=== PATIENT | female | born 1970 | race Caucasian/White ===

== ENCOUNTER 2020-07-12 03:30 | Observation (INO) | payer MEDICARE, SELFPAY ==
[2020-07-12] VITALS (15 sets, daily range): BP systolic 160–199; BP diastolic 69–116; PULSE 70–96; RESP 12–24; TEMP 36.6–36.8; O2SAT 95–100; BMI 36.1
--- NOTE | 2020-07-12 03:42 | XRR_ITS ---
PROCEDURE INFORMATION: Exam: XR Chest Exam date and time: 07/12/2020 4:00 AM Age: 50 years old Clinical indication: Shortness of breath; Patient HX: Increased SOB, fluid/weight gain TECHNIQUE: Imaging protocol: XR of the chest. Views: 1 view. COMPARISON: No relevant prior studies available. FINDINGS: Lungs: central pulmonary vasculature prominent and indistinct. Mild airspace consolidation within the lung bases left greater than right. Pleural spaces: Small subpulmonic effusions Heart/Mediastinum: cardiac silhouette enlarged. Bones/joints: Unremarkable. XR/XR chest 1V portable [id number] IMPRESSION: Mild edema with mild basilar consolidation and small subpulmonic effusions left greater than right.
[2020-07-12 03:51] LABS: Basophils # 0.1 10^3/uL (0.0-0.1); Basophils % 0.7 %; Eosinophils # 0.4 10^3/uL (0.0-0.8); Eosinophils % 4.7 %; Hematocrit 37.1 % (37.0-47.0); Hemoglobin 11.7 g/dL (11.5-15.3); Lymphocytes # 2.2 10^3/uL (0.8-4.8); Lymphocytes % 25.7 %; Mean Corpuscular HGB Conc 31.5 g/dL (30.0-36.0); Mean Corpuscular Hemoglobin 28.5 pg (28.0-34.0); Mean Corpuscular Volume 90.5 fL (81-99); Mean Platelet Volume 10.1 fL (7.4-10.4); Monocytes # 0.4 10^3/uL (0.2-0.9); Monocytes % 4.7 %; Neutrophils # 5.43 10^3/uL (1.8-7.7); Neutrophils % 63.8 %; Nucleated Red Blood Cells % 0 %; Platelet Count 176 10^3/cmm (130-400); Red Cell Distribution Width 14.1 % (12.1-15.1); White Blood Count 8.5 10^3/uL (4.0-10.0)
[2020-07-12 04:08] LABS: Troponin(5th) Baseline 50 ng/L (0-10)
[2020-07-12 04:08] LABS: Lactate (Lactic Acid level) 0.8 mmol/L (0.5-2.2)
[2020-07-12 04:17] LABS: Alanine Aminotransferase 22 U/L (0-33); Albumin Level 4.5 g/dL (3.5-5.2); Alkaline Phosphatase 150 IU/L (35-105); Anion Gap 22.4 (5-19); Aspartate Amino Transferase 17 U/L (0-32); Blood Urea Nitrogen 71 mg/dL (6-20); C Reactive Protein 2.7 mg/L (0.0-4.9); Calcium 8.7 mg/dL (8.5-10.5); Carbon Dioxide 23 mmol/L (22-29); Chloride 92 mmol/L (98-107); Globulin 2.5 g/dL (1.3-4.6); Glomerular Filtration Rate 5.4 mL/min (90-130); Glucose 373 mg/dL (65-115); Magnesium 2.4 mg/dL (1.7-2.3); NT Pro B Type Natriuretic Pept 23105 pg/mL (0-125); Osmolality Calculated 310 mOsm/kg (285-295); Potassium 5.4 mmol/L (3.5-5.1); Sodium 132 mmol/L (136-145); Total Bilirubin 0.3 mg/dL (0.15-1.2)
[2020-07-12 04:36] LABS: ABG PCO2 36.8 mmHg (35-45); ABG PH Result 7.38 (7.35-7.45); Arterial Blood Gas Hematocrit 36.9 % (37-47); Base Excess ABG -2.9 mmol/L (-2.0-2.0); Blood Gas Allen Test Pos; Blood Gas Sample Site Brachial, right; Blood Gas Sample Type Arterial; HCO3 ABG 21.8 mmol/L (22-26); Oxygen Device BIPAP
[2020-07-12] MEDS: labetalol 5 mg/mL SDV 20mL 20 MG IVP (04:55)
[2020-07-12] MEDS: nitroglycerin 1 gm/inch oint Pkt 2 INCH TOPICAL (04:55)
[2020-07-12 05:35] LABS: Troponin 5 2HR 68.11 ng/L (0-10)
[2020-07-12 05:37] LABS: Troponin 5 2HR Delta 18.11 ABS# (0-10)
--- NOTE | 2020-07-12 05:43 | ECG_ITS ---
[facility] Test Date: 2020-07-12 Pat Name: Kristan Reddy Department: Room: 111 Gender: Female Revenue Cycle Consultant: : 1970 Requested By: Anthony Holbrook Order Number: [id number] Stepan MD: Yahaira Contreras M.D. Measurements Intervals [place] Rate: 69 P: 29 GA: 160 QRS: 43 QRSD: 91 T: 117 QT: 416 QTc: 448 Interpretive Statements SINUS RHYTHM NONSPECIFIC T-WAVE ABNORMALITY Compared to ECG 07/12/2020 03:55:39 Possible ischemia no longer present T-wave abnormality still present Electronically Signed On 07-13-2020 17:41:47 CDT by Yahaira Contreras M.D. [id number]
--- NOTE | 2020-07-12 05:53 | P.HP_ITS ---
Providers/Chief Complaint Chief Complaint: diff breathing History of Present Illness Kristan Reddy is a 50 year old female with history of end-stage renal disease (Sunday left arm fistula), hypertension, type 2 diabetes, coronary disease status post 2 stents, visiting her family here in [place], originally from [place] presented today with chief complaint of acute shortness of breath. She gets dialyzed at [facility] on Sunday, Sunday & Sunday, she did not miss any dialysis sessions, she was in her usual state of health until 10 PM last night when she started having severe shortness of breath at rest, she did not experience any fever, productive cough, nausea, vomiting, syncopal events. Her shortness of breath was acute in onset, associated with pleuritic chest pain which was getting worse on deep breathing, she is describing her chest pain as pressure-like sensation, intermittent, nonradiating, left-sided, nonreproducible. She does not use any oxygen at home no CPAP, no previous history of sleep apnea. Diagnostics in the ER revealed hypertensive urgency, 200/100 mmHg for which she required labetalol, Nitropaste, no active chest pain, on arrival she was hypoxic and tachycardic heart rate in 120s, both improved after use of BiPAP, chest x-ra y consistent with fluid overload, patient stating she was tested twice for Covid 19 last week which was negative. Her ABG was obtained on BiPAP which revealed normal pH with hyperoxemia, BiPAP settings 16/8 FiO2 40%, she was able to mention above HPI, EKG showing sinus rhythm normal QTC Review of Systems Const: Denies: fever(s) Eyes: Denies: change in vision ENMT: Denies: throat pain Card: Reports: chest pain, swelling of feet/ankles, dyspnea on exertion and orthopnea Resp: Reports: dyspnea and pain on inspiration; Denies: non-productive cough GI: Denies: abdominal pain : Denies: flank pain Musc: Denies: neck pain Skin/Breast: Denies: rash Neuro: Denies: headache(s) Psych: Reports: anxiety Endo: Denies: polyuria Jacek/Lymph: Denies: easy bruising All/Imm: Denies: urticaria Medications/Allergies Allergies Allergy/AdvReac Type Severity Reaction Status Date / Time morphine Allergy ADR-Itching Verified 07/12/20 03:41 Penicillins Allergy ALGY-Anaphy Verified 07/12/20 03:41 laxis PFSH Acute PFSH: Medical History AV fistula CAD (coronary artery disease) s/p 2 stents Diabetes ESRD (end stage renal disease) HTN (hypertension) Ventral hernia, recurrent Surgical History H/O hernia repair 12 surgeries History of hysterectomy Tubal ligation status Family History Other CAD (coronary artery disease) Chronic kidney disease (CKD) Diabetes Hypertension Social History Smoking and tobacco status: former smoker Alcohol intake: never Substance/Drug Use: never Household members: family Housing: House Vitals/I&O/Wt Last Vital Signs Temp 97.9 F 07/12/20 03:30 Pulse 84 07/12/20 03:47 Resp 22 H 07/12/20 03:47 BP 190/102 07/12/20 03:47 Pulse Ox 99 07/12/20 03:47 Weight last 48 hrs Weight 75.75 kg Physical Exam Narrative: EXAM NARRATIVE: Morbidly obese female, was on BiPAP when I entered the room She was able to mention above HPI Awake alert oriented x3, appears stated age, signs of active fluid overload No active cyanosis BiPAP settings 16/8 FiO2 40% Blood pressure 190/102mmhg She has Nitropaste Left arm fistula with no bruit S1, S2 sinus rhythm no murmur appreciated Abdomen is soft nontender however ventral hernia without active signs of p eritonitis Lower extremity 1+ pitting edema bilaterally Bilateral breath sounds, with crackles and rhonchi Appropriate mood and affect EOMI, PERRLA no neurological deficit Data : 07/12/20 03:20 07/12/20 03:20 A&P Assessment and plan (1) Acute respiratory failure with hypoxia: Status: Acute (2) Fluid overload: Status: Acute (3) ESRD (end stage renal disease): Status: Acute (4) Obesity (BMI 30-39.9): Status: Acute (5) Hypertensive emergency: Status: Acute Additional A&P Information Acute hypoxic respiratory failure Acute shortness of breath secondary to fluid overload Patient complaint of left-sided pleuritic chest pain as well EKG without ischemic or infarctive changes, currently chest pain-free, hypertensive, signs of fluid overload on chest x-ray, pulmonary edema We will request serial troponin and EKGs I do believe her primary edema is secondary to hypertensive emergency, she did not miss any dialysis sessions I would start her on Cardene drip, at home she takes 5 antihypertensive agents including clonidine Check D-dimer to rule out PE Her Covid test was negative twice in last week Currently doing well on BiPAP, her work of breathing has decreased significantly End-stage renal disease Telemetry nephro consulted Sunday, Sunday and Sunday hemodialysis sessions Potassium 5.4, phosphorus 8 Clinical signs of fluid overload Pleuritic chest pain Currently chest pain-free History of coronary disease status post 2 stents in the past EKG without ischemic or infarctive changes Follow-up with serial troponin and EKGs Rule out PE Morbid obesity Does not use CPAP or oxygen at night Might benefit from sleep study in [place] Type 2 diabetes: We will keep her on consistent carb renal dialysis diet with moderate sliding scale Full code goals of care discussed with the patient and the daughter, her daughter is her DPOA Consistent carb renal dialysis diet DVT prophylaxis Heparin Attestations Medical Necessity Statement*: Anticipating discharge in less than 48 hours currently on BiPAP for shortness of breath, will need dialysis today Time Spent in Patient Care: (>than 50% of time spent in counselling and/or direct pt care on unit) . 40mins Coding Level of Care Code Acute Mine Supervisor for Kuldip Velarde Diagnoses Acute respiratory failure with hypoxia J96.01 Fluid overload E87.70 ESRD (end stage renal disease) N18.6 Obesity (BMI 30-39.9) E66.9 Hypertensive emergency I16.1
--- NOTE | 2020-07-12 06:02 | ED_ITS ---
HPI - SOB/Dyspnea General: Chief Complaint: Shortness of Breath/Dyspnea Stated Complaint: diff breathing Time Seen by Provider: 07/12/20 03:38 History of Present Illness: HPI Narrative: 50-year-old lady with end-stage renal disease on dialysis. Her dialysis days Sunday. She awoke suddenly this morning incredibly short of breath. On EMS arrival, her sats were in the mid 70s on pulse ox. She was placed on BiPAP. She presents here improved, but still short of breath. She notes she has gained some water weight over the weekend. Her blood pressure has been high as well. She complains of some left-sided chest discomfort. MD elicited complaint: shortness of breath and chest pain Pertinent past history: congestive heart failure and other (End-stage renal disease) Onset (ago): minute(s) Timing: constant and progressively worsening Severity: severe Exacerbating factors: lying flat, exertion and movement Relieving factors: oxygen Known history of: congestive heart failure and other Associated symptoms: Reports chest pain, cough and nausea; Deny abdominal pain, dizziness, extremity pain, fever(s), rash or vomiting Treatment prior to arrival: oxygen (BiPAP), bronchodilator and nitroglycerin Review of Systems Const: Denies: fever(s) Eyes: Denies: change in vision ENMT: Denies: odynophagia or sinus pain Card: Reports: chest pain Resp: Reports: dyspnea and non-productive cough; Denies: productive cough or wheezing GI: Reports: nausea; Denies: abdominal pain or vomiting : Denies: dysuria or hematuria Musc: Denies: extremity pain Skin/Breast: Denies: rash or erythema Neuro: Denies: headache(s), dizziness or vertigo Psych: Denies: anxiety Physical Exam Const: GENERAL APPEARANCE: cooperative, ill appearing and frail appearing ORIENTATION/CONSCIOUSNESS: Yes oriented to person, Yes oriented to place and Yes oriented to time HENMT: COMMON NORMALS: normocephalic, external ears normal and Normal external nose present HEAD & SCALP: normocephalic FACE & SINUS: normal facial exam NOSE: Normal external nose present EXTERNAL EAR: Yes external ears normal MOUTH: tongue normal Eye: COMMON NORMALS: Equal, round and reactive pupils present, EOMs intact bilaterally and conjunctivae normal EYELID: eyelids normal CONJUNCTIVA: Yes conjunctivae normal PUPIL: Yes Equal, round and reactive pupils present Neck/C-Spine: GENERAL: No tracheal deviation Chest: COMMONS NORMALS: normal inspection of the chest CHEST: No tenderness Resp: COMMON NORMALS: clear to auscultation bilaterally EFFORT & INSPECTION: Yes tachypneic, Yes respiratory distress, Yes retractions, Yes uses accessory muscles and No tracheal deviation AUSCULTATION: clear to auscultation bilaterally, rales, no rhonchi, wheezes and diminished lung sounds Cardio: COMMON NORMALS: regular rhythm RATE: tachycardic RHYTHM: regular rhythm HEART SOUNDS: no murmurs PERIPHERAL PULSES: radial pulses present GI: INSPECTION: No abdominal distension AUSCULTATION: No Hyperactive bowel sounds present and No Hypoactive bowel sounds present PALPATION: No Guarding due to palpation present (GI) and No Rigid due to palpation PERCUSSION: no dullness to percussion and no tympanic to percussion Neuro: SENSORIUM/ORIENTATION: Yes oriented to person, Yes oriented to place and Yes oriented to time Psych: COMMON NORMALS: mental status grossly normal Skin: COMMON NORMALS: no rashes or lesions noted GENERAL SKIN EXAM: no rashes or lesions noted Course Consultations: Consultation #1: dona Vital Signs: Vital signs: Vital Signs Temperature 97.9 F 07/12/20 03:30 Pulse Rate 84 07/12/20 03:47 Respiratory Rate 22 H 07/12/20 03:47 Blood Pressure 190/102 07/12/20 03:47 Pulse Oximetry 99 07/12/20 03:47 MDM - SOB/Dyspnea MDM Narrative: Medical decision making narrative: Creatinine is 7.9. BUN is 71. Potassium is 5.4 chest x-rays shows pulmonary edema she is oxygenating well on the BiPAP. 2 inches of nitroglycerin paste placed on her chest, with reduction of her blood pressure from over 200 systolic to down to 166 systolic. Heart rate down in the 60s from 100s. This is after labetalol. She will be admitted for hypoxic respiratory failure, pulmonary edema, end-stage renal disease. Lab Data: Labs: Lab Results 07/12/20 07/12/20 07/12/20 Range/Units 03:20 03:20 03:20 WBC 8.5 (4.0-10.0) 10^3/ uL RBC 4.10 (4.1-5.3) 10^6/u L Hgb 11.7 (11.5-15.3) g/dL Hct 37.1 (37.0-47.0) % MCV 90.5 (81-99) fL MCH 28.5 (28.0-34.0) pg MCHC 31.5 (30.0-36.0) g/dL RDW 14.1 (12.1-15.1) % Plt Count 176 (130-400) 10^3/c mm MPV 10.1 (7.4-10.4) fL Neut % (Auto) 63.8 % Lymph % (Auto) 25.7 % Rock % (Auto) 4.7 % Eos % (Auto) 4.7 % Baso % (Auto) 0.7 % Neut # (Auto) 5.43 (1.8-7.7) 10^3/u L Lymph # (Auto) 2.2 (0.8-4.8) 10^3/u L Rock # (Auto) 0.4 (0.2-0.9) 10^3/u L Eos # (Auto) 0.4 (0.0-0.8) 10^3/u L Baso # (Auto) 0.1 (0.0-0.1) 10^3/u L Nucleated RBC % (a uto) 0 % Nucleated RBCs # 0.0 /100WBC Specimen Type Sample Site ABG pH (7.35-7.45) ABG pCO2 (35-45) mmHg ABG pO2 (80.0-100.0) mmH g ABG HCO3 (22-26) mmol/L ABG Base Excess (-2.0-2.0) mmol/ L Henrry Test Hematocrit (37-47) % O2 Delivery Device FiO2 % Emissions Testing Technician ID Sodium 132 L (136-145) mmol/L Potassium 5.4 H (3.5-5.1) mmol/L Chloride 92 L (98-107) mmol/L Carbon Dioxide 23 (22-29) mmol/L Anion Gap 22.4 H (5-19) BUN 71 H (6-20) mg/dL Creatinine 7.9 H* (0.5-0.9) mg/dL GFR Calculation 5.4 L (90-130) mL/min Glucose 373 H (65-115) mg/dL Calculated Osmolal ity 310 H (285-295) mOsm/k g Lactate (0.5-2.2) mmol/L Calcium 8.7 (8.5-10.5) mg/dL Phosphorus 8.0 H* (2.5-4.5) mg/dL Magnesium 2.4 H (1.7-2.3) mg/dL Total Bilirubin 0.3 (0.15-1.2) mg/dL AST 17 (0-32) U/L ALT 22 (0-33) U/L Alkaline Phosphata se 150 H (35-105) IU/L Troponin T Baselin e 50 H (0-10) ng/L Troponin T 120 Min elim ira (0-10) ng/L Delta Troponin T (0-10) ABS# C-Reactive Protein 2.7 (0.0-4.9) mg/L NT-Pro-B Natriuret Pep 25651 H (0-125) pg/mL Total Protein 7.0 (6.6-8.7) g/dL Albumin 4.5 (3.5-5.2) g/dL Globulin 2.5 (1.3-4.6) g/dL 07/12/20 07/12/20 07/12/20 Range/Units 03:27 03:35 05:10 WBC (4.0-10.0) 10^3/ uL RBC (4.1-5.3) 10^6/u L Hgb (11.5-15.3) g/dL Hct (37.0-47.0) % MCV (81-99) fL MCH (28.0-34.0) pg MCHC (30.0-36.0) g/dL RDW (12.1-15.1) % Plt Count (130-400) 10^3/c mm MPV (7.4-10.4) fL Neut % (Auto) % Lymph % (Auto) % Rock % (Auto) % Eos % (Auto) % Baso % (Auto) % Neut # (Auto) (1.8-7.7) 10^3/u L Lymph # (Auto) (0.8-4.8) 10^3/u L Rock # (Auto) (0.2-0.9) 10^3/u L Eos # (Auto) (0.0-0.8) 10^3/u L Baso # (Auto) (0.0-0.1) 10^3/u L Nucleated RBC % (a uto) % Nucleated RBCs # /100WBC Specimen Type Arterial Sample Site Brachial, right ABG pH 7.38 (7.35-7.45) ABG pCO2 36.8 (35-45) mmHg ABG pO2 158.0 H (80.0-100.0) mmH g ABG HCO3 21.8 L (22-26) mmol/L ABG Base Excess -2.9 L (-2.0-2.0) mmol/ L Henrry Test Pos Hematocrit 36.9 L (37-47) % O2 Delivery Device Bipap FiO2 40.0 % Emissions Testing Technician ID jmn Sodium (136-145) mmol/L Potassium (3.5-5.1) mmol/L Chloride (98-107) mmol/L Carbon Dioxide (22-29) mmol/L Anion Gap (5-19) BUN (6-20) mg/dL Creatinine (0.5-0.9) mg/dL GFR Calculation (90-130) mL/min Glucose (65-115) mg/dL Calculated Osmolal ity (285-295) mOsm/k g Lactate 0.8 (0.5-2.2) mmol/L Calcium (8.5-10.5) mg/dL Phosphorus (2.5-4.5) mg/dL Magnesium (1.7-2.3) mg/dL Total Bilirubin (0.15-1.2) mg/dL AST (0-32) U/L ALT (0-33) U/L Alkaline Phosphata se (35-105) IU/L Troponin T Baselin e (0-10) ng/L Troponin T 120 Min elim ira 68.11 H (0-10) ng/L Delta Troponin T 18.11 H* (0-10) ABS# C-Reactive Protein (0.0-4.9) mg/L NT-Pro-B Natriuret Pep (0-125) pg/mL Total Protein (6.6-8.7) g/dL Albumin (3.5-5.2) g/dL Globulin (1.3-4.6) g/dL Coding Level of Care Code ED Sr. Logistics Analyst for Kuldip Velarde
[2020-07-12 07:16] LABS: D Dimer 1.49 ug/mIFEU (0-0.59)
--- NOTE | 2020-07-12 08:15 | PC.NURSE ---
Pt transferred from ED to room 111-1. Pt A&O x4, Resp even and non-labored no distress noted. Pt had no c/o pain or discomfort at the present time. No needs voiced. Call light in reach. Will cont to monitor.
[2020-07-12 09:13] LABS: Estmated Average Glucose 229; Hemoglobin A1C 9.6 % (4.0-6.0)
[2020-07-12 09:23] LABS: Hepatitis B Surface Antigen Non-Reactive (Nonreactive); Hepatitis C Virus Antibody Non-Reactive (Nonreactive)
[2020-07-12 09:38] LABS: Troponin 5 6HR 67.43 ng/L (0-10)
[2020-07-12] MEDS: losartan 50 mg Tablet 100 MG PO (09:43)
--- NOTE | 2020-07-12 09:43 | ECG_ITS ---
[facility] Test Date: 2020-07-12 Pat Name: Kristan Reddy Department: Room: Gender: Female Tarper: : 1970 Requested By: Anthony Holbrook Order Number: [id number] Stepan MD: Yahaira Contreras M.D. Measurements Intervals [place] Rate: 78 P: 19 WA: 146 QRS: 44 QRSD: 99 T: 112 QT: 366 QTc: 419 Interpretive Statements SINUS RHYTHM LOW QRS VOLTAGE IN PRECORDIAL LEADS [QRS DEFLECTION < 1.0 mV IN CHEST LEADS] MODERATE T-WAVE ABNORMALITY, CONSIDER LATERAL ISCHEMIA [-0.1+ mV T WAVE IN I/aVL/V5/V6] No previous ECG available for comparison Electronically Signed On 07-13-2020 17:42:30 CDT by Yahaira Contreras M.D. [id number]
[2020-07-12] MEDS: FUROsemide 40 mg Tablet 80 MG PO (09:44)
[2020-07-12] MEDS: clopidogrel 75 mg Tablet PO (09:44)
[2020-07-12] MEDS: carvedilol 12.5 mg Tablet PO (09:44)
[2020-07-12] MEDS: amlodipine 10 mg Tablet PO (09:44)
[2020-07-12] MEDS: isosorbide mononitrate ER 60 mg Tablet PO (09:44)
[2020-07-12] MEDS: heparin 5,000 unit/mL INJ 1 mL 5000 UNIT SUBCUT ×2 (09:45→17:09)
[2020-07-12 09:59] LABS: Troponin 5 6HR Delta 17.43 ng/L (0-12)
[2020-07-12 10:00] LABS: Glucose Point of Care 428 mg/dL (70-110)
[2020-07-12 10:00] LABS: Glucose Point of Care 505 mg/dL (70-110)
[2020-07-12] MEDS: heparin, porcine 1,000 unit/mL INJ 10 mL HE (10:03)
--- NOTE | 2020-07-12 12:52 | PM.CONSULT ---
Providers/Reason For Consult Consulting Physican/Specialty*: Ana Hernandez DO, telenephrology Reason for Consult*: ESRD Attending Physician: Yana Falcon MD History of Present Illness History of Present Illness Kristan Reddy is a 50 year old [place] developed acute shortness of breath last evening. ESRD, on HD x 6 years, dialyzes MWF. Reports excess salt and fluid intake over weekend. Reports CAD with stent placement in February. Review of Systems Card: Denies: chest pain Resp: Reports: dyspnea Meds/Allergies Home Medications and Allergies Home Medications Medication Instructions Recorded Confirmed Last Taken Type alprazolam [Xanax] 0.25 mg PO BID 07/12/20 07/12/20 07/11/20 22:00 History amlodipine 10 mg PO DAILY 07/12/20 07/12/20 07/11/20 09:00 History carvedilol [Coreg] 12.5 mg PO BID 07/12/20 07/12/20 07/11/20 22:00 History clonidine HCl 0.1 mg PO BID PRN 07/12/20 07/12/20 07/11/20 22:00 History clopidogrel 75 mg PO DAILY 07/12/20 07/12/20 07/11/20 09:00 History furosemide 80 mg PO DAILY 07/12/20 07/12/20 07/11/20 09:00 History insulin detemir U-100 [Levemir 60 unit SUBCUT BID 07/12/20 07/12/20 07/09/20 19:00 History FlexTouch U-100 Insuln] isosorbide mononitrate 20 mg PO DAILY 07/12/20 07/12/20 07/11/20 09:00 History losartan [Cozaar] 100 mg PO DAILY 07/12/20 07/12/20 07/11/20 09:00 History sevelamer carbonate 800 mg PO TIDWM 07/12/20 07/12/20 07/12/20 08:00 History Allergies Allergy/AdvReac Type Severity Reaction Status Date / Time morphine Allergy ADR-Itching Verified 07/12/20 03:41 Penicillins Allergy ALGY-Anaphy Verified 07/12/20 03:41 laxis Current Medications Current Medications Generic Name Dose Route Start Last Admin Trade Name Freq PRN Reason Stop Dose Admin Amlodipine Besylate 10 mg 07/12/20 09:00 07/12/20 09:44 Amlodipine 10 Mg Tablet PO 10 mg DAILY J LUIS Administration Carvedilol 12.5 mg 07/12/20 09:00 07/12/20 09:44 Carvedilol 12.5 Mg Tablet PO 12.5 mg BID@0900,2100 J LUIS Administration Clopidogrel Bisulfate 75 mg 07/12/20 09:00 07/12/20 09:44 Clopidogrel 75 Mg Tablet PO 75 mg DAILY J LUIS Administration Furosemide 80 mg 07/12/20 08:00 07/12/20 09:44 Furosemide 40 Mg Tablet PO 80 mg DAILY@0800 J LUIS Administration Heparin Sodium (Beef Lung) 5,000 unit 07/12/20 09:00 07/12/20 09:45 Heparin 5,000 Unit/Ml Inj 1 Ml SUBCUT 5,000 unit Q8H J LUIS Administration Insulin Aspart 0 unit 07/12/20 08:00 07/12/20 09:58 Insulin Aspart 100 Unit/1 Ml SUBCUT 16 unit WM&BEDTIME J LUIS Administration Protocol Isosorbide Mononitrate 60 mg 07/12/20 09:00 07/12/20 09:44 Isosorbide Mononitrate Er 60 Mg Tablet PO 60 mg DAILY J LUIS Administration Losartan Potassium 100 mg 07/12/20 09:00 07/12/20 09:43 Losartan 50 Mg Tablet PO 100 mg DAILY J LUIS Administration PFSH Acute PFSH: Medical History AV fistula CAD (coronary artery disease) s/p 2 stents Diabetes ESRD (end stage renal disease) HTN (hypertension) Ventral hernia, recurrent Surgical History H/O hernia repair 12 surgeries History of hysterectomy Tubal ligation status Family History Other CAD (coronary artery disease) Chronic kidney disease (CKD) Diabetes Hypertension Social History Smoking and tobacco status: former smoker Alcohol intake: never Substance/Drug Use: never Household members: family Housing: House Vitals/I&O/Wt Last Vital Signs Temp 97.9 F 07/12/20 03:30 Pulse 75 07/12/20 07:42 Resp 24 H 05/10/21 07:18 BP 160/69 07/12/20 09:43 Pulse Ox 97 07/12/20 07:42 Weight last 48 hrs Weight 75.75 kg Physical Exam Const: COMMON NORMALS: no acute distress GENERAL APPEARANCE: cooperative ORIENTATION/CONSCIOUSNESS: Yes awake Extremity: GENERAL: Yes edema (1+ bilateral) OTHER: LUE AVF Data Imaging^: CXR: Radiologist's impression: Mild edema with mild basilar consolidation and small subpulmonic effusions left greater than right. A&P Additional A&P Information 1. ESRD 2. Pulmonary edema 3. Severe hypertension 4. Mild hypervolemic hyponatremia 5. Mild hyperkalemia Recommend: HD today, 2K, 3 L UF. No BPs, blood draws, IVs left arm. Continue outpatient hypertension medications, carvedilol can be increased to 25 mg BID. Restrict sodium and fluids. Low K diet. Will assess again tomorrow if extra HD session is neded. Consult Attestations Medical Necessity Statement: see above Time Spent in Patient Care: 16 - 35 minutes Coding Level of Care Code Acute Numerical Control Machine Operator for Kuldip Fwd Exam Expanded Problem Focused
[2020-07-12 16:59] LABS: Glucose Point of Care 296 mg/dL (70-110)
[2020-07-12] MEDS: cloNIDine 0.1 mg Tablet PO ×2 (17:11→23:07)
--- NOTE | 2020-07-12 17:29 | PM.PN ---
Subjective Subjective: Interval history: Chart reviewed. Reports breathing much better today. She does admit to having increased salt intake while she has been here. Her blood pressures are usually high but not as high as they have been this time. Did get dialysis today. Overall improved. Denies current pleuritic chest pain. Reports her dry weight is 78 kg. Medications: Reviewed: Yes Vitals/I&O/Wt Last Vital Signs Temp 97.8 F 07/12/20 16:00 Pulse 70 07/12/20 16:00 Resp 20 H 07/12/20 16:00 BP 197/84 07/12/20 17:11 Pulse Ox 100 07/12/20 16:00 Weight last 48 hrs Weight 75.75 kg Physical Exam Narrative: EXAM NARRATIVE: Constitutional: Awake and alert HEENT: Mucous membranes moist Respiratory: Decreased breath sounds at bases Cardiovascular: Regular rhythm, JVD to around 9 cm Abdomen: Soft, nontender Extremities: Right upper extremity is edematous from shoulder to hand compared to the left, positive thrill in the left upper extremity AV fistula, 2+ pitting edema lower extremities Neuro: Moves all extremities, speech clear Other: No acute rashes Data : 07/12/20 03:20 07/12/20 03:20 A&P Assessment and plan (1) Acute respiratory failure with hypoxia: Status: Acute (2) Fluid overload: Status: Acute Qualifiers: Hypervolemia type: other Qualified Code(s): E87.79 - Other fluid overload (3) Hypertensive emergency: Status: Acute (4) Pleuritic chest pain: Status: Acute (5) ESRD (end stage renal disease): Status: Chronic (6) CAD (coronary artery disease): Status: Chronic Qualifiers: Coronary Disease-Associated Artery/Lesion type: bypass graft [place] vs. transplanted heart: hughes heart Associated angina: without angina Qualified Code(s): I25.810 - Atherosclerosis of coronary artery bypass graft(s) without angina pectoris (7) Diabetes: Status: Chronic Qualifiers: Diabetes mellitus type: type 2 Diabetes mellitus senior living insulin use: without senior living use Diabetes mellitus complication status: with kidney complications Diabetes mellitus complication detail: with chronic kidney disease Chronic kidney disease stage: on chronic dialysis Qualified Code(s): E11.22 - Type 2 diabetes mellitus with diabetic chronic kidney disease; N18.6 - End stage renal disease; Z99.2 - Dependence on renal dialysis Additional A&P Information Elevated D-dimer Right upper extremity edema Check right upper extremity venous duplex On subcu heparin Continue diuresis, BiPAP as needed Room air ABG Check echocardiogram limited to evaluate right ventricular pressures in the setting of the elevated D-dimer Resume alprazolam Carvedilol dosing increased Primary agriculture professor in [place] recently adjusted beta-blockade coverage and added clonidine per patient Greatly appreciate nephrology assistance in case Sliding scale insulin DVT prophylaxis: Heparin Plans, findings and concerns discussed with patient in the presence of her family and they were given an opportunity to ask questions Anticipated Disposition: Home with family Code Status: Full code Attestations Medical Necessity Statement*: Patient requires ongoing inpatient stay for continued management as described above for hypertensive urgency and other diagnoses mentioned. Adjusting blood pressure medications, status post diuresis, evaluating further upper extremity edema and elevated D-dimer Coding Level of Care Code Acute Stucco Mason for Chg Fwd Diagnoses Acute respiratory failure with hypoxia J96.01 Fluid overload E87.79 Hypervolemia type: other Hypertensive emergency I16.1 Pleuritic chest pain R07.81 ESRD (end stage renal disease) N18.6 CAD (coronary artery disease) I25.810 Coronary Disease-Associated Artery/Lesion type: bypass graft [place] vs. transplanted heart: hug[place] heart Associated angina: without angina Diabetes E11.22; N18.6; Z99.2 Diabetes mellitus type: type 2 Diabetes mellitus senior living insulin use: without tank terminal gauger use Diabetes mellitus complication status: with kidney complications Diabetes mellitus complication detail: with chronic kidney disease Chronic kidney disease stage: on chronic dialysis
[2020-07-12] MEDS: sevelamer 800 mg Tablet PO (17:39)
[2020-07-12] MEDS: acetaminophen 325 mg Tablet 650 MG PO (17:40)
[2020-07-12] MEDS: ALPRAZolam 0.25 mg Tablet PO (17:41)
[2020-07-12 20:16] LABS: Glucose Point of Care 317 mg/dL (70-110)
[2020-07-12] MEDS: insulin glargine 100 units/1 mL 40 UNIT SUBCUT (20:41)
[2020-07-12] MEDS: carvedilol 12.5 mg Tablet 25 MG PO (20:42)
[2020-07-13] VITALS (9 sets, daily range): BP systolic 113–192; BP diastolic 52–93; PULSE 71–77; RESP 13–24; TEMP 36.6–37; O2SAT 96–100
[2020-07-13] MEDS: heparin 5,000 unit/mL INJ 1 mL 5000 UNIT SUBCUT ×2 (01:23→10:30)
[2020-07-13] MEDS: cloNIDine 0.1 mg Tablet PO (02:18)
--- NOTE | 2020-07-13 02:35 | PC.NURSE ---
NURSING NOTE: NOTIFIED DR. QUICK OF PT'S ELEVATED BP. RECEIVED ORDERS TO GIVE EXTRA CLONIPIN NOW.
--- NOTE | 2020-07-13 05:00 | USCV_ITS ---
Kristan Reddy Age: 50 Gender: F : 1970 Exam Date: 07/13/2020 06:12 Ordering Phys: Yana Falcon MD Technologist: Mckayla Miranda Exam Location: [facility]_ Indication: RUE SWELLING HISTORY: Upper extremity swelling. PROCEDURES: Venous duplex imaging was performed in bilateral upper extremities. Venous duplex imaging was performed in only the right upper extremity. The following venous structures were evaluated: internal jugular vein, subclavian vein, axillary vein, and brachial veins. In addition, the basilic vein, cephalic vein, radial vein, and ulnar vein. Serial compression, augmentation maneuvers, and spectral Doppler flow evaluation were performed. FINDINGS: The veins of the right upper extremity are readily compressible with normal venous flow dynamics including spontaneous flow, respiratory phasic variation and augmentation. CONCLUSIONS No right upper extremity DVT. Dr. Kavya Engle DO (Electronically Signed) Final Date: 13 Jul 2020 08:11 Amended: 14 Jul 2020 13:22 C
[2020-07-13 05:07] LABS: Anion Gap 18.8 (5-19); Blood Urea Nitrogen 51 mg/dL (6-20); Calcium 9.1 mg/dL (8.5-10.5); Carbon Dioxide 25 mmol/L (22-29); Chloride 95 mmol/L (98-107); Glomerular Filtration Rate 6.3 mL/min (90-130); Glucose 106 mg/dL (65-115); Osmolality Calculated 290 mOsm/kg (285-295); Potassium 5.8 mmol/L (3.5-5.1); Sodium 133 mmol/L (136-145)
--- NOTE | 2020-07-13 05:57 | PC.RESP ---
Pt states that she does not want to be stuck for any type of blood draw at this time. Pt also refused to wear the bipap machine last night. This RT will pass this along during report at shift change.
[2020-07-13 06:55] LABS: Glucose Point of Care 109 mg/dL (70-110)
[2020-07-13] MEDS: losartan 50 mg Tablet 100 MG PO (10:30)
[2020-07-13] MEDS: isosorbide mononitrate ER 60 mg Tablet PO (10:34)
[2020-07-13] MEDS: amlodipine 10 mg Tablet PO (10:34)
[2020-07-13] MEDS: clopidogrel 75 mg Tablet PO (10:35)
[2020-07-13] MEDS: FUROsemide 40 mg Tablet 80 MG PO (10:35)
[2020-07-13] MEDS: sevelamer 800 mg Tablet PO ×2 (10:36→12:14)
[2020-07-13] MEDS: carvedilol 12.5 mg Tablet 25 MG PO (10:36)
[2020-07-13 11:44] LABS: Glucose Point of Care 212 mg/dL (70-110)
--- NOTE | 2020-07-13 12:28 | PM.DCS ---
Discharge Providers Date of Admission: 07/12/20 06:01 Date of Discharge: July 13, 2020 Attending Provider at Admission: Daniel Hughes MD Attending Provider at Discharge: Yana Falcon MD Consults: Nephrology Diagnoses at Discharge Discharge Diagnosis (1) Acute respiratory failure with hypoxia: Status: Resolved (2) Fluid overload: Status: Resolved Qualifiers: Hypervolemia type: other Qualified Code(s): E87.79 - Other fluid overload (3) Hypertensive emergency: Status: Resolved (4) Pleuritic chest pain: Status: Resolved (5) ESRD (end stage renal disease): Status: Chronic (6) CAD (coronary artery disease): Status: Chronic Permanent problem details: s/p 2 stents Qualifiers: Associated angina: without angina Coronary Disease-Associated Artery/Lesion type: bypass graft [place] vs. 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 pectoris (7) Diabetes: Status: Chronic Qualifiers: Chronic kidney disease stage: on chronic dialysis Diabetes mellitus complication detail: with chronic kidney disease Diabetes mellitus complication status: with kidney complications Diabetes mellitus intermediate frame tender insulin use: without intermediate frame tender use Diabetes mellitus type: type 2 Qualified Code(s): E11.22 - Type 2 diabetes mellitus with diabetic chronic kidney disease; N18.6 - End stage renal disease; Z99.2 - Dependence on renal dialysis Other Information Additional DC diagnoses/information: Right upper extremity edema with negative venous Doppler of the arm Left upper extremity AV fistula Reason for Visit Reason for Visit: diff breathing Hospital Course Hospital Course Mrs. Reddy presented to the emergency room with difficulty breathing and hypertensive emergency. Blood pressures were 200s over 100s. She received multiple antihypertensive agents and diuretics and was also put on BiPAP. Nephrology was consulted and arrangements were made for early dialysis on her the following day. Symptoms occurred on a Sunday. Her usual dialysis regimen is Mondays, Wednesdays, Fridays. She admitted to increased salt intake from her baseline while here visiting. I suspect that this is probably the driving force between both the more difficult to control than usual blood pressures and volume overload. She required a short 2-hour session of dialysis on Sunday and plan is for her to keep her usually scheduled dialysis on Sunday tomorrow. Carvedilol dosing was increased from 12.5 twice daily to 25 twice daily with improved blood pressure control overall. She did note that her field insurance sales manager recently adjusted her antihypertensives as well. She had some right upper extremity edema and discomfort. Venous duplex did not show any evidence of DVT. Echocardiogram was done but was not back prior to patient leaving. It is back at the time of this dictation and showed ejection fraction at 55% with grade 2 diastolic dysfunction. She had a mildly thickened probably bicuspid aortic valve with mild aortic valve stenosis. Peak velocity was 2.3 m/s, peak gradient was 22 mmHg and mean gradient was 9.4 mmHg. Aortic valve area was 1.9 cm?. Patient is not aware of these findings. After the second episode of dialysis patient was feeling better, blood pressures were improved and she was felt stable for discharge. Recommended that she plan on making her travel day 1 day if possible between her usual dialysis days and have close follow-up with her screen repairer crusher/dialysis clinic and her field insurance sales manager. She was awake and alert. Lungs were clear without any rales rhonchi or wheezes noted. She had a regular rhythm. Right upper extremity remained swollen but was improving. Positive thrill to left upper extremity fistula. Improved edema at both ankles. Discharge Data Data Completed and Pending: Completed Studies During Hospitalization Category Date Time Status XR chest 1V timi ble [id number] Urgent Exams 07/12/20 03:42 [place] [id number] Routin e Ultrasound 07/13/20 05:00 Completed Pending at discharge Category Date Time Status CV echo complete* [id number] Routine Ultrasound 07/13/20 22:23 Taken Laboratory Last Values WBC 8.5 10^3/uL (4.0- 10.0) 07/12/20 03:20 RBC 4.10 10^6/uL (4.1 -5.3) 07/12/20 03:20 Hgb 11.7 g/dL (11.5-1 5.3) 07/12/20 03:20 Hct 37.1 % (37.0-47.0 ) 07/12/20 03:20 MCV 90.5 fL (81-99) 07/12/20 03:20 MCH 28.5 pg (28.0-34. 0) 07/12/20 03:20 MCHC 31.5 g/dL (30.0-3 6.0) 07/12/20 03:20 RDW 14.1 % (12.1-15.1 ) 07/12/20 03:20 Plt Count 176 10^3/cmm (130 -400) 07/12/20 03:20 MPV 10.1 fL (7.4-10.4 ) 07/12/20 03:20 Neut % (Auto) 63.8 % 07/12/20 03:20 Lymph % (Auto) 25.7 % 07/12/20 03:20 [place] % (Auto) 4.7 % 07/12/20 03:20 Eos % (Auto) 4.7 % 07/12/20 03:20 Baso % (Auto) 0.7 % 07/12/20 03:20 Neut # (Auto) 5.43 10^3/uL (1.8 -7.7) 07/12/20 03:20 Lymph # (Auto) 2.2 10^3/uL (0.8- 4.8) 07/12/20 03:20 [place] # (Auto) 0.4 10^3/uL (0.2- 0.9) 07/12/20 03:20 Eos # (Auto) 0.4 10^3/uL (0.0- 0.8) 07/12/20 03:20 Baso # (Auto) 0.1 10^3/uL (0.0- 0.1) 07/12/20 03:20 Nucleated RBC % (a uto) 0 % 07/12/20 03:20 Nucleated RBCs # 0.0 /100WBC 07/12/20 03:20 D-Dimer 1.49 ug/mIFEU (0- 0.59) H 07/12/20 03:20 Specimen Type Arterial 07/12/20 03:27 Sample Site Brachial, right 07/12/20 03:27 ABG pH 7.38 (7.35-7.45) 07/12/20 03:27 ABG pCO2 36.8 mmHg (35-45) 07/12/20 03:27 ABG pO2 158.0 mmHg (80.0- 100.0) H 07/12/20 03:27 ABG HCO3 21.8 mmol/L (22-2 6) L 07/12/20 03:27 ABG Base Excess -2.9 mmol/L (-2.0 -2.0) L 07/12/20 03:27 Henrry Test Pos 07/12/20 03:27 Hematocrit 36.9 % (37-47) L 07/12/20 03:27 O2 Delivery Device Bipap 07/12/20 03:27 FiO2 40.0 % 07/12/20 03:27 Hollow Ware Maker ID [email or web address] 07/12/20 03:27 Sodium 133 mmol/L (136-1 45) L 07/13/20 04:30 Potassium 5.8 mmol/L (3.5-5 .1) H 07/13/20 04:30 Chloride 95 mmol/L (98-107 ) L 07/13/20 04:30 Carbon Dioxide 25 mmol/L (22-29) 07/13/20 04:30 Anion Gap 18.8 (5-19) 07/13/20 04:30 BUN 51 mg/dL (6-20) H 07/13/20 04:30 Creatinine 6.9 mg/dL (0.5-0. 9) H* 07/13/20 04:30 GFR Calculation 6.3 mL/min (90-13 0) L 07/13/20 04:30 Glucose 106 mg/dL (65-115 ) 07/13/20 04:30 POC Glucose 212 mg/dL (70-110 ) H 07/13/20 11:18 Estimat Average Gl ucose 229 07/12/20 03:20 Hemoglobin A1c 9.6 % (4.0-6.0) H 07/12/20 03:20 Calculated Osmolal ity 290 mOsm/kg (285- 295) 07/13/20 04:30 Lactate 0.8 mmol/L (0.5-2 .2) 07/12/20 03:35 Calcium 9.1 mg/dL (8.5-10 .5) 07/13/20 04:30 Phosphorus 8.0 mg/dL (2.5-4. 5) H* 07/12/20 03:20 Magnesium 2.4 mg/dL (1.7-2. 3) H 07/12/20 03:20 Total Bilirubin 0.3 mg/dL (0.15-1 .2) 07/12/20 03:20 AST 17 U/L (0-32) 07/12/20 03:20 ALT 22 U/L (0-33) 07/12/20 03:20 Alkaline Phosphata se 150 IU/L (35-105) H 07/12/20 03:20 Troponin T Baselin e 50 ng/L (0-10) H 07/12/20 03:20 Troponin T 120 Min cher-ae heights 68.11 ng/L (0-10) H 07/12/20 05:10 Delta Troponin T 18.11 ABS# (0-10) H* 07/12/20 05:10 Troponin T Hi Sens 6Hr 67.43 ng/L (0-10) H 07/12/20 09:10 Troponin T Hi Sens 6Hr Delta 17.43 ng/L (0-12) H* 07/12/20 09:10 C-Reactive Protein 2.7 mg/L (0.0-4.9 ) 07/12/20 03:20 NT-Pro-B Natriuret Pep 31941 pg/mL (0-12 5) H 07/12/20 03:20 Total Protein 7.0 g/dL (6.6-8.7 ) 07/12/20 03:20 Albumin 4.5 g/dL (3.5-5.2 ) 07/12/20 03:20 Globulin 2.5 g/dL (1.3-4.6 ) 07/12/20 03:20 Hep Bs Antigen Non-reactive (No nreactive) 07/12/20 05:10 Hepatitis C Antibo dy Non-reactive (No nreactive) 07/12/20 05:10 Imaging^: CXR: Radiologist's impression: FINDINGS: Lungs: central pulmonary vasculature prominent and indistinct. Mild airspace consolidation within the lung bases left greater than right. Pleural spaces: Small subpulmonic effusions Heart/Mediastinum: cardiac silhouette enlarged. Bones/joints: Unremarkable. XR/XR chest 1V portable [id number] IMPRESSION: Mild edema with mild basilar consolidation and small subpulmonic effusions left greater than right. RUE venous duplex: Radiologist's impression: PROCEDURES: Venous duplex imaging was performed in bilateral upper extremities. The following venous structures were evaluated: internal jugular vein, subclavian vein, axillary vein, and brachial veins. In addition, the basilic vein, cephalic vein, radial vein, and ulnar vein. Serial compression, augmentation maneuvers, and spectral Doppler flow evaluation were performed. FINDINGS: The veins of the right upper extremity are readily compressible with normal venous flow dynamics including spontaneous flow, respiratory phasic variation and augmentation. ECHO: Radiologist's impression: 2D ECHO LV Diastolic Diameter PLAX 5.1 cm 4.2 - 5.9 / 3.9 - 5.3 cm LV Systolic Diameter PLAX 3.7 cm IVS Diastolic Thickness 1.0 cm 0.6 - 1.0 / 0.6 - 0.9 cm IVS Systolic Thickness 1.6 cm LVPW Diastolic Thickness 1.1 cm 0.6 - 1.0 / 0.6 - 0.9 cm LVPW Systolic Thickness 2.0 cm LVOT Diameter 2.0 cm LV Ejection Fraction 2D Teich 51.4 % LV Ejection Fraction MOD 2C 59.5 % LV Ejection Fraction 2C AL 60.3 % LA Diameter 4.3 cm LA Width 3.7 cm LA Height 5.4 cm RA Width 4.1 cm RA Height 4.8 cm Aorta at Sinotubular Diameter 2.4 cm M-MODE LV Diastolic Diameter MM 5.0 cm 4.2 - 5.9 / 3.9 - 5.3 cm LV Systolic Diameter MM 3.8 cm LV Ejection Fraction MM Teich 50.2 % IVS Diastolic Thickness MM 1.1 cm 0.6 - 1.0 / 0.6 - 0.9 cm IVS Systolic Thickness MM 1.4 cm LVPW Diastolic Thickness MM 1.7 cm 0.6 - 1.0 / 0.6 - 0.9 cm LVPW Systolic Thickness MM 1.9 cm RV Diastolic Diameter MM 1.7 cm Aortic Annulus Diameter 3.3 cm LA Ao Ratio MM 1.5 MV E Point Septal Separation 1.0 cm DOPPLER AV Peak Velocity 223.3 cm/s LVOT Peak Velocity 119.3 cm/s AV Area Cont Eq vti 1.9 cm squared AV Area Cont Eq pk 1.8 cm squared MV Area PHT 5.0 cm squared Mitral E to A Ratio 1.2 MV E' Velocity 62.0 cm/s Mitral E to MV E' Ratio 17.2 Mitral E to LV E' Lateral Ratio 17.4 Mitral E to LV E' Septal Ratio 16.9 TR Peak Velocity 229.7 cm/s TR Peak Gradient 21.1 mmHg TV Peak E Velocity 72.0 cm/s Right Atrial Pressure 3.0 mmHg Pulmonary Artery Systolic Pressu 24.1 mmHg PV Peak Velocity 101.0 cm/s FINDINGS Left Ventricle Normal left ventricular cavity size, mildly increased left ventricular wall thickness. Low normal left ventricular systolic function. Left ventricular ejection fraction is estimated at 55 %. No regional wall motion abnormalities. Grade II diastolic dysfunction, moderately elevated filling pressures. Right Ventricle Normal right ventricular size and systolic function. Right ventricular systolic pressure 24.1 mmHg. Right Atrium Normal right atrial size. Left Atrium Mildly increased left atrial size. Mitral Valve Mildly thickened mitral valve. No mitral valve stenosis. Trace mitral valve regurgitation. Aortic Valve Mildly thickened probably bicuspid aortic valve. Mild aortic valve stenosis, peak velocity 2.3 m/s, peak gradient 22 mmHg mean gradient 9.4 mmHg, GUY 1.9 cm squared. No aortic valve regurgitation. Tricuspid Valve Structurally normal tricuspid valve. Trace tricuspid valve regurgitation. Pulmonic Valve Structurally normal pulmonic valve. No pulmonary valve stenosis. Pericardium No pericardial effusion. Aorta Normal size aortic root and proximal ascending aorta. Normal- sized inferior vena cava. CONCLUSIONS 1. Normal left ventricular cavity size, mildly increased left ventricular wall thickness. Low normal left ventricular systolic function. Left ventricular ejection fraction is estimated at 55 %. No regional wall motion abnormalities. Grade II diastolic dysfunction, moderately elevated filling pressures. 2. Normal right ventricular size and systolic function. 3. Mildly thickened probably bicuspid aortic valve. Mild aortic valve stenosis, peak velocity 2.3 m/s, peak gradient 22 mmHg mean gradient 9.4 mmHg, GUY 1.9 cm squared. 4. Mildly increased left atrial size. 5. No prior similar studies to compare. Vitals: Last Vital Signs Temp 98.0 F 07/13/20 07:17 Pulse 74 07/13/20 07:41 Resp 16 07/13/20 07:41 BP 146/72 07/13/20 10:30 Pulse Ox 99 07/13/20 07:41 Intial Vital Signs Temp Pulse Resp BP Pulse Ox 97.9 F 95 16 184/116 95 07/12/20 03:30 07/12/20 03:30 07/12/20 03:30 07/12/20 03:30 07/12/20 03:30 Vital Signs last 24 hours Temp Pulse Resp BP Pulse Ox 07/13/20 12:00 98.6 F 71 16 113/76 98 07/13/20 10:30 146/72 07/13/20 07:41 74 16 99 07/13/20 07:17 98.0 F 74 15 151/52 96 07/13/20 04:25 98 F 77 13 136/82 100 07/13/20 04:15 74 24 H 136/82 100 07/13/20 04:00 76 21 H 189/85 100 07/13/20 02:18 192/93 07/12/20 23:32 70 96 07/12/20 23:07 199/89 07/12/20 21:16 98.3 F 80 12 199/75 100 07/12/20 17:11 197/84 07/12/20 16:00 97.8 F 70 20 H 169/91 100 07/12/20 15:19 97.8 F 96 22 H 174/80 100 Discharge Plan Discharge Patient Disposition: Home Condition: Stable Prescriptions: New carvedilol 12.5 mg Tablet 25 mg PO BID@0900,2100 Qty: 60 RF: 0 Continued Xanax 0.25 mg tablet 0.25 mg PO BID RF: 0 Cozaar 100 mg tablet 100 mg PO DAILY RF: 0 clonidine HCl 0.1 mg tablet 0.1 mg PO BID PRN (Reason: Blood Pressure) RF: 0 amlodipine 10 mg tablet 10 mg PO DAILY RF: 0 furosemide 80 mg tablet 80 mg PO DAILY RF: 0 isosorbide mononitrate 20 mg tablet 20 mg PO DAILY RF: 0 clopidogrel 75 mg tablet 75 mg PO DAILY RF: 0 sevelamer carbonate 800 mg tablet 800 mg PO TIDWM RF: 0 Levemir FlexTouch U-100 Insuln 100 unit/mL (3 mL) insulin pen 60 unit SUBCUT BID RF: 0 Discontinued carvedilol [Coreg] 12.5 mg tablet 12.5 mg PO BID RF: 0 Discharge Orders: Discharge Order (Routine); Ordered 07/13/20 Ordered By: Yana Falcon Referrals: DoctorYisel [Other] - 7-10 days ( Call was placed to clinic with the plan to follow up upon return home for usual dialysis and hospital follow up.) Doctor, Humanities Coordinator [Other] - 2 weeks (Call was placed to clinic, [facility] your 6 month check-up to a hospital follow-up. If you haven't heard from them in a reasonable amount of time. Please call ) Patient Instructions: Carvedilol (By mouth), Dialysis Diet (DC), Hypertensive Crisis (DC) Activity Restrictions/Additional Instructions: You presented to the emergency room with difficulty breathing. You were found to have evidence of hypertensive emergency and fluid overload. You were treated with diuretics, multiple antihypertensives and BiPAP therapy. You underwent dialysis the following day. In further discussion it was evident that she had had increased salt intake from baseline. I suspect that this is the driving force behind the abnormalities identified. You required dialysis both on Sunday and Sunday while in the hospital with plan for your usual dialysis on Sunday. Carvedilol dosing was increased from 12.5 twice daily to 25 mg twice daily. Blood pressures were maintained and significantly improved with this. Breathing was better after treatment. You did have an ultrasound of your right upper extremity due to extensive swelling in the arm. This showed no evidence of DVT. Echocardiogram was done while you were here but official report is pending at the time of this dictation. My recommendation is not to leave on Sunday as you had originally planned but get your dialysis here next Sunday with plan to drive back to [place] on Sunday and see your regular dialysis clinic on Sunday next week. Should you have recurrent respiratory distress and other issues in the interim return to the emergency room or urgent care clinic as needed. Discharge Attestations Time Spent in Discharge Care*: greater than 30 min Specific Discharge Activities: educating patient, educating and/or supporting family/caregiver, discussing with pcp/other providers, discussing with case making machine operator/social workers/dc planners, documenting/other paperwork and evaluating patient/reviewing data Status at Discharge: Cognitive status at discharge: cognitively intact, Behavioral status at discharge: cooperative, Functional status at discharge: independent ambulation Overall status at discharge: patient is back to baseline Quality Metrics Clinical Quality Measures During this hospital stay, did patient experience: None Coding Level of Care Code Acute Chg FW DC note Diagnoses Acute respiratory failure with hypoxia J96.01 Fluid overload E87.79 Hypervolemia type: other Hypertensive emergency I16.1 Pleuritic chest pain R07.81 ESRD (end stage renal disease) N18.6 CAD (coronary artery disease) I25.810 Associated angina: without angina Coronary Disease-Associated Artery/Lesion type: bypass graft [place] vs. transplanted heart: [place] heart Diabetes E11.22; N18.6; Z99.2 Chronic kidney disease stage: on chronic dialysis Diabetes mellitus complication detail: with chronic kidney disease Diabetes mellitus complication status: with kidney complications Diabetes mellitus intermediate frame tender insulin use: without intermediate frame tender use Diabetes mellitus type: type 2
--- NOTE | 2020-07-13 13:58 | PM.PN ---
Subjective Subjective: Interval history: No new issues today. She feels much better today after receiving dialysis yesterday. Breathing comfortably on room air. No uremic symptoms. Some mild puffiness in her extremities but no overt edema. Vitals/I&O/Wt Last Vital Signs Temp 98.6 F 07/13/20 12:00 Pulse 71 07/13/20 12:00 Resp 16 07/13/20 12:00 BP 113/76 07/13/20 12:00 Pulse Ox 98 07/13/20 12:00 07/12/20 07/13/20 07/13/20 22:59 06:59 14:59 Intake Total 120 / 120 120 / 240 720 / 720 Output Total 200 / 200 Balance -80 / -80 120 / 40 720 / 720 Weight last 48 hrs Weight 75.75 kg Physical Exam Narrative: EXAM NARRATIVE: Constitutional: Awake, comfortable HEENT: Wet mucosa, no jvp, non icteric Lungs: Bilaterally clear without discernible wheeze, rales in all lung zones CVS: S1 S2, no murmurs Abdo: Soft, BS ok Ext 4: Minimal edema, peripheral perfusion with no cyanosis Neurological: Grossly non-focal Data : 07/12/20 03:20 07/13/20 04:30 A&P Additional A&P Information 1. ESRD Given hyperkalemia: We will dialyze her for just 2 hours today to bring the potassium down into a safe range. We will organize dialysis for tomorrow if she remains in the hospital, however, should she go home she can receive dialysis in her local clinic. Counseled to improve her oral intake to be more consistent with a renal diet. Dose medication for GFR less than 15 on dialysis. 2. Hyperkalemia This will correct with dialysis today, unclear why this did not come down after dialysis yesterday, suspicious for recirculation. If this persists she will need a fistulogram 3. Hemodynamics Blood pressure remains a little better this morning, was in the 190 systolic range yesterday. 4. Disposition Okay for discharge after dialysis today. Yusef Barros MD Nephrology [phone] Patient seen and examined via telemedicine, with the assistance of the bedside RN > 25 min spent in evaluation and mgmt of patient Attestations Medical Necessity Statement*: Eval for ESRD Coding Level of Care Code Acute Application Security Consultant for Chg Syd
[2020-07-13 16:11] LABS: Glucose Point of Care 99 mg/dL (70-110)
--- NOTE | 2020-07-13 22:23 | USCV_ITS ---
Kristan Reddy Age: 50 Gender: F : 1970 Exam Date: 07/13/2020 06:29 Ordering Phys: Yana Falcon MD Technologist: Exam Location: [facility] [place] Indication: Pulmonary hypertension and LV function BP: 121 / 99 HR: 75 Rhythm: Sinus Technical Quality: Good MEASUREMENTS (Male / Female) Normal Values 2D ECHO LV Diastolic Diameter PLAX 5.1 cm 4.2 - 5.9 / 3.9 - 5.3 cm LV Systolic Diameter PLAX 3.7 cm IVS Diastolic Thickness 1.0 cm 0.6 - 1.0 / 0.6 - 0.9 cm IVS Systolic Thickness 1.6 cm LVPW Diastolic Thickness 1.1 cm 0.6 - 1.0 / 0.6 - 0.9 cm LVPW Systolic Thickness 2.0 cm LVOT Diameter 2.0 cm LV Ejection Fraction 2D Teich 51.4 % LV Ejection Fraction MOD 2C 59.5 % LV Ejection Fraction 2C AL 60.3 % LA Diameter 4.3 cm LA Width 3.7 cm LA Height 5.4 cm RA Width 4.1 cm RA Height 4.8 cm Aorta at Sinotubular Diameter 2.4 cm M-MODE LV Diastolic Diameter MM 5.0 cm 4.2 - 5.9 / 3.9 - 5.3 cm LV Systolic Diameter MM 3.8 cm LV Ejection Fraction MM Teich 50.2 % IVS Diastolic Thickness MM 1.1 cm 0.6 - 1.0 / 0.6 - 0.9 cm IVS Systolic Thickness MM 1.4 cm LVPW Diastolic Thickness MM 1.7 cm 0.6 - 1.0 / 0.6 - 0.9 cm LVPW Systolic Thickness MM 1.9 cm RV Diastolic Diameter MM 1.7 cm Aortic Annulus Diameter 3.3 cm LA Ao Ratio MM 1.5 MV E Point Septal Separation 1.0 cm DOPPLER AV Peak Velocity 223.3 cm/s LVOT Peak Velocity 119.3 cm/s AV Area Cont Eq vti 1.9 cm squared AV Area Cont Eq pk 1.8 cm squared MV Area PHT 5.0 cm squared Mitral E to A Ratio 1.2 MV E' Velocity 62.0 cm/s Mitral E to MV E' Ratio 17.2 Mitral E to LV E' Lateral Ratio 17.4 Mitral E to LV E' Septal Ratio 16.9 TR Peak Velocity 229.7 cm/s TR Peak Gradient 21.1 mmHg TV Peak E Velocity 72.0 cm/s Right Atrial Pressure 3.0 mmHg Pulmonary Artery Systolic Pressu 24.1 mmHg PV Peak Velocity 101.0 cm/s FINDINGS Left Ventricle Normal left ventricular cavity size, mildly increased left ventricular wall thickness. Low normal left ventricular systolic function. Left ventricular ejection fraction is estimated at 55 %. No regional wall motion abnormalities. Grade II diastolic dysfunction, moderately elevated filling pressures. Right Ventricle Normal right ventricular size and systolic function. Right ventricular systolic pressure 24.1 mmHg. Right Atrium Normal right atrial size. Left Atrium Mildly increased left atrial size. Mitral Valve Mildly thickened mitral valve. No mitral valve stenosis. Trace mitral valve regurgitation. Aortic Valve Mildly thickened probably bicuspid aortic valve. Mild aortic valve stenosis, peak velocity 2.3 m/s, peak gradient 22 mmHg mean gradient 9.4 mmHg, GUY 1.9 cm squared. No aortic valve regurgitation. Tricuspid Valve Structurally normal tricuspid valve. Trace tricuspid valve regurgitation. Pulmonic Valve Structurally normal pulmonic valve. No pulmonary valve stenosis. Pericardium No pericardial effusion. Aorta Normal size aortic root and proximal ascending aorta. Normal- sized inferior vena cava. CONCLUSIONS 1. Normal left ventricular cavity size, mildly increased left ventricular wall thickness. Low normal left ventricular systolic function. Left ventricular ejection fraction is estimated at 55 %. No regional wall motion abnormalities. Grade II diastolic dysfunction, moderately elevated filling pressures. 2. Normal right ventricular size and systolic function. 3. Mildly thickened probably bicuspid aortic valve. Mild aortic valve stenosis, peak velocity 2.3 m/s, peak gradient 22 mmHg mean gradient 9.4 mmHg, GUY 1.9 cm squared. 4. Mildly increased left atrial size. 5. No prior similar studies to compare. Yahaira Contreras MD (Electronically Signed) Final Date: 13 Jul 2020 18:01 S
== END 2020-07-13 17:45 | disposition home or self-care (01) ==
LOC: ER 03:45 → CSU 07:11
PROVIDERS: Internal Medicine; Admitting Provider Internal Medicine; Emergency Provider Emergency Medicine; Visit Provider Hospitalist
DX: J96.01 Acute respiratory failure with hypoxia (principal); E87.70 Fluid overload, unspecified; E11.22 Type 2 diabetes mellitus with diabetic chronic kidney disease; I12.0 Hypertensive chronic kidney disease with stage 5 chronic kidney disease or end stage renal disease; N18.6 End stage renal disease; Z99.2 Dependence on renal dialysis; I25.10 Atherosclerotic heart disease of native coronary artery without angina pectoris; M79.89 Other specified soft tissue disorders; I16.1 Hypertensive emergency; E66.9 Obesity, unspecified; R07.81 Pleurodynia; Z95.5 Presence of coronary angioplasty implant and graft; Z87.891 Personal history of nicotine dependence; Z79.02 Long term (current) use of antithrombotics/antiplatelets
CPT/HCPCS: 36415; 36416; 36600; 71045; 80048; 80053; 82803; 82962; 83036; 83605; 83735; 83880; 84100; 84484; 85025; 85378; 86140; 86803; 87340; 90935; 93005; 93306; 93971; 94660; 96361; 96372; 96374; 99285; G0378; J1644; J1815 ×2; J3490; Q3014

== ENCOUNTER 2022-05-12 07:14 | Outpatient (CLI) | payer MEDICARE, SELFPAY ==
--- NOTE | 2022-05-12 07:35 | CT_ITS ---
WS: [id number] LDCT LUNG CANCER SCREENING HISTORY: HX OF TOBACCO USE TECHNIQUE: Axial imaging performed from the apices to 1 cm below the costophrenic angles. Coronal and sagittal reformats are submitted with axial MIP series. All CT scans at [facility] use at least one of these dose optimization techniques: automated exposure control; mA and/or kV adjustment per patient size (includes targeted exams where dose is matched to clinical indication); or iterativ e reconstruction. DLP: 77.79 mGy.cm DIvol: Mean CTDIvol: 1.60 (mGy) COMPARISON: None available. Diagnostic quality: Breathing motion artifact. Lungs: No pulmonary mass or nodules. No pneumonia. Heart: Moderate cardiomegaly. Prior CABG. No effusion. Severe atherosclerosis [place] coronary arterie s.. Other findings: Prior CABG. Heavy calcification in the great vessels. Pulmonary artery is enlarged. E xtensive splenic artery calcification. Superior pole of the LEFT kidney is identified and atrophic. CT/CT lung screening [id number] IMPRESSION: LUNG-RADS: 1-Negative FOLLOW UP: 12 Month: Continue annual screening with LDCT OTHER FINDINGS (S MODIFIER): None.
== END 2022-05-12 07:15 | disposition home or self-care (01) ==
PROVIDERS: Visit Provider Family Medicine
DX: Z12.2 Encounter for screening for malignant neoplasm of respiratory organs (principal); Z87.891 Personal history of nicotine dependence
CPT/HCPCS: 71271

== ENCOUNTER → 2022-06-19 14:48 | Outpatient (BNVA) | payer MEDICARE, MEDICAID, SELFPAY | PROVIDERS: PCP Family Medicine; Visit Provider Internal Medicine Cardiovascular Disease | DX: I25.10 Atherosclerotic heart disease of native coronary artery without angina pectoris (principal); E11.22 Type 2 diabetes mellitus with diabetic chronic kidney disease; I65.23 Occlusion and stenosis of bilateral carotid arteries; E78.5 Hyperlipidemia, unspecified; I12.0 Hypertensive chronic kidney disease with stage 5 chronic kidney disease or end stage renal disease; Z99.2 Dependence on renal dialysis; N18.6 End stage renal disease; I35.1 Nonrheumatic aortic (valve) insufficiency; M79.604 Pain in right leg; Z87.891 Personal history of nicotine dependence; Z79.4 Long term (current) use of insulin | CPT/HCPCS: 99205 ==

== ENCOUNTER → 2022-06-21 07:59 | Outpatient (BNVA) | payer MEDICARE, MEDICAID, SELFPAY | PROVIDERS: PCP Family Medicine; Referring Provider Family Medicine; Visit Provider Internal Medicine | DX: E11.22 Type 2 diabetes mellitus with diabetic chronic kidney disease (principal); E78.5 Hyperlipidemia, unspecified; N18.6 End stage renal disease; Z99.2 Dependence on renal dialysis; Z79.4 Long term (current) use of insulin | CPT/HCPCS: 36415; 80053; 80061; 83036; 99204 ==

== ENCOUNTER → 2022-06-28 13:47 | Outpatient (BNVA) | payer MEDICARE, MEDICAID, SELFPAY | PROVIDERS: PCP Family Medicine; Visit Provider Otolaryngology | DX: T16.1XXA Foreign body in right ear, initial encounter (principal); T16.2XXA Foreign body in left ear, initial encounter; H92.03 Otalgia, bilateral; H90.2 Conductive hearing loss, unspecified; X58.XXXA Exposure to other specified factors, initial encounter | CPT/HCPCS: 69200; 69205; 99203 ==

== ENCOUNTER 2022-07-10 07:08 | Outpatient (CLI) | payer MEDICARE, MEDICAID, SELFPAY ==
--- NOTE | 2022-07-10 07:00 | USCV_ITS ---
Kristan Reddy Age: 52 Gender: F : 1970 Exam Date: 07/10/2022 07:22 Ordering Phys: Yuko Daniel MD ([email or web address]) Technologist: [place] [facility] [place]: as cad BP: 130 / 60 HR: 67 Rhythm: Sinus Technical Quality: Adequate MEASUREMENTS (Male / Female) Normal Values 2D ECHO LV Diastolic Diameter PLAX 4.9 cm 4.2 - 5.9 / 3.9 - 5.3 cm LV Systolic Diameter PLAX 3.9 cm IVS Diastolic Thickness 1.2 cm 0.6 - 1.0 / 0.6 - 0.9 cm IVS Systolic Thickness 1.8 cm LVPW Diastolic Thickness 1.4 cm 0.6 - 1.0 / 0.6 - 0.9 cm LVPW Systolic Thickness 1.6 cm LVOT Diameter 2.0 cm LV Ejection Fraction 2D Teich 28.5 % LV Ejection Fraction MOD 2C 60.6 % LV Ejection Fraction 2C AL 59.0 % LA Diameter 3.9 cm Aorta at Sinotubular Diameter 2.6 cm IVC Diameter 2.0 cm M-MODE Aortic Annulus Diameter 3.2 cm LA Ao Ratio MM 1.2 MV E Point Septal Separation 1.1 cm DOPPLER AV Peak Velocity 245.3 cm/s LVOT Peak Velocity 95.0 cm/s AV Area Cont Eq vti 1.2 cm squared AV Area Cont Eq pk 1.2 cm squared MV Area PHT 5.0 cm squared Mitral E to A Ratio 1.2 MV E' Velocity 59.0 cm/s Mitral E to MV E' Ratio 14.9 Mitral E to LV E' Lateral Ratio 14.3 Mitral E to LV E' Septal Ratio 15.5 TR Peak Velocity 235.7 cm/s TR Peak Gradient 22.2 mmHg TV Peak E Velocity 111.0 cm/s Right Atrial Pressure 8.0 mmHg Pulmonary Artery Systolic Pressu 30.2 mmHg RV Acceleration Time 0.1 s FINDINGS Left Ventricle Normal left ventricular size and systolic function, EF 61 %. Mild left ventricular hypertrophy. No regional wall motion abnormalities. Grade III/IV diastolic dysfunction (restrictive filling pattern), severely elevated filling pressures. Right Ventricle The right ventricle is normal in size and function. Right Atrium The right atrium is normal in size. Left Atrium Mildly increased left atrial size. Mitral Valve Thickened mitral valve. Aortic Valve Thickened aortic valve. Moderate aortic valve stenosis, mean gradient 11.3 mmHg, GUY 1.2 cm squared. The peak velocity was 2.51 M/s with a peak gradient of 25 mmHg. Tricuspid Valve Trace tricuspid valve regurgitation. Estimated pulmonary artery peak systolic pressure 30 mmHg Pulmonic Valve Trace pulmonary valve regurgitation. Pericardium Normal pericardium without effusion. Aorta Normal ascending aorta dimension. IVC The inferior vena cava appears normal. CONCLUSIONS Normal left ventricular size and systolic function, EF 61 %. Mild left ventricular hypertrophy. No regional wall motion abnormalities. Grade III/IV diastolic dysfunction (restrictive filling pattern), severely elevated filling pressures. Moderate aortic valve stenosis, mean gradient 11.3 mmHg, GUY 1.2 cm squared. The peak velocity was 2.51 M/s with a peak gradient of 25 mmHg. Mildly increased left atrial size. Thickened mitral valve. Trace pulmonary valve regurgitation. Trace tricuspid valve regurgitation. Estimated pulmonary artery peak systolic pressure 30 mmHg. There is no pericardial effusion. There are no intracardiac masses. Compared to the study from 07/13/2020, there is some worsening of aortic valve stenosis. Dr Yuko Daniel MD [facility] (Electronically Signed) Final Date: 11 Jul 2022 08:52 S
--- NOTE | 2022-07-10 07:45 | USCV_ITS ---
Kristan Reddy Age: 52 Gender: F : 1970 Exam Date: 07/10/2022 08:04 Ordering Phys: Yuko Daniel MD ([email or web address]) Technologist: CT Exam Location: [facility] [place] Indication: pvd Risk Factors: Previous Vascular Surgery: RIGHT LEFT BP: 149.0 / 74.00 BP: 0.00 / 0 Waveform Velocity (cm/s) Velocity (cm/s) Waveform Monophasic 77.8 Iliac Prox 92.5 Biphasic Monophasic 114.0 Iliac Mid 164.8 Biphasic Monophasic 430.0 Iliac Distal 196.8 Biphasic Monophasic 220.0 HOME DAY CARE PROVIDER 160.7 Biphasic Monophasic 67.8 SFA Prox 76.4 Biphasic Monophasic 35.7 SFA Mid 33.3 Monophasic Monophasic 40.3 SFA Dist 39.7 Monophasic Monophasic 36.3 POP 41.2 Biphasic Monophasic 38.3 MACHINE STRAW HAT PRESSER 35.1 Monophasic Monophasic 38.3 DPA 43.6 Monophasic 0.8 [place] 0.7 FINDINGS severe pvd bilaterally, with multiple areas of stenosis Moderate to heavy heterogenous plaques from the iliac and femoral artery on the right side Markedly elevated Doppler velocities in the distal iliac artery on the right side. Monophasic and continuous waveforms in the popliteal and infrapopliteal vessels on the right side. Moderate diffuse plaque in the iliac and femoral arteries on the left side. Resting COLUMBA of 0.8 on the right and 0.7 on the left CONCLUSIONS 1. Abnormal resting ABIs bilaterally, suggesting moderate peripheral artery disease. 2. Abnormal Doppler waveforms and velocities, suggesting high- grade stenosis in the distal iliac/common femoral arteries on the right side with possible collateral filling of the popliteal and infrapopliteal vessels. 3. Moderate diffuse plaque in the iliac and femoral arteries on the left side. No similar previous studies are available for comparison Dr Yuko Daniel MD [facility] (Electronically Signed) Final Date: 11 Jul 2022 09:14 S
--- NOTE | 2022-07-10 08:30 | USCV_ITS ---
Kristan Reddy Age: 52 Gender: F : 1970 Exam Date: 07/10/2022 07:44 Ordering Phys: Yuko Daniel MD ([email or web address]) Technologist: [place] [facility] [facility] [place]: PVD Risk Factors: Previous Vascular Surgery: Right Brachial BP: / Left Brachial BP: / Right Left Velocity (cm/s) Spectral Plaque Velocity (cm/s) Spectral Plaque Syst/Diast Broadening Syst/Diast Broadening 99.00/ 14.40 Prox CCA 95.20 / 14.40 81.70/ 12.50 Mid CCA 76.90 / 16.30 67.80/ 14.20 Distal CCA 166.60/ 27.10 65.60/ 13.50 Prox ICA 174.10/ 17.80 111.70/22.70 Mid ICA 117.90/ 19.20 144.50/34.20 Distal ICA 101.50/ 17.80 78.50 ECA 136.00 1.46 ICA/CCA 1.05 Antegrade Vertebral Antegrade 62.80/ 15.40 cm/s 26.00/ 0.80 cm/s Bi Subclavian Candler 77.15 394.6 0 FINDINGS DIFFUSE CALCIFIED PLQ BILATERALLY WITH SOME AREAS NOT DOPPLERABLE DUE TO ANTERIOR WALL APLQ, F/U WITH OTHER MODALITY MAYBE USEFUL FOR FURTHER EVAL. PT WITH FISTULA IN LEFT ARM Moderate to heavy heterogenous plaques of the left bifurcation, distal CCA and proximal ICA. Mild to moderate plaque at the right bifurcation and proximal ICA. Intimal thickening and minimal plaques in the common carotid arteries bilaterally Antegrade flow in the vertebral artery on the right side. High resistance flow in the left vertebral artery Markedly elevated velocity in the left subclavian artery, suggesting hemodynamically significant stenosis CONCLUSIONS 1. Moderate to heavy heterogenous plaques of the left bifurcation and the distal common carotid and proximal internal carotid arteries, suggesting 50 to 69% stenosis. 2. Mild to moderate venous blood from the right bifurcation and proximal internal carotid artery, suggesting less than 50% stenosis. 3. Possible distal occlusive disease in the left vertebral artery 4. Possible high-grade stenosis in the left subclavian artery 5. Technically difficult study because of the plaque shadowing. Consider CTA, to better evaluate the arch vessels and the distal vertebral artery on the left side No similar previous studies are available for comparison Dr Yuko Daniel MD [facility] (Electronically Signed) Final Date: 11 Jul 2022 09:07 S
== END 2022-07-10 07:09 | disposition home or self-care (01) ==
PROVIDERS: PCP Family Medicine; Visit Provider Internal Medicine Cardiovascular Disease
DX: I70.201 Unspecified atherosclerosis of native arteries of extremities, right leg (principal); I65.29 Occlusion and stenosis of unspecified carotid artery; I73.9 Peripheral vascular disease, unspecified
CPT/HCPCS: 93306; 93880; 93925; 99205

== ENCOUNTER → 2022-07-12 09:32 | Outpatient (BNVA) | payer MEDICARE, MEDICAID, SELFPAY | PROVIDERS: PCP Family Medicine; Visit Provider Otolaryngology | DX: H90.3 Sensorineural hearing loss, bilateral (principal); H92.03 Otalgia, bilateral | CPT/HCPCS: 99213 ==

== ENCOUNTER 2022-07-28 13:41 | Outpatient (CLI) | payer MEDICARE, MEDICAID, SELFPAY ==
--- NOTE | 2022-07-28 13:47 | MM_ITS ---
WS: [id number] BILATERAL 3D TOMOSYNTHESIS DIGITAL SCREENING MAMMOGRAPHY WITH CAD CLINICAL INFORMATION: SCREEN HISTORY: Screening mammogram. No current complaints. COMPARISON: None. TECHNIQUE: Bilateral CC and MLO views. FINDINGS: Scattered fibroglandular densities bilaterally. Vascular calcification. Biopsy clips LEFT breast. Bio psy clip adjacent to a lobulated nodule anterior LEFT breast. Nodule measures 16 mm. Outside patholog y and outside imaging not available. RIGHT breast is unremarkable. MM/[place] [id number] IMPRESSION: BI-RADS: 0-Incomplete: Need additional imaging evaluation FOLLOW UP: See Report Assessment of the lobulated left-sided nodule cannot be made without prior comp arison imaging and outside reports for size comparison. No pathology reports av ailable. In absence of prior imaging or reports, recommend further evaluation of the lob ulated nodule with ultrasound LEFT breast.
== END 2022-07-28 13:42 | disposition home or self-care (01) ==
PROVIDERS: PCP Family Medicine; Visit Provider Nurse Practitioner Family
DX: Z12.31 Encounter for screening mammogram for malignant neoplasm of breast (principal)
CPT/HCPCS: 77063; 77067

== ENCOUNTER → 2022-08-22 13:22 | Outpatient (BNVA) | payer MEDICARE, MEDICAID, SELFPAY | PROVIDERS: PCP Family Medicine; Visit Provider Internal Medicine | DX: I65.29 Occlusion and stenosis of unspecified carotid artery (principal); I25.810 Atherosclerosis of coronary artery bypass graft(s) without angina pectoris; I73.9 Peripheral vascular disease, unspecified; I12.0 Hypertensive chronic kidney disease with stage 5 chronic kidney disease or end stage renal disease; E11.22 Type 2 diabetes mellitus with diabetic chronic kidney disease; N18.6 End stage renal disease; Z79.4 Long term (current) use of insulin; Z87.891 Personal history of nicotine dependence | CPT/HCPCS: 99204 ==

== ENCOUNTER → 2022-08-23 13:48 | Outpatient (BNVA) | payer MEDICARE, MEDICAID, SELFPAY | PROVIDERS: PCP Family Medicine; Visit Provider Surgery | DX: K43.2 Incisional hernia without obstruction or gangrene (principal); Z12.11 Encounter for screening for malignant neoplasm of colon | CPT/HCPCS: 99203 ==

== ENCOUNTER 2022-09-01 15:31 | Outpatient (CLI) | payer MEDICARE, MEDICAID, SELFPAY ==
--- NOTE | 2022-09-01 15:30 | CT_ITS ---
WS: [id number] CTA NECK TECHNIQUE: Contrast enhanced CTA of the neck with coronal and sagittal reformatted images and maximum intensity projection (MIP) images. NASCET criteria utilized. CLINICAL INFORMATION: carotid stenosis subclavian stenosis COMPARISON: Ultrasound July 10, 2022 DLP: 279.[address] scans at [facility] use at least one of these dose optimization techniques: automated e xposure control; mA and/or kV adjustment per patient size (includes targeted exams where dose is matc hed to clinical indication); or iterative reconstruction. FINDINGS: RIGHT: RIGHT ICA stenosis measures 30%. Mild calcified atheromatous plaque. LEFT: LEFT ICA stenosis measures 76%. Moderate calcified atheromatous plaque. Proximal LEFT subclavian artery stent which appears patent. Dense calcification at the innominate zohreh gin which remains patent. Moderate calcification RIGHT subclavian artery origin which remains patent. RIGHT proximal common carotid artery is patent. Cardiomegaly. Coronary calcification. Prior sternotomy. Multinodular thyroid. Paranasal sinuses and mastoid air cells well aerated. Calcified osteoma LEFT ethmoid air cells. Masto id air cells well aerated. Normal posterior nasopharynx. Normal parapharyngeal fat. Mild spondylitic changes cervical spine. Calcification of the vertebral artery origins bilaterally which remain patent. LEFT dominant vertebra l artery. Smaller but patent RIGHT vertebral artery. Proximal basilar artery is patent. Somewhat diminutive basilar artery with anterior dominant circulat ion. 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 Near persistent bilateral automatic spreader operator with tiny P1 segments. Normal va scularity to the proximal visualized AIRCRAFT ENGINE CYLINDER MECHANIC territory bilaterally. Moderate cavernous carotid calcificat ion. Proximal visualized makah of Yi appears patent. Patent anterior communicating artery. CT/CT angio neck [id number] IMPRESSION: 1. LEFT subclavian artery stent with surrounding calcification approximately 5 0% stenosis involving the stent. Subclavian artery remains patent. 2. RIGHT ICA stenosis 30%. 3. LEFT ICA stenosis measures approximately 76%. 4. Dense vascular calcification at the innominate origin with at least moderat e stenosis. Innominate artery remains patent. 5. Moderate calcification RIGHT subclavian artery origin which remains patent. 6. Coronary calcification. 7. Calcification of the vertebral artery origins bilaterally which remain villegas nt. LEFT dominant vertebral artery. Smaller but patent RIGHT vertebral artery.
== END 2022-09-01 15:32 | disposition home or self-care (01) ==
LOC: RAD 15:33
PROVIDERS: PCP Family Medicine; Visit Provider Internal Medicine
DX: I77.1 Stricture of artery (principal); I65.23 Occlusion and stenosis of bilateral carotid arteries; I51.7 Cardiomegaly
CPT/HCPCS: 70498; 99203; Q9967

== ENCOUNTER 2022-09-18 13:03 | Outpatient (CLI) | payer MEDICARE, MEDICAID, SELFPAY ==
--- NOTE | 2022-09-18 15:08 | US_ITS ---
WS: [id number] ULTRASOUND BREAST LEFT TECHNIQUE: Ultrasound left breast focused area of concern. CLINICAL INFORMATION: ABNORMAL MAMMO COMPARISON: Mammography July 28, 2022 FINDINGS: Ultrasound LEFT breast 3:00 position 1 cm from the nipple Lobulated solid hypoechoic lesion in the area of concern measuring 1.3 x 0.6 x 2.1 CM. This correspon ds to the mammographic findings. Patient reports this lesion may have been previously biopsied althou gh no outside records available. No visualized biopsy clip. Considering the size of the lesion, recom mend ultrasound-guided biopsy in further evaluation. US/US breast LT limited* [id number] IMPRESSION: BI-RADS 4 SUSPICIOUS RECOMMEND ULTRASOUND-GUIDED BIOPSY.
== END 2022-09-18 13:04 | disposition home or self-care (01) ==
PROVIDERS: PCP Family Medicine; Visit Provider Family Medicine
DX: R92.8 Other abnormal and inconclusive findings on diagnostic imaging of breast (principal)
CPT/HCPCS: 76642

== ENCOUNTER 2022-09-20 08:17 | Day surgery (SDC) | payer MEDICARE, MEDICAID, SELFPAY ==
[2022-09-18 10:43] VITALS: BMI 36.7
[2022-09-20] MEDS: sodium chloride 0.9% 1,000 ML 30 ML IV (08:36)
[2022-09-20 08:48] VITALS: BP 154/47; PULSE 69; RESP 16; TEMP 36.2; O2SAT 97
[2022-09-20 09:21] LABS: Glucose Point of Care 173 mg/dL (70-110)
--- NOTE | 2022-09-20 09:32 | P.ANESASSM_ITS ---
Pre-Anesthetic Assessment Height/Weight: Height 1.42 m Weight 74.389 kg Temp Pulse Resp BP Pulse Ox O2 Del Method 97.2 F L 69 16 154/47 97 Room Air 09/20/22 08:48 09/20/22 08:48 09/20/22 08:48 09/20/22 08:48 09/20/22 08:48 09/20/22 08:48 Preop Diagnosis: screening Operation Date: 09/20/22 09:15 Proposed Procedures p Colonoscopy 85788,Z12.11(Not Applicable) - Aung Gilbert DO Familial anesthetic complications: none Was Beta Christina taken within 24 hours: Yes Last intake: Intake Last Liquid Date 09/19/22 Last Liquid Time 23:00 Last Solid Date 09/17/22 Social No alcohol and No tobacco Exam alert and oriented x 3 Airway Submandibular: within normal limits Cervical ROM: within normal limits Mallampati: Class II Dentition: false Pulmonary None reported CV/HEM Coronary Artery Disease and Hypertension 2020- January 04 vessel bypass Chronic Renal Failure dialysis 09/19 Hepatic None reported GI Gastroesophageal Reflux Disease Metabolic Diabetes Mellitus and Hyperlipidemia [facility] [place] None reported Neuropsych Anxiety Anesthetic Plan ASA status: 3 Anesthesia: MAC Medications/Allergies Home Medications Medication Instructions Recorded Confirmed Last Taken Type amlodipine 10 mg tablet 10 mg PO DAILY 07/12/20 09/18/22 09/19/22 History clonidine HCl 0.1 mg tablet 0.1 mg PO BID PRN Blood Pressure 07/12/20 09/20/22 07/11/20 22:00 History losartan 100 mg tablet (Cozaar) 100 mg PO DAILY 07/12/20 09/18/22 09/19/22 History carvedilol 12.5 mg tablet 25 mg PO BID@0900,2100 #60 tabs 07/13/20 09/18/22 09/20/22 Rx aspirin 81 mg chewable tablet 81 mg PO DAILY 06/19/22 09/18/22 09/19/22 History (Aspirin Childrens) atorvastatin 80 mg tablet 80 mg PO DAILY 06/19/22 09/18/22 09/17/22 History Novolog FlexPen U-100 Insulin 100 15 unit (0.15 mL) SUBCUT TID 90 06/27/22 09/18/22 09/19/22 Rx unit/mL (3 mL) subcutaneous days #40.5 mL (insulin aspart U-100) blood-glucose meter,continuous #1 ea 07/19/22 08/23/22 Unknown Rx (Dexcom G6 Vocational Education Teacher) blood-glucose sensor (Dexcom G6 #9 ea 07/19/22 08/23/22 Unknown Rx Sensor device) blood-glucose transmitter (Dexcom #2 ea 07/19/22 08/23/22 Unknown Rx G6 Transmitter device) insulin detemir U-100 100 unit/mL 20 unit (0.2 mL) SUBCUT BID 60 08/16/22 09/18/22 09/19/22 Rx (3 mL) subcutaneous pen (Levemir days #24 mL FlexTouch U-100 Insulin) cilostazol 100 mg tablet 100 mg PO BID #120 tabs 08/22/22 09/18/22 09/13/22 Rx cilostazol 50 mg tablet 50 mg PO BID #60 tabs 08/22/22 09/18/22 09/13/22 Rx buspirone 5 mg tablet 5 mg PO BID 09/20/22 09/20/22 09/19/22 History lanthanum 1,000 mg oral powder mg PO 09/20/22 Unknown History packet (Fosrenol) pantoprazole 40 mg tablet,delayed 40 mg PO DAILY 09/20/22 09/20/22 09/19/22 History release propranolol 40 mg tablet 40 mg PO DAILY 09/20/22 09/20/22 09/19/22 History trazodone 100 mg tablet 100 mg PO DAILY 09/20/22 09/20/22 09/19/22 History vitamin B complex and vitamin C 1 cap PO DAILY 09/20/22 09/20/22 09/19/22 History no.20-folic acid 1 mg capsule (Triphrocaps) Allergies Allergy/AdvReac Type Severity Reaction Status Date / Time cephalexin Allergy ADR-Vomitin Verified 09/20/22 08:37 g morphine Allergy ADR-Itching Verified 09/20/22 08:37 Penicillins Allergy ALGY-Anaphy Verified 09/20/22 08:37 laxis Current Medications Generic Name Dose Route Start Last Admin Trade Name Freq PRN Reason Stop Dose Admin Sodium Chloride 1,000 mls @ 30 mls/hr 09/20/22 08:30 09/20/22 08:36 Sodium Chloride 0.9% IV 09/21/22 08:29 30 mls/hr .Q24H J LUIS Administration PFSH Anesthesia Medical History CAD (coronary artery disease) s/p 2 stents Diabetes ESRD (end stage renal disease) HTN (hypertension) Ventral hernia, recurrent Surgical History AV fistula H/O hernia repair 12 surgeries History of hysterectomy Hx of myringotomy Tubal ligation status Family History Other CAD (coronary artery disease) Chronic kidney disease (CKD) Diabetes Hypertension Social History Smoking and tobacco status: former smoker Alcohol intake: never Substance/Drug Use: never Household members: family Housing: House Data Anesthesia Cardiac Studies: Echocardiogram 07/10/22 Echocardiogram Ultrasound 07/13/20
--- NOTE | 2022-09-20 09:59 | W.PM.OPSUD ---
Surgery/Procedure H&P Update DATE OF PROCEDURE: September 20, 2022 DATE H&P PERFORMED: 08/23/22 H&P UPDATE INFORMATION: I have reviewed H&P completed within last 30 days, I have examined patient prior to procedure and No changes to prior documentation PREOP DIAGNOSIS: screening PLANNED PROCEDURE: Operation Date: 09/20/22 09:15 Proposed Procedures p Colonoscopy 83962,Z12.11(Not Applicable) - Aung Gilbert, DO
[2022-09-20 10:18] LABS: Anion Gap 18.9 (5-19); Blood Urea Nitrogen 30 mg/dL (6-20); Calcium 9.2 mg/dL (8.5-10.5); Carbon Dioxide 30 mmol/L (22-29); Chloride 90 mmol/L (98-107); Glomerular Filtration Rate 5.5 mL/min (90-130); Glucose 205 mg/dL (65-115); Osmolality Calculated 290 mOsm/kg (285-295); Potassium 4.9 mmol/L (3.5-5.1); Sodium 134 mmol/L (136-145)
[2022-09-20 11:09] VITALS: BP 116/38; PULSE 57; RESP 20; TEMP 36.6; O2SAT 93
[2022-09-20 11:19] VITALS: BP 115/44; PULSE 62; RESP 20; O2SAT 95
[2022-09-20 11:27] VITALS: BP 132/42; PULSE 62; RESP 20; O2SAT 95
--- NOTE | 2022-09-20 14:57 | ANE.PACU2 ---
Inpatient post-anesthesia follow up: Airway intact: Yes Vital signs: Temperature 97.8 F Pulse Rate 62 Respiratory Rate 20 Blood Pressure 132/42 Pulse Oximetry 95 Oxygen Delivery Me thod Room Air Oxygen Flow Rate 4 Fraction of Inspir ed Oxygen Hydration adequate: Yes Nausea and vomiting: No Pain level: 2 Mental status: Baseline
== END 2022-09-20 11:44 | disposition home or self-care (01) ==
PROVIDERS: Anesthesiology; PCP Family Medicine; Visit Provider Surgery
PROC: 0DJD8ZZ Inspection of Lower Intestinal Tract, Via Natural or Artificial Opening Endoscopic (ICD-10-PCS; CPT 45378; principal; 2022-09-20 09:15)
DX: Z12.11 Encounter for screening for malignant neoplasm of colon (principal); I25.10 Atherosclerotic heart disease of native coronary artery without angina pectoris; E11.22 Type 2 diabetes mellitus with diabetic chronic kidney disease; E78.5 Hyperlipidemia, unspecified; K21.9 Gastro-esophageal reflux disease without esophagitis; N18.6 End stage renal disease; Z79.82 Long term (current) use of aspirin; Z79.4 Long term (current) use of insulin; Z87.891 Personal history of nicotine dependence; I12.0 Hypertensive chronic kidney disease with stage 5 chronic kidney disease or end stage renal disease; Z99.2 Dependence on renal dialysis
CPT/HCPCS: 36416; 45378; 80048; 82962; G0121; J2704; J7030

== ENCOUNTER → 2022-09-21 12:40 | Outpatient (BNVA) | payer MEDICARE, MEDICAID, SELFPAY | PROVIDERS: PCP Family Medicine; Visit Provider Thoracic Surgery (Cardiothoracic Vascular Surgery) | DX: I65.29 Occlusion and stenosis of unspecified carotid artery (principal); I12.0 Hypertensive chronic kidney disease with stage 5 chronic kidney disease or end stage renal disease; E11.22 Type 2 diabetes mellitus with diabetic chronic kidney disease; N18.6 End stage renal disease; Z99.2 Dependence on renal dialysis; Z87.891 Personal history of nicotine dependence; Z79.4 Long term (current) use of insulin | CPT/HCPCS: 99214 ==

== ENCOUNTER → 2022-09-25 08:40 | Outpatient (BNVA) | payer MEDICARE, MEDICAID, SELFPAY | PROVIDERS: PCP Family Medicine; Visit Provider Internal Medicine | DX: E11.649 Type 2 diabetes mellitus with hypoglycemia without coma (principal); E11.22 Type 2 diabetes mellitus with diabetic chronic kidney disease; I12.0 Hypertensive chronic kidney disease with stage 5 chronic kidney disease or end stage renal disease; N18.6 End stage renal disease; Z99.2 Dependence on renal dialysis; E78.5 Hyperlipidemia, unspecified; Z79.4 Long term (current) use of insulin | CPT/HCPCS: 83036; 99214 ==

== ENCOUNTER → 2022-09-27 13:19 | Outpatient (BNVA) | payer MEDICARE, MEDICAID, SELFPAY | PROVIDERS: PCP Family Medicine; Visit Provider Otolaryngology | DX: H61.23 Impacted cerumen, bilateral (principal); H90.2 Conductive hearing loss, unspecified; H92.03 Otalgia, bilateral | CPT/HCPCS: 69210; 99212; 99213 ==

== ENCOUNTER 2022-10-04 11:09 | Outpatient (CLI) | payer MEDICARE, MEDICAID, SELFPAY ==
--- NOTE | 2022-10-04 11:21 | US_ITS ---
WS: [id number] ULTRASOUND-GUIDED LEFT BREAST BIOPSY CLINICAL INFORMATION: ABNORMAL MAMMOGRAM COMPARISON: September 18, 2022 FINDINGS: The procedure including risks, benefits, and complications were discussed with the patient who agreed to proceed. Using sterile technique patient was prepped and draped in the usual sterile fashion. Aft er 1% lidocaine utilizing real-time ultrasound guidance 5 14-gauge cores were obtained of the LEFT br east lesion at the 3 o'clock position. Subsequently a titanium clip was placed in the biopsy cavity. No immediate complications. Pathology demonstrates A. Breast, left, 3 o'clock, 1 cm from nipple , ultrasound-guided biopsy: - Benign breast tissue with fibro-adenomatoid changes. - Duct ectasia. - No malignancy identified. US/[id number] IMPRESSION: 1. Uncomplicated ultrasound-guided LEFT breast biopsy. 2. The pathology demonstrates benign breast tissue with fibroadenomatoid palm es. No malignancy identified. 3. Recommend return to annual screening mammography BI-RADS: 2-Benign FOLLOW UP: 1 Year Follow-up
== END 2022-10-04 11:10 | disposition home or self-care (01) ==
LOC: RAD 11:10
PROVIDERS: PCP Family Medicine; Visit Provider Family Medicine
DX: N63.25 Unspecified lump in the left breast, overlapping quadrants (principal); N60.22 Fibroadenosis of left breast; N60.42 Mammary duct ectasia of left breast
CPT/HCPCS: 19083; 88305

== ENCOUNTER → 2022-10-09 09:21 | Outpatient (BNVA) | payer MEDICARE, MEDICAID, SELFPAY | PROVIDERS: PCP Family Medicine; Visit Provider Internal Medicine | DX: E11.22 Type 2 diabetes mellitus with diabetic chronic kidney disease (principal); N18.6 End stage renal disease; Z99.2 Dependence on renal dialysis; E78.5 Hyperlipidemia, unspecified | CPT/HCPCS: 99214 ==

== ENCOUNTER → 2022-10-23 14:18 | Outpatient (BNVA) | payer MEDICARE, MEDICAID, SELFPAY | PROVIDERS: PCP Family Medicine; Visit Provider Internal Medicine Cardiovascular Disease | DX: I25.10 Atherosclerotic heart disease of native coronary artery without angina pectoris (principal); I65.29 Occlusion and stenosis of unspecified carotid artery; I77.9 Disorder of arteries and arterioles, unspecified; E78.5 Hyperlipidemia, unspecified; I35.0 Nonrheumatic aortic (valve) stenosis; I12.0 Hypertensive chronic kidney disease with stage 5 chronic kidney disease or end stage renal disease; E11.22 Type 2 diabetes mellitus with diabetic chronic kidney disease; N18.6 End stage renal disease; Z99.2 Dependence on renal dialysis; Z79.4 Long term (current) use of insulin; Z87.891 Personal history of nicotine dependence | CPT/HCPCS: 99214 ==

== ENCOUNTER → 2022-11-29 12:27 | Outpatient (BNVA) | payer MEDICARE, MEDICAID, SELFPAY | PROVIDERS: PCP Family Medicine; Visit Provider Internal Medicine | DX: I65.29 Occlusion and stenosis of unspecified carotid artery (principal); I25.810 Atherosclerosis of coronary artery bypass graft(s) without angina pectoris; I73.9 Peripheral vascular disease, unspecified; I12.0 Hypertensive chronic kidney disease with stage 5 chronic kidney disease or end stage renal disease; E11.22 Type 2 diabetes mellitus with diabetic chronic kidney disease; N18.6 End stage renal disease; Z79.4 Long term (current) use of insulin | CPT/HCPCS: 99214 ==

== ENCOUNTER 2022-12-27 11:30 | Inpatient (IN) | payer MEDICARE, MEDICAID, SELFPAY ==
[2022-12-27] VITALS (40 sets, daily range): BP systolic 96–141; BP diastolic 33–85; PULSE 67–98; RESP 13–41; TEMP 36.6–37.5; O2SAT 88–98; BMI 36.1
--- NOTE | 2022-12-27 11:36 | XR_ITS ---
WS: [id number] Exam: XR chest 1V portable [id number] Date/Time of Exam: 12/27/2022 11:36 AM Reason For Exam: cp Comparison 07/12/2020. The lungs are fully expanded and clear. Heart size is top limits normal. Small RIGHT basal pleural ef fusion noted. No pneumothorax. The mediastinum is normal in contour. Signs of previous CABG surgery. A vascular graft noted just superior to the aortic knob. Bony structures are intact. IMPRESSION: 1. Small RIGHT basal pleural effusion. 2. No acute process noted otherwise.
--- NOTE | 2022-12-27 11:36 | ECG_ITS ---
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 Measurements Intervals [place] Rate: 70 P: 44 FL: 138 QRS: 15 QRSD: 114 T: 119 QT: 395 QTc: 428 Interpretive Statements SINUS RHYTHM MODERATE INTRAVENTRICULAR CONDUCTION DELAY [110+ ms QRS DURATION] ST DEVIATION AND MODERATE T-WAVE ABNORMALITY, CONSIDER LATERAL ISCHEMIA [-0.1+ mV T-WAVE IN I/aVL/V5/V6] Compared to ECG 07/12/2020 07:39:25 Intraventricular conduction delay now present Possible ischemia now present T-wave abnormality still present Electronically Signed On 12-27-2022 19:07:46 CDT by Dinh Calvert M.D. https://[email or web address].[facility].[employer]/store/OM/[id number]
[2022-12-27 11:50] LABS: Basophils # 0.1 10^3/uL (0.0-0.1); Basophils % 0.6 %; Eosinophils # 0.1 10^3/uL (0.0-0.8); Eosinophils % 1.1 %; Hematocrit 31.7 % (36-47); Lymphocytes # 1.7 10^3/uL (0.8-4.8); Lymphocytes % 20.3 %; Mean Corpuscular HGB Conc 30.6 g/dL (30-55); Mean Corpuscular Hemoglobin 31.2 pg (27-33); Mean Corpuscular Volume 101.9 fl (85-98); Mean Platelet Volume 9.5 fL (7.4-10.4); Monocytes # 0.6 10^3/uL (0.2-0.9); Monocytes % 6.7 %; Neutrophils # 5.91 10^3/uL (1.8-7.7); Neutrophils % 71.1 %; Nucleated Red Blood Cells % 0 %; Platelet Count 186 10^3/cmm (157-399); Red Blood Count 3.11 10^6/uL (3.85-5.65); Red Cell Distribution Width 15.9 % (12.1-15.1); White Blood Count 8.32 10^3/uL (3.29-11.43)
[2022-12-27 12:12] LABS: Troponin(5th) Baseline 83 ng/L (0-10)
--- NOTE | 2022-12-27 12:16 | ED_ITS ---
HPI - Nausea/Vomiting/Diarrhea General: Chief complaint: Nausea/Vomiting/Diarrhea Stated complaint: missed dialysis appt/tight chest Time Seen by Provider: 12/27/22 12:05 Source: patient Mode of arrival: ambulatory Limitations: no limitations History of Present Illness: 52-year-old female with end-stage renal disease on dialysis receives dialysis Sunday she states that she has had vomiting diarrhea over the last 4 to 5 days she missed dialysis yesterday due to this. States today that her vomiting diarrhea has improved slightly but she has had some slight chest tightness. She denies any pain currently she denies any shortness of breath or cough. Associated nausea: Yes Associated symtoms: Reports chest pain and nausea; Denies dysuria or headache(s) Review of Systems Const: Denies: fever(s), chills, body aches or change in appetite ENMT: Denies: throat pain or dental pain Card: Reports: chest pain Resp: Denies: dyspnea GI: Reports: nausea, vomiting and diarrhea; Denies: abdominal pain : Denies: dysuria Musc: Denies: neck pain or back pain Skin/Breast: Denies: rash Neuro: Denies: headache(s) PFSH ED PFSH: Medical History CAD (coronary artery disease) s/p 2 stents Diabetes ESRD (end stage renal disease) HTN (hypertension) Ventral hernia, recurrent Surgical History AV fistula H/O hernia repair 12 surgeries History of hysterectomy Hx of myringotomy Tubal ligation status Family History Other CAD (coronary artery disease) Chronic kidney disease (CKD) Diabetes Hypertension Social History Smoking and tobacco/nicotine status: former use of tobacco/nicotine Alcohol intake: never Substance/Drug Use: never Household members: family Housing: House Physical Exam Const: COMMON NORMALS: no acute distress, patient oriented x3 and healthy appearing HENMT: COMMON NORMALS: normocephalic and atraumatic HEAD & SCALP: normocephalic and atraumatic Eye: COMMON NORMALS: Equal, round and reactive pupils present and EOMs intact bilaterally PUPIL: Yes Equal, round and reactive pupils present Neck/C-Spine: COMMON NORMALS: full ROM and supple Chest: COMMONS NORMALS: normal inspection of the chest and normal palpation of entire chest wall Resp: COMMON NORMALS: normal respiratory effort, No retractions, No use of accessory muscles and clear to auscultation bilaterally AUSCULTATION: clear to auscultation bilaterally Cardio: COMMON NORMALS: regular rate, regular rhythm and No murmurs present (Cardio) RATE: regular rate RHYTHM: regular rhythm GI: COMMON NORMALS: Normal to inspection, nondistended, normoactive bowel sounds present, Soft to palpation, non-tender and no masses PALPATION: Yes Soft to palpation Extremity: COMMON NORMALS: normal to inspection and full ROM Neuro: COMMON NORMALS: patient oriented x3, moves all extremities and no focal motor deficits Psych: COMMON NORMALS: mental status grossly normal, Normal thought process present and cooperative THOUGHT PROCESS: Normal thought process present Skin: COMMON NORMALS: no rashes or lesions noted and no wounds GENERAL SKIN EXAM: no rashes or lesions noted Course Vital Signs: Vital signs: Vital Signs Temperature 98.2 F 12/27/22 11:58 Pulse Rate 67 12/27/22 12:34 Respiratory Rate 18 12/27/22 11:58 Blood Pressure 109/54 12/27/22 12:34 Pulse Oximetry 92 12/27/22 12:34 Oxygen Delivery Me thod Room Air 12/27/22 12:34 MDM - Nausea/Vomiting/Diarrhea Medical Decision Making Patient presents here with hyperkalemia likely due to missing her dialysis she also has diarrhea did give her calcium insulin D50 here Medical Records I reviewed the patient's medical records. Lab Data I reviewed the patient's lab results. 12/27/22 11:45 12/27/22 11:45 Laboratory Results WBC 8.32 10^3/uL (3.29-11.43) 12/27/22 11:45 RBC 3.11 10^6/uL (3.85-5.65) L 12/27/22 11:45 Hgb 9.70 g/dL (11.27-16.99) L 12/27/22 11:45 Hct 31.7 % (36-47) L 12/27/22 11:45 MCV 101.9 fl (85-98) H 12/27/22 11:45 MCH 31.2 pg (27-33) 12/27/22 11:45 MCHC 30.6 g/dL (30-55) 12/27/22 11:45 RDW 15.9 % (12.1-15.1) H 12/27/22 11:45 Plt Count 186 10^3/cmm (157-399) 12/27/22 11:45 MPV 9.5 fL (7.4-10.4) 12/27/22 11:45 Neut % (Auto) 71.1 % 12/27/22 11:45 Lymph % (Auto) 20.3 % 12/27/22 11:45 [place] % (Auto) 6.7 % 12/27/22 11:45 Eos % (Auto) 1.1 % 12/27/22 11:45 Baso % (Auto) 0.6 % 12/27/22 11:45 Neut # (Auto) 5.91 10^3/uL (1.8-7.7) 12/27/22 11:45 Lymph # (Auto) 1.7 10^3/uL (0.8-4.8) 12/27/22 11:45 [place] # (Auto) 0.6 10^3/uL (0.2-0.9) 12/27/22 11:45 Eos # (Auto) 0.1 10^3/uL (0.0-0.8) 12/27/22 11:45 Baso # (Auto) 0.1 10^3/uL (0.0-0.1) 12/27/22 11:45 Nucleated RBC % (auto) 0 % 12/27/22 11:45 Nucleated RBCs # 0.0 /100WBC 12/27/22 11:45 Sodium 137 mmol/L (136-145) 12/27/22 11:45 Potassium 7.6 mmol/L (3.5-5.1) H* 12/27/22 11:45 Chloride 94 mmol/L (98-107) L 12/27/22 11:45 Carbon Dioxide 20 mmol/L (22-29) L 12/27/22 11:45 Anion Gap 30.6 (5-19) H 12/27/22 11:45 BUN 86 mg/dL (6-20) H* D 12/27/22 11:45 Creatinine 12.8 mg/dL (0.5-0.9) H* 12/27/22 11:45 GFR Calculation 3.0 mL/min (90-130) L 12/27/22 11:45 Glucose 140 mg/dL (65-115) H 12/27/22 11:45 Calculated Osmolality 312 mOsm/kg (285-295) H 12/27/22 11:45 Calcium 9.5 mg/dL (8.5-10.5) 12/27/22 11:45 Total Bilirubin 0.2 mg/dL (0.15-1.2) 12/27/22 11:45 AST 12 U/L (0-32) 12/27/22 11:45 ALT 15 U/L (0-33) 12/27/22 11:45 Alkaline Phosphatase 64 U/L (35-105) 12/27/22 11:45 Troponin T Baseline 83 ng/L (0-10) H 12/27/22 11:45 Total Protein 7.0 g/dL (6.6-8.7) 12/27/22 11:45 Albumin 3.7 g/dL (3.5-5.2) 12/27/22 11:45 Globulin 3.3 g/dL (1.3-4.6) 12/27/22 11:45 All radiology interpretation(s) finalized by discharge EKG Data EKG 1: I personally reviewed and interpreted this EKG as follows: EKG interpretation date: 12/27/22 EKG interpretation time: 12:09 Interpretation: nsr hr [address] or t wave abnormalities qrs 114 qtc 416 Discharge Plan Discharge Patient Disposition: Admitted As Inpatient Admit Provider: Daniel Hughes Clinical Impression: ESRD (end stage renal disease), Hyperkalemia, Diarrhea Condition: Stable Coding Level of Care Code ED Senior Php Software Developer for Kuldip Velarde
[2022-12-27 12:26] LABS: Alanine Aminotransferase 15 U/L (0-33); Albumin Level 3.7 g/dL (3.5-5.2); Alkaline Phosphatase 64 U/L (35-105); Anion Gap 30.6 (5-19); Aspartate Amino Transferase 12 U/L (0-32); Calcium 9.5 mg/dL (8.5-10.5); Carbon Dioxide 20 mmol/L (22-29); Chloride 94 mmol/L (98-107); Globulin 3.3 g/dL (1.3-4.6); Glucose 140 mg/dL (65-115); Osmolality Calculated 312 mOsm/kg (285-295); Sodium 137 mmol/L (136-145); Total Bilirubin 0.2 mg/dL (0.15-1.2)
[2022-12-27 12:37] LABS: Blood Urea Nitrogen 86 mg/dL (6-20); Potassium 7.6 mmol/L (3.5-5.1)
--- NOTE | 2022-12-27 12:56 | PM.HP ---
Providers/Chief Complaint Primary Care Provider: Lisa Mayberry DO Chief Complaint: missed dialysis appt/tight chest History of Present Illness Kristan Reddy is a 52 year old female with established history of coronary disease with stents and history of bypass, end-stage renal disease, Sunday, anemia of chronic disease, type 2 diabetes, hypertension, coming from home with chief complaint of diarrhea weakness and chest tightness. Patient is endorsing initiation of diarrhea on Sunday she has been having 4-5 episodes of loose stools, no recent fever but she is endorsing rigors and chills along weakness, no recent use of antibiotics, no one else sick at home. She had 1 episode of emesis on Sunday however no recurrence. Over the past few days her symptoms worsened and today she started experiencing chest tightness. She missed her dialysis on Sunday because of her above-mentioned symptoms. In the ER she has been diagnosed with fluid overload, hyperkalemia, nephrology has been consulted, she has received hyperkalemic cocktail. EKG without ischemic or infarctive changes troponin is 83, she does not make urine C. difficile panel has been sent, stress test requested for tomorrow, nephro consulted Review of Systems Const: Reports: chills, body aches and fatigue Eyes: Denies: change in vision ENMT: Denies: throat pain Card: Reports: chest pain and swelling of feet/ankles Resp: Reports: dyspnea GI: Reports: nausea, vomiting and diarrhea : Denies: flank pain Musc: Reports: back pain Medications/Allergies Home Medications Medication Instructions Recorded Confirmed Last Taken Type amlodipine 10 mg tablet 10 mg PO DAILY 07/12/20 12/27/22 12/26/22 History clonidine HCl 0.1 mg tablet 0.1 mg PO BID PRN Blood Pressure 07/12/20 12/27/22 12/26/22 History losartan 100 mg tablet (Cozaar) 100 mg PO DAILY 07/12/20 12/27/22 12/26/22 History carvedilol 12.5 mg tablet 25 mg PO BID@0900,2100 #60 tabs 07/13/20 12/27/22 12/26/22 Rx aspirin 81 mg chewable tablet 81 mg PO DAILY 06/19/22 12/27/22 12/26/22 History (Aspirin Childrens) atorvastatin 80 mg tablet 80 mg PO DAILY 06/19/22 12/27/22 12/26/22 History Novolog FlexPen U-100 Insulin 100 15 unit (0.15 mL) SUBCUT TID 90 06/27/22 12/27/22 12/26/22 Rx unit/mL (3 mL) subcutaneous days #40.5 mL (insulin aspart U-100) blood-glucose meter,continuous #1 ea 07/19/22 12/27/22 Unknown Rx (Dexcom G6 Locomotive Inspector) blood-glucose sensor (Dexcom G6 #9 ea 07/19/22 12/27/22 Unknown Rx Sensor device) blood-glucose transmitter (Dexcom #2 ea 07/19/22 12/27/22 Unknown Rx G6 Transmitter device) cilostazol 100 mg tablet 100 mg PO BID #120 tabs 08/22/22 12/27/22 12/26/22 Rx lanthanum 1,000 mg oral powder See Rx Instructions .Route .COMPLEX 09/20/22 12/27/22 12/26/22 History packet (Fosrenol) pantoprazole 40 mg tablet,delayed 40 mg PO DAILY 09/20/22 12/27/22 12/26/22 History release propranolol 40 mg tablet 40 mg PO DAILY 09/20/22 12/27/22 12/26/22 History trazodone 100 mg tablet 100 mg PO DAILY 09/20/22 12/27/22 12/26/22 History vitamin B complex and vitamin C 1 cap PO DAILY 09/20/22 12/27/22 12/26/22 History no.20-folic acid 1 mg capsule (Triphrocaps) blood sugar diagnostic (True #200 ea 11/09/22 12/27/22 Unknown Rx Metrix Glucose Test Strip) pen needle, diabetic 31 gauge x #1,200 ea 11/21/22 12/27/22 Unknown Rx 3/16 (BD Ultra-Fine Mini Pen Needle) insulin detemir U-100 100 unit/mL 20 unit (0.2 mL) SUBCUT BID 60 12/21/22 12/27/22 12/26/22 Rx (3 mL) subcutaneous pen days #24 mL buspirone 10 mg tablet 10 mg PO BID 12/27/22 12/27/22 12/26/22 History sevelamer carbonate 800 mg tablet See Rx Instructions .Route .COMPLEX 12/27/22 12/27/22 12/26/22 History Allergies Allergy/AdvReac Type Severity Reaction Status Date / Time cephalexin Allergy ADR-Vomitin Verified 12/27/22 13:57 g morphine Allergy ADR-Itching Verified 12/27/22 13:57 Penicillins Allergy ALGY-Anaphy Verified 12/27/22 13:57 laxis PFSH Acute PFSH: Medical History CAD (coronary artery disease) s/p 2 stents Diabetes ESRD (end stage renal disease) HTN (hypertension) Ventral hernia, recurrent Surgical History AV fistula H/O hernia repair 12 surgeries History of hysterectomy Hx of myringotomy Tubal ligation status Family History Other CAD (coronary artery disease) Chronic kidney disease (CKD) Diabetes Hypertension Social History Smoking and tobacco/nicotine status: former use of tobacco/nicotine Alcohol intake: never Substance/Drug Use: never Household members: family Housing: House Vitals/I&O/Wt Last Vital Signs Temp 98.2 F 12/27/22 11:58 Pulse 67 12/27/22 12:34 Resp 18 12/27/22 11:58 BP 109/54 12/27/22 12:34 Pulse Ox 92 12/27/22 12:34 O2 Del Method Room Air 12/27/22 12:34 Weight last 48 hrs Weight 75.75 kg Physical Exam Narrative: Pleasant cooperative female Squint noted Left arm AV fistula GCS 15 awake and alert Conjunctivitis Abdomen soft Lower extremity are dry Dry mucous membranes S1, S2 with systolic murmur Data 12/27/22 11:45 12/27/22 11:45 A&P Assessment and plan (1) Hyperkalemia: (2) Diarrhea: (3) Aortic valve stenosis: (4) Peripheral arterial occlusive disease: (5) Diabetes: Qualifiers: Diabetes mellitus type: type 2 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 insulin use: without long-term use Diabetes mellitus complication status: with kidney complications Diabetes mellitus complication detail: with chronic kidney disease Chronic kidney disease stage: on chronic dialysis Qualified Code(s): E11.22 - Type 2 diabetes mellitus with diabetic chronic kidney disease; N18.6 - End stage renal disease; Z99.2 - Dependence on renal dialysis (6) ESRD (end stage renal disease): Plan Hypervolemia with underlying end-stage renal disease Severe hyperkalemia High anion gap without significant acidosis likely related to uremia Patient will need dialysis Nephro consulted Received hyperkalemic cocktail Anticipating improvement with dialysis today EKG not showing hyperkalemic changes Calcium gluconate has been administered Enterocolitis Patient has active symptoms of nausea and diarrhea Check C. difficile Bacterial overgrowth syndrome? Added metronidazole for now Unstable angina with established history of coronary disease I will request stress test for tomorrow to rule out active ischemia Trend troponin with EKG May check D-dimer to rule out thromboembolic phenomenon Hypotension Hold antihtn regimen Patient takes clonidine, losartan, Coreg and amlodipine at home I do not think patient will be requiring 4 different medications at home, monitor pressure for now Renal diet DVT prophylaxis heparin Full code Social dynamics: Patient lives at home Disposition likely on Sunday . Admit to ICU Attestations Medical Necessity Statement*: More than 2 midnights anticipated Diagnoses Hyperkalemia E87.5 Diarrhea R19.7 Aortic valve stenosis I35.0 Peripheral arterial occlusive disease I77.9 Diabetes E11.22; N18.6; Z99.2 Diabetes mellitus type: type 2 Diabetes mellitus long-term insulin use: without long-term use Diabetes mellitus complication status: with kidney complications Diabetes mellitus complication detail: with chronic kidney disease Chronic kidney disease stage: on chronic dialysis ESRD (end stage renal disease) N18.6
[2022-12-27] MEDS: insulin regular-human 100 units/1 mL 10 UNIT IVP (13:07)
[2022-12-27] MEDS: diphenoxylate/atropine Tablet 1 TAB PO (13:10)
[2022-12-27] MEDS: calcium gluconate 0.1 gm/mL 10% SDV 10mL 1 GM IVP (13:10)
[2022-12-27] MEDS: ondansetron 4 MG Tablet PO (13:10)
[2022-12-27] MEDS: dextrose 50% syringe 50 mL IVP (13:10)
--- NOTE | 2022-12-27 13:29 | ECG_ITS ---
[facility] Test Date: 2022-12-27 Pat Name: Kristan Reddy Department: Room: [facility] Gender: Female Track Layer Head: PAULA: 1970 Requested By: Solitario Kaiser Order Number: [id number] Stepan MD: Dinh Calvert M.D. Measurements Intervals [place] Rate: 66 P: 65 RI: 137 QRS: 24 QRSD: 99 T: 123 QT: 399 QTc: 421 Interpretive Statements SINUS RHYTHM ST DEVIATION AND MODERATE T-WAVE ABNORMALITY, CONSIDER LATERAL ISCHEMIA [-0.1+ mV T-WAVE IN I/aVL/V5/V6] Compared to ECG 12/27/2022 12:09:26 Intraventricular conduction delay no longer present T-wave abnormality still present Possible ischemia still present Electronically Signed On 12-27-2022 19:08:52 CDT by Dinh Calvert M.D. [email or web address].ESP Systemsbrentwood behavioral healthcare of mississippiMyercleveland clinic foundation.[employer]/store/OM/[id number]
[2022-12-27 13:37] LABS: Procalcitonin 0.94 ng/mL (0-0.5)
--- NOTE | 2022-12-27 13:45 | PC.NURSE ---
Pt arrives to ICU from ED. Amanda, dialysis nurse, prepping dialysis machine.
[2022-12-27 14:10] LABS: Hepatitis B Surface Antigen Non-Reactive (Nonreactive)
[2022-12-27 14:11] LABS: Troponin 5 2HR 77.55 ng/L (0-10)
[2022-12-27 14:12] LABS: Troponin 5 2HR Delta -5.45 ABS# (0-10)
[2022-12-27 14:29] LABS: Hepatitis B Surface AB > 1000.0 (11.5-1000)
--- NOTE | 2022-12-27 14:40 | ECG_ITS ---
[facility] Test Date: 2022-12-28 Pat Name: Kristan Reddy Department: Room: [facility]08 Gender: Female Build Manager: Gissell Lazofus : 1970 Requested By: Daniel Hughes Order Number: [id number] Stepan MD: Yahaira Contreras M.D. Interpretive Statements NAME OF STUDY: LEXISCAN SESTAMIBI STRESS TEST INDICATION: ESRD, Chest pain PROCEDURE: At the baseline, the blood pressure was 105/67 mmHg with a heart rate of 80 beats per min. The electrocardiogram showed sinus rhythm, normal axis with ST wave T wave changes in lead I, aVL and V6. ??? The Lexiscan was infused over a period of 20 seconds. A total of 0.4 milligrams of Lexiscan was infused. The stress phase was continued for a total of 5 minutes. Heart rate at the end of the stress phase was 96 bpm with a blood pressure of 132 over 70 mm Hg. The EKG at the peak infusion revealed no significant ST-T wave changes. ??? Sestamibi was injected 20 seconds after the Lexiscan infusion. ??? Blood pressure at the end of the recovery phase was 137/ 47 mm Hg with a heart rate of 88 beats per minute. ??? CONCLUSION: 1. No significant EKG changes with the LexiScan infusion. 2. No LexiScan induced chest pain or cardiac arrhythmia. 3. Normal blood pressure and heart rate response. 4. Sestamibi/sestamibi perfusion scan pending; see separate report. Electronically Signed On 12-28-2022 12:34:42 CDT by Yahaira Contreras M.D. [email or web address].[email or web address].[employer]/store/OM/[id number]
--- NOTE | 2022-12-27 14:40 | USCV_ITS ---
Kristan Reddy Age: 52 Gender: F : 1970 Exam Date: 12/27/2022 19:57 Ordering Phys: Daniel Hughes MD Technologist: SCAR [place] [facility] [place]: Unstable angina. Renal failure on dialysis. Hx CABG 2020, s/p cardiac stenting. BP: 102 / 39 HR: 87 Rhythm: Sinus Technical Quality: Adequate MEASUREMENTS (Male / Female) Normal Values 2D ECHO LV Diastolic Diameter PLAX 4.5 cm 4.2 - 5.9 / 3.9 - 5.3 cm LV Systolic Diameter PLAX 2.7 cm IVS Diastolic Thickness 1.8 cm 0.6 - 1.0 / 0.6 - 0.9 cm IVS Systolic Thickness 2.1 cm LVPW Diastolic Thickness 1.7 cm 0.6 - 1.0 / 0.6 - 0.9 cm LVPW Systolic Thickness 2.3 cm LVOT Diameter 2.0 cm LV Ejection Fraction 2D Teich 70.4 % LV Ejection Fraction MOD 2C 49.4 % LV Ejection Fraction 2C AL 48.4 % LA Diameter 4.1 cm LA Width 3.3 cm LA Height 4.8 cm RA Width 2.4 cm RA Height 5.0 cm Aorta at Sinotubular Diameter 2.1 cm IVC Diameter 1.8 cm M-MODE Aortic Annulus Diameter 2.9 cm LA Ao Ratio MM 1.6 MV E Point Septal Separation 0.5 cm DOPPLER AV Peak Velocity 266.3 cm/s LVOT Peak Velocity 106.0 cm/s AV Area Cont Eq vti 1.1 cm squared AV Area Cont Eq pk 1.3 cm squared MV Area PHT 3.9 cm squared Mitral E to A Ratio 1.3 MV E' Velocity 71.0 cm/s Mitral E to MV E' Ratio 18.2 Mitral E to LV E' Lateral Ratio 15.3 Mitral E to LV E' Septal Ratio 22.9 TR Peak Velocity 220.0 cm/s TR Peak Gradient 19.4 mmHg TV Peak E Velocity 80.0 cm/s Right Atrial Pressure 5.0 mmHg Pulmonary Artery Systolic Pressu 24.4 mmHg PV Peak Velocity 130.0 cm/s RV Acceleration Time 0.1 s RV Ejection Time 0.4 s RV AcT/ET 0.3 FINDINGS Left Ventricle Normal left ventricular size and moderately increased wall thickness. Moderate concentric left ventricular hypertrophy. Mildly decreased left ventricle systolic function left ventricular ejection fraction is estimated at 50-55%. Mild global hypokinesis. Grade II diastolic dysfunction, moderately elevated filling pressures. Right Ventricle Normal right ventricular size and systolic function. Right ventricular systolic pressure 24.4 mmHg. Right Atrium Normal right atrial size. Left Atrium Mildly increased left atrial size. Mitral Valve Structurally normal mitral valve. No mitral valve stenosis. No mitral valve regurgitation. Aortic Valve Moderately thickened and calcified aortic valve. Moderate aortic valve stenosis, peak velocity 2.6 m/s, peak gradient 27 mmHg, mean gradient 13.8 mmHg, GUY 1.1 cm squared. No aortic valve regurgitation. Tricuspid Valve Structurally normal tricuspid valve. No tricuspid valve stenosis. No tricuspid valve regurgitation. Pulmonic Valve Structurally normal pulmonic valve. No pulmonary valve stenosis. Trace pulmonary valve regurgitation. Pericardium No pericardial effusion. Aorta Normal size aortic root and proximal ascending aorta. IVC Normal IVC dimension with >50% respiratory change of the inferior vena cava. CONCLUSIONS 1. Normal left ventricular size and moderately increased wall thickness. Moderate concentric left ventricular hypertrophy. Mildly decreased left ventricle systolic function left ventricular ejection fraction is estimated at 50-55 %. Mild global hypokinesis. Grade II diastolic dysfunction, moderately elevated filling pressures. 2. Moderate aortic valve stenosis, peak velocity 2.6 m/s, peak gradient 27 mmHg, mean gradient 13.8 mmHg, GUY 1.1 cm squared. 3. Pulmonary artery pressure estimated at 24 mmHg. Yahaira Contreras MD (Electronically Signed) Final Date: 28 December 2022 12:53 S
--- NOTE | 2022-12-27 14:58 | ECG_ITS ---
[facility] Test Date: 2022-12-27 Pat Name: Kristan Reddy Department: Room: [facility]08 Gender: Female Demand Inspector: : 1970 Requested By: Solitario Kaiser Order Number: [id number] Reading MD: Dinh Calvert M.D. Measurements Intervals [place] Rate: 72 P: 67 ID: [id number] QRS: 26 QRSD: 102 T: 110 QT: 400 QTc: 440 Interpretive Statements SINUS RHYTHM WITH FREQUENT VENTRICULAR PREMATURE COMPLEXES IN A BIGEMINAL PATTERN ST DEVIATION AND MODERATE T-WAVE ABNORMALITY, CONSIDER LATERAL ISCHEMIA [-0.1+ mV T-WAVE IN I/aVL/V5/V6] Compared to ECG 12/27/2022 13:29:02 Ventricular premature complex(es) now present T-wave abnormality still present Possible ischemia still present Electronically Signed On 12-27-2022 19:08:37 CDT by Dinh Calvert M.D. [email or web address].[employer]/store/OM/[id number]
[2022-12-27 15:09] LABS: D Dimer 0.71 ug/mLFEU (0-0.59)
[2022-12-27 15:17] LABS: Estmated Average Glucose 137; Hemoglobin A1C 6.4 % (4.0-6.0)
[2022-12-27 15:27] LABS: Iron 53 ug/dL (37-145); Thyroid Stimulating Hormone 1.61 uIU/mL (0.27-4.20); Vitamin B12 537 pg/mL (232-1245)
[2022-12-27] MEDS: metroNIDAZOLE 500 MG Tablet PO ×2 (16:32→21:13)
[2022-12-27 17:48] LABS: Glucose Point of Care 91 mg/dL (70-110)
--- NOTE | 2022-12-27 18:12 | PC.NURSE ---
Shift summary: Pt has rested in bed since arrival to ICU. She has also had Dialysis done . Per Amanda dance hall host/hostess, 3 liters removed. VSS. Afebrile. Her fistula left arm is patent, thrill felt and brit auscultated. Sinus rhythm noted on monitor. Pt is anuric. No BM this shift. No complaints this shift. NO issues.
[2022-12-27 18:33] LABS: Troponin 5 6HR 82.87 ng/L (0-10)
[2022-12-27 18:34] LABS: Troponin 5 6HR Delta -0.13 ng/L (0-12)
[2022-12-27 20:16] LABS: Glucose Point of Care 167 mg/dL (70-110)
--- NOTE | 2022-12-27 20:33 | P.CONIM_ITS ---
Providers/Reason For Consult Consulting Physician/Specialty*: kom[facility]a/Nephrology Reason for Consult*: ESRD Attending Physician: Daniel Hughes MD Primary Care Provider: Lisa Mayberry DO History of Present Illness History of Present Illness Kristan Reddy is a 52 year old female Patient is a 52-year-old female with past medical history of coronary artery disease status post stents, end-stage renal disease on dialysis per TTS schedule, diabetes, hypertension presented due to generalized weakness and having diarrhea going on for the last couple of days. Patient was unable to take Anything p.o. She missed dialysis on Sunday due to diarrhea. In the ER patient was noted to be fluid overloaded with hyperkalemia with a potassium more than 7. Medical management was given in the ED for hyperkalemia including calcium, insulin and dextrose. Also has elevated troponin. C. difficile sent and pending. Patient is currently getting dialysis. Review of Systems Narrative: Other ROS negative Medications/Allergies Home Medications Medication Instructions Recorded Confirmed Last Taken Type amlodipine 10 mg tablet 10 mg PO DAILY 07/12/20 12/27/22 12/26/22 History clonidine HCl 0.1 mg tablet 0.1 mg PO BID PRN Blood Pressure 07/12/20 12/27/22 12/26/22 History losartan 100 mg tablet (Cozaar) 100 mg PO DAILY 07/12/20 12/27/22 12/26/22 History carvedilol 12.5 mg tablet 25 mg PO BID@0900,2100 #60 tabs 07/13/20 12/27/22 12/26/22 Rx aspirin 81 mg chewable tablet 81 mg PO DAILY 06/19/22 12/27/22 12/26/22 History (Aspirin Childrens) atorvastatin 80 mg tablet 80 mg PO DAILY 06/19/22 12/27/22 12/26/22 History Novolog FlexPen U-100 Insulin 100 15 unit (0.15 mL) SUBCUT TID 90 06/27/22 12/27/22 12/26/22 Rx unit/mL (3 mL) subcutaneous days #40.5 mL (insulin aspart U-100) blood-glucose meter,continuous #1 ea 07/19/22 12/27/22 Unknown Rx (Dexcom G6 Superintendent Construction) blood-glucose sensor (Dexcom G6 #9 ea 07/19/22 12/27/22 Unknown Rx Sensor device) blood-glucose transmitter (Dexcom #2 ea 07/19/22 12/27/22 Unknown Rx G6 Transmitter device) cilostazol 100 mg tablet 100 mg PO BID #120 tabs 08/22/22 12/27/22 12/26/22 Rx lanthanum 1,000 mg oral powder See Rx Instructions .Route .COMPLEX 09/20/22 12/27/22 12/26/22 History packet (Fosrenol) pantoprazole 40 mg tablet,delayed 40 mg PO DAILY 09/20/22 12/27/22 12/26/22 History release propranolol 40 mg tablet 40 mg PO DAILY 09/20/22 12/27/22 12/26/22 History trazodone 100 mg tablet 100 mg PO DAILY 09/20/22 12/27/22 12/26/22 History vitamin B complex and vitamin C 1 cap PO DAILY 09/20/22 12/27/22 12/26/22 History no.20-folic acid 1 mg capsule (Triphrocaps) blood sugar diagnostic (True #200 ea 11/09/22 12/27/22 Unknown Rx Metrix Glucose Test Strip) pen needle, diabetic 31 gauge x #1,200 ea 11/21/22 12/27/22 Unknown Rx 3/16 (BD Ultra-Fine Mini Pen Needle) insulin detemir U-100 100 unit/mL 20 unit (0.2 mL) SUBCUT BID 60 12/21/2212/26/22 Rx (3 mL) subcutaneous pen days #24 mL buspirone 10 mg tablet 10 mg PO BID 12/27/22 12/27/22 12/26/22 History sevelamer carbonate 800 mg tablet See Rx Instructions .Route .COMPLEX 12/27/22 12/27/22 12/26/22 History Allergies Allergy/AdvReac Type Severity Reaction Status Date / Time cephalexin Allergy ADR-Vomitin Verified 12/27/22 13:57 g morphine Allergy ADR-Itching Verified 12/27/22 13:57 Penicillins Allergy ALGY-Anaphy Verified 12/27/22 13:57 laxis Current Medications Generic Name Dose Route Start Last Admin Trade Name Freq PRN Reason Stop Dose Admin Insulin Human Lispro 0 unit 12/27/22 18:00 12/27/22 18:40 Insulin Lispro 100 Unit/1 Ml SUBCUT Not Given TIDWM [facility] Protocol Metronidazole 500 mg 12/27/22 15:00 12/27/22 16:32 Metronidazole 500 Mg Tablet PO 500 mg TID J LUIS Administration PFSH Acute PFSH: Medical History CAD (coronary artery disease) s/p 2 stents Diabetes ESRD (end stage renal disease) HTN (hypertension) Ventral hernia, recurrent Surgical History AV fistula H/O hernia repair 12 surgeries History of hysterectomy Hx of myringotomy Tubal ligation status Family History Other CAD (coronary artery disease) Chronic kidney disease (CKD) Diabetes Hypertension Social History Smoking and tobacco/nicotine status: former use of tobacco/nicotine Alcohol intake: never Substance/Drug Use: never Household members: family Housing: House Vitals/I&O/Wt Last Vital Signs Temp 98.4 F 12/27/22 14:43 Pulse 75 12/27/22 19:58 Resp 16 12/27/22 19:58 BP 121/81 12/27/22 18:00 Pulse Ox 93 12/27/22 19:58 O2 Del Method Room Air 12/27/22 19:58 Weight last 48 hrs Weight 75.75 kg Physical Exam Narrative: awake , alert no distress HEENT S1S2 RRR per report Lungs clear per report no edema Data 12/27/22 11:45 12/27/22 11:45 A&P Assessment and plan (1) ESRD (end stage renal disease): Plan 1. End-stage renal disease: On TTS schedule as outpatient, missed HD on Sunday now has volume overload and hyperkalemia, emergent dialysis for-severe hype rkalemia, low K diet advised, ultrafiltration as tolerated. We will repeat HD again tomorrow 2. Hyperkalemia: Low K diet and HD as above 3. For volume overload: HD as above and fluid restriction and salt restriction 4. Diarrhea: C. difficile pending 5. Anemia: Hemoglobin 9.7, will order JEANNETTE. Patient evaluated using audiovisual cart. Time spent 40 minutes. Consult Attestations Medical Necessity Statement: per medicine team Coding Level of Care Code Acute Code for Chg Fwd Diagnoses ESRD (end stage renal disease) N18.6
[2022-12-27 21:16] LABS: Blood Urea Nitrogen 27 mg/dL (6-20); Calcium 9.9 mg/dL (8.5-10.5); Carbon Dioxide 31 mmol/L (22-29); Chloride 93 mmol/L (98-107); Glomerular Filtration Rate 7.5 mL/min (90-130); Glucose 168 mg/dL (65-115); Osmolality Calculated 295 mOsm/kg (285-295); Sodium 138 mmol/L (136-145)
[2022-12-27] MEDS: acetaminophen 500 mg Tablet PO (21:26)
[2022-12-27 22:18] LABS: Glucose Point of Care 154 mg/dL (70-110)
[2022-12-27] MEDS: HYDROcodone-acetaminophen 5-325 mg Tablet 1 TAB PO (23:02)
[2022-12-28] VITALS (25 sets, daily range): BP systolic 88–137; BP diastolic 31–76; PULSE 67–119; RESP 12–28; TEMP 36.9–37.1; O2SAT 87–97
[2022-12-28] MEDS: sodium chloride 0.9% 250 ML IV ×2 (02:00→05:58)
[2022-12-28 04:18] LABS: Basophils % 0.6 %; Eosinophils # 0.1 10^3/uL (0.0-0.8); Eosinophils % 1.9 %; Lymphocytes # 1.7 10^3/uL (0.8-4.8); Lymphocytes % 24.5 %; Mean Corpuscular HGB Conc 31.6 g/dL (30-55); Mean Corpuscular Hemoglobin 31.6 pg (27-33); Mean Platelet Volume 9.2 fL (7.4-10.4); Monocytes # 0.7 10^3/uL (0.2-0.9); Monocytes % 10.6 %; Neutrophils # 4.37 10^3/uL (1.8-7.7); Neutrophils % 62.3 %; Nucleated Red Blood Cells % 0 %; Platelet Count 198 10^3/cmm (157-399); Red Cell Distribution Width 15.8 % (12.1-15.1); White Blood Count 7.01 10^3/uL (3.29-11.43)
[2022-12-28 04:42] LABS: Anion Gap 19.2 (5-19); Blood Urea Nitrogen 35 mg/dL (6-20); Calcium 9.6 mg/dL (8.5-10.5); Carbon Dioxide 28 mmol/L (22-29); Chloride 93 mmol/L (98-107); Glomerular Filtration Rate 5.7 mL/min (90-130); Glucose 134 mg/dL (65-115); Magnesium 2.1 mg/dL (1.7-2.3); Osmolality Calculated 290 mOsm/kg (285-295); Phosphorus 7.4 mg/dL (2.5-4.5); Potassium 5.2 mmol/L (3.5-5.1); Sodium 135 mmol/L (136-145)
--- NOTE | 2022-12-28 07:05 | PC.NURSE ---
This nurse was called by certified nuclear medicine technologist and asked if the patient was ready for her stress test. This nurse notified the telecommunications technician about the patient's low blood pressure and this nurse told them that the doctor will be asked. Dr. Stubbs was notified about low blood pressure and he ordered a 250 ml bolus. Soft Shoe Dancer came down and gave the stress test chemical and told this nurse that Dr. Contreras approved of the test.
[2022-12-28] MEDS: regadenoson 0.4 Mg/5 ml Syringe IVP (07:44)
[2022-12-28] MEDS: ondansetron 2 mg/ML SDV 2 mL 4 MG IVP (07:54)
--- NOTE | 2022-12-28 08:54 | PM.PN ---
Subjective Subjective: s/p hD last night Medications: Reviewed: Yes Vitals/I&O/Wt Last Vital Signs Temp 99.5 F 12/27/22 21:00 Pulse 88 12/28/22 08:03 Resp 19 H 12/28/22 04:00 BP 137/47 12/28/22 08:03 Pulse Ox 96 12/28/22 04:00 O2 Del Method Nasal Cannula 12/28/22 04:00 O2 Flow Rate 0.5 12/28/22 04:00 12/27/22 12/28/22 12/28/22 22:59 06:59 14:59 Intake Total 300 / 300 250 / 550 250 / 250 Output Total 3300 / 3300 Balance -3000 / -3000 250 / -2750 250 / 250 Weight last 48 hrs Weight 77.8 kg Weight 75.75 kg Physical Exam Narrative: awake , alert no distress HEENT S1S2 RRR per report Lungs clear per report no edema Data 12/28/22 04:00 12/28/22 04:00 A&P Assessment and plan (1) ESRD (end stage renal disease): Plan 1. End-stage renal disease: On TTS schedule as outpatient, missed HD on Sunday now has volume overload and hyperkalemia, emergent dialysis for-severe hyperkalemia last night , low K diet advised, ultrafiltration as tolerated. repeat HD today 2. Hyperkalemia: Low K diet and HD as above 3. For volume overload: HD as above and fluid restriction and salt restriction 4. Diarrhea: C. difficile pending 5. Anemia: Hemoglobin 9.7, s/p JEANNETTE. 6. chest pain , s/p stress test - penindg Patient evaluated using audiovisual cart. Time spent 20 minutes. Attestations Medical Necessity Statement*: per medicine team Coding Level of Care Code Acute Code for Chg Fwd Diagnoses ESRD (end stage renal disease) N18.6
[2022-12-28 09:03] LABS: Glucose Point of Care 183 mg/dL (70-110)
[2022-12-28] MEDS: carvedilol 25 mg Tablet PO (09:12)
[2022-12-28] MEDS: metroNIDAZOLE 500 MG Tablet PO ×2 (09:12→16:16)
[2022-12-28] MEDS: insulin lispro 100 unit/1 mL SUBCUT (09:12)
[2022-12-28] MEDS: aspirin 81 mg Chew Tablet PO (09:12)
--- NOTE | 2022-12-28 10:25 | PM.DCS ---
Discharge Providers Date of Admission: 12/27/22 12:55 Date of Discharge: December 28, 2022 Attending Provider at Admission: Daniel Hughes MD Attending Provider at Discharge: Daniel Hughes MD Primary Care Provider: Lisa Mayberry DO Diagnoses at Discharge Discharge Diagnosis (1) ESRD (end stage renal disease): Status: Chronic Reason for Visit Reason for Visit: missed dialysis appt/tight chest Hospital Course Hospital Course 52-year female with history of end-stage renal disease, was experiencing diarrhea at home, because of lethargy and fatigue missed her dialysis on Sunday, she gets Sunday, she was diagnosed with hyperkalemia and received hyperkalemia cocktail, dialysis was done on same day, for her chest pain stress test was requested considering her established coronary disease, she was describing her pain as stabbing in nature, troponins were trending down, EKG did not show ischemic or infarctive changes, Discussed w Dr Contreras regarding stress test who recommended adding antianginal and medical management at this point. Added Isosorbide mononitrate and Ranolazine. Physical Exam Narrative: Signs of fluid load improved GCS 15 Left arm fistula Abdomen soft Pleasant and cooperative Currently on room air Nonfocal neuro exam Squint Discharge Data Studies Completed and Pending Completed Studies During Hospitalization Category Date Time Status Sestamibi Stress Test Request Routine Exams 12/27/22 14:40 Draft XR chest 1V portable [id number] Stat Exams 12/27/22 11:36 Completed Pending at discharge Category Date Time Status Clostridium Difficile PCR Routine Lab 12/27/22 12:41 Uncollected NM norm perf SPECT r/s* [id number] Routine Nuc Med 12/28/22 14:40 Taken CV. echo complete* [id number] Routine Ultrasound 12/27/22 14:40 Taken Laboratory Results WBC 7.01 10^3/uL (3.29-11.43) 12/28/22 04:00 RBC 3.10 10^6/uL (3.85-5.65) L 12/28/22 04:00 Hgb 9.80 g/dL (11.27-16.99) L 12/28/22 04:00 Hct 31.0 % (36-47) L 12/28/22 04:00 MCV 100.0 fl (85-98) H 12/28/22 04:00 MCH 31.6 pg (27-33) 12/28/22 04:00 MCHC 31.6 g/dL (30-55) 12/28/22 04:00 RDW 15.8 % (12.1-15.1) H 12/28/22 04:00 Plt Count 198 10^3/cmm (157-399) 12/28/22 04:00 MPV 9.2 fL (7.4-10.4) 12/28/22 04:00 Neut % (Auto) 62.3 % 12/28/22 04:00 Lymph % (Auto) 24.5 % 12/28/22 04:00 [place] % (Auto) 10.6 % 12/28/22 04:00 Eos % (Auto) 1.9 % 12/28/22 04:00 Baso % (Auto) 0.6 % 12/28/22 04:00 Neut # (Auto) 4.37 10^3/uL (1.8-7.7) 12/28/22 04:00 Lymph # (Auto) 1.7 10^3/uL (0.8-4.8) 12/28/22 04:00 [place] # (Auto) 0.7 10^3/uL (0.2-0.9) 12/28/22 04:00 Eos # (Auto) 0.1 10^3/uL (0.0-0.8) 12/28/22 04:00 Baso # (Auto) 0.0 10^3/uL (0.0-0.1) 12/28/22 04:00 Nucleated RBC % (auto) 0 % 12/28/22 04:00 Nucleated RBCs # 0.0 /100WBC 12/28/22 04:00 D-Dimer 0.71 ug/mLFEU (0-0.59) H 12/27/22 12:55 Sodium 135 mmol/L (136-145) L 12/28/22 04:00 Potassium 5.2 mmol/L (3.5-5.1) H 12/28/22 04:00 Chloride 93 mmol/L (98-107) L 12/28/22 04:00 Carbon Dioxide 28 mmol/L (22-29) 12/28/22 04:00 Anion Gap 19.2 (5-19) H 12/28/22 04:00 BUN 35 mg/dL (6-20) H 12/28/22 04:00 Creatinine 7.4 mg/dL (0.5-0.9) H* 12/28/22 04:00 GFR Calculation 5.7 mL/min (90-130) L 12/28/22 04:00 Glucose 134 mg/dL (65-115) H 12/28/22 04:00 POC Glucose 183 mg/dL (70-110) H 12/28/22 08:56 Estimat Average Glucose 137 12/27/22 12:55 Hemoglobin A1c 6.4 % (4.0-6.0) H 12/27/22 12:55 Calculated Osmolality 290 mOsm/kg (285-295) 12/28/22 04:00 Calcium 9.6 mg/dL (8.5-10.5) 12/28/22 04:00 Phosphorus 7.4 mg/dL (2.5-4.5) H 12/28/22 04:00 Magnesium 2.1 mg/dL (1.7-2.3) 12/28/22 04:00 Iron 53 ug/dL (37-145) 12/27/22 12:55 Total Bilirubin 0.2 mg/dL (0.15-1.2) 12/27/22 11:45 AST 12 U/L (0-32) 12/27/22 11:45 ALT 15 U/L (0-33) 12/27/22 11:45 Alkaline Phosphatase 64 U/L (35-105) 12/27/22 11:45 Troponin T Baseline 83 ng/L (0-10) H 12/27/22 11:45 Troponin T 120 Minute 77.55 ng/L (0-10) H 12/27/22 13:28 Delta Troponin T -5.45 ABS# (0-10) L 12/27/22 13:28 Troponin T Hi Sens 6Hr 82.87 ng/L (0-10) H 12/27/22 17:45 Troponin T Hi Sens 6Hr Delta -0.13 ng/L (0-12) L 12/27/22 17:45 Total Protein 7.0 g/dL (6.6-8.7) 12/27/22 11:45 Albumin 3.7 g/dL (3.5-5.2) 12/27/22 11:45 Globulin 3.3 g/dL (1.3-4.6) 12/27/22 11:45 Vitamin B12 537 pg/mL (232-1245) 12/27/22 12:55 Procalcitonin 0.94 ng/mL (0-0.5) H 12/27/22 11:45 TSH 1.61 uIU/mL (0.27-4.20) 12/27/22 12:55 Hep Bs Antigen Non-reactive (Nonreactive) 12/27/22 12:55 Hep Bs Antibody > 1000.0 (11.5-1000) H 12/27/22 12:55 Vitals Last Vital Signs Temp 99.5 F 12/27/22 21:00 Pulse 81 12/28/22 09:00 Resp 15 12/28/22 09:00 BP 136/49 12/28/22 09:00 Pulse Ox 94 12/28/22 09:00 O2 Del Method Room Air 12/28/22 09:00 O2 Flow Rate 1 12/28/22 07:00 Discharge Plan Discharge Patient Disposition: Home Condition: Stable Prescriptions: New isosorbide mononitrate 30 mg tablet extended release 24 hr 30 mg PO DAILY Qty: 90 3RF ranolazine 500 mg tablet extended release 12 hr 500 mg PO BID Qty: 60 4RF Continued atorvastatin 80 mg tablet 80 mg PO DAILY aspirin [Aspirin Childrens] 81 mg tablet,chewable 81 mg PO DAILY (DME) pen needle, diabetic [BD Ultra-Fine Mini Pen Needle] 31 gauge x 3/16 needle See Rx Instructions .Route Qty: 1200 0RF Rx Instructions: As directed cilostazol 100 mg tablet 100 mg PO BID Qty: 120 0RF insulin aspart U-100 [Novolog FlexPen U-100 Insulin] 100 unit/mL (3 mL) insulin pen 15 unit SUBCUT TID 90 Days Qty: 40.5 0RF Rx Instructions: PER SLIDING SCALE (DME) Dexcom G6 Sustainability Executive Director Misc See Rx Instructions .ROUTE .MEDSUPPLY Qty: 1 2RF Rx Instructions: Change once every year (DME) Dexcom G6 Sensor Device See Rx Instructions .ROUTE .MEDSUPPLY Qty: 9 2RF Rx Instructions: change every 10 days (DME) Dexcom G6 Transmitter Device See Rx Instructions .ROUTE .MEDSUPPLY Qty: 2 2RF Rx Instructions: change every 90 days (DME) True Metrix Glucose Test Strip Strip See Rx Instructions .Route Qty: 200 0RF Rx Instructions: check up two times daily Levemir FlexTouch U100 Insulin 100 unit/mL (3 mL) insulin pen 20 unit SUBCUT BID 60 Days Qty: 24 0RF losartan [Cozaar] 100 mg tablet 100 mg PO DAILY clonidine HCl 0.1 mg tablet 0.1 mg PO BID PRN (Reason: Blood Pressure) carvedilol 12.5 mg Tablet 25 mg PO BID@0900,2100 Qty: 60 0RF trazodone 100 mg tablet 100 mg PO DAILY pantoprazole 40 mg tablet,delayed release (DR/EC) 40 mg PO DAILY Triphrocaps 1 mg capsule 1 cap PO DAILY Fosrenol 1,000 mg powder in packet See Rx Instructions .ROUTE .COMPLEX Rx Instructions: 1,000 mg orally DIRECTED sevelamer carbonate 800 mg tablet See Rx Instructions .ROUTE .COMPLEX Rx Instructions: 2400 MG THREE TIMES A DAY WITH MEALS AND 1600 MG TWICE A DAY WITH SNACKS buspirone 10 mg tablet 10 mg PO BID Held amlodipine 10 mg tablet 10 mg PO DAILY Hold Instructions: Resume on 12/30/22. Discontinued propranolol 40 mg tablet 40 mg PO DAILY Discharge Orders: Discharge Order (Routine); Ordered 12/28/22 Ordered By: Daniel Hughes Referrals: Lisa Mayberry DO [Primary Care Provider] - Patient Instructions: Opioid Safety Discharge Attestations Time Spent in Discharge Care*: greater than 30 min Status at Discharge: Cognitive status at discharge: cognitively intact, Behavioral status at discharge: cooperative, Quality Metrics Clinical Quality Measures [ No reported AMI, CVA or VTE this stay] Coding Level of Care Code Acute Code for Chg Fwd Diagnoses ESRD (end stage renal disease) N18.6
[2022-12-28 12:11] LABS: Glucose Point of Care 124 mg/dL (70-110)
--- NOTE | 2022-12-28 14:40 | NMCV_ITS ---
NM norm perf SPECT r/s* [id number] Kristan Reddy Age: 52 Gender: F : 1970 Exam Date: 12/28/2022 06:59 Ordering Phys: Daniel Hughes MD Technologist: ELVER Millan Exam Location: [facility] Indications: CHEST PAIN STRESS TEST Please see separate stress test report in [facility] for full findings IMAGE PROTOCOL Rest/Stress 1 Lexiscan Day Radiopharmaceutical Dose (mCi) Administration Site Administered by Rest: Tc-99m 10.9 IV ELVER Miner Sestamibi Stress:Tc-99m 32.6 IV ELVER Miner Sestamibi Rest: 28-Dec-2022 60 Discovery 630 Stress: 28-Dec-2022 30 Discovery 630 0.4mg Lexiscan. Supine position only as patient was unable to lay prone. SPECT RESULTS Technical Quality: Excellent Raw Data Analysis: Normal Image Corrections: No attenuation or motion correction applied Summed Stress Score: 15 Summed Rest Score: 9 Summed Difference Score: 7 PERFUSION FINDINGS Medium sized perfusion abnormality of moderate severity of basal to mid inferolateral, anterolateral and apical inferior sandhu on rest images with some reversibility in mid inferolateral apical lateral and mid to apical inferior sandhu on stress images. FUNCTIONAL RESULTS (calculated via Gated SPECT) Stress Image LV EF (%): 36 Stress EDV (mL):227 TID: 1.14 Stress ESV (mL):145 FUNCTIONAL FINDINGS: The left ventricle is normal in size. Transient Ischemia Dilatation of 1.1. The left ventricular ejection fraction is moderately reduced with a value of 36%. There is moderately decreased global wall thickening. Markedly increased end-diastolic and end-systolic volumes. IMPRESSIONS 1. Medium sized perfusion abnormality of moderate severity of basal to mid inferolateral, anterolateral and apical inferior sandhu with some reversibility in mid inferolateral, apical lateral and mid to apical inferior sandhu. 2. This may represent old myocardial infarction in right coronary artery/circumflex artery territory with mild pedro-infarct ischemia. 3. The left ventricular ejection fraction is moderately reduced with a value of 36% with global hypokinesis. 4. No EKG changes with Lexiscan infusion. Refer to separate report for details. Yahaira Contreras MD (Electronically Signed) Final Date: 28 December 2022 12:28 S
--- NOTE | 2022-12-28 16:39 | PC.NURSE ---
Extensive education provided to patient and daughter at bedside. All questions answered. Patient and family verbalized understanding of teachings. Written education provided and reviewed with patient. Follow up appointment with PCP highlighted and reviewed, Dialysis schedule reviewed, emphases on renal diet and low potassium educated. New medications; continued, held, and stopped medications reviewed. Patient and daughter had no further questions, IV removed. intact, tolerated well. Patient ambulated in room then brought to personal vehicle via wheelchair and ambulated to vehicle with daughter as primary long haul truck driver. See discharge vitals.
--- NOTE | 2022-12-28 16:49 | PC.HD ---
Blood circuit clotted with 20 minutes of treatment left. Pt is discharging post treatment and declines to wait to finish treatment after machine restrung so treatment terminated early, Dr Cesar fuller.
== END 2022-12-28 16:47 | disposition home or self-care (01) | DRG 640 ==
LOC: ER 12:18 → ICU 12:56
PROVIDERS: Hospitalist; Admitting Provider Internal Medicine; Emergency Provider Emergency Medicine; PCP Family Medicine; Visit Provider Internal Medicine
DX: E87.5 Hyperkalemia (principal); N18.6 End stage renal disease; I12.0 Hypertensive chronic kidney disease with stage 5 chronic kidney disease or end stage renal disease; E11.22 Type 2 diabetes mellitus with diabetic chronic kidney disease; Z99.2 Dependence on renal dialysis; Z91.158 Patient's noncompliance with renal dialysis for other reason; K52.9 Noninfective gastroenteritis and colitis, unspecified; E87.70 Fluid overload, unspecified; Z79.82 Long term (current) use of aspirin; Z79.4 Long term (current) use of insulin; Z79.891 Long term (current) use of opiate analgesic; I25.10 Atherosclerotic heart disease of native coronary artery without angina pectoris; Z95.5 Presence of coronary angioplasty implant and graft; Z95.1 Presence of aortocoronary bypass graft; D63.1 Anemia in chronic kidney disease; Z87.891 Personal history of nicotine dependence; I35.0 Nonrheumatic aortic (valve) stenosis; E11.51 Type 2 diabetes mellitus with diabetic peripheral angiopathy without gangrene; R79.89 Other specified abnormal findings of blood chemistry; I95.9 Hypotension, unspecified
CPT/HCPCS: 36415; 36416; 71045; 78452; 80048; 80053; 82607; 82962; 83036; 83540; 83735; 84100; 84145; 84443; 84484; 85025; 85378; 86706; 87340; 90935; 93005; 93017; 93306; 96365; 96372; 96375; 96376; 99285; A9500; J0612; J1815; J2405; J2785; J7050; Q0162; Q3014

== ENCOUNTER 2023-01-05 12:16 | Outpatient (CLI) | payer MEDICARE, MEDICAID, SELFPAY ==
[2023-01-05 13:36] LABS: Alanine Aminotransferase 15 U/L (0-33); Albumin Level 4.3 g/dL (3.5-5.2); Alkaline Phosphatase 69 U/L (35-105); Anion Gap 20.5 (5-19); Aspartate Amino Transferase 15 U/L (0-32); Blood Urea Nitrogen 41 mg/dL (6-20); Calcium 9.5 mg/dL (8.5-10.5); Carbon Dioxide 31 mmol/L (22-29); Chloride 91 mmol/L (98-107); Chol HDL Ratio 2.58 mg/dL (0.0-4.40); Cholesterol 142 mg/dL (0-200); Glomerular Filtration Rate 5.4 mL/min (90-130); Glucose 162 mg/dL (65-115); HDL Cholesterol 55 mg/dL (60-100); LDL Cholesterol Calculated 62 mg/dL (50-129); LDL HDL Ratio 1.13 RATIO (0.00-3.22); Osmolality Calculated 298 mOsm/kg (285-295); Potassium 5.5 mmol/L (3.5-5.1); Sodium 137 mmol/L (136-145); Total Bilirubin 0.4 mg/dL (0.15-1.2); Total Protein 7.3 g/dL (6.6-8.7); Triglycerides 125 mg/dL (0-150)
[2023-01-05 14:06] LABS: Estmated Average Glucose 137; Hemoglobin A1C 6.4 % (4.0-6.0)
== END 2023-01-05 12:17 | disposition home or self-care (01) ==
LOC: LAB 12:17
PROVIDERS: PCP Family Medicine; Visit Provider Internal Medicine
DX: E11.9 Type 2 diabetes mellitus without complications (principal); E78.5 Hyperlipidemia, unspecified
CPT/HCPCS: 36415; 80053; 80061; 83036

== ENCOUNTER → 2023-01-08 08:43 | Outpatient (BNVA) | payer MEDICARE, MEDICAID, SELFPAY | PROVIDERS: PCP Family Medicine; Visit Provider Internal Medicine | DX: E11.22 Type 2 diabetes mellitus with diabetic chronic kidney disease (principal); N18.6 End stage renal disease; Z99.2 Dependence on renal dialysis; E78.5 Hyperlipidemia, unspecified; E66.9 Obesity, unspecified; Z79.4 Long term (current) use of insulin; Z68.35 Body mass index [BMI] 35.0-35.9, adult | CPT/HCPCS: 99214 ==

== ENCOUNTER 2023-02-05 22:11 | Inpatient (IN) | payer MEDICARE, MEDICAID, SELFPAY ==
[2023-02-05] VITALS (8 sets, daily range): BP systolic 120–151; BP diastolic 59–94; PULSE 94–115; RESP 21; TEMP 36.4; O2SAT 79–95; BMI 35.6
--- NOTE | 2023-02-05 22:17 | ECG_ITS ---
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 Measurements Intervals [place] Rate: 113 P: 82 TX: 135 QRS: -32 QRSD: 144 T: 104 QT: 375 QTc: 515 Interpretive Statements SINUS TACHYCARDIA LEFT AXIS DEVIATION [QRS AXIS < -30] LEFT BUNDLE BRANCH BLOCK [120+ ms QRS DURATION, 80+ ms Q/S IN V1/V2, 85+ ms R IN I/aVL/V5/V6] Compared to ECG 12/27/2022 14:58:16 Left-axis deviation now present Left bundle-branch block now present Sinus rhythm no longer present Ventricular premature complex(es) no longer present T-wave abnormality no longer present Possible ischemia no longer present Electronically Signed On 02-06-2023 6:28:00 SHOE STITCHER by Yahaira Contreras M.D. [email or web address] trinity
--- NOTE | 2023-02-05 22:30 | XRR_ITS ---
PROCEDURE INFORMATION: Exam: XR Chest Exam date and time: 02/05/2023 10:34 PM Age: 52 years old Clinical indication: Shortness of breath; Prior surgery; Surgery date: 6+ months; Surgery type: Open heart; Additional info: Cxp TECHNIQUE: Imaging protocol: Radiologic exam of the chest. Views: 1 view. COMPARISON: CR XR chest 1V portable [id number] 12/27/2022 11:48 AM FINDINGS: Lungs: See Heart/Mediastinum finding. Pleural spaces: Unremarkable. No pleural effusion. No pneumothorax. Heart/Mediastinum: Cardiomegaly and pulmonary vascular congestion. Bones/joints: Sternotomy wires. XR/XR chest 1V portable [id number] IMPRESSION: Cardiomegaly and pulmonary vascular congestion.
--- NOTE | 2023-02-05 22:36 | ED_ITS ---
HPI - Chest Pain 2 General: Chief Complaint: Shortness of Breath/Dyspnea Stated Complaint: SOB Time Seen by Provider: 02/05/23 22:18 History of Present Illness: 52-year-old female presents to the emerg ency department with complaints of substernal chest pain that is a 9 out of 10. She states she also feels very diaphoretic and short of breath. She states she is also very nauseated. She states that approximately 1 week ago she was diagnosed with COVID and feels like she is also having increased work of breathing she states she does have dialysis on Sunday and Sunday and recently had no difficulties completing her dialysis 2 days ago. She states she started having substernal chest pain approximately 2 hours prior to arrival in the emergency department she states that she did take a sublingual nitro with minimal improvement. She does appear to be acutely ill. Patient states she has had a two-vessel coronary artery bypass graft in the past and was admitted to this hospital on 2022 and received a stress test. She states she also received a cardiac catheterization at [facility] approximately 2 months ago. Associated symptoms: Reports dyspnea and nausea Review of Systems 2 General: Reports: 10 or more systems reviewed and unremarkable except in HPI and below Card: Reports: chest pain, edema, swelling of feet/ankles, dyspnea on exertion and orthopnea Resp: Reports: dyspnea and non-productive cough GI: Reports: nausea PFSH ED 2 PFSH: Medical History (Updated 02/06/23 @ 18:49 by Enzo Holguin MD) Transaminitis Hyperkalemia Aortic valve stenosis Peripheral arterial occlusive disease ESRD (end stage renal disease) Diabetes Diarrhea HTN (hypertension) CAD (coronary artery disease) s/p 2 stents Ventral hernia, recurrent Surgical History (Updated 02/06/23 @ 00:03 by Braeden Palomino MD) Hx of CABG Hx of myringotomy Tubal ligation status History of hysterectomy AV fistula H/O hernia repair 12 surgeries Family History Other CAD (coronary artery disease) Chronic kidney disease (CKD) Diabetes Hypertension Social History Smoking and tobacco/nicotine status: former use of tobacco/nicotine Alcohol intake: never Substance/Drug Use: never Household members: family Housing: House Physical Exam 2 Narrative: EXAM NARRATIVE: Constitutional: the patient appears ill and in acute distress. Vital signs reviewed as documented. HENMT: Normocephalic, atraumatic. Extermal ears with normal appearance without drainage. Nose without drainage, normal appearance. Mucus membranes moist. Neck is supple, No jugular venous distension, trachea is midline, no appreciable carotid bruits. No lymphadenopathy. No meningeal signs. Flexion, extension and lateral rotation is without pain. Eyes: Pupils are equal, round, reactive to light and accommodation. No scleral icterus. Extra-ocular movement are intact. Thorax is symmetrical and with equal rise and fall with respirations. Resp: Decreased bilaterally in the bases, mild expiratory wheezes scattered throughout. Tachypneic Cardio: Sinus tachycardia. Positive S1, S2. No appreciable murmurs, rubs or gallops. GI: Abdominal exam reveals normal bowel sounds to all quadrants. No organomegaly. Large bilateral ventral hernias noted. No hepatomegally appreciated. Morbid obesity Soft, nontender to palpation. Extremity: Extremities are 2+ bilateral lower extremity edema and both femoral and pedal pulses are 2+ and equal bilaterally. Moves all extremities well, sensation in all extremities. Left upper extremity with AV fistula-positive thrill and bruit. Neuro: Alert and oriented x4, person, place, time and situation. Cranial nerves II through XII are grossly intact, there is no focal neurological deficits that I can appreciate at present. Motor strength in the upper and lower extremities are equal and bilateral 5/5. Psych: Cooperative, calm, normal thought process, appropriate judgment. Skin: No lesions, rashes. No gross abnormalities noted. Back: Symmetrical, no obvious deformity, No CVA tenderness Course 2 Vital Signs: Vital signs: Vital Signs Temperature 99.2 F 02/07/23 20:30 Pulse Rate 103 H 02/07/23 22:30 Respiratory Rate 14 02/07/23 23:29 Blood Pressure 113/57 02/07/23 22:30 Pulse Oximetry 96 02/07/23 23:29 Oxygen Delivery Me thod Nasal Cannula 02/07/23 22:30 Oxygen Flow Rate 2 02/07/23 22:30 MDM - Chest Pain Medical Decision Making Physical exam completed and documented, I will obtain serial EKGs and cardiac enzymes, CBC, CMP, chest x-ray, provide cardiac dose aspirin as well as nitroglycerin drip and heparin drip and Plavix load I have consulted cardiology for her new left bundle branch block with active chest pain concerning for non- ST elevated myocardial infarction given her coronary artery disease and her current ongoing chest pain and worsening shortness of breath I suspect most likely that she has an occlusion of one of her previous coronary artery bypass graft or a new occlusion. Medical Records I reviewed the patient's medical records. Lab Data I reviewed the patient's lab results. 02/07/23 12:20 02/07/23 03:47 Radiology Impressions Chest X-Ray 02/07/23 07:00 IMPRESSION: Developing CHF. Laboratory Results WBC 13.58 10^3/uL (3.29-11.43) H 02/05/23 22:25 RBC 2.98 10^6/uL (3.85-5.65) L 02/05/23 22:25 Hgb 9.70 g/dL (11.27-16.99) L 02/05/23 22:25 Hct 29.1 % (36-47) L 02/05/23 22:25 MCV 97.7 fl (85-98) 02/05/23 22:25 MCH 32.6 pg (27-33) 02/05/23 22:25 MCHC 33.3 g/dL (30-55) 02/05/23 22:25 RDW 16.5 % (12.1-15.1) H 02/05/23 22:25 Plt Count 333 10^3/cmm (157-399) 02/05/23 22:25 MPV 10.0 fL (7.4-10.4) 02/05/23 22:25 Neut % (Auto) 64.1 % 02/05/23 22:25 Lymph % (Auto) 28.8 % 02/05/23 22:25 [place] % (Auto) 4.3 % 02/05/23 22:25 Eos % (Auto) 1.5 % 02/05/23 22:25 Baso % (Auto) 0.7 % 02/05/23 22:25 Neut # (Auto) 8.71 10^3/uL (1.8-7.7) H 02/05/23 22:25 Lymph # (Auto) 3.9 10^3/uL (0.8-4.8) 02/05/23 22:25 [place] # (Auto) 0.6 10^3/uL (0.2-0.9) 02/05/23 22:25 Eos # (Auto) 0.2 10^3/uL (0.0-0.8) 02/05/23 22:25 Baso # (Auto) 0.1 10^3/uL (0.0-0.1) 02/05/23 22:25 Nucleated RBC % (auto) 0 % 02/05/23 22:25 Nucleated RBCs # 0.0 /100WBC 02/05/23 22:25 PT 12.80 SECONDS (12.1-14.9) 02/05/23 22:25 INR 0.94 (0.8-1.2) 02/05/23 22:25 APTT 25.6 SECONDS (23.9-36.7) 02/05/23 22:25 Sodium 132 mmol/L (136-145) L 02/05/23 22:55 Potassium 7.0 mmol/L (3.5-5.1) H* 02/05/23 22:55 Chloride 88 mmol/L (98-107) L 02/05/23 22:55 Carbon Dioxide 22 mmol/L (22-29) 02/05/23 22:55 Anion Gap 29.0 (5-19) H 02/05/23 22:55 BUN 72 mg/dL (6-20) H 02/05/23 22:55 Creatinine 10.6 mg/dL (0.5-0.9) H* 02/05/23 22:55 GFR Calculation 3.8 mL/min (90-130) L 02/05/23 22:55 Glucose 336 mg/dL (65-115) H 02/05/23 22:55 POC Glucose 289 mg/dL (70-110) H 02/06/23 00:09 Calculated Osmolality 308 mOsm/kg (285-295) H 02/05/23 22:55 Calcium 9.3 mg/dL (8.5-10.5) 02/05/23 22:55 Total Bilirubin 0.3 mg/dL (0.15-1.2) 02/05/23 22:55 AST 42 U/L (0-32) H 02/05/23 22:55 ALT 50 U/L (0-33) H 02/05/23 22:55 Alkaline Phosphatase 78 U/L (35-105) 02/05/23 22:55 Troponin T Baseline 139 ng/L (0-10) H* 02/05/23 22:55 NT-Pro-B Natriuret Pep 42186 pg/mL (0-125) H 02/05/23 22:55 Total Protein 7.4 g/dL (6.6-8.7) 02/05/23 22:55 Albumin 4.0 g/dL (3.5-5.2) 02/05/23 22:55 Globulin 3.4 g/dL (1.3-4.6) 02/05/23 22:55 All radiology interpretation(s) finalized by discharge Critical Care Time 2 Critical Care Time: Critical Care Time: Yes Total Critical Care Time: 75 Attestation: This case had a high probability of a clinically significant, sudden, or life threatening deterioration of this patient's condition which required my full and direct attention, intervention and personal management. Discharge Plan Discharge Patient Disposition: Admitted As Inpatient Admit Provider: Daniel Hughes Clinical Impression: Non-ST elevated myocardial infarction (non-STEMI) Chronic renal failure Qualifiers: Chronic kidney disease stage: stage 5 Qualified Code(s): N18.5 - Chronic kidney disease, stage 5 Condition: Stable Coding Level of Care Code ED [employer] for Kuldip Velarde
[2023-02-05 22:37] LABS: Basophils # 0.1 10^3/uL (0.0-0.1); Basophils % 0.7 %; Eosinophils # 0.2 10^3/uL (0.0-0.8); Eosinophils % 1.5 %; Hematocrit 29.1 % (36-47); Lymphocytes # 3.9 10^3/uL (0.8-4.8); Lymphocytes % 28.8 %; Mean Corpuscular HGB Conc 33.3 g/dL (30-55); Mean Corpuscular Hemoglobin 32.6 pg (27-33); Mean Corpuscular Volume 97.7 fl (85-98); Monocytes # 0.6 10^3/uL (0.2-0.9); Monocytes % 4.3 %; Neutrophils # 8.71 10^3/uL (1.8-7.7); Neutrophils % 64.1 %; Nucleated Red Blood Cells % 0 %; Platelet Count 333 10^3/cmm (157-399); Red Blood Count 2.98 10^6/uL (3.85-5.65); Red Cell Distribution Width 16.5 % (12.1-15.1); White Blood Count 13.58 10^3/uL (3.29-11.43)
[2023-02-05] MEDS: clopidogrel 300 mg Tablet PO (22:37)
[2023-02-05] MEDS: aspirin 81 mg Chew Tablet 324 MG PO (22:38)
[2023-02-05] MEDS: nitroglycerin 1 gm/inch oint Pkt 1 INCH TOPICAL (22:38)
[2023-02-05] MEDS: heparin 5,000 unit/mL INJ 1 mL 4000 UNIT IVP (22:39)
[2023-02-05 22:50] LABS: INR 0.94 (0.8-1.2)
[2023-02-05 22:51] LABS: Partial Thromboplastin Time 25.6 SECONDS (23.9-36.7)
[2023-02-05] MEDS: ondansetron 2 mg/ML SDV 2 mL 8 MG IVP (22:54)
[2023-02-05] MEDS: metoprolol tartrate 1 mg/1 mL SDV 5 mL 5 MG IVP (23:05)
[2023-02-05] MEDS: nitroglycerin drip 50 MG/250 ML PREMIX IV (23:18)
[2023-02-05 23:34] LABS: Troponin(5th) Baseline 139 ng/L (0-10)
[2023-02-05] MEDS: heparin drip 25,000 UNIT/500 ML PREMIX 20.96 UNIT IV (23:34)
[2023-02-05 23:35] LABS: Alanine Aminotransferase 50 U/L (0-33); Alkaline Phosphatase 78 U/L (35-105); Aspartate Amino Transferase 42 U/L (0-32); Blood Urea Nitrogen 72 mg/dL (6-20); Calcium 9.3 mg/dL (8.5-10.5); Carbon Dioxide 22 mmol/L (22-29); Chloride 88 mmol/L (98-107); Globulin 3.4 g/dL (1.3-4.6); Glomerular Filtration Rate 3.8 mL/min (90-130); Glucose 336 mg/dL (65-115); Osmolality Calculated 308 mOsm/kg (285-295); Sodium 132 mmol/L (136-145); Total Bilirubin 0.3 mg/dL (0.15-1.2); Total Protein 7.4 g/dL (6.6-8.7)
--- NOTE | 2023-02-05 23:40 | PM.CONSULT ---
Providers/Reason For Consult Consulting Physician/Specialty*: Cardiovascular medicine Reason for Consult*: Chest pain, new left bundle branch block Requesting Physician: Emergency room Primary Care Provider: Lisa Mayberry DO History of Present Illness History of Present Illness Kristan Reddy is a 52 year old female who is a complicated vascular patient and seriously chronically ill patient with end-stage renal disease on dialysis. She moved here 11 months ago from [place]. She had bypass surgery in [place]. We do not know where her bypass grafts are located. There is no old information about her in the chart. She has been seen here by several physicians from cardiology and cardiac surgery. She originally was seen by Dr. Daniel in June of this year. He noted her list of medical problems that include coronary disease with multiple angioplasties, history of coronary bypass surgery details unknown, diabetes, end-stage renal disease on hemodialysis for about 8 years, hypertension, dyslipidemia, aortic stenosis, peripheral arterial disease, carotid stenosis, obesity, bipolar affective disorder. He ordered a number of tests that included an echo. This revealed normal left ventricular function with an ejection fraction of 60%, grade 2 diastolic dysfunction, no regional wall motion abnormalities and moderate aortic stenosis. He also ordered a lower extremity duplex which suggested severe bilateral iliac disease. Because of this she was sent to Dr. Calvert to consider peripheral angiography. She was placed on cilostazol and was treated medically. She also had a carotid duplex on 10 July which suggested severe left subclavian stenosis and greater than 50% left carotid disease. She was sent finally to [facility] to a vascular surgeon about 2 months ago. She apparently had an angiogram of some of her peripheral vasculature. Once again, I do not have any of that information and do not have any idea what was done or what was recommended. Some of the notes suggest that she had multiple vessel closures. Her daughter told me that the vascular surgeon could not enter on the left and had an extreme amount of difficulty getting into the right common femoral artery. She has been seen in follow-up and has been treated medically. She had a sestamibi examination on December 28 which revealed evidence of an old myocardial infarction in the distribution of the right or the circumflex with mild pedro-infarct ischemia. Interestingly the ejection fraction was suggested to be 36%. At the same time she had a repeat echo on the day before the sestamibi exam was done and that suggested that her left ventricular function was normal with grade 2 diastolic dysfunction and moderate aortic stenosis. The aortic stenosis had not changed since the previous echo in July. She also has 2 large inguinal hernias which are large enough that they are nearly down to her knees when she is sitting up. About 3 hours prior to her presentation here she began to have chest discomfort suddenly while at rest. Her heart rate was 113 when she arrived in the emergency room. Her daughter told me that her oxygen saturation was in the 70s however here it is above 90%. Her EKG shows what is probably a new left bundle branch block with sinus tachycardia. In the emergency room she has been treated with 4000 units of heparin, 325 mg of aspirin, 300 mg of Plavix and an inch of Nitropaste was placed. She was also given 5 mg of metoprolol to bring her heart rate down. She is quite stoic but told me that her pain was an 8 on a 10 scale when she started having it and even after all of this intervention she is still having pain at 8 out of 10. Her first troponin is 139. Her white blood cell count is 14,000 which is higher than it had been previously. She apparently was diagnosed with COVID a week ago. Review of Systems Narrative: She has a positive review of systems in multiple areas. She complains of the area of the hernia is hurting. She has a large fistula in the left arm which is painful with dialysis. Medications/Allergies Home Medications Medication Instructions Recorded Confirmed Last Taken Type amlodipine 10 mg tablet 10 mg PO DAILY 07/12/20 01/08/23 12/26/22 History clonidine HCl 0.1 mg tablet 0.1 mg PO BID PRN Blood Pressure 07/12/20 01/08/23 12/26/22 History losartan 100 mg tablet (Cozaar) 100 mg PO DAILY 07/12/20 01/08/23 12/26/22 History carvedilol 12.5 mg tablet 25 mg (2 x 12.5 mg) PO 07/13/20 01/08/23 12/26/22 Rx BID@0900,2100 #60 tabs aspirin 81 mg chewable tablet 81 mg PO DAILY 06/19/22 01/08/23 12/26/22 History (Aspirin Childrens) atorvastatin 80 mg tablet 80 mg PO DAILY 06/19/22 01/08/23 12/26/22 History Novolog FlexPen U-100 Insulin 100 15 unit (0.15 mL) SUBCUT TID 90 06/27/22 01/08/23 12/26/22 Rx unit/mL (3 mL) subcutaneous days #40.5 mL (insulin aspart U-100) blood-glucose meter,continuous #1 ea 07/19/22 01/08/23 Unknown Rx (Dexcom G6 [employer]) blood-glucose sensor (Dexcom G6 #9 ea 07/19/22 01/08/23 Unknown Rx Sensor device) blood-glucose transmitter (Dexcom #2 ea 07/19/22 01/08/23 Unknown Rx G6 Transmitter device) cilostazol 100 mg tablet 100 mg PO BID #120 tabs 08/22/22 01/08/23 12/26/22 Rx lanthanum 1,000 mg oral powder See Rx Instructions .Route .COMPLEX 09/20/22 01/08/23 12/26/22 History packet (Fosrenol) pantoprazole 40 mg tablet,delayed 40 mg PO DAILY 09/20/22 01/08/23 12/26/22 History release trazodone 100 mg tablet 100 mg PO DAILY 09/20/22 01/08/23 12/26/22 History vitamin B complex and vitamin C 1 cap PO DAILY 09/20/22 01/08/23 12/26/22 History no.20-folic acid 1 mg capsule (Triphrocaps) blood sugar diagnostic (True #200 ea 11/09/22 01/08/23 Unknown Rx Metrix Glucose Test Strip) pen needle, diabetic 31 gauge x #1,200 ea 11/21/22 01/08/23 Unknown Rx 3/16 (BD Ultra-Fine Mini Pen Needle) insulin detemir U-100 100 unit/mL 20 unit (0.2 mL) SUBCUT BID 60 12/21/22 01/08/23 12/26/22 Rx (3 mL) subcutaneous pen days #24 mL buspirone 10 mg tablet 10 mg PO BID 12/27/22 01/08/23 12/26/22 History sevelamer carbonate 800 mg tablet See Rx Instructions .Route .COMPLEX 12/27/22 01/08/23 12/26/22 History isosorbide mononitrate 30 mg 30 mg PO DAILY #90 tabs 12/28/22 01/08/23 Unknown Rx tablet,extended release 24 hr ranolazine 500 mg tablet,extended 500 mg PO BID #60 tabs 12/28/22 01/08/23 Unknown Rx release,12 hr Allergies Allergy/AdvReac Type Severity Reaction Status Date / Time cephalexin Allergy ADR-Vomitin Verified 01/08/23 07:47 g morphine Allergy ADR-Itching Verified 01/08/23 07:47 Penicillins Allergy ALGY-Anaphy Verified 01/08/23 07:47 laxis Current Medications Generic Name Dose Route Start Last Admin Trade Name Freq PRN Reason Stop Dose Admin Nitroglycerin/Dextrose 50 mg in 250 mls @ 0 mls/hr 02/05/23 22:45 02/05/23 23:18 Nitroglycerin Drip IV 10 mcg/min .Q0M J LUIS 3 mls/hr Administration Protocol Per Protocol PFSH Acute PFSH: Medical History (Updated 02/06/23 @ 00:03 by Braeden Palomino MD) Aortic valve stenosis Peripheral arterial occlusive disease ESRD (end stage renal disease) Diabetes Diarrhea Hyperkalemia HTN (hypertension) CAD (coronary artery disease) s/p 2 stents Ventral hernia, recurrent Surgical History (Updated 02/06/23 @ 00:03 by Braeden Palomino MD) Hx of CABG Hx of myringotomy Tubal ligation status History of hysterectomy AV fistula H/O hernia repair 12 surgeries Family History Other CAD (coronary artery disease) Chronic kidney disease (CKD) Diabetes Hypertension Social History Smoking and tobacco/nicotine status: former use of tobacco/nicotine Alcohol intake: never Substance/Drug Use: never Household members: family Housing: House Vitals/I&O/Wt Last Vital Signs Temp 97.6 F 02/05/23 22:12 Pulse 115 H 02/05/23 22:12 Resp 21 H 02/05/23 22:12 BP 120/94 02/05/23 22:12 Pulse Ox 91 02/05/23 22:30 O2 Del Method Nasal Cannula 02/05/23 22:30 O2 Flow Rate 6 02/05/23 22:30 Weight last 48 hrs Weight 165 lb Physical Exam Narrative: GENERAL: In general she looks uncomfortable. HEENT: Exam within normal limits. NECK: Supple without jugular vein distention. The carotid upstroke is normal without bruits. BACK: Exam normal. LUNGS: Clear. HEART: Regular rate and rhythm. ABDOMEN: There are 2 large inguinal hernias which moved down close to her knees. These are extremely large and obliterate her pelvis. EXTREMITIES: No edema. She has no pulses below the groins. NEUROLOGIC: Exam normal. SKIN: Unremarkable. Data 02/05/23 22:25 02/05/23 22:55 A&P Assessment and plan (1) Non-STEMI (non-ST elevated myocardial infarction): (2) New onset left bundle branch block (LBBB): (3) Claudication: (4) Recurrent incisional hernia: (5) Carotid artery stenosis, asymptomatic: (6) Benign essential hypertension with target blood pressure below 140/90: (7) Atherosclerosis of coronary artery of [place] heart without angina pectoris: (8) CAD (coronary artery disease): Qualifiers: Coronary Disease-Associated Artery/Lesion type: bypass graft [place] vs. transplanted heart: [place] heart Associated angina: without angina Qualified Code(s): I25.810 - Atherosclerosis of coronary artery bypass graft(s) without angina pectoris (9) Dyslipidemia: (10) Obesity (BMI 30-39.9): (11) Hx of CABG: Plan She is likely having at least subacute myocardial infarction as evidenced by the elevated troponin, fairly typical symptoms and a new left bundle branch block. She is an extraordinarily high risk patient with recent inability to access the femoral artery on the left at all and difficulty accessing it on the right. We are unable to use her radial arteries because of the previous history of bypass surgery and the fistula. We also do not know where her bypass grafts are. We do not have access to any of that information this evening. We do not have any information about the recent peripheral angiography which was performed. She is in end-stage renal disease patient which increases her risk. Finally, the large bilateral inguinal hernias may prevent us from accessing the arteries in her legs. I told her I would try but I could not promise her that I would be able to get in in order to perform angiography and/or intervention. She is fully awake and alert and understands this. After some time I was able to get a portion of the angiography report from [facility]. This angiogram was performed on 15 November. It revealed an occluded left superficial femoral artery without availability of access on the left. There were bilateral superficial femoral artery occlusions. An attempt was made to pass through the proximal SFA occlusion on the left which was unsuccessful. There is apparently a stent in the left subclavian artery which was patent. Once again I spoke to the patient about this and we will try on the right. The physician doing the procedure on 15 November use the closure device which may make access even more difficult. The right carotid artery was patent. The left carotid artery was calcified but had no more than 30% stenosis. Consult Attestations Medical Necessity Statement: Patient will need admission to the hospital for management of what is likely an acute myocardial infarction. and High Time for a total of 95 minutes, includes reviewing past or interval history, examining/interviewing patient, placing orders, counseling patient/family/other support, updating patient/family/other support, discussing plan of care with staff, communicating with other healthcare providers, documenting encounter and coordinating care Diagnoses Non-STEMI (non-ST elevated myocardial infarction) I21.4 New onset left bundle branch block (LBBB) I44.7 Claudication I73.9 Recurrent incisional hernia K43.2 Carotid artery stenosis, asymptomatic I65.29 Benign essential hypertension with target blood pressure below 140/90 I10 Atherosclerosis of coronary artery of [place] heart without angina pectoris I25.10 Coronary artery disease involving coronary bypass graft of [place] heart without angina pectoris I25.810 Coronary Disease-Associated Artery/Lesion type: bypass graft [place] vs. transplanted heart: [place] heart Associated angina: without angina Dyslipidemia E78.5 Obesity (BMI 30-39.9) E66.9 Hx of CABG Z95.1
--- NOTE | 2023-02-05 23:49 | P.HP_ITS ---
Providers/Chief Complaint 2 Primary Care Provider: Lisa Mayberry DO Chief Complaint: SOB History of Present Illness Kristan Reddy is a 52 year old female with history of CABG, peripheral vascular disease, end-stage renal disease Sunday, hypertension, diabetes, recently had coronary angiogram in November at [facility] which was unremarkable as per the daughter, carotid disease less than 30%, presented today with chest pain. Patient is stating that her CABG was done in [place], support staff is at [facility], follows up with Dr. Calvert and Dr. Daniel here, presented with chest pain patient stating that her chest pain started few hours before her arrival in the ER which she describing as chest tightness, it was associated with nausea and vomiting 2 episodes, she did not experience radiation of pain, diaphoresis or significant shortness of breath. She received nitro and was put on Nitropaste which did not relieve her pain, she was eventually put on nitroglycerin drip he does have new onset left bundle branch block, she is hemodynamically stable, next session is tomorrow, patient is stating that her pain is still there but bearable, Dr. Palomino has been consulted he has evaluated the patient at the bedside in the ER. We have requested records from [facility] Review of Systems 2 Const: Denies: fever(s) Eyes: Denies: change in vision ENMT: Denies: throat pain Card: Reports: chest pain Resp: Denies: dyspnea GI: Denies: abdominal pain : Denies: flank pain Musc: Denies: neck pain Skin/Breast: Denies: rash Neuro: Denies: headache(s) Medications/Allergies Home Medications Medication Instructions Recorded Confirmed Last Taken Type amlodipine 10 mg tablet 10 mg PO DAILY 07/12/20 01/08/23 12/26/22 History clonidine HCl 0.1 mg tablet 0.1 mg PO BID PRN Blood Pressure 07/12/20 01/08/23 12/26/22 History losartan 100 mg tablet (Cozaar) 100 mg PO DAILY 07/12/20 01/08/23 12/26/22 History carvedilol 12.5 mg tablet 25 mg (2 x 12.5 mg) PO 07/13/20 01/08/23 12/26/22 Rx BID@0900,2100 #60 tabs aspirin 81 mg chewable tablet 81 mg PO DAILY 06/19/22 01/08/23 12/26/22 History (Aspirin Childrens) atorvastatin 80 mg tablet 80 mg PO DAILY 06/19/22 01/08/23 12/26/22 History Novolog FlexPen U-100 Insulin 100 15 unit (0.15 mL) SUBCUT TID 90 06/27/22 01/08/23 12/26/22 Rx unit/mL (3 mL) subcutaneous days #40.5 mL (insulin aspart U-100) blood-glucose meter,continuous #1 ea 07/19/22 01/08/23 Unknown Rx (Dexcom G6 Final Cigar And Box Examiner) blood-glucose sensor (Dexcom G6 #9 ea 07/19/22 01/08/23 Unknown Rx Sensor device) blood-glucose transmitter (Dexcom #2 ea 07/19/22 01/08/23 Unknown Rx G6 Transmitter device) cilostazol 100 mg tablet 100 mg PO BID #120 tabs 08/22/22 01/08/23 12/26/22 Rx lanthanum 1,000 mg oral powder See Rx Instructions .Route .COMPLEX 09/20/22 01/08/23 12/26/22 History packet (Fosrenol) pantoprazole 40 mg tablet,delayed 40 mg PO DAILY 09/20/22 01/08/23 12/26/22 History release trazodone 100 mg tablet 100 mg PO DAILY 09/20/22 01/08/23 12/26/22 History vitamin B complex and vitamin C 1 cap PO DAILY 09/20/22 01/08/23 12/26/22 History no.20-folic acid 1 mg capsule (Triphrocaps) blood sugar diagnostic (True #200 ea 11/09/22 01/08/23 Unknown Rx Metrix Glucose Test Strip) pen needle, diabetic 31 gauge x #1,200 ea 11/21/22 01/08/23 Unknown Rx 3/16 (BD Ultra-Fine Mini Pen Needle) insulin detemir U-100 100 unit/mL 20 unit (0.2 mL) SUBCUT BID 60 12/21/22 01/08/23 12/26/22 Rx (3 mL) subcutaneous pen days #24 mL buspirone 10 mg tablet 10 mg PO BID 12/27/22 01/08/23 12/26/22 History sevelamer carbonate 800 mg tablet See Rx Instructions .Route .COMPLEX 12/27/22 01/08/23 12/26/22 History isosorbide mononitrate 30 mg 30 mg PO DAILY #90 tabs 12/28/22 01/08/23 Unknown Rx tablet,extended release 24 hr ranolazine 500 mg tablet,extended 500 mg PO BID #60 tabs 12/28/22 01/08/23 Unknown Rx release,12 hr Allergies Allergy/AdvReac Type Severity Reaction Status Date / Time cephalexin Allergy ADR-Vomitin Verified 01/08/23 07:47 g morphine Allergy ADR-Itching Verified 01/08/23 07:47 Penicillins Allergy ALGY-Anaphy Verified 01/08/23 07:47 laxis PFSH Acute 2 PFSH: Medical History (Updated 02/06/23 @ 00:24 by Surendra Overton MD) Aortic valve stenosis Peripheral arterial occlusive disease ESRD (end stage renal disease) Diabetes Diarrhea Hyperkalemia HTN (hypertension) CAD (coronary artery disease) s/p 2 stents Ventral hernia, recurrent Surgical History (Updated 02/06/23 @ 00:03 by Braeden Palomino MD) Hx of CABG Hx of myringotomy Tubal ligation status History of hysterectomy AV fistula H/O hernia repair 12 surgeries Family History Other CAD (coronary artery disease) Chronic kidney disease (CKD) Diabetes Hypertension Social History Smoking and tobacco/nicotine status: former use of tobacco/nicotine Alcohol intake: never Substance/Drug Use: never Household members: family Housing: House Vitals/I&O/Wt Last Vital Signs Temp 97.6 F 02/05/23 22:12 Pulse 115 H 02/05/23 22:12 Resp 21 H 02/05/23 22:12 BP 120/94 02/05/23 22:12 Pulse Ox 91 02/05/23 22:30 O2 Del Method Nasal Cannula 02/05/23 22:30 O2 Flow Rate 6 02/05/23 22:30 Weight last 48 hrs Weight 74.843 kg Physical Exam 2 Narrative: Patient currently in chest pain Currently on nitroglycerin drip Hemodynamically stable GCS 15 Nonfocal neuro exam Clinically looks euvolemic Abdomen soft S1, S2 Currently on 2 L nasal cannula Non focal neuro exam Abdomen soft Data 02/05/23 22:25 02/05/23 22:55 A&P Assessment and plan (1) New onset left bundle branch block (LBBB): (2) Non-STEMI (non-ST elevated myocardial infarction): (3) Carotid artery stenosis, asymptomatic: (4) Dyslipidemia: (5) Benign essential hypertension with target blood pressure below 140/90: Plan Non-STEMI Patient has history of established coronary disease with CABG, carotid disease less than 30% Recently had coronary angiogram in November at [facility], will request records Cardiology consulted Dr. Palomino has evaluated her in the ER Start ACS protocol Patient went to the [facility], received stent in the LAD and the qawalangin vessel, patient was hypertensive which required nitroglycerin continuation after her angiogram and angioplasty, intraocular pressure significantly, I have given her 500 mill bolus New left bundle branch block Avoid AV noah blocking agents at this point End-stage renal disease Hyperkalemia Next session is tomorrow We will consult nephro Diastolic CHF acute exacerbation with pulm edema and vascular congestion evident on x-ray Clinically does not look fluid overloaded Anticipate improvement with dialysis Chronic anemia: Stable Full code We will keep her n.p.o. in case she would require coronary angiogram for worsening of her chest pain overnight Continue ACS protocol Daughter at the bedside We will request records Attestations 2 Medical Necessity Statement*: More than 2 midnights anticipated Diagnoses New onset left bundle branch block (LBBB) I44.7 Non-STEMI (non-ST elevated myocardial infarction) I21.4 Carotid artery stenosis, asymptomatic I65.29 Dyslipidemia E78.5 Benign essential hypertension with target blood pressure below 140/90 I10
--- NOTE | 2023-02-05 23:49 | PC.NURSE ---
PT STATES SHE GOT INCREASINGLY SHORT OF BREATH TODAY. PT STATES SHE TESTED POSITIVE FOR COVID 1 WEEK AGO TODAY. PT STATES SHE HAS A PRIOR HX OF NV AND BYPASS SURGERY. PT IS A DIALYSIS PT AND HAS A FISTULA IN HER LEFT ARM. PT APPEARS SHORT OF BREATH, DIAPHORETIC AND COMPLAINING OF SEVERE CHEST PAIN. PT IS ALERT AND ORIENTED BUT APPEARS VERY UNCOMFORTABLE. PT STATES SHE TOOK A NITRO PRIOR TO COMING INTO THE EMERGENCY ROOM. PT HAS FAMILY AT BEDSIDE. PT DENIES ANY BLOOD THINNER USE. PT IS ALERT AND ORIENTED, ANSWERS ALL QUESTIONS REGARDING HER CARE.
[2023-02-05 23:55] LABS: NT Pro B Type Natriuretic Pept 28257 pg/mL (0-125)
[2023-02-06] VITALS (102 sets, daily range): BP systolic 69–153; BP diastolic 35–96; PULSE 85–128; RESP 13–25; TEMP 36.6–37.2; O2SAT 86–100; BMI 35.7; BMI 36.2
--- NOTE | 2023-02-06 | USCV_ITS ---
Kristan Reddy Age: 52 Gender: F : 1970 Exam Date: 02/06/2023 13:36 Ordering Phys: Daniel Hughes MD Technologist: John Haines Exam Location: [facility] Indication: ? ef BP: 134 / 82 HR: 110 Rhythm: Sinus Technical Quality: Adequate MEASUREMENTS (Male / Female) Normal Values 2D ECHO LV Diastolic Diameter PLAX 5.2 cm 4.2 - 5.9 / 3.9 - 5.3 cm LV Systolic Diameter PLAX 3.8 cm IVS Diastolic Thickness 1.3 cm 0.6 - 1.0 / 0.6 - 0.9 cm IVS Systolic Thickness 1.8 cm LVPW Diastolic Thickness 1.5 cm 0.6 - 1.0 / 0.6 - 0.9 cm LVPW Systolic Thickness 2.0 cm LVOT Diameter 2.1 cm LV Ejection Fraction 2D Teich 53.5 % LV Ejection Fraction MOD 2C 50.7 % LV Ejection Fraction 2C AL 48.8 % LA Diameter 4.1 cm M-MODE Aortic Annulus Diameter 2.7 cm LA Ao Ratio MM 1.3 MV E Point Septal Separation 1.5 cm FINDINGS Left Ventricle Right Ventricle Right Atrium Left Atrium Mitral Valve Aortic Valve Tricuspid Valve Pulmonic Valve Pericardium Aorta IVC CONCLUSIONS This is a limited echocardiogram performed to assess LV function. LV systolic function is moderately reduced with EF of 35 to 40%. Moderate hypokinesis of anterolateral, anteroseptal and anterior sandhu seen. Compared to prior echocardiogram from 12/25/2022, LV systolic function is significantly decreased with above mentioned regional wall motion abnormalities. Dinh Calvert MD (Electronically Signed) Final Date: 06 February 2023 15:23 S
--- NOTE | 2023-02-06 00:12 | XACV_ITS ---
Exam Room: [facility] Ht: 145 cm Wt: 75 kg BSA: 1.78 m2 Gender: Female : 1970 Exam Priority: Routine Procedure(s): Procedure Description: Diagnostic procedure Procedure Description: PCI procedure Procedure Description: Drug Eluting Coronary Stent Procedure Description: Coronary Angiography Diagnostic Cath Status: Emergency Diagnostic Findings * Exceedingly complex patient with multilevel vascular disease to include the carotids, subclavian, coronary system, lower extremities. Also end-stage renal disease with diabetes on hemodialysis. Chest pain this evening typical of angina. EKG findings represented a new left bundle branch block. Initial troponin is 140. Despite intravenous heparin, intravenous nitroglycerin, beta-juvenal to slow the heart rate, aspirin and Plavix patient continued to have severe 8 out of 10 chest pain. She was brought to the catheterization laboratory emergently. She is also had coronary bypass surgery in [place]. We do not have a bypass report and do not know the location of her grafts. She said she had two-vessel bypass. * Angiography of the cerebral vasculature, carotids, subclavian and lower extremities just 3 months ago revealed diffuse calcified disease of the cerebral vessels and carotids with a patent left subclavian stent. Occluded bilateral superficial femoral arteries. Access was not available via the left common femoral artery. Difficult access was encountered via the right common femoral artery. Patient has no pulse in the right groin. * I was able to access the right common femoral artery. Difficulty was encountered passing a wire through the aorta. The wire became stuck on the subclavian stent which hangs down in the aorta slightly. I was finally able to get diagnostic catheters in place. The left main is normal. There is a 90% ostial circumflex lesion. There appears to be a ramus intermedius artery which is occluded and has previously been stented. The LAD contains a 90% ulcerated ostial stenosis. There is a stent in the proximal to mid LAD with which is patent. The right coronary artery is patent. The distal posterior left ventricular branch is occluded and there is to and fro motion in this vessel suggesting a bypass graft is patent to this vessel.. * I was able to find the saphenous vein graft to the right coronary artery. This inserts into the distal posterior left ventricular branch of the right. It is widely patent. I searched for quite some time for the other bypass graft and was unable to locate this. It probably goes to either the occluded ramus or perhaps the circumflex. I was not able to identify any area in the poarch vessel which would be a clue as to whether a bypass graft is placed there. PCI Status: Emergency PCI LVEF Assessed: No PCI Indication: NSTE - ACS Interventional Findings * Because the ostial circumflex lesion looks old and stable and the ostial LAD lesion looks unstable and ulcerated I chose to stent this. I stented it primarily with a 3.5 x 12 mm stent with good angiographic result. The ostial circumflex did not change from its original findings. The patient tolerated the procedure well. At the end of the procedure her blood pressure was stable. I stopped both the heparin and the nitroglycerin during the procedure. * It should be noted that the wire easily crossed over the aortic valve a number of times without even attempting to do so suggesting that the aortic stenosis is not severe. Decision for PCI with Surgical Consult: No PCI for Multi-vessel Disease: No Conclusions 1. Patent saphenous vein graft to the distal right coronary artery. Unable to locate second saphenous vein graft. Patent right coronary artery. Patent circumflex with 85% ostial stenosis. Ostial ulcerated stenosis of the proximal LAD which was stented primarily. Recommendations * Medical therapy. Interventional RX Recommendation: medical therapy and/or counseling Diagnostic RX Recommendation: medical therapy and/or counseling Anticoagulation: Heparin Pressures Phase:Rest AO : 101 / 59 ( 81 ) @ 7:22:45 PM 83 / 64 ( 73 ) @ 7:22:45 PM 58 / 50 ( 53 ) @ 7:22:45 PM Clinical Evaluation EBL: 5mL-10mL Procedural Details Pre-Procedure Time Out. Identified patient by full name and date of as verbalized by the patient/guarantor. Does the consent match the physician's order: N/A Emergent; Informed Consent not obtained due to time critical life threat. Accurate & Complete Informed Consent: N/A Emergent; Informed Consent not obtained due to time critical life threat. Inpatient/Outpatient History & Physical on Chart: N/A Emergent; Informed Consent not obtained due to time critical life threat. If H&P is completed, is and addenduem needed: N/A Emergent; Informed Consent not obtained due to time critical life threat; If yes, is the addendum complete: N/A Emergent; Informed Consent not obtained due to time critical life threat. Visualize and Verify Site with Patient/Guarantor: N/A. Relevant Radiology Images available: N/A Emergent; Informed Consent not obtained due to time critical life threat. Pre-op teaching completed and patient verbalized understanding. The risks, benefits, and alternatives of sedation and/or procedure were discussed by physician. The patient agrees to continue. Procedure started. [facility] Clinical Fraility Score: 7: Severely Frail. Bush Regenerator Indications: ACS <= 24 hours. Chest Pain Symptom Assessment: Typical Angina Symptoms. Cardiovascular Instability: Yes, if yes, Persistant Ischemic Symptoms. Correct patient, site and procedure confirmed by cath team. PERRLA. Strong, equal hand aerial crop duster bilaterally. Lungs clear x 5 lobes. IV Site on Arrival: 20 gauge in the right anticubital. IV Site on Arrival: 22 gauge in the right hand. IV Fluids: 0.9% NaCl at KVO. 0 mL infused prior to analytical lab analyst. Oxygen started at 5liters/min via nasal canula. right groin was prepped with chloroprep then draped in the usual sterile fashion. Physician notified. Baseline sample Acquired. HR: 117 BPM. Patient's family in the analytical lab analyst waiting room. Dr. Palomino will update at the completion of the procedure. Equipment: 6F - Femoral. Cardiac Cath Pack. ACIST Manifold Kit Model BT 2000. Heparinized Saline (2 units/mL), 1000 mL bag. Physician arrived. Physician scrubbed in. Immediate Pre-Procedure Time Out. Correct Patient: N/A Emergent; Informed Consent not obtained due to time critical life threat; Correct Procedure: N/A Emergent; Informed Consent not obtained due to time critical life threat; Correct Site: N/A Emergent; Informed Consent not obtained due to time critical life threat; Correct Patient Position: N/A Emergent; Informed Consent not obtained due to time critical life threat; Correct Supplies: N/A Emergent; Informed Consent not obtained due to time critical life threat; Dried Flammable Prep: N/A Emergent; Informed Consent not obtained due to time critical life threat; Blood Products Available: N/A Emergent; Informed Consent not obtained due to time critical life threat;. Lidocaine 1% infiltrated to the right groin. Arterial access obtained. Unable to thread kit wire, needle and wire out. Dr. Palomino holding manual pressure. Arterial access obtained. A 6 mongolian JL4 catheter in over the exchange glidewire. Glidewire out. Multiple views taken of left coronary artery. A 6 mongolian JR4 catheter in over the glidewire. Glidewire out. Multiple views taken of right coronary artery. Catheter redirected to the SVG --> RCA. Nitro gtt off. SVG's to RCA visualized. Catheter removed over the glidewire. 6 mongolian XB 3 guide catheter was inserted over the glidewire. Roberts guidewire was advanced through the guide catheter to lesion in the prox LAD. Inflation Number : 1 A MDT R EDWARD 3.5X12 JARED -Lot Number# [id number] was prepped and advanced across the Prox LAD. The stent was deployed at 12 NARDA for 0:29 seconds. Exp. 2023-06-15. Balloon out. Wire out. Guide catheter out. Dr. Palomino scrubbed out. PERRLA. Strong, equal hand aerial crop duster bilaterally. No VTE prophylaxis required. A Suture was successful obtaining hemostatsis at the Right Femoral artery insertion site. Arterial sheath flushed and connected to tranducer and pressure bag with heparinized saline. Medication's Wasted: Other = Fentanyl 50 mcg. Medication's Wasted: Heparin = 4000 units. Total IV fluids: 44 mL. PCI Indication: NSTE. Post-op diagnosis: PCI of the Ostial LAD. Complications: none. Estimated blood loss: 5mL-10mL. Responsiveness - Normal response to verbal stimuli; alert and oriented, PERRLA. Airway - Unaffected, no intervention required; spontaneous ventilation. Circulation: W/N/L, pulses unchanged. Nausea/Vomiting: No. Procedure completed. Patient transferred by bed to ICU. Vital chart was stopped. Access Site Site: Right Femoral artery Sheath Size: 6 Fr Hemostasis Method: Suture Hemostasis Success: Successful Procedure Medications Start: 12:31 AM Stop: 12:31 AM Medication: Versed Amount: 1 mg Route: I.V. Start: 12:34 AM Stop: 12:34 AM Medication: Fentanyl Amount: 25 mcg Route: I.V. Start: 12:40 AM Stop: 12:40 AM Medication: Fentanyl Amount: 25 mcg Route: I.V. Start: 12:42 AM Stop: 12:42 AM Medication: Nitrogylcerin Amount: 10 mcg/min Route: I.V. drip Start: 12:47 AM Stop: 12:47 AM Medication: Nitrogylcerin Amount: 5 mcg/min Route: I.V. drip Start: 1:00 AM Stop: 1:00 AM Medication: Versed Amount: 1 mg Route: I.V. I, the attending physician, have reviewed and verified all procedure medications. Yes, all medications given per verbal order History/Risk Factors Peripheral Arterial Disease (PAD): Yes Obesity: Yes Renal Disease: Yes Dialysis: Current Prior Interventions CABG: Yes Report Signatures Finalized by Dr. Braeden Palomino MD on 02/06/2023 01:35 AM
[2023-02-06 00:13] LABS: Glucose Point of Care 289 mg/dL (70-110)
[2023-02-06] MEDS: ondansetron 2 mg/ML SDV 2 mL 4 MG IVP ×2 (01:52→20:27)
--- NOTE | 2023-02-06 02:30 | PC.NURSE ---
Blood Pressure patient's blood pressure 69/54. Dr. Hughes contacted; order received for 500 ml NS bolus once and if hypotension still persists then to add levophed. See MAR for details.
[2023-02-06] MEDS: sodium chloride 0.9% 500 ML 999 ML IV (02:32)
[2023-02-06 02:34] LABS: SARS Covid-2 Antigen negative (Negative)
[2023-02-06] MEDS: insulin regular-human 100 units/1 mL 10 UNIT IVP (02:43)
[2023-02-06] MEDS: dextrose 50% syringe 50 mL 25 ML IVP ×2 (02:43→06:20)
[2023-02-06] MEDS: calcium gluconate 0.1 gm/mL 10% SDV 10mL 1 GM IVP (02:44)
[2023-02-06 04:02] LABS: Glucose Point of Care 396 mg/dL (70-110)
[2023-02-06 04:14] LABS: Basophils # 0.1 10^3/uL (0.0-0.1); Basophils % 0.6 %; Eosinophils % 0.3 %; Hematocrit 23.4 % (36-47); Lymphocytes # 1.5 10^3/uL (0.8-4.8); Lymphocytes % 13.2 %; Mean Corpuscular HGB Conc 32.1 g/dL (30-55); Mean Corpuscular Hemoglobin 32.9 pg (27-33); Mean Corpuscular Volume 102.6 fl (85-98); Mean Platelet Volume 9.9 fL (7.4-10.4); Monocytes # 0.3 10^3/uL (0.2-0.9); Neutrophils # 9.45 10^3/uL (1.8-7.7); Neutrophils % 82.3 %; Nucleated Red Blood Cells % 0 %; Platelet Count 250 10^3/cmm (157-399); Red Blood Count 2.28 10^6/uL (3.85-5.65); Red Cell Distribution Width 16.2 % (12.1-15.1); White Blood Count 11.48 10^3/uL (3.29-11.43)
[2023-02-06 04:27] LABS: Partial Thromboplastin Time 24.2 SECONDS (23.9-36.7)
[2023-02-06 04:38] LABS: Anion Gap 27.6 (5-19); Blood Urea Nitrogen 77 mg/dL (6-20); Calcium 8.9 mg/dL (8.5-10.5); Carbon Dioxide 24 mmol/L (22-29); Chloride 88 mmol/L (98-107); Glomerular Filtration Rate 3.6 mL/min (90-130); Glucose 382 mg/dL (65-115); Magnesium 2.2 mg/dL (1.7-2.3); Osmolality Calculated 311 mOsm/kg (285-295); Sodium 131 mmol/L (136-145)
--- NOTE | 2023-02-06 04:41 | ECG_ITS ---
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 Measurements Intervals Viola Rate: 90 P: 49 SC: 154 QRS: 8 QRSD: 146 T: 115 QT: 404 QTc: 496 Interpretive Statements SINUS RHYTHM LEFT BUNDLE BRANCH BLOCK [120+ ms QRS DURATION, 80+ ms Q/S IN V1/V2, 85+ ms R IN I/aVL/V5/V6] Compared to ECG 02/05/2023 22:17:27 Sinus tachycardia no longer present Left-axis deviation no longer present Electronically Signed On 02-06-2023 6:28:12 POULTRY EVISCERATOR by Yahaira Contreras M.D. [email or web address]
[2023-02-06 04:46] LABS: Phosphorus 8.2 mg/dL (2.5-4.5); Potassium 8.6 mmol/L (3.5-5.1); Troponin 5 6HR 425.6 ng/L (0-10); Troponin 5 6HR Delta 286.6 ng/L (0-12)
--- NOTE | 2023-02-06 05:30 | PC.NURSE ---
Critical Labs The following critical labs resulted: potassium 8.6, phosphorous 8.2, creatinine 11, 6hr troponin 425.6, delta 286.6. Dr. Hughes notified at 0447; no new orders received. Dr. Trujillo contacted and message left at 0449. Dr. Trujillo contacted again at 0504; orders received for 2 gm calcium gluconate IVP once, 2 amps bicarb IVP once, 80 mg lasix IVP once, 10 units insulin IVP once, and 1/2 amp d50 IVP once. See MAR for details.
[2023-02-06] MEDS: fentaNYL 50 mcg/mL INJ 2mL IVP (05:33)
[2023-02-06] MEDS: FUROsemide 10 mg/mL SDV 10mL 80 MG IVP (05:35)
[2023-02-06] MEDS: sodium bicarbonate 8.4% 1 mEq/mL 50mL Syr 100 MEQ IVP (05:35)
--- NOTE | 2023-02-06 06:00 | PC.NURSE ---
Sheath Pull Dr. Palomino contacted for verification of sheath pull; verification received. Sheath removed at 0528. No hematoma noted before or after removal and dorsalis pedis pulses +2 consistently. All vitals stable.
[2023-02-06] MEDS: calcium gluconate 0.9% NaCL 1 GM/50 ML PREMIX IV ×2 (06:18→06:46)
[2023-02-06] MEDS: insulin regular-human 10 UNIT in SYRINGE 1 EACH 100 UNIT IVP (06:20)
[2023-02-06] MEDS: heparin, porcine 1,000 unit/mL INJ 10 mL 1000 UNIT IV (07:14)
--- NOTE | 2023-02-06 07:30 | PC.HD ---
Electronic consent for hemodialysis/telenephrology signed by patient prior to HD initiation. Of note, this RN received verbal orders from recreational therapy aide to administer heparin 1000 unit loading dose 3-5 minutes prior to treatment initiation, which was given. Subsequently, orders placed in the EMR states dialysis treatment is to be heparin-free. Maintenance doses of heparin 500 units/hour will be held.
[2023-02-06 07:45] LABS: Glucose Point of Care 363 mg/dL (70-110)
[2023-02-06 07:46] LABS: Glucose Point of Care 239 mg/dL (70-110)
[2023-02-06 07:46] LABS: Glucose Point of Care 431 mg/dL (70-110)
[2023-02-06 08:39] LABS: Hepatitis B Core AB, Total Non-Reactive (Nonreactive); Hepatitis B Surface Antigen Non-Reactive (Nonreactive)
--- NOTE | 2023-02-06 08:54 | PC.PHAR ---
pt states she takes care of her own medications-pt states she takes the medications entered-notes are made in the pharmacy comments
--- NOTE | 2023-02-06 08:56 | PM.PN ---
Subjective Subjective: Kristan feels better this morning. She is free of chest pain. A stent was placed to her [place] LAD early this morning. Laboratory data which has come back after the procedure include a potassium of 7 last night and this morning 8.6 and a creatinine of 11. Her phosphorus is high. The second troponin was missed. The third troponin was 425. Her BNP was greater than 28,000. Her transaminases were also mildly elevated. Currently she is undergoing dialysis. She looks comfortable. She is not short of breath. Sheath has been removed. No bleeding in the right groin. No hematoma. Vitals/I&O/Wt Last Vital Signs Temp 98.7 F 02/06/23 07:53 Pulse 104 H 02/06/23 08:00 Resp 16 02/06/23 07:28 BP 84/58 02/06/23 08:00 Pulse Ox 100 02/06/23 08:00 O2 Del Method Nasal Cannula 02/06/23 07:45 O2 Flow Rate 2 02/06/23 07:45 02/05/23 02/06/23 02/06/23 22:59 06:59 14:59 Intake Total 1026.667 / 1026.667 240 / 240 Balance 1026.667 / 1026.667 240 / 240 Weight last 48 hrs Weight 167 lb 8 oz Weight 165 lb 4.8 oz Weight 165 lb Physical Exam Narrative: GENERAL: In general she is much more comfortable this morning able to lie flat without pain. HEENT: Exam within normal limits. NECK: Supple without jugular vein distention. The carotid upstroke is normal without bruits. BACK: Exam normal. LUNGS: Clear. HEART: Regular rate and rhythm. ABDOMEN: 2 large ventral hernias. EXTREMITIES: No edema. NEUROLOGIC: Exam normal. SKIN: Unremarkable. 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: without fdc use Diabetes mellitus complication status: with kidney complications Diabetes mellitus complication detail: with chronic kidney disease Chronic kidney disease stage: on chronic dialysis Qualified Code(s): E11.22 - Type 2 diabetes mellitus with diabetic chronic kidney disease; N18.6 - End stage renal disease; Z99.2 - Dependence on renal dialysis (3) Peripheral arterial occlusive disease: (4) Aortic valve stenosis: (5) ESRD (end stage renal disease): (6) Hx of CABG: (7) New onset left bundle branch block (LBBB): (8) Claudication: (9) Recurrent incisional hernia: (10) Carotid artery stenosis, asymptomatic: (11) Benign essential hypertension with target blood pressure below 140/90: (12) CAD (coronary artery disease): Qualifiers: Coronary Disease-Associated Artery/Lesion type: bypass graft [place] vs. transplanted heart: [place] heart Associated angina: without angina Qualified Code(s): I25.810 - Atherosclerosis of coronary artery bypass graft(s) without angina pectoris (13) Dyslipidemia: (14) Obesity (BMI 30-39.9): (15) Transaminitis: (16) Hyperkalemia: Plan Hemodialysis today. Up and around later today if all else is unremarkable. Attestations Medical Necessity Statement*: Requires hospitalization for management of non-ST segment elevation GA. and High Time for a total of 50 minutes, includes reviewing past or interval history, examining/interviewing patient, counseling patient/family/other support, updating patient/family/other support, discussing plan of care with staff, communicating with other healthcare providers, documenting encounter and coordinating care Diagnoses Non-ST elevated myocardial infarction (non-STEMI) I21.4 Type 2 diabetes mellitus with chronic kidney disease on chronic dialysis, without long-term current use of insulin E11.22; N18.6; Z99.2 Diabetes mellitus type: type 2 Diabetes mellitus fdc insulin use: without fdc use Diabetes mellitus complication status: with kidney complications Diabetes mellitus complication detail: with chronic kidney disease Chronic kidney disease stage: on chronic dialysis Peripheral arterial occlusive disease I77.9 Aortic valve stenosis I35.0 ESRD (end stage renal disease) N18.6 Hx of CABG Z95.1 New onset left bundle branch block (LBBB) I44.7 Claudication I73.9 Recurrent incisional hernia K43.2 Carotid artery stenosis, asymptomatic I65.29 Benign essential hypertension with target blood pressure below 140/90 I10 Coronary artery disease involving coronary bypass graft of [place] heart without angina pectoris I25.810 Coronary Disease-Associated Artery/Lesion type: bypass graft [place] vs. transplanted heart: [place] heart Associated angina: without angina Dyslipidemia E78.5 Obesity (BMI 30-39.9) E66.9 Transaminitis R74.01 Hyperkalemia E87.5
[2023-02-06] MEDS: norepinephrine 4 MG/250 ML BAG 7.5 MG IV (09:23)
[2023-02-06 09:51] LABS: Hepatitis B Surface AB > 1000.0 (11.5-1000)
[2023-02-06] MEDS: epoetin alfa 1000 Unit/0.05 mL (ESRD) 20000 UNIT SUBCUT ×2 (09:56→21:51)
--- NOTE | 2023-02-06 09:58 | PC.HD ---
At 0900, this RN was unable to obtain a BP, despite repositioning cuff on both patient's right wrist and left leg. Primary RN obtained new cuff, which obtained a reading with a SBP in the 60s. Postdoctoral Research Fellow contacted, and this RN was advised to terminate treatment due to patient's intolerance. 448 net fluid removal of 2500 mL UF goal. After treatment termination, patient's BP raised to 106/35. Patient was asymptomatic throughout treatment.
[2023-02-06] MEDS: clopidogrel 75 mg Tablet PO (09:59)
[2023-02-06] MEDS: sennosides-docusate Tablet 1 TAB PO (09:59)
[2023-02-06] MEDS: sevelamer 800 mg Tablet 2400 MG PO ×3 (09:59→17:16)
[2023-02-06] MEDS: aspirin 81 mg EC Tablet PO (09:59)
[2023-02-06] MEDS: atorvastatin 40 mg Tablet 80 MG PO (09:59)
[2023-02-06] MEDS: pantoprazole 40 mg SDV IVP ×2 (10:00→17:16)
[2023-02-06] MEDS: HYDROmorphone 1 mg/mL INJ 1 mL IVP ×3 (10:15→21:21)
--- NOTE | 2023-02-06 10:36 | ECG_ITS ---
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 Measurements Intervals [place] Rate: 90 P: 59 KS: 126 QRS: 29 QRSD: 92 T: 134 QT: 389 QTc: 478 Interpretive Statements SINUS RHYTHM LEFT VENTRICULAR HYPERTROPHY AND ST-T CHANGE [VOLTAGE CRITERIA PLUS ST/T ABNORMALITY] ST AND T WAVE CHANGES, CONSIDER LATERAL ISCHEMIA Compared to ECG 02/06/2023 04:41:27 Left ventricular hypertrophy now present ST (T wave) deviation now present Left bundle-branch block no longer present Electronically Signed On 02-06-2023 22:28:00 TECHNOLOGY LAB TEACHER by Yahaira Contreras M.D. [id number]
[2023-02-06 10:38] LABS: Basophils # 0.1 10^3/uL (0.0-0.1); Basophils % 0.4 %; Eosinophils % 0.1 %; Hematocrit 21.1 % (36-47); Lymphocytes # 1.6 10^3/uL (0.8-4.8); Lymphocytes % 13.5 %; Mean Corpuscular HGB Conc 30.8 g/dL (30-55); Mean Corpuscular Hemoglobin 31.7 pg (27-33); Mean Corpuscular Volume 102.9 fl (85-98); Mean Platelet Volume 9.9 fL (7.4-10.4); Monocytes # 0.6 10^3/uL (0.2-0.9); Monocytes % 4.8 %; Neutrophils # 9.48 10^3/uL (1.8-7.7); Neutrophils % 79.6 %; Nucleated Red Blood Cells % 0.2 %; Platelet Count 255 10^3/cmm (157-399); Red Blood Count 2.05 10^6/uL (3.85-5.65); Red Cell Distribution Width 16.5 % (12.1-15.1); White Blood Count 11.91 10^3/uL (3.29-11.43)
[2023-02-06 10:42] LABS: Iron 157 ug/dL (37-145); Vitamin B12 599 pg/mL (232-1245)
--- NOTE | 2023-02-06 10:49 | CT_ITS ---
WS: [id number] CT ABDOMEN AND PELVIS WITH CONTRAST HISTORY: acute drop in hgb, hypotension, retroperitoneal bleed TECHNIQUE: Imaging performed of the abdomen and pelvis with IV contrast. Single phase imaging of the abdomen. Coronal and sagittal reformats are submitted. All CT scans at [facility] use at [address] one of these dose optimization techniques: automated exposure control; mA and/or kV adjustment per patient size (includes targeted exams where dose is matched to clinical indication); or iterative re construction. IV CONTRAST: Omnipaque 350; 100 mL IV. Oral contrast: No DLP: 980.82 mGy.cm COMPARISON: None available. Lower thorax: Small bilateral layering pleural effusions. Mild enlargement of the LEFT heart chambers . Small hiatal hernia. Liver/biliary system: Normal size with no intrahepatic dilatation. Gallbladder: Cholelithiasis. Pancreas: Marked atrophy. No pancreatic duct dilatation. Spleen: Normal size spleen. No mass or infarct. Adrenal glands: Normal. Right kidney: Marked atrophy. No obstruction. Left kidney: Marked atrophy with no obstruction. Low-attenuation 12 mm cortical mass. Aorta: Extensive atherosclerotic plaque. Nonaneurysmal. There is stenosis and near complete occlusion of the lumen below the level of the renal arteries. High-grade stenoses continue into the iliac julia pelon bilaterally. Lymphadenopathy: None. There is a very large RIGHT retroperitoneal hematoma. Retroperitoneal hematoma extends from the RIGHT groin 19 cm along the retroperitoneum. There is also component of the hematoma that extends into the large ventral abdominal wall hernia sac. There is also fluid in the central mesentery which may be r elated to the patient's renal failure. GI tract: Stomach is not distended. No small bowel obstruction. Patient has a very large patulous abd ominal wall. The pendulous abdomen contains small bowel and colon and also a portion of the retroperi toneal hematoma. Abdominal wall: Pendulous abdominal wall. There is a component of abdominal wall hernia but the major ity of the pendulous abdominal wall is due to markedly ectasia ectatic abdominal wall musculature. No obstruction. Pelvis: No free fluid in the pelvis. The urinary bladder is and the pelvic structures are being displ aced to the LEFT of midline by the large retroperitoneal hematoma. Bones: Unremarkable. IMPRESSION: 1. Large RIGHT retroperitoneal hematoma. Hematoma extends over a length of approximately 19 cm. Ther e is displacement of the urinary bladder and the uterus to the LEFT of midline. Hematoma extends supe riorly to the inferior tip of the liver and extends into the pendulous abdominal herniation. 2. Severe atherosclerotic plaque throughout the aorta, iliac arteries and mesenteric arteries. Areas of high-grade stenosis in the abdominal aorta and the iliac arteries. 3. Atrophic kidneys. 4. Small bilateral pleural effusions. Notified Enzo Holguin MD at 02/06/2023 11:22 AM.
[2023-02-06 10:53] LABS: INR 1.01 (0.8-1.2)
[2023-02-06 10:57] LABS: Blood Urea Nitrogen 38 mg/dL (6-20); Calcium 8.8 mg/dL (8.5-10.5); Carbon Dioxide 29 mmol/L (22-29); Chloride 90 mmol/L (98-107); Glomerular Filtration Rate 7.9 mL/min (90-130); Glucose 180 mg/dL (65-115); Osmolality Calculated 292 mOsm/kg (285-295); Sodium 134 mmol/L (136-145)
[2023-02-06] MEDS: iohexol 350 mg/mL 500 mL Btl (per mL) IV (11:12)
[2023-02-06 11:25] LABS: Cortisol Random 17.75 ug/dL (2.47-19.5)
--- NOTE | 2023-02-06 11:25 | XR_ITS ---
WS: [id number] PORTABLE CHEST HISTORY: PICC LINE PLACEMENT COMPARISON: 02/05/2023 Right-sided PICC line with tip at the atrial caval junction. Lungs are clear otherwise. No pleural effusion or pneumothorax. Cardiac size: Mildly enlarged. Mediastinum/Aorta: Normal mediastinum. No osseous abnormality seen. IMPRESSION: Satisfactory positioning of the right-sided PICC line.
[2023-02-06 11:32] LABS: Anion Gap 19.8 (5-19); Potassium 4.8 mmol/L (3.5-5.1)
--- NOTE | 2023-02-06 11:45 | PC.NURSE ---
Patient became hypotensive this morning, while receiving diaylsis. Diaylsis stopped, pressors started, Dr. Holguin bedside, patient complaining of backpain, Dr. Holguin ordered CT, upon results large hematoma present in retroperiteneal area. Notified Dr. Holguin and Dr. Palomino of findings, received orders for FFP, blood, platelets, and PICC line.
[2023-02-06] MEDS: albumin 25 G/100 ML VIAL IV ×2 (12:53→20:39)
[2023-02-06] MEDS: sodium chloride 0.9% 100 mL Bag 50 ML IV (13:00)
[2023-02-06 13:22] LABS: Ferritin 3183 ng/mL (15-150)
[2023-02-06 13:26] LABS: Hematocrit 21.3 % (36-47)
--- NOTE | 2023-02-06 14:13 | ECG_ITS ---
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 Measurements Intervals [place] Rate: 117 P: 72 NC: 133 QRS: -11 QRSD: 116 T: 116 QT: 347 QTc: 486 Interpretive Statements SINUS TACHYCARDIA LEFT VENTRICULAR HYPERTROPHY ST AND T WAVE CHANGES, CONSIDER LATERAL ISCHEMIA Compared to ECG 02/06/2023 10:36:57 Sinus rhythm no longer present ST (T wave) deviation still present Electronically Signed On 02-06-2023 22:27:25 ACCESS DIRECTOR by Yahaira Contreras M.D. [id number]
[2023-02-06] MEDS: FUROsemide 10 mg/mL SDV 4mL 40 MG IVP (15:37)
[2023-02-06 16:53] LABS: Hematocrit 22.2 % (36-47)
[2023-02-06] MEDS: sucralfate 1 gm Tablet PO ×2 (17:16→20:32)
--- NOTE | 2023-02-06 18:24 | P.CONIM_ITS ---
Providers/Reason For Consult 2 Consulting Physician/Specialty*: kommana/Nephrology Reason for Consult*: esrd Attending Physician: Enzo Holguin MD Primary Care Provider: Lisa Mayberry DO History of Present Illness History of Present Illness Kristan Reddy is a 52 year old female Patient is a 52-year-old female with past medical history of coronary artery disease and prior CABG, end-stage renal disease on TTS schedule as outpatient, hypertension, diabetes. Patient presented to the hospital due to chest pain. Has elevated troponins, cardiology was consulted as started to have a non-STEMI and patient was taken to the [facility] and underwent stent to LAD. Patient also was hypertensive in the ED and required nitro drip briefly patient patient currently on 4 L O2 by nasal cannula. Last dialysis was on Sunday Review of Systems 2 Narrative: Other ROS negative Medications/Allergies Home Medications Medication Instructions Recorded Confirmed Last Taken Type amlodipine 10 mg tablet 10 mg PO DAILY 07/12/20 02/06/23 12/26/22 History clonidine HCl 0.1 mg tablet 0.1 mg PO BID PRN Blood Pressure 07/12/20 02/06/23 12/26/22 History losartan 100 mg tablet (Cozaar) 100 mg PO DAILY 07/12/20 02/06/23 12/26/22 History aspirin 81 mg chewable tablet 81 mg PO DAILY 06/19/22 02/06/23 12/26/22 History (Aspirin Childrens) atorvastatin 80 mg tablet 80 mg PO DAILY 06/19/22 02/06/23 12/26/22 History blood-glucose meter,continuous #1 ea 07/19/22 02/06/23 Unknown Rx (Dexcom G6 Radiologic Technician) blood-glucose sensor (Dexcom G6 #9 ea 07/19/22 02/06/23 Unknown Rx Sensor device) blood-glucose transmitter (Dexcom #2 ea 07/19/22 02/06/23 Unknown Rx G6 Transmitter device) cilostazol 100 mg tablet 100 mg PO BID #120 tabs 08/22/22 02/06/23 12/26/22 Rx pantoprazole 40 mg tablet,delayed 40 mg PO DAILY 09/20/22 02/06/23 12/26/22 History release trazodone 100 mg tablet 100 mg PO BEDTIME 09/20/22 02/06/23 12/26/22 History blood sugar diagnostic (True #200 ea 11/09/22 02/06/23 Unknown Rx Metrix Glucose Test Strip) pen needle, diabetic 31 gauge x #1,200 ea 11/21/22 02/06/23 Unknown Rx 3/16 (BD Ultra-Fine Mini Pen Needle) buspirone 10 mg tablet 10 mg PO BID 12/27/22 02/06/23 12/26/22 History isosorbide mononitrate 30 mg 30 mg PO DAILY #90 tabs 12/28/22 02/06/23 Unknown Rx tablet,extended release 24 hr ranolazine 500 mg tablet,extended 500 mg PO BID #60 tabs 12/28/22 02/06/23 Unknown Rx release,12 hr carvedilol 12.5 mg tablet 12.5 mg PO BID 02/06/23 02/06/23 Unknown History insulin aspart U-100 100 unit/mL See Rx Instructions .Route .COMPLEX 02/06/23 02/06/23 Unknown History (3 mL) subcutaneous pen (Novolog FlexPen U-100 Insulin aspart) insulin detemir U-100 100 unit/mL 20 unit SUBCUT BID 02/06/23 02/06/23 Unknown History (3 mL) subcutaneous pen (Levemir FlexPen) lanthanum 1,000 mg oral powder See Rx Instructions .Route .COMPLEX 02/06/23 02/06/23 Unknown History packet (Fosrenol) lidocaine-prilocaine 2.5 %-2.5 % See Rx Instructions .Route .COMPLEX 02/06/23 02/06/23 Unknown History topical cream nitroglycerin 0.4 mg sublingual 0.4 mg sublingual Q5M PRN Chest 02/06/23 02/06/23 Unknown History tablet (Nitrostat) Pain ondansetron HCl 4 mg tablet 4 mg PO Q4H PRN Nausea And Vomiting 02/06/23 02/06/23 Unknown History propranolol 10 mg tablet 10 mg PO BID 02/06/23 02/06/23 Unknown History sevelamer carbonate 800 mg tablet See Rx Instructions .Route .COMPLEX 02/06/23 02/06/23 Unknown History vitamin B complex and vitamin C 1 cap PO DAILY 02/06/23 02/06/23 Unknown History no.20-folic acid 1 mg capsule (Triphrocaps) Allergies Allergy/AdvReac Type Severity Reaction Status Date / Time cephalexin Allergy ADR-Vomitin Verified 02/06/23 08:10 g morphine Allergy ADR-Itching Verified 02/06/23 08:10 Penicillins Allergy ALGY-Anaphy Verified 02/06/23 08:10 laxis Current Medications Generic Name Dose Route Start Last Admin Trade Name Freq PRN Reason Stop Dose Admin Aspirin 81 mg 02/06/23 09:00 02/06/23 09:59 Aspirin 81 Mg Ec Tablet PO 81 mg DAILY J LUIS Administration Atorvastatin Calcium 80 mg 02/06/23 09:00 02/06/23 09:59 Atorvastatin 40 Mg Tablet PO 80 mg DAILY J LUIS Administration Clopidogrel Bisulfate 75 mg 02/06/23 09:00 02/06/23 09:59 Clopidogrel 75 Mg Tablet PO 75 mg DAILY J LUIS Administration Fentanyl 50 mcg 02/06/23 01:26 02/06/23 05:33 Fentanyl 50 Mcg/Ml Inj 2ml IVP 50 mcg PRN PRN Administration sheath pull Hydromorphone HCl 1 mg 02/06/23 15:24 02/06/23 15:37 Hydromorphone 1 Mg/Ml Inj 1 Ml IVP 1 mg Q4H PRN Administration PAIN norepinephrine 4 mg in 250 mls @ 0 mls/hr 02/06/23 06:00 02/06/23 09:23 Levophed IV 2 mcg/min .Q0M J LUIS 7.5 mls/hr Administration Protocol Per Protocol Albumin Human 25 g in 100 mls @ 60 mls/hr 02/06/23 13:00 02/06/23 14:50 Albumin IV Infused Q8H J LUIS Infusion Ondansetron HCl 4 mg 02/05/23 23:58 02/06/23 01:52 Ondansetron 2 Mg/Ml Sdv 2 Ml IVP 4 mg Q6H PRN Administration NAUSEA AND VOMITING Pantoprazole Sodium 40 mg 02/06/23 09:00 02/06/23 17:16 Pantoprazole 40 Mg Sdv IVP 40 mg BID J LUIS Administration Senna/Docusate Sodium 1 tab 02/06/23 09:00 02/06/23 09:59 Sennosides-Docusate Tablet PO 1 tab DAILY J LUIS Administration Sevelamer Carbonate 2,400 mg 02/06/23 08:00 02/06/23 17:16 Sevelamer 800 Mg Tablet PO 2,400 mg TIDWM J LUIS Administration Sodium Chloride 50 ml 02/06/23 10:46 02/06/23 13:00 Sodium Chloride 0.9% 100 Ml Bag IV 02/07/23 10:47 50 ml PRN PRN Administration Blood transfusion prime and flush Sucralfate 1 gm 02/06/23 11:00 02/06/23 17:16 Sucralfate 1 Gm Tablet PO 1 gm AC&BEDTIME J LUIS Administration PFSH Acute 2 PFSH: Medical History (Updated 02/06/23 @ 18:49 by Enzo Holguin MD) Transaminitis Hyperkalemia Aortic valve stenosis Peripheral arterial occlusive disease ESRD (end stage renal disease) Diabetes Diarrhea HTN (hypertension) CAD (coronary artery disease) s/p 2 stents Ventral hernia, recurrent Surgical History (Updated 02/06/23 @ 00:03 by Braeden Palomino MD) Hx of CABG Hx of myringotomy Tubal ligation status History of hysterectomy AV fistula H/O hernia repair 12 surgeries Family History Other CAD (coronary artery disease) Chronic kidney disease (CKD) Diabetes Hypertension Social History Smoking and tobacco/nicotine status: former use of tobacco/nicotine Alcohol intake: never Substance/Drug Use: never Household members: family Housing: House Vitals/I&O/Wt Last Vital Signs Temp 98.5 F 02/06/23 18:23 Pulse 116 H 02/06/23 18:23 Resp 20 H 02/06/23 18:23 BP 126/57 02/06/23 18:23 Pulse Ox 100 02/06/23 18:23 O2 Del Method Nasal Cannula 02/06/23 08:00 O2 Flow Rate 2 02/06/23 08:00 02/06/23 02/06/23 02/06/23 06:59 14:59 22:59 Intake Total 1026.667 / 8844.447 4891.1 / 1485.1 844 / 2329.1 Output Total 923 / 923 Balance 1026.667 / 1026.667 562.1 / 562.1 844 / 1406.1 Weight last 48 hrs Weight 75.8 kg Weight 75.977 kg Weight 74.979 kg Weight 74.843 kg Physical Exam 2 Narrative: awake , alert no distress s1s2 rrr per report lungs clear per report no edema Data 02/06/23 16:25 02/06/23 10:15 A&P Assessment and plan (1) ESRD (end stage renal disease): Plan 1. End-stage renal disease: On TTS schedule as outpatient, patient now status postcoronary angiogram and has volume overload. Requiring pressors. Plan for hemodialysis today with low flows and attempted to do ultrafiltration as tolerated 2. Severe hyperkalemia: Emergent HD as above, low potassium diet 3. Coronary artery disease status post left heart cath this morning with stent placement in the LAD. 4. Anemia: Ordered JEANNETTE 5. History of hypertension 6. History of diabetes Consult Attestations 2 Medical Necessity Statement: per medicine team Coding Level of Care Code Acute Code for Chg Fwd Diagnoses ESRD (end stage renal disease) N18.6
--- NOTE | 2023-02-06 18:36 | P.PN_ITS ---
Subjective 2 Subjective: ? Patient was examined multiple times at the morning, into the evening, discussion with patient's family, patient daughter at bedside and evening, ? Early in the morning she was seen, she is hypotensive, on 6 of Levophed, she complaining of right flank pain, afebrile overnight, there was dialysis attempts during the night after her coronary angiogram however he had to be stopped after 30 minutes due to persistent hypotension, ? Patient is alert oriented x3, following all commands, complaining of right flank pain, advised nurses to give her 1 mg of IV push Dilaudid, ? I discussed with her my concerns for her hyperkalemia, she only received about 30 minutes to an hour of dialysis we will recheck her BMP recheck her potassium ? Given her right flank pain, or persistent hypotension, she had an angiogram done, through the groin, concerns for possible retroperitoneal bleed retroperitoneal hematoma we will watch her hemoglobin repeat hemoglobin was pending, ? Hemoglobin down to 6.5, remains on Levophed, stat CT scan abdomen pelvis ordered ? Stat CT scan abdomen pelvis shows indeed a retroperitoneal hematoma, no evidence of active bleed, I ordered 2 units of blood, 2 units of FFP, 2 units of platelets, she remains on low-dose Levophed, alert and oriented x3, ? Discussed with cardiology, as patient is going to be getting aspirin and Plavix, concerns for continued bleed or worsening of bleeding in the future, patient needs to be on aspirin and Plavix given her LAD stent, they have recommended to continue for now, advised that I will continue to monitor as inpatient discussed with [facility] for possible transfer, ? Spoke to patient, currently she is off Levophed, she is alert oriented x3, following all commands sitting up in bed enjoying lunch, I discussed her retroperitoneal bleed, this is life-threatening, I feel that the bleeding has stopped as she is hemodynamically stable, she is off Levophed, she is receiving blood products however as she is going to receive antiplatelet and anticoagulant therapy given that she is on dialysis, my concern would be for future bleeding and as we do not have vascular surgery or IR here as backup, my concerns would be for worsening future bleeding and morbidity and mortality associated, ? I spoke to patient and her daughter about this, we discussed possible talking to tertiary level center, they are agreeable, for possible transfer based upon input from [facility], ? Spoke to [facility], currently they are on ICU divert, cannot accept, I spoke to [facility] they are on ICU divert, spoke to [facility], they are on ICU divert ? Spoke to [facility], spoke to the hospital team, for now they have recommended against transfer as she is hemodynamically stable, they recommended to call them back if she becomes hemodynamically unstable, or if any worsening bleeding, or hemodynamic status, then they would recommend for her to be transferred for IR and vascular intervention but for now she is hemodynamically stable clinically improving, they recommended for inpatient monitoring here ? Patient was seen this evening, daughter at bedside, hemodynamic stable off pressors, she is receiving her second unit of blood has received FFP receiving platelets, I discussed discussions with outside hospital, discussed morbidity mortality associate with retroperitoneal bleed, but as she is hemodynamically stable she is alert awake following all commands hemoglobin trend is improving, she responding to blood, for now it would be the recommendation for [facility] center for her to be monitored here as clinically seems like the bleeding has stopped however if she becomes hemodynamically unstable, hemoglobin trend is going downwards, then certainly we could transfer her at that point, we will continue to monitor closely here in the ICU as she is going to be on aspirin Plavix, discussed risk and benefits, shared decision making, they voiced understanding, all consents are, agreed to proceed, ? She is developing fluid overload crackles on examination, she is on 2 L, spoke to nephrology, plans on dialysis this evening Vitals/I&O/Wt Last Vital Signs Temp 98.5 F 02/06/23 18:23 Pulse 116 H 02/06/23 18:23 Resp 20 H 02/06/23 18:23 BP 126/57 02/06/23 18:23 Pulse Ox 100 02/06/23 18:23 O2 Del Method Nasal Cannula 02/06/23 08:00 O2 Flow Rate 2 02/06/23 08:00 02/06/23 02/06/23 02/06/23 06:59 14:59 22:59 Intake Total 1026.667 / 5118.533 9940.1 / 1485.1 844 / 2329.1 Output Total 923 / 923 Balance 1026.667 / 1026.667 562.1 / 562.1 844 / 1406.1 Weight last 48 hrs Weight 75.8 kg Weight 75.977 kg Weight 74.979 kg Weight 74.843 kg Physical Exam 2 Const: COMMON NORMALS: no acute distress and patient oriented x3 Resp: COMMON NORMALS: normal respiratory effort, No retractions and No use of accessory muscles AUSCULTATION: crackles Cardio: COMMON NORMALS: regular rate, regular rhythm, S1 normal heart sound present and S2 normal heart sound present RATE: regular rate RHYTHM: r egular rhythm HEART SOUNDS: S1 normal heart sound present and S2 normal heart sound present GI: COMMON NORMALS: Normal to inspection, nondistended, normoactive bowel sounds present and non-tender Back/Pelvis: OTHER: right Flank pain Extremity: COMMON NORMALS: no pedal edema Neuro: COMMON NORMALS: patient oriented x3 Psych: COMMON NORMALS: mental status grossly normal Data 02/06/23 16:25 02/06/23 10:15 A&P Assessment and plan (1) New onset left bundle branch block (LBBB): (2) Non-STEMI (non-ST elevated myocardial infarction): (3) Carotid artery stenosis, asymptomatic: (4) Dyslipidemia: (5) Benign essential hypertension with target blood pressure below 140/90: (6) Hemorrhagic shock: (7) Retroperitoneal bleed: (8) Acute anemia: (9) Hyperkalemia: (10) Pulmonary edema: (11) Acute hypoxemic respiratory failure: Plan Retroperitoneal hematoma ? Acute anemia ?hemorrhagic shock -After coronary angiography, groin access IMPRESSION: 1. Large RIGHT retroperitoneal hematoma. Hematoma extends over a length of approximately 19 cm. There is displacement of the urinary bladder and the uterus to the LEFT of midline. Hematoma extends superiorly to the inferior tip of the liver and extends into the pendulous abdominal herniation. 2. Severe atherosclerotic plaque throughout the aorta, iliac arteries and mesenteric arteries. Areas of high-grade stenosis in the abdominal aorta and the iliac arteries. 3. Atrophic kidneys. 4. Small bilateral pleural effusions. ? Plan ? Monitor hemodynamics closely, currently off pressors, ? Can continue pressors maintain MAP greater than 65,, ? Monitor clinical status very closely as patient is on aspirin, Plavix for stent placement -Status post units 2 U PRBC, 2 units platelets, 2 units FFP, ? Monitor hemoglobin every 4 hours, next?monitor hemodynamics closely, ? If patient's clinical condition worsens, hemoglobin trend worsens, [facility] is willing to take transfer, as per discussion with hospitalist Acute hypoxic respiratory failure, pulmonary edema ? Likely secondary to fluid overload, blood products, ? Receiving dialysis ? Monitor respiratory status closely Non-STEMI Patient has history of established coronary disease with CABG, carotid disease less than 30% Recently had coronary angiogram in November at [facility], will request records Cardiology consulted Dr. Palomino has evaluated her in the ER Patient went to the [facility], received stent in the LAD Currently on aspirin, Plavix New left bundle branch block Avoid AV noah blocking agents at this point End-stage renal disease Hyperkalemia, resolving Dialysis today We will consult nephro Full code We will keep her n.p.o. in case she would require coronary angiogram for worsening of her chest pain overnight Continue ACS protocol Daughter at the bedside We will request records ? Patient was examined multiple times at the morning, into the evening, discussion with patient's family, patient daughter at bedside and evening, ? Early in the morning she was seen, she is hypotensive, on 6 of Levophed, she complaining of right flank pain, afebrile overnight, there was dialysis attempts during the night after her coronary angiogram however he had to be stopped after 30 minutes due to persistent hypotension, ? Patient is alert oriented x3, following all commands, complaining of right flank pain, advised nurses to give her 1 mg of IV push Dilaudid, ? I discussed with her my concerns for her hyperkalemia, she only received about 30 minutes to an hour of dialysis we will recheck her BMP recheck her potassium ? Given her right flank pain, or persistent hypotension, she had an angiogram done, through the groin, concerns for possible retroperitoneal bleed retroperitoneal hematoma we will watch her hemoglobin repeat hemoglobin was pending, ? Hemoglobin down to 6.5, remains on Levophed, stat CT scan abdomen pelvis ordered ? Stat CT scan abdomen pelvis shows indeed a retroperitoneal hematoma, no evidence of active bleed, I ordered 2 units of blood, 2 units of FFP, 2 units of platelets, she remains on low-dose Levophed, alert and oriented x3, ? Discussed with cardiology, as patient is going to be getting aspirin and Plavix, concerns for continued bleed or worsening of bleeding in the future, patient needs to be on aspirin and Plavix given her LAD stent, they have recommended to continue for now, advised that I will continue to monitor as inpatient discussed with tertiary [facility] for possible transfer, ? Spoke to patient, currently she is off Levophed, she is alert oriented x3, following all commands sitting up in bed enjoying lunch, I discussed her retroperitoneal bleed, this is life-threatening, I feel that the bleeding has stopped as she is hemodynamically stable, she is off Levophed, she is receiving blood products however as she is going to receive antiplatelet and anticoagulant therapy given that she is on dialysis, my concern would be for future bleeding and as we do not have vascular surgery or IR here as backup, my concerns would be for worsening future bleeding and morbidity and mortality associated, ? I spoke to patient and her daughter about this, we discussed possible talking to tertiary [facility], they are agreeable, for possible transfer based upon input from [facility], ? Spoke to [facility], currently they are on ICU divert, cannot accept, I spoke to [facility] they are on ICU divert, spoke to [facility], they are on ICU divert ? Spoke to [facility], spoke to the hospital team, for now they have recommended against transfer as she is hemodynamically stable, they recommended to call them back if she becomes hemodynamically unstable, or if any worsening bleeding, or hemodynamic status, then they would recommend for her to be transferred for IR and vascular intervention but for now she is hemodynamically stable clinically improving, they recommended for inpatient monitoring here ? Patient was seen this evening, daughter at bedside, hemodynamic stable off pressors, she is receiving her second unit of blood has received FFP receiving platelets, I discussed discussions with outside hospital, discussed morbidity mortality associate with retroperitoneal bleed, but as she is hemodynamically stable she is alert awake following all commands hemoglobin trend is improving, she responding to blood, for now it would be the recommendation for [facility] for her to be monitored here as clinically seems like the bleeding has stopped however if she becomes hemodynamically unstable, hemoglobin trend is going downwards, then certainly we could transfer her at that point, we will continue to monitor closely here in the ICU as she is going to be on aspirin Plavix, discussed risk and benefits, shared decision making, they voiced understanding, all consents are, agreed to proceed, ? She is developing fluid overload crackles on examination, she is on 2 L, spoke to nephrology, plans on dialysis this evening Attestations 2 Medical Necessity Statement*: Patient requires hospitalization, for retroperitoneal bleed, hemorrhagic shock, acute anemia, NSTEMI, status post LAD stent, fluid overload, pulm edema Coding Level of Care Code Critical Care >/= 30 minutes Critical care time (in minutes): 80 The high probability of a clinically significant, sudden or life threatening deterioration, as referenced in this documentation, required my full and direct attention, intervention and personal management. The critical care time shown is in addition to time spent performing any reported separately billable procedures and includes the following: [x] Data and vital sign review and interpretation [x ] Patient assessment, examination and intervention [x] Medication orders and management [x] Patient/Family updates as able [x] Care Coordination and Documentation. Diagnoses New onset left bundle branch block (LBBB) I44.7 Non-STEMI (non-ST elevated myocardial infarction) I21.4 Carotid artery stenosis, asymptomatic I65.29 Dyslipidemia E78.5 Benign essential hypertension with target blood pressure below 140/90 I10 Hemorrhagic shock R57.8 Retroperitoneal bleed R58 Acute anemia D64.9 Hyperkalemia E87.5 Pulmonary edema J81.1 Acute hypoxemic respiratory failure J96.01
[2023-02-06 21:59] LABS: Hematocrit 26.2 % (36-47)
--- NOTE | 2023-02-06 22:54 | PC.NURSE ---
Addendum entered by Mya Greenwood RN 02/07/23 02:19: Also notified Dr. Hughes of unit of platlets ready, no order to infuse, current labs, and current vitals @0443 02/06/23. Order to hold off on infusing. Original Note: V. Tach: Pt had a 9 beat run of V.Tach, asymptomatic. Strip placed in paper chart. Dr. Hughes notified @0557.
[2023-02-06 23:59] LABS: Hepatitis B Surface Antigen Non-Reactive (Nonreactive)
--- NOTE | 2023-02-06 23:59 | USCV_ITS ---
Exam Room: [facility] Ht: 145 cm Wt: 75 kg BSA: 1.78 m2 Gender: Female : 1970 Exam Priority: Routine Procedure(s): Procedure Description: Diagnostic procedure Procedure Description: PCI procedure Procedure Description: Drug Eluting Coronary Stent Procedure Description: Coronary Angiography Diagnostic Cath Status: Emergency Diagnostic Findings * Exceedingly complex patient with multilevel vascular disease to include the carotids, subclavian, coronary system, lower extremities. Also end-stage renal disease with diabetes on hemodialysis. Chest pain this evening typical of angina. EKG findings represented a new left bundle branch block. Initial troponin is 140. Despite intravenous heparin, intravenous nitroglycerin, beta-juvenal to slow the heart rate, aspirin and Plavix patient continued to have severe 8 out of 10 chest pain. She was brought to the catheterization laboratory emergently. She is also had coronary bypass surgery in [place]. We do not have a bypass report and do not know the location of her grafts. She said she had two-vessel bypass. * Angiography of the cerebral vasculature, carotids, subclavian and lower extremities just 3 months ago revealed diffuse calcified disease of the cerebral vessels and carotids with a patent left subclavian stent. Occluded bilateral superficial femoral arteries. Access was not available via the left common femoral artery. Difficult access was encountered via the right common femoral artery. Patient has no pulse in the right groin. * I was able to access the right common femoral artery. Difficulty was encountered passing a wire through the aorta. The wire became stuck on the subclavian stent which hangs down in the aorta slightly. I was finally able to get diagnostic catheters in place. The left main is normal. There is a 90% ostial circumflex lesion. There appears to be a ramus intermedius artery which is occluded and has previously been stented. The LAD contains a 90% ulcerated ostial stenosis. There is a stent in the proximal to mid LAD with which is patent. The right coronary artery is patent. The distal posterior left ventricular branch is occluded and there is to and fro motion in this vessel suggesting a bypass graft is patent to this vessel.. * I was able to find the saphenous vein graft to the right coronary artery. This inserts into the distal posterior left ventricular branch of the right. It is widely patent. I searched for quite some time for the other bypass graft and was unable to locate this. It probably goes to either the occluded ramus or perhaps the circumflex. I was not able to identify any area in the [place] vessel which would be a clue as to whether a bypass graft is placed there. PCI Status: Emergency PCI LVEF Assessed: No PCI Indication: NSTE - ACS Interventional Findings * Because the ostial circumflex lesion looks old and stable and the ostial LAD lesion looks unstable and ulcerated I chose to stent this. I stented it primarily with a 3.5 x 12 mm stent with good angiographic result. The ostial circumflex did not change from its original findings. The patient tolerated the procedure well. At the end of the procedure her blood pressure was stable. I stopped both the heparin and the nitroglycerin during the procedure. * It should be noted that the wire easily crossed over the aortic valve a number of times without even attempting to do so suggesting that the aortic stenosis is not severe. Decision for PCI with Surgical Consult: No PCI for Multi-vessel Disease: No Conclusions 1. Patent saphenous vein graft to the distal right coronary artery. Unable to locate second saphenous vein graft. Patent right coronary artery. Patent circumflex with 85% ostial stenosis. Ostial ulcerated stenosis of the proximal LAD which was stented primarily. Recommendations * Medical therapy. Interventional RX Recommendation: medical therapy and/or counseling Diagnostic RX Recommendation: medical therapy and/or counseling Anticoagulation: Heparin Pressures Phase:Rest AO : 101 / 59 ( 81 ) @ 7:22:45 PM 83 / 64 ( 73 ) @ 7:22:45 PM 58 / 50 ( 53 ) @ 7:22:45 PM Clinical Evaluation EBL: 5mL-10mL Procedural Details Pre-Procedure Time Out. Identified patient by full name and date of as verbalized by the patient/guarantor. Does the consent match the physician's order: N/A Emergent; Informed Consent not obtained due to time critical life threat. Accurate & Complete Informed Consent: N/A Emergent; Informed Consent not obtained due to time critical life threat. Inpatient/Outpatient History & Physical on Chart: N/A Emergent; Informed Consent not obtained due to time critical life threat. If H&P is completed, is and addenduem needed: N/A Emergent; Informed Consent not obtained due to time critical life threat; If yes, is the addendum complete: N/A Emergent; Informed Consent not obtained due to time critical life threat. Visualize and Verify Site with Patient/Guarantor: N/A. Relevant Radiology Images available: N/A Emergent; Informed Consent not obtained due to time critical life threat. Pre-op teaching completed and patient verbalized understanding. The risks, benefits, and alternatives of sedation and/or procedure were discussed by physician. The patient agrees to continue. Procedure started. [facility] Clinical Fraility Score: 7: Severely Frail. Front Desk Lead Indications: ACS <= 24 hours. Chest Pain Symptom Assessment: Typical Angina Symptoms. Cardiovascular Instability: Yes, if yes, Persistant Ischemic Symptoms. Correct patient, site and procedure confirmed by cath team. PERRLA. Strong, equal hand supervisor stitching department bilaterally. Lungs clear x 5 lobes. IV Site on Arrival: 20 gauge in the right anticubital. IV Site on Arrival: 22 gauge in the right hand. IV Fluids: 0.9% NaCl at KVO. 0 mL infused prior to public works laborer. Oxygen started at 5liters/min via nasal canula. right groin was prepped with chloroprep then draped in the usual sterile fashion. Physician notified. Baseline sample Acquired. HR: 117 BPM. Patient's family in the public works laborer waiting room. Dr. Palomino will update at the completion of the procedure. Equipment: 6F - Femoral. Cardiac Cath Pack. ACIST Manifold Kit Model BT 2000. Heparinized Saline (2 units/mL), 1000 mL bag. Physician arrived. Physician scrubbed in. Immediate Pre-Procedure Time Out. Correct Patient: N/A Emergent; Informed Consent not obtained due to time critical life threat; Correct Procedure: N/A Emergent; Informed Consent not obtained due to time critical life threat; Correct Site: N/A Emergent; Informed Consent not obtained due to time critical life threat; Correct Patient Position: N/A Emergent; Informed Consent not obtained due to time critical life threat; Correct Supplies: N/A Emergent; Informed Consent not obtained due to time critical life threat; Dried Flammable Prep: N/A Emergent; Informed Consent not obtained due to time critical life threat; Blood Products Available: N/A Emergent; Informed Consent not obtained due to time critical life threat;. Lidocaine 1% infiltrated to the right groin. Arterial access obtained. Unable to thread kit wire, needle and wire out. Dr. Palomino holding manual pressure. Arterial access obtained. A 6 ugandan JL4 catheter in over the exchange glidewire. Glidewire out. Multiple views taken of left coronary artery. A 6 ugandan JR4 catheter in over the glidewire. Glidewire out. Multiple views taken of right coronary artery. Catheter redirected to the SVG --> RCA. Nitro gtt off. SVG's to RCA visualized. Catheter removed over the glidewire. 6 ugandan XB 3 guide catheter was inserted over the glidewire. Bentley guidewire was advanced through the guide catheter to lesion in the prox LAD. Inflation Number : 1 A MDT R EDWARD 3.5X12 JARED -Lot Number# [id number] was prepped and advanced across the Prox LAD. The stent was deployed at 12 NARDA for 0:29 seconds. Exp. 2023-06-15. Balloon out. Wire out. Guide catheter out. Dr. Palomino scrubbed out. PERRLA. Strong, equal hand supervisor stitching department bilaterally. No VTE prophylaxis required. A Suture was successful obtaining hemostatsis at the Right Femoral artery insertion site. Arterial sheath flushed and connected to tranducer and pressure bag with heparinized saline. Medication's Wasted: Other = Fentanyl 50 mcg. Medication's Wasted: Heparin = 4000 units. Total IV fluids: 44 mL. PCI Indication: NSTE. Post-op diagnosis: PCI of the Ostial LAD. Complications: none. Estimated blood loss: 5mL-10mL. Responsiveness - Normal response to verbal stimuli; alert and oriented, PERRLA. Airway - Unaffected, no intervention required; spontaneous ventilation. Circulation: W/N/L, pulses unchanged. Nausea/Vomiting: No. Procedure completed. Patient transferred by bed to ICU. Vital chart was stopped. Access Site Site: Right Femoral artery Sheath Size: 6 Fr Hemostasis Method: Suture Hemostasis Success: Successful Procedure Medications Start: 12:31 AM Stop: 12:31 AM Medication: Versed Amount: 1 mg Route: I.V. Start: 12:34 AM Stop: 12:34 AM Medication: Fentanyl Amount: 25 mcg Route: I.V. Start: 12:40 AM Stop: 12:40 AM Medication: Fentanyl Amount: 25 mcg Route: I.V. Start: 12:42 AM Stop: 12:42 AM Medication: Nitrogylcerin Amount: 10 mcg/min Route: I.V. drip Start: 12:47 AM Stop: 12:47 AM Medication: Nitrogylcerin Amount: 5 mcg/min Route: I.V. drip Start: 1:00 AM Stop: 1:00 AM Medication: Versed Amount: 1 mg Route: I.V. I, the attending physician, have reviewed and verified all procedure medications. Yes, all medications given per verbal order History/Risk Factors Peripheral Arterial Disease (PAD): Yes Obesity: Yes Renal Disease: Yes Dialysis: Current Prior Interventions CABG: Yes Report Signatures Finalized by Dr. Braeden Palomino MD on 02/06/2023 01:35 AM
[2023-02-07] VITALS (96 sets, daily range): BP systolic 70–154; BP diastolic 27–123; PULSE 0–127; RESP 10–28; TEMP 36.9–37.3; O2SAT 75–100
--- NOTE | 2023-02-07 00:04 | PC.NURSE ---
V.Tach: 13 beat run of V.tach and 6 beat run of V.tach. Strips placed in paper chart. Dr. Wyman notified @0004. No new orders at this time.
[2023-02-07 00:13] LABS: Hepatitis B Surface AB > 1000.0 (11.5-1000)
[2023-02-07 01:26] LABS: Hematocrit 25.1 % (36-47)
[2023-02-07] MEDS: HYDROmorphone 1 mg/mL INJ 1 mL IVP ×5 (01:35→23:29)
[2023-02-07 01:46] LABS: Blood Urea Nitrogen 25 mg/dL (6-20); Calcium 9.2 mg/dL (8.5-10.5); Carbon Dioxide 30 mmol/L (22-29); Chloride 94 mmol/L (98-107); Glomerular Filtration Rate 9.9 mL/min (90-130); Glucose 248 mg/dL (65-115); Osmolality Calculated 295 mOsm/kg (285-295); Sodium 136 mmol/L (136-145)
[2023-02-07] MEDS: albumin 25 G/100 ML VIAL IV ×2 (04:18→20:37)
[2023-02-07 04:23] LABS: Basophils # 0.1 10^3/uL (0.0-0.1); Basophils % 0.4 %; Eosinophils % 0.1 %; Hematocrit 24.5 % (36-47); Lymphocytes # 1.4 10^3/uL (0.8-4.8); Lymphocytes % 9.9 %; Mean Corpuscular HGB Conc 32.7 g/dL (30-55); Mean Corpuscular Hemoglobin 32.1 pg (27-33); Mean Corpuscular Volume 98.4 fl (85-98); Mean Platelet Volume 9.9 fL (7.4-10.4); Monocytes # 0.9 10^3/uL (0.2-0.9); Monocytes % 6.8 %; Neutrophils # 11.33 10^3/uL (1.8-7.7); Neutrophils % 82.3 %; Nucleated Red Blood Cells % 0.1 %; Platelet Count 193 10^3/cmm (157-399); Red Blood Count 2.49 10^6/uL (3.85-5.65); Red Cell Distribution Width 18.7 % (12.1-15.1); White Blood Count 13.78 10^3/uL (3.29-11.43)
[2023-02-07 04:34] LABS: INR 1.05 (0.8-1.2)
[2023-02-07 04:48] LABS: Lactate (Lactic Acid level) 1.5 mmol/L (0.5-2.2)
[2023-02-07 04:58] LABS: Alanine Aminotransferase 33 U/L (0-33); Albumin Level 4.5 g/dL (3.5-5.2); Alkaline Phosphatase 63 U/L (35-105); Anion Gap 19.2 (5-19); Aspartate Amino Transferase 47 U/L (0-32); Blood Urea Nitrogen 26 mg/dL (6-20); Calcium 9.5 mg/dL (8.5-10.5); Carbon Dioxide 28 mmol/L (22-29); Chloride 95 mmol/L (98-107); Creatine Phosphokinase 305 U/L (26-192); Globulin 2.6 g/dL (1.3-4.6); Glomerular Filtration Rate 9.7 mL/min (90-130); Glucose 243 mg/dL (65-115); Magnesium 2.1 mg/dL (1.7-2.3); NT Pro B Type Natriuretic Pept 28356 pg/mL (0-125); Osmolality Calculated 297 mOsm/kg (285-295); Phosphorus 5.8 mg/dL (2.5-4.5); Potassium 5.2 mmol/L (3.5-5.1); Sodium 137 mmol/L (136-145); Total Bilirubin 0.4 mg/dL (0.15-1.2); Total Protein 7.1 g/dL (6.6-8.7)
--- NOTE | 2023-02-07 05:09 | PC.NURSE ---
Hgb 8.0: Dr. Hughes called @0252 to update on resulted labs. New order to transfuse 1 unit PRBC's and 1 unit platlets.
--- NOTE | 2023-02-07 05:48 | PC.NURSE ---
1 Unit Platlets: TAR charting down. See paper chart for initiation, end, and vital signs related to plt transfusion.
[2023-02-07 06:15] LABS: CKMB 46.6 ng/mL (0-5.34); CKMB Relative Index 15.2 % (0.0-10.4)
--- NOTE | 2023-02-07 07:00 | XRR_ITS ---
PROCEDURE INFORMATION: Exam: XR Chest Exam date and time: 02/07/2023 7:59 AM Age: 52 years old Clinical indication: Shortness of breath; Prior surgery; Surgery date: <1 month; Surgery type: Cardiac; Additional info: SOB TECHNIQUE: Imaging protocol: Radiologic exam of the chest. Views: 1 view. COMPARISON: CR XR chest 1V portable [id number] 02/06/2023 1:26 PM FINDINGS: Tubes, catheters and devices: PICC line terminates in the SVC. Lungs: Vascular engorgement with interstitial prominence and small pleural effusions indicate progressive congestive heart failure. Pleural spaces: See Lungs finding. Heart/Mediastinum: See Vasculature finding. Vasculature: Mild cardiomegaly and uncoiling of the thoracic aorta each accentuated by the AP positioning. Bones/joints: Unremarkable. XR/XR chest 1V portable [id number] IMPRESSION: Developing CHF.
--- NOTE | 2023-02-07 07:55 | P.PN_ITS ---
Subjective 2 Subjective: Patient has remained stable overnight. She is off the norepinephrine. Hemodynamically she has been stable. She has some residual right flank and groin pain. She received at least 2 units of fresh frozen and 3 units of packed red blood cells. I also think she received some platelets. Her hemoglobin was 9.7 early yesterday evening, 8.4 later and then 8 this morning. Her creatinine is 4.7. Her BNP is still over 28,000. She is coughing nearly constantly this morning. Her chest x-ray done this morning shows pulmonary edema. She was dialyzed yesterday. Vitals/I&O/Wt Last Vital Signs Temp 98.5 F 02/07/23 06:30 Pulse 107 H 02/07/23 06:30 Resp 16 02/07/23 06:30 BP 105/52 02/07/23 06:30 Pulse Ox 96 02/07/23 06:30 O2 Del Method Nasal Cannula 02/07/23 06:30 O2 Flow Rate 3 02/07/23 06:30 02/06/23 02/07/23 02/07/23 22:59 06:59 14:59 Intake Total 1656.625 / 3141.725 126.125 / 3267.850 Output Total 1800 / 2723 0 / 2723 Balance -143.375 / 418.725 126.125 / 544.850 Weight last 48 hrs Weight 171 lb 4.787 oz Weight 167 lb 1.766 oz Weight 167 lb 8 oz Weight 165 lb 4.8 oz Weight 165 lb Physical Exam 2 Narrative: GENERAL: In general she looks fairly comfortable but in mild distress HEENT: Exam within normal limits. NECK: Supple without jugular vein distention. The carotid upstroke is normal without bruits. BACK: Exam normal. LUNGS: Bilateral moist rales HEART: Regular rate and rhythm. ABDOMEN: Large ventral hernias. Few bowel sounds. EXTREMITIES: No edema. NEUROLOGIC: Exam normal. SKIN: Unremarkable. Data 02/07/23 03:47 02/07/23 03:47 A&P Assessment and plan (1) Acute hypoxemic respiratory failure: (2) Pulmonary edema: (3) Acute anemia: (4) Retroperitoneal bleed: (5) Hemorrhagic shock: (6) Hyperkalemia: (7) Transaminitis: (8) Non-ST elevated myocardial infarction (non-STEMI): (9) Diabetes: (10) Peripheral arterial occlusive disease: (11) ESRD (end stage renal disease): (12) Hx of CABG: (13) New onset left bundle branch block (LBBB): (14) Claudication: (15) Carotid artery stenosis, asymptomatic: (16) Aortic regurgitation: (17) Benign essential hypertension with target blood pressure below 140/90: (18) CAD (coronary artery disease): (19) Dyslipidemia: (20) Obesity (BMI 30-39.9): Plan I believe she needs dialysis again today. She is coughing constantly, is volume overloaded, has pulmonary edema. Despite being dialyzed yesterday, she received a significant amount of fluid from the volume and blood product resuscitation. Hemodynamically she is fairly stable. Her hemoglobin is stable. We will continue to monitor this. From a cardiac standpoint she has been doing fairly well. She still remains quite ill however. I had a long conversation with her and her daughter this morning. Attestations 2 Medical Necessity Statement*: Requires continued hospitalization for management of the above-mentioned multiple serious medical problems. and High Time for a total of 55 minutes, includes reviewing past or interval history, examining/interviewing patient, counseling patient/family/other support, updating patient/family/other support, discussing plan of care with staff, communicating with other healthcare providers and documenting encounter Diagnoses Acute hypoxemic respiratory failure J96.01 Pulmonary edema J81.1 Acute anemia D64.9 Retroperitoneal bleed R58 Hemorrhagic shock R57.8 Hyperkalemia E87.5 Transaminitis R74.01 Non-ST elevated myocardial infarction (non-STEMI) I21.4 Diabetes E11.9 Peripheral arterial occlusive disease I77.9 ESRD (end stage renal disease) N18.6 Hx of CABG Z95.1 New onset left bundle branch block (LBBB) I44.7 Claudication I73.9 Carotid artery stenosis, asymptomatic I65.29 Aortic regurgitation I35.1 Benign essential hypertension with target blood pressure below 140/90 I10 CAD (coronary artery disease) I25.10 Dyslipidemia E78.5 Obesity (BMI 30-39.9) E66.9
[2023-02-07] MEDS: ipratropium-albuterol 3 mL Neb INHALATION ×2 (08:29→17:46)
[2023-02-07 08:44] LABS: Hematocrit 24.2 % (36-47)
[2023-02-07] MEDS: pantoprazole 40 mg SDV IVP ×2 (08:46→17:14)
[2023-02-07] MEDS: aspirin 81 mg EC Tablet PO (08:47)
[2023-02-07] MEDS: atorvastatin 40 mg Tablet 80 MG PO (08:47)
[2023-02-07] MEDS: clopidogrel 75 mg Tablet PO (08:47)
[2023-02-07] MEDS: sennosides-docusate Tablet 1 TAB PO (08:47)
--- NOTE | 2023-02-07 09:16 | P.PN_ITS ---
Subjective 2 Subjective: s/p HD yesterday Medications: Reviewed: Yes Vitals/I&O/Wt Last Vital Signs Temp 98.5 F 02/07/23 06:30 Pulse 115 H 02/07/23 08:45 Resp 19 H 02/07/23 08:45 BP 128/53 02/07/23 08:30 Pulse Ox 95 02/07/23 08:45 O2 Del Method Nasal Cannula 02/07/23 08:29 O2 Flow Rate 2.5 02/07/23 08:29 02/06/23 02/07/23 02/07/23 22:59 06:59 14:59 Intake Total 1656.625 / 3141.725 126.125 / 3267.850 0 / 0 Output Total 1800 / 2723 0 / 2723 Balance -143.375 / 418.725 126.125 / 544.850 0 / 0 Weight last 48 hrs Weight 77.7 kg Weight 75.8 kg Weight 75.977 kg Weight 74.979 kg Weight 74.843 kg Physical Exam 2 Narrative: awake , alert no distress s1s2 rrr per report lungs clear per report no edema Data 02/07/23 08:38 02/07/23 03:47 A&P Assessment and plan (1) ESRD (end stage renal disease): Plan 1. End-stage renal disease: On TTS schedule as outpatient, patient now status postcoronary angiogram and has volume overload. off pressors. Plan for hemodialysis today with low flows , ultrafiltration as tolerated 2. Severe hyperkalemia: Emergent HD as above, low potassium diet 3. Coronary artery disease status post left heart cath this morning with stent placement in the LAD. 4. Anemia: Ordered JEANNETTE 5. History of hypertension 6. History of diabetes 7.retroperitoneal bleed Attestations 2 Medical Necessity Statement*: per medicine team Coding Level of Care Code Acute Code for Chg Fwd Diagnoses ESRD (end stage renal disease) N18.6
--- NOTE | 2023-02-07 10:35 | PC.HD ---
Furniture Sales Consultant wrote for 2500 mL UF goal. Patient requested we attempt to remove 3000 mL. Furniture Sales Consultant agreed, and UF goal was changed to 3000. Plan is to monitor patient's BP closely, and reduce UF goal if she becomes hypotensive. Also, dialysate temperature lowered to 35.0C.
[2023-02-07 11:20] LABS: Glucose Point of Care 111 mg/dL (70-110)
[2023-02-07] MEDS: ondansetron 2 mg/ML SDV 2 mL 4 MG IVP (11:35)
[2023-02-07 13:15] LABS: Hematocrit 27.9 % (36-47)
[2023-02-07] MEDS: sevelamer 800 mg Tablet 1600 MG PO (14:54)
--- NOTE | 2023-02-07 15:03 | P.PN_ITS ---
Subjective 2 Subjective: Patient was seen this morning, she does complain of shortness of breath, she is on 2 L, does have crackles on exam 1+ pitting edema, plans on dialysis this morning, we discussed her retroperitoneal hematoma we will continue to monitor hemodynamic closely here in the hospital she remains off Levophed, denies any lightheadedness, dizziness her right flank pain has not resolved, hemoglobin trend has stabilized, will continue to monitor closely as she is going to be managed on aspirin and Plavix, monitor in ICU, she is agreeable plans on dialysis this morning Vitals/I&O/Wt Last Vital Signs Temp 98.8 F 02/07/23 10:33 Pulse 0 L 02/07/23 14:00 Resp 17 02/07/23 14:00 BP 111/45 02/07/23 14:00 Pulse Ox 100 02/07/23 14:00 O2 Del Method Nasal Cannula 02/07/23 08:29 O2 Flow Rate 2.5 02/07/23 08:29 02/07/23 02/07/23 02/07/23 06:59 14:59 22:59 Intake Total 126.125 / 3267.850 0 / 0 Output Total 0 / 2723 Balance 126.125 / 544.850 0 / 0 Weight last 48 hrs Weight 77.7 kg Weight 75.8 kg Weight 75.977 kg Weight 74.979 kg Weight 74.843 kg Physical Exam 2 Const: COMMON NORMALS: no acute distress and patient oriented x3 Resp: COMMON NORMALS: normal respiratory effort, No retractions and No use of accessory muscles AUSCULTATION: crackles Cardio: COMMON NORMALS: regular rate, regular rhythm, S1 normal heart sound present and S2 normal heart sound present RATE: regular rate RHYTHM: r egular rhythm HEART SOUNDS: S1 normal heart sound present and S2 normal heart sound present GI: COMMON NORMALS: Normal to inspection, nondistended, normoactive bowel sounds present and non-tender Extremity: NARRATIVE EXTREMITY EXAM: 1+ pitting edema Neuro: COMMON NORMALS: patient oriented x3 Psych: COMMON NORMALS: mental status grossly normal Data 02/07/23 12:20 02/07/23 03:47 A&P Assessment and plan (1) New onset left bundle branch block (LBBB): (2) Non-STEMI (non-ST elevated myocardial infarction): (3) Carotid artery stenosis, asymptomatic: (4) Dyslipidemia: (5) Benign essential hypertension with target blood pressure below 140/90: (6) Hemorrhagic shock: (7) Retroperitoneal bleed: (8) Acute anemia: (9) Hyperkalemia: (10) Pulmonary edema: (11) Acute hypoxemic respiratory failure: Plan Retroperitoneal hematoma ? Acute anemia, stabilized ?hemorrhagic shock, resolved -After coronary angiography, groin access IMPRESSION: 1. Large RIGHT retroperitoneal hematoma. Hematoma extends over a length of approximately 19 cm. There is displacement of the urinary bladder and the uterus to the LEFT of midline. Hematoma extends superiorly to the inferior tip of the liver and extends into the pendulous abdominal herniation. 2. Severe atherosclerotic plaque throughout the aorta, iliac arteries and mesenteric arteries. Areas of high-grade stenosis in the abdominal aorta and the iliac arteries. 3. Atrophic kidneys. 4. Small bilateral pleural effusions. ? Plan ? Monitor hemodynamics closely, currently off pressors, ? Can continue pressors maintain MAP greater than 65,, ? Monitor clinical status very closely as patient is on aspirin, Plavix for stent placement -Status post units 2 U PRBC, 2 units platelets, 2 units FFP, ? Monitor hemoglobin every 4 hours, next?monitor hemodynamics closely, ? If patient's clinical condition worsens, hemoglobin trend worsens, [facility] is willing to take transfer, as per discussion with hospitalist Acute hypoxic respiratory failure, pulmonary edema ? Likely secondary to fluid overload, blood products, ? Receiving dialysis ? Monitor respiratory status closely Non-STEMI Patient has history of established coronary disease with CABG, carotid disease less than 30% Recently had coronary angiogram in November at [facility], will request records Cardiology consulted Dr. Palomino has evaluated her in the ER Patient went to the Hoisting [facility], received stent in the LAD Currently on aspirin, Plavix New left bundle branch block Avoid AV noah blocking agents at this point End-stage renal disease Hyperkalemia, resolving Dialysis today We will consult nephro Full code We will keep her n.p.o. in case she would require coronary angiogram for worsening of her chest pain overnight Continue ACS protocol Daughter at the bedside We will request records ? Plan on today monitor respiratory status closely, PT OT, dialysis, monitor hemodynamics monitor hemoglobin closely, Attestations 2 Medical Necessity Statement*: Patient requires hospitalization for retroperitoneal hematoma, acute anemia hemorrhagic shock, NSTEMI, status post cath, LAD stent, requiring inpatient monitoring now with fluid overload requiring dialysis, spoke to cardiology, spoke to nephrology spoke to patient's family spoke to patient spoke to nursing staff and High MDM includes number and complexity of problems actively addressed during encounter, amount and/or complexity of data reviewed/ordered and described risk of complication, morbidity or mortality of management as documented Diagnoses New onset left bundle branch block (LBBB) I44.7 Non-STEMI (non-ST elevated myocardial infarction) I21.4 Carotid artery stenosis, asymptomatic I65.29 Dyslipidemia E78.5 Benign essential hypertension with target blood pressure below 140/90 I10 Hemorrhagic shock R57.8 Retroperitoneal bleed R58 Acute anemia D64.9 Hyperkalemia E87.5 Pulmonary edema J81.1 Acute hypoxemic respiratory failure J96.01
[2023-02-07] MEDS: sevelamer 800 mg Tablet 2400 MG PO (17:14)
[2023-02-07] MEDS: sucralfate 1 gm Tablet PO ×2 (17:14→20:31)
--- NOTE | 2023-02-07 17:51 | PC.NURSE ---
Patient had a good day. Up to chair at this moment, patient received dialysis earlier this shift.
[2023-02-07] MEDS: lactulose oral liq 20 gm/30 mL UDC 10 GM PO (20:31)
[2023-02-07 20:53] LABS: Glucose Point of Care 264 mg/dL (70-110)
[2023-02-08] VITALS (53 sets, daily range): BP systolic 94–142; BP diastolic 41–88; PULSE 95–110; RESP 11–47; TEMP 37.4–37.6; O2SAT 93–100
[2023-02-08] MEDS: albumin 25 G/100 ML VIAL IV ×2 (05:10→21:10)
[2023-02-08] MEDS: HYDROmorphone 1 mg/mL INJ 1 mL IVP ×3 (05:24→14:03)
[2023-02-08 05:36] LABS: Basophils # 0.1 10^3/uL (0.0-0.1); Basophils % 0.6 %; Eosinophils # 0.2 10^3/uL (0.0-0.8); Eosinophils % 2.2 %; Hematocrit 23.7 % (36-47); Lymphocytes # 1.4 10^3/uL (0.8-4.8); Lymphocytes % 14.7 %; Mean Corpuscular HGB Conc 32.1 g/dL (30-55); Mean Corpuscular Hemoglobin 31.8 pg (27-33); Mean Corpuscular Volume 99.2 fl (85-98); Mean Platelet Volume 9.8 fL (7.4-10.4); Monocytes # 0.7 10^3/uL (0.2-0.9); Neutrophils # 7.16 10^3/uL (1.8-7.7); Nucleated Red Blood Cells # 0.1 /100WBC; Nucleated Red Blood Cells % 0.5 %; Platelet Count 220 10^3/cmm (157-399); Red Blood Count 2.39 10^6/uL (3.85-5.65); Red Cell Distribution Width 17.3 % (12.1-15.1); White Blood Count 9.55 10^3/uL (3.29-11.43)
[2023-02-08 05:54] LABS: INR 1.12 (0.8-1.2)
[2023-02-08 05:58] LABS: Alanine Aminotransferase 31 U/L (0-33); Albumin Level 4.4 g/dL (3.5-5.2); Alkaline Phosphatase 68 U/L (35-105); Aspartate Amino Transferase 41 U/L (0-32); Blood Urea Nitrogen 24 mg/dL (6-20); C Reactive Protein 132.5 mg/L (0.0-4.9); Calcium 9.8 mg/dL (8.5-10.5); Carbon Dioxide 29 mmol/L (22-29); Chloride 90 mmol/L (98-107); Globulin 2.6 g/dL (1.3-4.6); Glomerular Filtration Rate 8.8 mL/min (90-130); Glucose 213 mg/dL (65-115); Magnesium 2.1 mg/dL (1.7-2.3); Osmolality Calculated 284 mOsm/kg (285-295); Phosphorus 4.6 mg/dL (2.5-4.5); Sodium 132 mmol/L (136-145); Total Bilirubin 0.4 mg/dL (0.15-1.2)
[2023-02-08] MEDS: sucralfate 1 gm Tablet PO ×4 (06:00→21:05)
[2023-02-08 06:02] LABS: Anion Gap 17.7 (5-19); Potassium 4.7 mmol/L (3.5-5.1)
[2023-02-08 06:12] LABS: Creatine Phosphokinase 185 U/L (26-192)
--- NOTE | 2023-02-08 06:18 | PC.NURSE ---
Addendum entered by Mya Greenwood RN 02/08/23 06:35: New order to redraw H&H @0634. Original Note: Attempted to Notify Doctor: Attempted to notify Dr. Hughes of drop in Hgb/Hct on morning labs. Called Dr. Hughes @0616- no answer. Volt message sent @0619- no answer.
--- NOTE | 2023-02-08 07:13 | P.PN_ITS ---
Subjective 2 Subjective: Kristan had a relatively uneventful night. Vital signs have been stable. She still complains of a little bit of abdominal pain. Her hemoglobin this morning is pending. Yesterday it was 9.1. She did get dialyzed yesterday. She is coughing much less today. When she was volume overloaded yesterday, her BNP went up to over 57,000. Vital signs have been stable. Today blood pressure is 109/56 with a heart rate of 102. Vitals/I&O/Wt Last Vital Signs Temp 99.2 F 02/07/23 20:30 Pulse 102 H 02/08/23 06:30 Resp 14 02/08/23 06:30 BP 109/56 02/08/23 06:30 Pulse Ox 94 02/08/23 06:30 O2 Del Method Nasal Cannula 02/08/23 06:30 O2 Flow Rate 1.5 02/08/23 06:30 02/07/23 02/08/23 02/08/23 22:59 06:59 14:59 Intake Total 890 / 890 200 / 1090 Output Total 3100 / 3100 0 / 3100 Balance -2210 / -2210 200 / -2010 Weight last 48 hrs Weight 166 lb 6.4 oz Weight 173 lb 1.006 oz Weight 171 lb 4.787 oz Weight 167 lb 1.766 oz Physical Exam 2 Narrative: GENERAL: In general she is comfortable this morning. HEENT: Exam within normal limits. NECK: Supple without jugular vein distention. The carotid upstroke is normal without bruits. BACK: Exam normal. LUNGS: Clear. HEART: Regular rate and rhythm. ABDOMEN: Benign without organomegaly or tenderness. Large ventral hernias present EXTREMITIES: No edema. NEUROLOGIC: Exam normal. SKIN: Unremarkable. Data 02/08/23 05:05 02/08/23 05:05 A&P Assessment and plan (1) Acute hypoxemic respiratory failure: (2) Pulmonary edema: (3) Acute anemia: (4) Retroperitoneal bleed: (5) Hemorrhagic shock: (6) Hyperkalemia: (7) Transaminitis: (8) Non-ST elevated myocardial infarction (non-STEMI): (9) Diabetes: Qualifiers: Diabetes mellitus type: type 2 Diabetes mellitus continuous churn buttermaker insulin use: without continuous churn buttermaker use Diabetes mellitus complication status: with kidney complications Diabetes mellitus complication detail: with chronic kidney disease Chronic kidney disease stage: on chronic dialysis Qualified Code(s): E 11.22 - Type 2 diabetes mellitus with diabetic chronic kidney disease; N18.6 - End stage renal disease; Z99.2 - Dependence on renal dialysis (10) Peripheral arterial occlusive disease: (11) Aortic valve stenosis: (12) ESRD (end stage renal disease): (13) Hx of CABG: (14) New onset left bundle branch block (LBBB): (15) Claudication: (16) Carotid artery stenosis, asymptomatic: (17) Dyslipidemia: (18) CAD (coronary artery disease): Qualifiers: Coronary Disease-Associated Artery/Lesion type: bypass graft [place] vs. transplanted heart: [place] heart Associated angina: without angina Qualified Code(s): I25.810 - Atherosclerosis of coronary artery bypass graft(s) without angina pectoris Plan She seems stable. Earlier today, hemoglobin was apparently 7.4. It is being repeated. Her vitals have been stable. Cardiac status is stable. I spoke to the patient's daughter again this morning. Attestations 2 Medical Necessity Statement*: Hospitalization required for management of above acute medical problems. 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 dialysis, without long-term current use of insulin E11.22; N18.6; Z99.2 Diabetes mellitus type: type 2 Diabetes mellitus continuous churn buttermaker insulin use: without correction use Diabetes mellitus complication status: with kidney complications Diabetes mellitus complication detail: with chronic kidney disease Chronic kidney disease stage: on chronic dialysis Peripheral arterial occlusive disease I77.9 Aortic valve stenosis I35.0 ESRD (end stage renal disease) N18.6 Hx of CABG Z95.1 New onset left bundle branch block (LBBB) I44.7 Claudication I73.9 Carotid artery stenosis, asymptomatic I65.29 Dyslipidemia E78.5 Coronary artery disease involving coronary bypass graft of [place] heart without angina pectoris I25.810 Coronary Disease-Associated Artery/Lesion type: bypass graft [place] vs. transplanted heart: [place] heart Associated angina: without angina
[2023-02-08] MEDS: sennosides-docusate Tablet 1 TAB PO (08:17)
[2023-02-08] MEDS: clopidogrel 75 mg Tablet PO (08:17)
[2023-02-08] MEDS: sevelamer 800 mg Tablet 2400 MG PO ×3 (08:17→17:46)
[2023-02-08] MEDS: atorvastatin 40 mg Tablet 80 MG PO (08:17)
[2023-02-08] MEDS: pantoprazole 40 mg SDV IVP ×2 (08:17→17:46)
[2023-02-08] MEDS: aspirin 81 mg EC Tablet PO (08:17)
[2023-02-08] MEDS: lactulose oral liq 20 gm/30 mL UDC PO (08:42)
--- NOTE | 2023-02-08 09:52 | P.PN_ITS ---
Subjective 2 Subjective: on 1L Oxygen Medications: Reviewed: Yes Vitals/I&O/Wt Last Vital Signs Temp 99.2 F 02/07/23 20:30 Pulse 110 H 02/08/23 09:00 Resp 13 02/08/23 09:00 BP 142/79 02/08/23 09:00 Pulse Ox 97 02/08/23 09:00 O2 Del Method Nasal Cannula 02/08/23 06:30 O2 Flow Rate 1.5 02/08/23 06:30 02/07/23 02/08/23 02/08/23 22:59 06:59 14:59 Intake Total 890 / 890 200 / 1090 240 / 240 Output Total 3100 / 3100 0 / 3100 Balance -2210 / -2210 200 / -2009 240 / 240 Weight last 48 hrs Weight 75.478 kg Weight 78.5 kg Weight 77.7 kg Weight 75.8 kg Physical Exam 2 Narrative: awake , alert no distress s1s2 rrr per report lungs clear per report no edema Data 02/08/23 07:03 02/08/23 05:05 A&P Assessment and plan (1) ESRD (end stage renal disease): Plan 1. End-stage renal disease: On TTS schedule as outpatient, patient now status postcoronary angiogram and has volume overload. off pressors. Plan for hemodialysis tomorrow with low flows , ultrafiltration as tolerated 2. Severe hyperkalemia: Emergent HD as above, low potassium diet 3. Coronary artery disease status post left heart cath this morning with stent placement in the LAD. 4. Anemia: Ordered JEANNETTE 5. History of hypertension 6. History of diabetes 7.retroperitoneal bleed Attestations 2 Medical Necessity Statement*: per medicine team Coding Level of Care Code Acute Code for Chg Fwd Diagnoses ESRD (end stage renal disease) N18.6
[2023-02-08 09:57] LABS: Glucose Point of Care 317 mg/dL (70-110)
[2023-02-08] MEDS: insulin lispro 100 unit/1 mL SUBCUT ×2 (11:19→21:17)
[2023-02-08 13:08] LABS: Basophils # 0.1 10^3/uL (0.0-0.1); Basophils % 0.5 %; Eosinophils # 0.2 10^3/uL (0.0-0.8); Eosinophils % 1.5 %; Hematocrit 23.4 % (36-47); Lymphocytes # 1.4 10^3/uL (0.8-4.8); Lymphocytes % 12.4 %; Mean Corpuscular HGB Conc 32.1 g/dL (30-55); Mean Corpuscular Hemoglobin 32.2 pg (27-33); Mean Corpuscular Volume 100.4 fl (85-98); Mean Platelet Volume 9.8 fL (7.4-10.4); Monocytes # 0.7 10^3/uL (0.2-0.9); Monocytes % 5.9 %; Neutrophils # 8.86 10^3/uL (1.8-7.7); Neutrophils % 79.3 %; Nucleated Red Blood Cells # 0.1 /100WBC; Nucleated Red Blood Cells % 0.4 %; Platelet Count 208 10^3/cmm (157-399); Red Blood Count 2.33 10^6/uL (3.85-5.65); Red Cell Distribution Width 17.2 % (12.1-15.1); White Blood Count 11.17 10^3/uL (3.29-11.43)
[2023-02-08] MEDS: epoetin alfa 1000 Unit/0.05 mL (ESRD) 20000 UNIT SUBCUT (13:18)
[2023-02-08] MEDS: insulin glargine 100 units/1 mL 10 UNIT SUBCUT (13:18)
[2023-02-08] MEDS: polyethylene glycol 3350 Pkt 17 gm PO (13:19)
[2023-02-08 17:30] LABS: Glucose Point of Care 122 mg/dL (70-110)
--- NOTE | 2023-02-08 17:36 | P.PN_ITS ---
Subjective 2 Subjective: Patient was seen this morning, she has complaint of right flank pain, does report generalized weakness, no nausea, no vomiting, no fevers, no chills, no lightheadedness, no dizziness, Vitals/I&O/Wt Last Vital Signs Temp 99.2 F 02/07/23 20:30 Pulse 97 02/08/23 17:00 Resp 12 02/08/23 17:00 BP 121/53 02/08/23 17:00 Pulse Ox 97 02/08/23 17:00 O2 Del Method Nasal Cannula 02/08/23 10:01 O2 Flow Rate 1 02/08/23 10:01 02/08/23 02/08/23 02/08/23 06:59 14:59 22:59 Intake Total 200 / 1090 600 / 600 240 / 840 Output Total 0 / 3100 Balance 200 / -2010 600 / 600 240 / 840 Weight last 48 hrs Weight 75.478 kg Weight 78.5 kg Weight 77.7 kg Physical Exam 2 Const: COMMON NORMALS: no acute distress and patient oriented x3 Resp: COMMON NORMALS: normal respiratory effort, No retractions, No use of accessory muscles and clear to auscultation bilaterally AUSCULTATION: clear to auscultation bilaterally Cardio: COMMON NORMALS: regular rate, regular rhythm, S1 normal heart sound present and S2 normal heart sound present RATE: regular rate RHYTHM: r egular rhythm HEART SOUNDS: S1 normal heart sound present and S2 normal heart sound present GI: COMMON NORMALS: Normal to inspection, nondistended, normoactive bowel sounds present and non-tender Extremity: COMMON NORMALS: no pedal edema Neuro: COMMON NORMALS: patient oriented x3 Psych: COMMON NORMALS: mental status grossly normal Data 02/08/23 12:55 02/08/23 05:05 A&P Assessment and plan (1) New onset left bundle branch block (LBBB): (2) Non-STEMI (non-ST elevated myocardial infarction): (3) Carotid artery stenosis, asymptomatic: (4) Dyslipidemia: (5) Benign essential hypertension with target blood pressure below 140/90: (6) Hemorrhagic shock: (7) Retroperitoneal bleed: (8) Acute anemia: (9) Hyperkalemia: (10) Pulmonary edema: (11) Acute hypoxemic respiratory failure: Plan Retroperitoneal hematoma ? Acute anemia, stabilized, hemoglobin 7.5, monitor ?hemorrhagic shock, resolved -After coronary angiography, groin access IMPRESSION: 1. Large RIGHT retroperitoneal hematoma. Hematoma extends over a length of approximately 19 cm. There is displacement of the urinary bladder and the uterus to the LEFT of midline. Hematoma extends superiorly to the inferior tip of the liver and extends into the pendulous abdominal herniation. 2. Severe atherosclerotic plaque throughout the aorta, iliac arteries and mesenteric arteries. Areas of high-grade stenosis in the abdominal aorta and the iliac arteries. 3. Atrophic kidneys. 4. Small bilateral pleural effusions. ? Plan ? Monitor hemodynamics closely, currently off pressors, ? Can continue pressors maintain MAP greater than 65,, ? Monitor clinical status very closely as patient is on aspirin, Plavix for stent placement -Status post units 2 U PRBC, 2 units platelets, 2 units FFP, ? Monitor hemoglobin every 4 hours, next?monitor hemodynamics closely, ? If patient's clinical condition worsens, hemoglobin trend worsens, [facility] is willing to take transfer, as per discussion with hospitalist Acute hypoxic respiratory failure, pulmonary edema ? Likely secondary to fluid overload, blood products, ? Receiving dialysis ? Monitor respiratory status closely Non-STEMI Patient has history of established coronary disease with CABG, carotid disease less than 30% Recently had coronary angiogram in November at [facility], will request records Cardiology consulted Dr. Palomino has evaluated her in the ER Patient went to the Sales Merchandise Associate, received stent in the LAD Currently on aspirin, Plavix New left bundle branch block Avoid AV noah blocking agents at this point End-stage renal disease Hyperkalemia, resolving Dialysis today We will consult nephro Full code Daughter at the bedside We will request records ? Plan on today monitor respiratory status closely, PT OT, dialysis, monitor hemodynamics monitor hemoglobin closely, Attestations 2 Medical Necessity Statement*: Patient requires hospitalization for retroperitoneal hematoma, anemia, elevated blood sugars Diagnoses New onset left bundle branch block (LBBB) I44.7 Non-STEMI (non-ST elevated myocardial infarction) I21.4 Carotid artery stenosis, asymptomatic I65.29 Dyslipidemia E78.5 Benign essential hypertension with target blood pressure below 140/90 I10 Hemorrhagic shock R57.8 Retroperitoneal bleed R58 Acute anemia D64.9 Hyperkalemia E87.5 Pulmonary edema J81.1 Acute hypoxemic respiratory failure J96.01
[2023-02-08] MEDS: BuSPIRONE 10 mg Tablet PO (17:46)
[2023-02-08 18:01] LABS: Hematocrit 23.8 % (36-47)
[2023-02-08] MEDS: HYDROcodone-acetaminophen 5-325 mg Tablet 1 TAB PO ×2 (18:17→23:51)
[2023-02-08] MEDS: mineral oil ENEMA 133 mL PR (20:35)
[2023-02-08] MEDS: trazodone 100 mg Tablet PO (21:04)
[2023-02-08 21:32] LABS: Glucose Point of Care 179 mg/dL (70-110)
[2023-02-09] VITALS (44 sets, daily range): BP systolic 105–133; BP diastolic 44–97; PULSE 89–109; RESP 13–19; TEMP 37.2; O2SAT 88–100
[2023-02-09] MEDS: HYDROcodone-acetaminophen 5-325 mg Tablet 1 TAB PO ×5 (03:51→21:37)
[2023-02-09] MEDS: lactulose oral liq 20 gm/30 mL UDC PO ×3 (03:52→20:40)
[2023-02-09 05:26] LABS: Basophils # 0.1 10^3/uL (0.0-0.1); Basophils % 0.7 %; Eosinophils # 0.3 10^3/uL (0.0-0.8); Eosinophils % 3.4 %; Hematocrit 22.9 % (36-47); Lymphocytes # 1.2 10^3/uL (0.8-4.8); Lymphocytes % 13.2 %; Mean Corpuscular HGB Conc 31.9 g/dL (30-55); Mean Corpuscular Hemoglobin 31.9 pg (27-33); Monocytes # 0.6 10^3/uL (0.2-0.9); Monocytes % 6.5 %; Neutrophils # 6.63 10^3/uL (1.8-7.7); Neutrophils % 75.7 %; Nucleated Red Blood Cells # 0.1 /100WBC; Nucleated Red Blood Cells % 0.9 %; Platelet Count 199 10^3/cmm (157-399); Red Blood Count 2.29 10^6/uL (3.85-5.65); Red Cell Distribution Width 16.4 % (12.1-15.1); White Blood Count 8.76 10^3/uL (3.29-11.43)
[2023-02-09 05:37] LABS: INR 1.15 (0.8-1.2)
[2023-02-09 05:46] LABS: Alanine Aminotransferase 24 U/L (0-33); Albumin Level 4.3 g/dL (3.5-5.2); Alkaline Phosphatase 72 U/L (35-105); Aspartate Amino Transferase 26 U/L (0-32); Blood Urea Nitrogen 33 mg/dL (6-20); C Reactive Protein 159.4 mg/L (0.0-4.9); Calcium 10.1 mg/dL (8.5-10.5); Carbon Dioxide 25 mmol/L (22-29); Chloride 90 mmol/L (98-107); Globulin 2.8 g/dL (1.3-4.6); Glucose 148 mg/dL (65-115); Magnesium 2.3 mg/dL (1.7-2.3); Osmolality Calculated 282 mOsm/kg (285-295); Phosphorus 4.1 mg/dL (2.5-4.5); Sodium 131 mmol/L (136-145); Total Bilirubin 0.5 mg/dL (0.15-1.2); Total Protein 7.1 g/dL (6.6-8.7)
[2023-02-09 05:54] LABS: Creatine Phosphokinase 93 U/L (26-192)
[2023-02-09 05:57] LABS: Anion Gap 20.7 (5-19); Potassium 4.7 mmol/L (3.5-5.1)
[2023-02-09 05:58] LABS: Lactate (Lactic Acid level) 0.7 mmol/L (0.5-2.2)
[2023-02-09 06:33] LABS: Glucose Point of Care 157 mg/dL (70-110)
[2023-02-09] MEDS: albumin 25 G/100 ML VIAL IV ×2 (06:33→12:47)
[2023-02-09] MEDS: sucralfate 1 gm Tablet PO ×3 (06:34→20:40)
--- NOTE | 2023-02-09 06:37 | PC.NURSE ---
Pt requesting to hold off on taking 10 units lantus. BG is 157.
[2023-02-09 06:38] LABS: NT Pro B Type Natriuretic Pept > 70000 pg/mL (0-125)
--- NOTE | 2023-02-09 07:29 | P.PN_ITS ---
Subjective 2 Subjective: Fairly uneventful day and night. Constipated. Still some abdominal and flank pain. She has been out of bed. She ambulated to the bathroom. Hemodynamically stable. Blood pressure has been stable. Heart rate around 100 bpm. Her hemoglobin has been stable over the last 2 days at about 7.5. She has not required any transfusion of red blood cells, platelets or fresh frozen plasma since the original resuscitation 3 days ago. She is not coughing and is less short of breath. Vitals/I&O/Wt Last Vital Signs Temp 99.3 F 02/08/23 23:30 Pulse 91 02/09/23 06:00 Resp 16 02/09/23 06:00 BP 114/44 02/09/23 06:00 Pulse Ox 97 02/09/23 06:00 O2 Del Method Nasal Cannula 02/09/23 06:00 O2 Flow Rate 1 02/09/23 06:00 02/08/23 02/09/23 02/09/23 22:59 06:59 14:59 Intake Total 540 / 1140 150 / 1290 Output Total 0 / 0 Balance 540 / 1140 150 / 1290 Weight last 48 hrs Weight 166 lb 6.4 oz Weight 173 lb 1.006 oz Physical Exam 2 Narrative: GENERAL: In general she appears comfortable HEENT: Exam within normal limits. NECK: Supple without jugular vein distention. The carotid upstroke is normal without bruits. BACK: Exam normal. LUNGS: Clear. HEART: Regular rate and rhythm. ABDOMEN: Benign without organomegaly or tenderness. Large ventral hernias EXTREMITIES: No edema. NEUROLOGIC: Exam normal. SKIN: Unremarkable. Data 02/09/23 05:08 02/09/23 05:08 A&P Assessment and plan (1) Acute hypoxemic respiratory failure: (2) Pulmonary edema: (3) Acute anemia: (4) Retroperitoneal bleed: (5) Hemorrhagic shock: (6) Hyperkalemia: (7) Transaminitis: (8) Non-ST elevated myocardial infarction (non-STEMI): (9) Diabetes: Qualifiers: Diabetes mellitus type: type 2 Diabetes mellitus intermediate teacher insulin use: without nursing home use Diabetes mellitus complication status: with kidney complications Diabetes mellitus complication detail: with chronic kidney disease Chronic kidney disease stage: on chronic dialysis Qualified Code(s): E 11.22 - Type 2 diabetes mellitus with diabetic chronic kidney disease; N18.6 - End stage renal disease; Z99.2 - Dependence on renal dialysis (10) Peripheral arterial occlusive disease: (11) ESRD (end stage renal disease): (12) Hx of CABG: (13) New onset left bundle branch block (LBBB): (14) Claudication: (15) Carotid artery stenosis, asymptomatic: (16) Aortic regurgitation: (17) CAD (coronary artery disease): Qualifiers: Coronary Disease-Associated Artery/Lesion type: bypass graft [place] vs. transplanted heart: [place] heart Associated angina: without angina Qualified Code(s): I25.810 - Atherosclerosis of coronary artery bypass graft(s) without angina pectoris (18) Hypertensive emergency: (19) Dyslipidemia: (20) Obesity (BMI 30-39.9): Plan She remained stable. No further transfusion required as of now. Vital signs are stable. She needs activity. The constipation is due to the hematoma. Cardiac status is stable. I spoke to the patient's daughter at length this morning. Attestations 2 Medical Necessity Statement*: Needs continued hospitalization for management of the above-mentioned and severe medical problems. 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 dialysis, without long-term current use of insulin E11.22; N18.6; Z99.2 Diabetes mellitus type: type 2 Diabetes mellitus nursing home insulin use: without nursing home use Diabetes mellitus complication status: with kidney complications Diabetes mellitus complication detail: with chronic kidney disease Chronic kidney disease stage: on chronic dialysis Peripheral arterial occlusive disease I77.9 ESRD (end stage renal disease) N18.6 Hx of CABG Z95.1 New onset left bundle branch block (LBBB) I44.7 Claudication I73.9 Carotid artery stenosis, asymptomatic I65.29 Aortic regurgitation I35.1 Coronary artery disease involving coronary bypass graft of [place] heart without angina pectoris I25.810 Coronary Disease-Associated Artery/Lesion type: bypass graft Three [place] vs. transplanted heart: [place] heart Associated angina: without angina Hypertensive emergency I16.1 Dyslipidemia E78.5 Obesity (BMI 30-39.9) E66.9
[2023-02-09] MEDS: polyethylene glycol 3350 Pkt 17 gm PO (08:23)
[2023-02-09] MEDS: aspirin 81 mg EC Tablet PO (08:24)
[2023-02-09] MEDS: clopidogrel 75 mg Tablet PO (08:24)
[2023-02-09] MEDS: sennosides-docusate Tablet 1 TAB PO (08:24)
[2023-02-09] MEDS: atorvastatin 40 mg Tablet 80 MG PO (08:24)
[2023-02-09] MEDS: sevelamer 800 mg Tablet 2400 MG PO ×3 (08:24→17:33)
[2023-02-09] MEDS: BuSPIRONE 10 mg Tablet PO ×2 (08:24→17:23)
[2023-02-09] MEDS: pantoprazole 40 mg SDV IVP ×2 (08:25→17:24)
--- NOTE | 2023-02-09 10:01 | PC.SOCIAL ---
Pg 2 IMM Explained to pt on Pg 2 IMM. No questions voiced. Provided pt a copy. Initialed, dated, & timed a copy & placed in chart.
[2023-02-09 12:01] LABS: Hematocrit 23.1 % (36-47)
[2023-02-09 12:29] LABS: Glucose Point of Care 252 mg/dL (70-110)
[2023-02-09] MEDS: insulin lispro 100 unit/1 mL SUBCUT ×2 (12:48→17:39)
--- NOTE | 2023-02-09 13:28 | P.PN_ITS ---
Subjective 2 Subjective: Patient was seen this morning, she complained that she has not had a bowel movement yet, she is on 1 to 2 L, no fevers, no chills, no lightheadedness, dizziness, advised patient that we will start her on a bowel regimen, I want her to ambulate the hallways, will continue to monitor for the next 24 hours monitor hemoglobin, plan will be to likely keep until tomorrow, dialysis tomorrow hopefully discharge if she does need blood by tomorrow we can certainly give her blood with her dialysis but depending on what her hemoglobin is Vitals/I&O/Wt Last Vital Signs Temp 99.3 F 02/08/23 23:30 Pulse 103 H 02/09/23 11:00 Resp 14 02/09/23 11:00 BP 116/70 02/09/23 10:00 Pulse Ox 99 02/09/23 11:00 O2 Del Method Nasal Cannula 02/09/23 11:00 O2 Flow Rate 1 02/09/23 11:00 02/08/23 02/09/23 02/09/23 22:59 06:59 14:59 Intake Total 540 / 1140 150 / 1290 460 / 460 Output Total 0 / 0 Balance 540 / 1140 150 / 1290 460 / 460 Weight last 48 hrs Weight 75.478 kg Weight 78.5 kg Physical Exam 2 Const: COMMON NORMALS: no acute distress and patient oriented x3 Resp: COMMON NORMALS: normal respiratory effort, No retractions, No use of accessory muscles and clear to auscultation bilaterally AUSCULTATION: clear to auscultation bilaterally Cardio: COMMON NORMALS: regular rate, regular rhythm, S1 normal heart sound present and S2 normal heart sound present RATE: regular rate RHYTHM: r egular rhythm HEART SOUNDS: S1 normal heart sound present and S2 normal heart sound present GI: COMMON NORMALS: Normal to inspection, nondistended, normoactive bowel sounds present and non-tender Extremity: COMMON NORMALS: no pedal edema Neuro: COMMON NORMALS: patient oriented x3 Psych: COMMON NORMALS: mental status grossly normal Data 02/09/23 11:54 02/09/23 05:08 A&P Assessment and plan (1) New onset left bundle branch block (LBBB): (2) Non-STEMI (non-ST elevated myocardial infarction): (3) Carotid artery stenosis, asymptomatic: (4) Dyslipidemia: (5) Benign essential hypertension with target blood pressure below 140/90: (6) Hemorrhagic shock: (7) Retroperitoneal bleed: (8) Acute anemia: (9) Hyperkalemia: (10) Pulmonary edema: (11) Acute hypoxemic respiratory failure: Plan Retroperitoneal hematoma ? Acute anemia, stabilized, hemoglobin 7.5, monitor ?hemorrhagic shock, resolved -After coronary angiography, groin access IMPRESSION: 1. Large RIGHT retroperitoneal hematoma. Hematoma extends over a length of approximately 19 cm. There is displacement of the urinary bladder and the uterus to the LEFT of midline. Hematoma extends superiorly to the inferior tip of the liver and extends into the pendulous abdominal herniation. 2. Severe atherosclerotic plaque throughout the aorta, iliac arteries and mesenteric arteries. Areas of high-grade stenosis in the abdominal aorta and the iliac arteries. 3. Atrophic kidneys. 4. Small bilateral pleural effusions. ? Plan ? Monitor hemodynamics closely, currently off pressors, ? Can continue pressors maintain MAP greater than 65,, ? Monitor clinical status very closely as patient is on aspirin, Plavix for stent placement -Status post units 2 U PRBC, 2 units platelets, 2 units FFP, ? Monitor hemoglobin every 4 hours, next?monitor hemodynamics closely, ? If patient's clinical condition worsens, hemoglobin trend worsens, [facility] is willing to take transfer, as per discussion with hospitalist Acute hypoxic respiratory failure, pulmonary edema ? Likely secondary to fluid overload, blood products, ? Receiving dialysis ? Monitor respiratory status closely Non-STEMI Patient has history of established coronary disease with CABG, carotid disease less than 30% Recently had coronary angiogram in November at [facility], will request records Cardiology consulted Dr. Palomino has evaluated her in the ER Patient went to the [employer] Super[facility], received stent in the LAD Currently on aspirin, Plavix New left bundle branch block Avoid AV noah blocking agents at this point End-stage renal disease Hyperkalemia, resolving Dialysis today We will consult nephro Full code Daughter at the bedside We will request records ? Plan on today monitor respiratory status closely, PT OT, dialysis, monitor hemodynamics monitor hemoglobin closely, Attestations 2 Medical Necessity Statement*: Patient requires hospitalization for retroperitoneal bleed, CAD status post stenting, anemia, on aspirin and Plavix requiring inpatient monitoring, monitoring hemoglobin, hemodynamics, Diagnoses New onset left bundle branch block (LBBB) I44.7 Non-STEMI (non-ST elevated myocardial infarction) I21.4 Carotid artery stenosis, asymptomatic I65.29 Dyslipidemia E78.5 Benign essential hypertension with target blood pressure below 140/90 I10 Hemorrhagic shock R57.8 Retroperitoneal bleed R58 Acute anemia D64.9 Hyperkalemia E87.5 Pulmonary edema J81.1 Acute hypoxemic respiratory failure J96.01
--- NOTE | 2023-02-09 14:59 | PC.NURSE ---
Called report to Lizzie Hunter RN in [facility].
--- NOTE | 2023-02-09 15:41 | P.PN_ITS ---
Subjective 2 Subjective: doing well Medications: Reviewed: Yes Vitals/I&O/Wt Last Vital Signs Temp 99.3 F 02/08/23 23:30 Pulse 100 02/09/23 14:00 Resp 17 02/09/23 14:00 BP 116/70 02/09/23 14:00 Pulse Ox 97 02/09/23 14:04 O2 Del Method Nasal Cannula 02/09/23 11:00 O2 Flow Rate 1 02/09/23 11:00 02/09/23 02/09/23 02/09/23 06:59 14:59 22:59 Intake Total 150 / 1290 820 / 820 Output Total 0 / 0 Balance 150 / 1290 820 / 820 Weight last 48 hrs Weight 75.478 kg Physical Exam 2 Narrative: awake , alert no distress s1s2 rrr per report lungs clear per report no edema Data 02/09/23 11:54 02/09/23 05:08 A&P Assessment and plan (1) ESRD (end stage renal disease): Plan 1. End-stage renal disease: On TTS schedule as outpatient, patient now status postcoronary angiogram and has volume overload. off pressors. Plan for hemodialysis tomorrow ultrafiltration as tolerated 2. Severe hyperkalemia: improved , low potassium diet 3. Coronary artery disease status post left heart cath this morning with stent placement in the LAD. 4. Anemia: Ordered JEANNETTE 5. History of hypertension 6. History of diabetes 7.retroperitoneal bleed Attestations 2 Medical Necessity Statement*: per medicine Coding Level of Care Code Acute Code for Chg Fwd Diagnoses ESRD (end stage renal disease) N18.6
--- NOTE | 2023-02-09 16:56 | ECG_ITS ---
[facility] Test Date: 2023-02-09 Pat Name: Kristan Reddy Department: Room: 107 Gender: Female Claims Processor: : 1970 Requested By: Enzo Holguin Order Number: [id number] Stepan MD: Braeden Palomino M.D. Measurements Intervals [place] Rate: 102 P: 72 FL: 131 QRS: 23 QRSD: 110 T: 125 QT: 354 QTc: 463 Interpretive Statements SINUS TACHYCARDIA MODERATE INTRAVENTRICULAR CONDUCTION DELAY [105+ ms QRS DURATION, 80+ ms Q/S IN V1/V2, NO Q AND 60+ ms R IN I/aVL/V5/V6] MODERATE ST DEPRESSION [0.05+ mV ST DEPRESSION] ABNORMAL QRS-T ANGLE [QRS-T AXIS DIFFERENCE > 60] Compared to ECG 02/06/2023 14:23:22 Intraventricular conduction delay now present ST (T wave) deviation now present Left ventricular hypertrophy no longer present T-wave abnormality no longer present Possible ischemia no longer present Electronically Signed On 02-10-2023 8:46:09 [employer] by Braeden Palomino M.D. [id number]
[2023-02-09] MEDS: ondansetron 2 mg/ML SDV 2 mL 4 MG IVP ×2 (17:24→21:15)
[2023-02-09 17:52] LABS: Glucose Point of Care 148 mg/dL (70-110)
[2023-02-09] MEDS: trazodone 100 mg Tablet PO (20:40)
[2023-02-09 21:21] LABS: Glucose Point of Care 146 mg/dL (70-110)
[2023-02-09] MEDS: albumin 25 G/100 ML BAG 60 G IV (21:38)
[2023-02-10] VITALS (25 sets, daily range): BP systolic 96–157; BP diastolic 51–78; PULSE 71–106; RESP 10–22; TEMP 36.1–38; O2SAT 96–100
[2023-02-10] MEDS: acetaminophen 500 mg Tablet PO (00:24)
[2023-02-10] MEDS: HYDROcodone-acetaminophen 5-325 mg Tablet 1 TAB PO ×4 (03:29→21:23)
[2023-02-10] MEDS: albumin 25 G/100 ML BAG 60 G IV ×3 (04:24→20:06)
[2023-02-10 04:35] LABS: Basophils % 0.5 %; Eosinophils # 0.3 10^3/uL (0.0-0.8); Eosinophils % 3.5 %; Hematocrit 21.4 % (36-47); Lymphocytes # 1.5 10^3/uL (0.8-4.8); Mean Corpuscular HGB Conc 31.8 g/dL (30-55); Mean Corpuscular Hemoglobin 32.1 pg (27-33); Mean Corpuscular Volume 100.9 fl (85-98); Mean Platelet Volume 9.9 fL (7.4-10.4); Monocytes # 0.6 10^3/uL (0.2-0.9); Monocytes % 7.3 %; Neutrophils # 6.12 10^3/uL (1.8-7.7); Neutrophils % 71.4 %; Nucleated Red Blood Cells # 0.1 /100WBC; Platelet Count 198 10^3/cmm (157-399); Red Blood Count 2.12 10^6/uL (3.85-5.65); Red Cell Distribution Width 16.2 % (12.1-15.1); White Blood Count 8.58 10^3/uL (3.29-11.43)
[2023-02-10 04:56] LABS: Alanine Aminotransferase 24 U/L (0-33); Albumin Level 4.5 g/dL (3.5-5.2); Alkaline Phosphatase 104 U/L (35-105); Anion Gap 22.7 (5-19); Aspartate Amino Transferase 22 U/L (0-32); Blood Urea Nitrogen 49 mg/dL (6-20); Calcium 9.8 mg/dL (8.5-10.5); Carbon Dioxide 23 mmol/L (22-29); Chloride 90 mmol/L (98-107); Globulin 2.6 g/dL (1.3-4.6); Glomerular Filtration Rate 4.4 mL/min (90-130); Glucose 139 mg/dL (65-115); Osmolality Calculated 287 mOsm/kg (285-295); Potassium 4.7 mmol/L (3.5-5.1); Sodium 131 mmol/L (136-145); Total Bilirubin 0.5 mg/dL (0.15-1.2); Total Protein 7.1 g/dL (6.6-8.7)
[2023-02-10] MEDS: sucralfate 1 gm Tablet PO ×4 (06:17→21:23)
[2023-02-10 06:21] LABS: Glucose Point of Care 159 mg/dL (70-110)
--- NOTE | 2023-02-10 06:49 | P.PN_ITS ---
Subjective 2 Subjective: Kristan had a bowel movement last evening. She is still having some residual abdominal pain. Her hemoglobin continues to drop slowly. This morning it is 6.8. Her creatinine is 9.4. Yesterday afternoon her BNP was above 70,000. Her blood pressures have been stable. This morning it is 122/56. She has been transferred over to the first floor. Heart rates around 100 bpm. She is not coughing and does not appear to be volume overloaded. Vitals/I&O/Wt Last Vital Signs Temp 97.5 F L 02/10/23 04:00 Pulse 106 H 02/10/23 04:00 Resp 15 02/10/23 04:00 BP 122/56 02/10/23 04:00 Pulse Ox 98 02/10/23 04:00 O2 Del Method Room Air 02/10/23 04:00 O2 Flow Rate 2 02/09/23 21:48 02/09/23 02/09/23 02/10/23 14:59 22:59 06:59 Intake Total 820 / 820 740 / 1560 300 / 1860 Output Total 75 / 75 Balance 820 / 820 665 / 1485 300 / 1785 Weight last 48 hrs Weight 170 lb 3.2 oz Physical Exam 2 Narrative: GENERAL: In general she appears comfortable HEENT: Exam within normal limits. NECK: Supple without jugular vein distention. The carotid upstroke is normal without bruits. BACK: Exam normal. LUNGS: Clear. HEART: Regular rate and rhythm. ABDOMEN: Benign without organomegaly or tenderness. Large ventral hernia still in place. Occasional bowel sound EXTREMITIES: No edema. NEUROLOGIC: Exam normal. SKIN: Unremarkable. Data 02/10/23 04:20 02/10/23 04:20 A&P Assessment and plan (1) Acute hypoxemic respiratory failure: (2) Pulmonary edema: (3) Acute anemia: (4) Retroperitoneal bleed: (5) Hemorrhagic shock: (6) Hyperkalemia: (7) Transaminitis: (8) Non-ST elevated myocardial infarction (non-STEMI): (9) Diabetes: Qualifiers: Diabetes mellitus type: type 2 Diabetes mellitus mcc insulin use: without watermelon harvesting supervisor use Diabetes mellitus complication status: with kidney complications Diabetes mellitus complication detail: with chronic kidney disease Chronic kidney disease stage: on chronic dialysis Qualified Code(s): E 11.22 - Type 2 diabetes mellitus with diabetic chronic kidney disease; N18.6 - End stage renal disease; Z99.2 - Dependence on renal dialysis (10) Peripheral arterial occlusive disease: (11) ESRD (end stage renal disease): (12) Hx of CABG: (13) New onset left bundle branch block (LBBB): (14) Claudication: (15) Carotid artery stenosis, asymptomatic: (16) Aortic regurgitation: (17) CAD (coronary artery disease): Qualifiers: Coronary Disease-Associated Artery/Lesion type: bypass graft [place] vs. transplanted heart: [place] heart Associated angina: without angina Qualified Code(s): I25.810 - Atherosclerosis of coronary artery bypass graft(s) without angina pectoris (18) Dyslipidemia: (19) Obesity (BMI 30-39.9): Plan Continue to monitor. Hemoglobin still dropping some. Perhaps 1 unit of red cells today would be appropriate and then further monitoring. Attestations 2 Medical Necessity Statement*: Continued hospitalization for management of above medical problems. 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 dialysis, without long-term current use of insulin E11.22; N18.6; Z99.2 Diabetes mellitus type: type 2 Diabetes mellitus watermelon harvesting supervisor insulin use: without watermelon harvesting supervisor use Diabetes mellitus complication status: with kidney complications Diabetes mellitus complication detail: with chronic kidney disease Chronic kidney disease stage: on chronic dialysis Peripheral arterial occlusive disease I77.9 ESRD (end stage renal disease) N18.6 Hx of CABG Z95.1 New onset left bundle branch block (LBBB) I44.7 Claudication I73.9 Carotid artery stenosis, asymptomatic I65.29 Aortic regurgitation I35.1 Coronary artery disease involving coronary bypass graft of [place] heart without angina pectoris I25.810 Coronary Disease-Associated Artery/Lesion type: bypass graft [place] vs. transplanted heart: [place] heart Associated angina: without angina Dyslipidemia E78.5 Obesity (BMI 30-39.9) E66.9
[2023-02-10] MEDS: insulin glargine 100 units/1 mL 10 UNIT SUBCUT (06:53)
[2023-02-10] MEDS: sevelamer 800 mg Tablet 2400 MG PO ×3 (08:40→18:03)
[2023-02-10] MEDS: atorvastatin 40 mg Tablet 80 MG PO (08:41)
[2023-02-10] MEDS: BuSPIRONE 10 mg Tablet PO ×2 (08:41→18:03)
[2023-02-10] MEDS: aspirin 81 mg EC Tablet PO (08:41)
[2023-02-10] MEDS: polyethylene glycol 3350 Pkt 17 gm PO (08:41)
[2023-02-10] MEDS: sennosides-docusate Tablet 1 TAB PO (08:41)
[2023-02-10] MEDS: pantoprazole 40 mg SDV IVP ×2 (08:42→18:07)
[2023-02-10] MEDS: clopidogrel 75 mg Tablet PO (08:42)
[2023-02-10] MEDS: insulin lispro 100 unit/1 mL SUBCUT ×2 (08:43→18:04)
--- NOTE | 2023-02-10 08:46 | P.PN_ITS ---
Subjective 2 Subjective: getting hD Medications: Reviewed: Yes Vitals/I&O/Wt Last Vital Signs Temp 98.1 F 02/10/23 07:26 Pulse 85 02/10/23 07:55 Resp 16 02/10/23 07:55 BP 113/56 02/10/23 07:26 Pulse Ox 98 02/10/23 07:55 O2 Del Method Room Air 02/10/23 07:55 O2 Flow Rate 2 02/09/23 21:48 02/09/23 02/10/23 02/10/23 22:59 06:59 14:59 Intake Total 740 / 1560 300 / 1860 Output Total 75 / 75 Balance 665 / 1485 300 / 1785 Weight last 48 hrs Weight 77.201 kg Physical Exam 2 Narrative: awake , alert no distress s1s2 rrr per report lungs clear per report no edema Data 02/10/23 04:20 02/10/23 04:20 A&P Assessment and plan (1) ESRD (end stage renal disease): Plan 1. End-stage renal disease: On TTS schedule as outpatient, patient now status postcoronary angiogram and has volume overload. off pressors. Plan for hemodialysis today \nn ultrafiltration as tolerated 2. Severe hyperkalemia: improved , low potassium diet 3. Coronary artery disease status post left heart cath this morning with stent placement in the LAD. 4. Anemia: Ordered JEANNETTE, hb 6.8 , recommend 1 Unit PRBC 5. History of hypertension 6. History of diabetes 7.retroperitoneal bleed Attestations 2 Medical Necessity Statement*: per mediicine Coding Level of Care Code Acute Code for Chg Fwd Diagnoses ESRD (end stage renal disease) N18.6
[2023-02-10] MEDS: epoetin alfa 1000 Unit/0.05 mL (ESRD) 20000 UNIT IVP (09:32)
--- NOTE | 2023-02-10 12:08 | PC.NURSE ---
0860 pt is in hemodialysis
[2023-02-10 12:38] LABS: Glucose Point of Care 113 mg/dL (70-110)
[2023-02-10] MEDS: lactulose oral liq 20 gm/30 mL UDC PO ×2 (12:43→20:06)
--- NOTE | 2023-02-10 13:19 | P.PN_ITS ---
Subjective 2 Subjective: - Patient was seen this morning, denies any fevers, no chills, no cough, she did have a bowel movement she is currently getting dialysis we discussed her hemoglobin 6.8 will give her a unit of blood, monitor hemoglobin thereafter, continue PT OT, she had a small bowel movement overnight we will continue bowel regiment Vitals/I&O/Wt Last Vital Signs Temp 97.9 F 02/10/23 12:00 Pulse 89 02/10/23 12:00 Resp 16 02/10/23 12:00 BP 157/78 02/10/23 12:00 Pulse Ox 100 02/10/23 12:00 O2 Del Method Nasal Cannula 02/10/23 12:00 O2 Flow Rate 2 02/09/23 21:48 02/09/23 02/10/23 02/10/23 22:59 06:59 14:59 Intake Total 740 / 1560 300 / 1860 470 / 470 Output Total 75 / 75 Balance 665 / 1485 300 / 1785 470 / 470 Weight last 48 hrs Weight 77.201 kg Physical Exam 2 Const: COMMON NORMALS: no acute distress and patient oriented x3 Resp: COMMON NORMALS: normal respiratory effort, No retractions, No use of accessory muscles and clear to auscultation bilaterally AUSCULTATION: clear to auscultation bilaterally Cardio: COMMON NORMALS: regular rate, regular rhythm, S1 normal heart sound present and S2 normal heart sound present RATE: regular rate RHYTHM: r egular rhythm HEART SOUNDS: S1 normal heart sound present and S2 normal heart sound present GI: COMMON NORMALS: Normal to inspection, nondistended, normoactive bowel sounds present and non-tender Extremity: COMMON NORMALS: no pedal edema Neuro: COMMON NORMALS: patient oriented x3 Psych: COMMON NORMALS: mental status grossly normal Data 02/10/23 04:20 02/10/23 04:20 Micro: Microbiology 02/10/23 06:58 Occult Blood (FIT) - Final Stool - Stool Aspirate A&P Assessment and plan (1) New onset left bundle branch block (LBBB): (2) Non-STEMI (non-ST elevated myocardial infarction): (3) Carotid artery stenosis, asymptomatic: (4) Dyslipidemia: (5) Benign essential hypertension with target blood pressure below 140/90: (6) Hemorrhagic shock: (7) Retroperitoneal bleed: (8) Acute anemia: (9) Hyperkalemia: (10) Pulmonary edema: (11) Acute hypoxemic respiratory failure: Plan Retroperitoneal hematoma ? Acute anemia, stabilized, hemoglobin 6.8 ?hemorrhagic shock, resolved -After coronary angiography, groin access IMPRESSION: 1. Large RIGHT retroperitoneal hematoma. Hematoma extends over a length of approximately 19 cm. There is displacement of the urinary bladder and the uterus to the LEFT of midline. Hematoma extends superiorly to the inferior tip of the liver and extends into the pendulous abdominal herniation. 2. Severe atherosclerotic plaque throughout the aorta, iliac arteries and mesenteric arteries. Areas of high-grade stenosis in the abdominal aorta and the iliac arteries. 3. Atrophic kidneys. 4. Small bilateral pleural effusions. ? Plan ? Monitor hemodynamics closely, currently off pressors, ? Can continue pressors maintain MAP greater than 65,, ? Monitor clinical status very closely as patient is on aspirin, Plavix for stent placement -Status post units 2 U PRBC, 2 units platelets, 2 units FFP, ? Monitor hemoglobin every 4 hours, next?monitor hemodynamics closely, ? If patient's clinical condition worsens, hemoglobin trend worsens, [facility] is willing to take transfer, as per discussion with hospitalist Acute hypoxic respiratory failure, pulmonary edema ? Likely secondary to fluid overload, blood products, ? Receiving dialysis ? Monitor respiratory status closely Non-STEMI Patient has history of established coronary disease with CABG, carotid disease less than 30% Recently had coronary angiogram in November at [facility], will request records Cardiology consulted Dr. Palomino has evaluated her in the ER Patient went to the [facility], received stent in the LAD Currently on aspirin, Plavix New left bundle branch block Avoid AV noah blocking agents at this point End-stage renal disease Hyperkalemia, resolving Dialysis today We will consult nephro Full code Daughter at the bedside We will request records ? Plan on today monitor respiratory status closely, PT OT, dialysis, monitor hemodynamics monitor hemoglobin closely, hemoglobin 6.8 will give 1 unit PRBC, bowel regimen Attestations 2 Medical Necessity Statement*: Patient requires hospitalization for retroperitoneal hemorrhage, persistent anemia requiring hemoglobin transfusion Diagnoses New onset left bundle branch block (LBBB) I44.7 Non-STEMI (non-ST elevated myocardial infarction) I21.4 Carotid artery stenosis, asymptomatic I65.29 Dyslipidemia E78.5 Benign essential hypertension with target blood pressure below 140/90 I10 Hemorrhagic shock R57.8 Retroperitoneal bleed R58 Acute anemia D64.9 Hyperkalemia E87.5 Pulmonary edema J81.1 Acute hypoxemic respiratory failure J96.01
[2023-02-10 17:53] LABS: Glucose Point of Care 184 mg/dL (70-110)
[2023-02-10 20:47] LABS: Glucose Point of Care 174 mg/dL (70-110)
[2023-02-10] MEDS: trazodone 100 mg Tablet PO (21:23)
[2023-02-11] VITALS (39 sets, daily range): BP systolic 98–157; BP diastolic 32–87; PULSE 69–99; RESP 0–22; TEMP 36.5–37.1; O2SAT 92–100
[2023-02-11] MEDS: HYDROcodone-acetaminophen 5-325 mg Tablet 1 TAB PO ×5 (01:41→20:59)
[2023-02-11] MEDS: albumin 25 G/100 ML BAG 60 G IV (04:08)
[2023-02-11 04:51] LABS: Basophils # 0.1 10^3/uL (0.0-0.1); Basophils % 0.7 %; Eosinophils # 0.4 10^3/uL (0.0-0.8); Eosinophils % 3.8 %; Hematocrit 25.3 % (36-47); Lymphocytes # 1.6 10^3/uL (0.8-4.8); Lymphocytes % 17.1 %; Mean Corpuscular HGB Conc 32.4 g/dL (30-55); Mean Corpuscular Hemoglobin 31.5 pg (27-33); Mean Corpuscular Volume 97.3 fl (85-98); Mean Platelet Volume 10.1 fL (7.4-10.4); Monocytes # 0.9 10^3/uL (0.2-0.9); Monocytes % 9.7 %; Neutrophils # 6.39 10^3/uL (1.8-7.7); Neutrophils % 68.1 %; Nucleated Red Blood Cells # 0.2 /100WBC; Nucleated Red Blood Cells % 2.2 %; Platelet Count 228 10^3/cmm (157-399); Red Cell Distribution Width 17.6 % (12.1-15.1)
[2023-02-11 05:10] LABS: Alanine Aminotransferase 24 U/L (0-33); Albumin Level 5.1 g/dL (3.5-5.2); Alkaline Phosphatase 109 U/L (35-105); Blood Urea Nitrogen 36 mg/dL (6-20); Calcium 10.2 mg/dL (8.5-10.5); Carbon Dioxide 23 mmol/L (22-29); Chloride 91 mmol/L (98-107); Globulin 2.6 g/dL (1.3-4.6); Glomerular Filtration Rate 5.6 mL/min (90-130); Glucose 157 mg/dL (65-115); Osmolality Calculated 284 mOsm/kg (285-295); Sodium 131 mmol/L (136-145); Total Bilirubin 0.7 mg/dL (0.15-1.2); Total Protein 7.7 g/dL (6.6-8.7)
[2023-02-11 05:13] LABS: Anion Gap 21.7 (5-19); Aspartate Amino Transferase 27 U/L (0-32); Potassium 4.7 mmol/L (3.5-5.1)
--- NOTE | 2023-02-11 05:51 | P.PN_ITS ---
Subjective 2 Subjective: s/p HD yesterday Medications: Reviewed: Yes Vitals/I&O/Wt Last Vital Signs Temp 98.6 F 02/11/23 00:00 Pulse 87 02/11/23 04:52 Resp 18 02/11/23 04:16 BP 98/62 02/11/23 04:16 Pulse Ox 100 02/11/23 04:16 O2 Del Method Nasal Cannula 02/11/23 04:16 O2 Flow Rate 1.5 02/11/23 04:16 02/10/23 02/10/23 02/11/23 14:59 22:59 06:59 Intake Total 570 / 570 340 / 910 100 / 1010 Balance 570 / 570 340 / 910 100 / 1010 Weight last 48 hrs Weight 77.201 kg Physical Exam 2 Narrative: awake , alert no distress s1s2 rrr per report lungs clear per report no edema Data 02/12/23 05:20 02/12/23 05:20 Micro: Microbiology 02/10/23 06:58 Occult Blood (FIT) - Final Stool - Stool Aspirate A&P Assessment and plan (1) ESRD (end stage renal disease): Plan 1. End-stage renal disease: On TTS schedule as outpatient, patient now status postcoronary angiogram and has volume overload. off pressors. s/p HD yesterday 2. Severe hyperkalemia: improved , low potassium diet 3. Coronary artery disease status post left heart cath with stent placement in the LAD. 4. Anemia: Ordered JEANNETTE, hb 6.8 ,s/p 1 Unit PRBC 5. History of hypertension 6. History of diabetes 7.retroperitoneal bleed Attestations 2 Medical Necessity Statement*: per medicine Coding Level of Care Code Acute Code for Chg Fwd Diagnoses ESRD (end stage renal disease) N18.6
[2023-02-11] MEDS: sucralfate 1 gm Tablet PO ×4 (06:04→20:57)
[2023-02-11] MEDS: insulin glargine 100 units/1 mL 10 UNIT SUBCUT (06:05)
[2023-02-11] MEDS: ipratropium-albuterol 3 mL Neb INHALATION (06:07)
[2023-02-11 06:44] LABS: Glucose Point of Care 158 mg/dL (70-110)
--- NOTE | 2023-02-11 07:24 | P.PN_ITS ---
Subjective 2 Subjective: Kristan received 1 unit of packed red blood cells yesterday. Her hemoglobin this morning is 8.2. Yesterday it was 6.8. She was dialyzed yesterday. Her creatinine is 7.5 this morning. Potassium remains within normal limits. She is still having some abdominal pain. Her bowels are moving. Her daughter would like her abdomen scanned again. She continues to get frequent infusions of albumin. Her blood pressure has been stable. Heart rate is stable. Her EKG now represents a narrow complex rhythm. The left bundle branch block is resolved. She is not having any chest pain. Vitals/I&O/Wt Last Vital Signs Temp 98.6 F 02/11/23 00:00 Pulse 84 02/11/23 06:06 Resp 17 02/11/23 06:00 BP 110/65 02/11/23 06:00 Pulse Ox 98 02/11/23 06:00 O2 Del Method Nasal Cannula 02/11/23 06:00 O2 Flow Rate 1.5 02/11/23 06:00 02/10/23 02/11/23 02/11/23 22:59 06:59 14:59 Intake Total 340 / 910 100 / 1010 Balance 340 / 910 100 / 1010 Weight last 48 hrs Weight 178 lb 9 oz Weight 170 lb 3.2 oz Physical Exam 2 Narrative: GENERAL: In general she looks comfortable at rest HEENT: Exam within normal limits. NECK: Supple without jugular vein distention. The carotid upstroke is normal without bruits. BACK: Exam normal. LUNGS: Clear. HEART: Regular rate and rhythm. ABDOMEN: Bowel sounds present. Large ventral hernias. EXTREMITIES: No edema. NEUROLOGIC: Exam normal. SKIN: Unremarkable. Data 02/11/23 04:37 02/11/23 04:37 Micro: Microbiology 02/10/23 06:58 Occult Blood (FIT) - Final Stool - Stool Aspirate A&P Assessment and plan (1) Acute hypoxemic respiratory failure: (2) Pulmonary edema: (3) Acute anemia: (4) Retroperitoneal bleed: (5) Hemorrhagic shock: (6) Transaminitis: (7) Non-ST elevated myocardial infarction (non-STEMI): (8) Diabetes: Qualifiers: Diabetes mellitus type: type 2 Diabetes mellitus terminal manager insulin use: without terminal manager use Diabetes mellitus complication status: with kidney complications Diabetes mellitus complication detail: with chronic kidney disease Chronic kidney disease stage: on chronic dialysis Qualified Code(s): E 11.22 - Type 2 diabetes mellitus with diabetic chronic kidney disease; N18.6 - End stage renal disease; Z99.2 - Dependence on renal dialysis (9) Peripheral arterial occlusive disease: (10) ESRD (end stage renal disease): (11) Hx of CABG: (12) Claudication: (13) Carotid artery stenosis, asymptomatic: (14) Aortic regurgitation: (15) Dyslipidemia: (16) Obesity (BMI 30-39.9): Plan I think the drop in hemoglobin over the last couple days was dilutional related to the administration of albumin. I would recommend decreasing the albumin administration. Her cardiac status is stable. I spoke to her daughter at length. I will leave it up to the commercial kitchen service technician as to whether or not to rescan her abdomen. I do not think she continues to bleed. Otherwise, she is stable. I spoke to her daughter at length. Attestations 2 Medical Necessity Statement*: Continued hospitalization for management of multiple severe medical problem and Moderate Time for a total of 30 minutes, includes reviewing past or interval history, examining/interviewing patient, counseling patient/family/other support, updating patient/family/other support, discussing plan of care with staff and documenting encounter Diagnoses Acute hypoxemic respiratory failure J96.01 Pulmonary edema J81.1 Acute anemia D64.9 Retroperitoneal bleed R58 Hemorrhagic shock R57.8 Transaminitis R74.01 Non-ST elevated myocardial infarction (non-STEMI) I21.4 Type 2 diabetes mellitus with chronic kidney disease on chronic dialysis, without long-term current use of insulin E11.22; N18.6; Z99.2 Diabetes mellitus type: type 2 Diabetes mellitus terminal manager insulin use: without fpc use Diabetes mellitus complication status: with kidney complications Diabetes mellitus complication detail: with chronic kidney disease Chronic kidney disease stage: on chronic dialysis Peripheral arterial occlusive disease I77.9 ESRD (end stage renal disease) N18.6 Hx of CABG Z95.1 Claudication I73.9 Carotid artery stenosis, asymptomatic I65.29 Aortic regurgitation I35.1 Dyslipidemia E78.5 Obesity (BMI 30-39.9) E66.9
[2023-02-11] MEDS: sevelamer 800 mg Tablet 2400 MG PO ×3 (08:07→17:16)
[2023-02-11] MEDS: pantoprazole 40 mg SDV IVP ×2 (08:49→17:17)
[2023-02-11] MEDS: lactulose oral liq 20 gm/30 mL UDC PO ×2 (08:49→17:48)
[2023-02-11] MEDS: insulin lispro 100 unit/1 mL SUBCUT ×3 (08:49→17:48)
[2023-02-11] MEDS: aspirin 81 mg EC Tablet PO (08:49)
[2023-02-11] MEDS: atorvastatin 40 mg Tablet 80 MG PO (08:50)
[2023-02-11] MEDS: sennosides-docusate Tablet 1 TAB PO (08:50)
[2023-02-11] MEDS: BuSPIRONE 10 mg Tablet PO ×2 (08:50→17:16)
[2023-02-11] MEDS: clopidogrel 75 mg Tablet PO (08:50)
--- NOTE | 2023-02-11 08:50 | CTR_ITS ---
PROCEDURE INFORMATION: Exam: CT Abdomen And Pelvis With Contrast Exam date and time: 02/11/2023 10:15 AM Age: 52 years old Clinical indication: Other: Retroperitoneal bleed, hgb slowly dropping, acute bleed? ; Prior surgery; Surgery date: 6+ months; Surgery type: Hernia TECHNIQUE: Imaging protocol: Computed tomography of the abdomen and pelvis with contrast. Radiation optimization: All CT scans at this facility use at least one of these dose optimization techniques: automated exposure control; mA and/or kV adjustment per patient size (includes targeted exams where dose is matched to clinical indication); or iterative reconstruction. Contrast material: OMNI 350; Contrast volume: 100 ml; Contrast route: INTRAVENOUS (IV); REPORTING DATA: Count of CT and Cardiac NM exams in prior 12 months: This patient has received 4 known CTs and 0 known cardiac nuclear medicine studies in the 12 months prior to the current study. COMPARISON: CT abdomen pelvis w con* [id number] 02/06/2023 11:02 AM RADIATION DOSE METRICS: Total DLP (mGy-cm): 859.16 FINDINGS: Lungs: Mild ebltz-lncspoo-lepp-left bibasilar atelectasis. Pleural spaces: Tiny right pleural effusion. Liver: Liver is normal in appearance. Gallbladder and bile ducts: Gallbladder is small in size, with tiny dependent stone and likely sludge at the gallbladder neck. Minimal gallbladder wall thickening is likely secondary to low-level of distention and adjacent hemorrhage. Pancreas: Moderate atrophy of the pancreas. Spleen: The spleen is unremarkable. Adrenal glands: The adrenal glands are unremarkable. Kidneys and ureters: Moderate to severe bilateral renal atrophy. Stomach and bowel: . Majority of bowel is located within the ventral abdominal hernia sac. Nonobstructive bowel-gas pattern. Appendix: The appendix is not distinctly identified. Suture material is noted at the cecum within the herniated suprapubic pannus suggesting prior appendectomy. Intraperitoneal space: Redemonstrated large intra-abdominal hematoma, centered in the right retroperitoneal region, with significant extension into the right lower quadrant and into the suprapubic pannus via the large ventral hernia. Overall, this large hematoma is not significantly changed in size or configuration compared to 02/06/2023. Internally, however, this internal collection now demonstrates multiple ill-defined areas of relative hypoattenuation. No extraluminal free air in the abdomen. Vasculature: Moderate to severe diffuse calcific disease of the aorta and its major branches. Lymph nodes: No suspicious lymphadenopathy. Urinary bladder: Urinary bladder is nondistended, without large obvious abnormality. Reproductive: Uterus abuts portions of the right intra-abdominal hematoma. No large obvious uterine abnormality. Bones/joints: No acute osseous findings. Soft tissues: Redemonstrated large broad-based ventral abdominal hernia. CT/CT abdomen pelvis w con* [id number] IMPRESSION: 1. Redemonstrated large intra-abdominal hematoma, centered in the right retroperitoneal region, with significant extension into the right lower quadrant and into the suprapubic pannus via the large ventral hernia. Overall, this large hematoma is not significantly changed in size or configuration compared to 02/06/2023. Internally, however, this internal collection now demonstrates multiple ill-defined areas of relative hypoattenuation. This is most consistent with evolution of clot/blood products. No thickened rind or peripheral postcontrast enhancement to suggest current abscess formation. Recommend continued follow-up. 2. Tiny right pleural effusion. Mild xfqia-tteyjaj-jdlf-left subjacent atelectasis. 3. Redemonstrated large broad-based ventral abdominal hernia. Majority of bowel is located within the hernia. 4. Gallbladder is small in size, with tiny dependent stone and likely sludge at the gallbladder neck. Minimal gallbladder wall thickening is likely secondary to low-level of distention and adjacent hemorrhage.
[2023-02-11] MEDS: iohexol 350 mg/mL 500 mL Btl (per mL) IV (10:17)
[2023-02-11 11:20] LABS: Glucose Point of Care 163 mg/dL (70-110)
--- NOTE | 2023-02-11 13:56 | PM.PN ---
Subjective Subjective: Patient was seen this morning, denies any nausea, no vomiting, no lightheadedness, dizziness, has had bowel movements, hemoglobin 8.2, her and her family are worried about her CAT scan, they are wondering if she can have another CAT scan as they are worried about further bleeding, she was seen ambulating in the hallways yesterday, no lightheadedness, dizziness no hemodynamic compromise, we will go ahead and do a CAT scan today, discussed with nephrology about dialyzing after, spoke patient had a CAT scan completed, results as below, spoke to nephrology plan on dialysis in, early in the morning tomorrow Vitals/I&O/Wt Last Vital Signs Temp 98.2 F 02/11/23 08:30 Pulse 80 02/11/23 08:30 Resp 15 02/11/23 08:30 BP 147/54 02/11/23 10:00 Pulse Ox 99 02/11/23 08:30 O2 Del Method Nasal Cannula 02/11/23 06:00 O2 Flow Rate 1.5 02/11/23 06:00 02/10/23 02/11/23 02/11/23 22:59 06:59 14:59 Intake Total 340 / 910 100 / 1010 480 / 480 Balance 340 / 910 100 / 1010 480 / 480 Weight last 48 hrs Weight 80.995 kg Weight 77.201 kg Physical Exam Const: COMMON NORMALS: no acute distress and patient oriented x3 Resp: COMMON NORMALS: normal respiratory effort, No retractions, No use of accessory muscles and clear to auscultation bilaterally AUSCULTATION: clear to auscultation bilaterally Cardio: COMMON NORMALS: regular rate, regular rhythm, S1 normal heart sound present and S2 normal heart sound present RATE: regular rate RHYTHM: regular rhythm HEART SOUNDS: S1 normal heart sound present and S2 normal heart sound present GI: COMMON NORMALS: Normal to inspection, nondistended, normoactive bowel sounds present and non-tender Extremity: COMMON NORMALS: no pedal edema Neuro: COMMON NORMALS: patient oriented x3 Psych: COMMON NORMALS: mental status grossly normal Data 02/11/23 04:37 02/11/23 04:37 Micro: Microbiology 02/10/23 06:58 Occult Blood (FIT) - Final Stool - Stool Aspirate A&P Assessment and plan (1) New onset left bundle branch block (LBBB): (2) Non-STEMI (non-ST elevated myocardial infarction): (3) Carotid artery stenosis, asymptomatic: (4) Dyslipidemia: (5) Benign essential hypertension with target blood pressure below 140/90: (6) Hemorrhagic shock: (7) Retroperitoneal bleed: (8) Acute anemia: (9) Hyperkalemia: (10) Pulmonary edema: (11) Acute hypoxemic respiratory failure: Plan Retroperitoneal hematoma ? Acute anemia, stabilized, hemoglobin 8.2 ?hemorrhagic shock, resolved -After coronary angiography, groin access IMPRESSION: 1. Large RIGHT retroperitoneal hematoma. Hematoma extends over a length of approximately 19 cm. There is displacement of the urinary bladder and the uterus to the LEFT of midline. Hematoma extends superiorly to the inferior tip of the liver and extends into the pendulous abdominal herniation. 2. Severe atherosclerotic plaque throughout the aorta, iliac arteries and mesenteric arteries. Areas of high-grade stenosis in the abdominal aorta and the iliac arteries. 3. Atrophic kidneys. 4. Small bilateral pleural effusions. repeat ct abdomen 02/21/2023 CT/CT abdomen pelvis w con* [id number] IMPRESSION: 1. Redemonstrated large intra-abdominal hematoma, centered in the right retroperitoneal region, with significant extension into the right lower quadrant and into the suprapubic pannus via the large ventral hernia. Overall, this large hematoma is not significantly changed in size or configuration compared to 02/06/2023. Internally, however, this internal collection now demonstrates multiple ill-defined areas of relative hypoattenuation. This is most consistent with evolution of clot/blood products. No thickened rind or peripheral postcontrast enhancement to suggest current abscess formation. Recommend continued follow-up. 2. Tiny right pleural effusion. Mild vbpsw-hsjiriq-ssnp-left subjacent atelectasis. 3. Redemonstrated large broad-based ventral abdominal hernia. Majority of bowel is located within the hernia. 4. Gallbladder is small in size, with tiny dependent stone and likely sludge at the gallbladder neck. Minimal gallbladder wall thickening is likely secondary to low-level of distention and adjacent hemorrhage. ? Plan ? Monitor hemodynamics closely, currently off pressors, ? Can continue pressors maintain MAP greater than 65,, ? Monitor clinical status very closely as patient is on aspirin, Plavix for stent placement -Status post units 3U PRBC, 2 units platelets, 2 units FFP, ? Monitor hemoglobin ? If patient's clinical condition worsens, hemoglobin trend worsens, becomes hemodynamically unstable, evidence of persistently bleeding, [facility] is willing to take transfer, as per discussion with hospitalist Acute hypoxic respiratory failure, pulmonary edema, resolved ? Likely secondary to fluid overload, blood products, ? Receiving dialysis ? Monitor respiratory status closely Non-STEMI Patient has history of established coronary disease with CABG, carotid disease less than 30% Recently had coronary angiogram in November at [facility], will request records Cardiology consulted Dr. Palomino has evaluated her in the ER Patient went to the [facility], received stent in the LAD Currently on aspirin, Plavix New left bundle branch block Avoid AV noah blocking agents at this point End-stage renal disease Hyperkalemia, resolving Dialysis today We will consult nephro Full code Daughter at the bedside We will request records -Plan, received CT scan abdomen pelvis results as above, spoke to nephrology, plan on dialysis tomorrow morning, monitor hemoglobin hopefully can be discharged the next 24 hours Attestations Medical Necessity Statement*: Patient requires hospitalization for retroperitoneal hematoma, status post cath, NSTEMI, anemia Diagnoses New onset left bundle branch block (LBBB) I44.7 Non-STEMI (non-ST elevated myocardial infarction) I21.4 Carotid artery stenosis, asymptomatic I65.29 Dyslipidemia E78.5 Benign essential hypertension with target blood pressure below 140/90 I10 Hemorrhagic shock R57.8 Retroperitoneal bleed R58 Acute anemia D64.9 Hyperkalemia E87.5 Pulmonary edema J81.1 Acute hypoxemic respiratory failure J96.01
[2023-02-11 17:24] LABS: Glucose Point of Care 153 mg/dL (70-110)
[2023-02-11] MEDS: trazodone 100 mg Tablet PO (20:57)
[2023-02-11 21:14] LABS: Glucose Point of Care 188 mg/dL (70-110)
[2023-02-12] VITALS (11 sets, daily range): BP systolic 100–118; BP diastolic 38–55; PULSE 71–98; RESP 14–20; TEMP 36.6–37; O2SAT 94–100
[2023-02-12] MEDS: HYDROcodone-acetaminophen 5-325 mg Tablet 1 TAB PO ×5 (02:04→21:14)
[2023-02-12] MEDS: ipratropium-albuterol 3 mL Neb INHALATION ×2 (02:26→07:14)
[2023-02-12] MEDS: ondansetron 2 mg/ML SDV 2 mL 4 MG IVP (02:48)
[2023-02-12 05:29] LABS: Basophils # 0.1 10^3/uL (0.0-0.1); Basophils % 0.7 %; Eosinophils # 0.3 10^3/uL (0.0-0.8); Eosinophils % 3.3 %; Hematocrit 25.8 % (36-47); Lymphocytes # 1.5 10^3/uL (0.8-4.8); Lymphocytes % 15.2 %; Mean Corpuscular HGB Conc 32.6 g/dL (30-55); Mean Corpuscular Hemoglobin 31.8 pg (27-33); Mean Corpuscular Volume 97.7 fl (85-98); Mean Platelet Volume 9.7 fL (7.4-10.4); Monocytes # 0.9 10^3/uL (0.2-0.9); Neutrophils # 6.81 10^3/uL (1.8-7.7); Neutrophils % 71.2 %; Nucleated Red Blood Cells # 0.1 /100WBC; Nucleated Red Blood Cells % 1.5 %; Platelet Count 208 10^3/cmm (157-399); Red Blood Count 2.64 10^6/uL (3.85-5.65); Red Cell Distribution Width 17.4 % (12.1-15.1); White Blood Count 9.58 10^3/uL (3.29-11.43)
[2023-02-12 05:33] LABS: Glucose Point of Care 165 mg/dL (70-110)
[2023-02-12 05:58] LABS: Alanine Aminotransferase 20 U/L (0-33); Albumin Level 4.7 g/dL (3.5-5.2); Alkaline Phosphatase 91 U/L (35-105); Blood Urea Nitrogen 51 mg/dL (6-20); Calcium 10.3 mg/dL (8.5-10.5); Carbon Dioxide 23 mmol/L (22-29); Chloride 89 mmol/L (98-107); Globulin 2.7 g/dL (1.3-4.6); Glomerular Filtration Rate 4.2 mL/min (90-130); Glucose 151 mg/dL (65-115); Osmolality Calculated 287 mOsm/kg (285-295); Sodium 130 mmol/L (136-145); Total Bilirubin 0.5 mg/dL (0.15-1.2); Total Protein 7.4 g/dL (6.6-8.7)
[2023-02-12 06:10] LABS: Aspartate Amino Transferase 24 U/L (0-32)
[2023-02-12] MEDS: sucralfate 1 gm Tablet PO ×3 (06:56→17:31)
[2023-02-12] MEDS: insulin glargine 100 units/1 mL 10 UNIT SUBCUT (06:56)
[2023-02-12] MEDS: epoetin alfa 1000 Unit/0.05 mL (ESRD) 20000 UNIT IVP (09:20)
--- NOTE | 2023-02-12 09:50 | P.PN_ITS ---
Subjective 2 Subjective: I visited Kristan in dialysis this morning. She states she still having 8 out of 10 abdominal pain though she looks perfectly comfortable, was laughing and joking with the dialysis nurse, and called her daughter on the phone so she could listen to the interaction between myself and the patient. She is having bowel movements. She is eating some. She had another CT scan of her abdomen yesterday and as expected the hematoma still present. It did not appear to be any bigger. Her hemoglobin is 8.4 today. It was 8.2 yesterday. Vitals/I&O/Wt Last Vital Signs Temp 98.4 F 02/12/23 00:00 Pulse 74 02/12/23 07:13 Resp 18 02/12/23 07:13 BP 118/38 02/12/23 04:00 Pulse Ox 94 02/12/23 07:13 O2 Del Method Room Air 02/12/23 07:13 O2 Flow Rate 2 02/11/23 18:42 02/11/23 02/12/23 02/12/23 22:59 06:59 14:59 Intake Total 120 / 120 Balance 120 / 120 Weight last 48 hrs Weight 179 lb Weight 178 lb 9 oz Physical Exam 2 Narrative: GENERAL: In general she looks comfortable, and is not short of breath HEENT: Exam within normal limits. NECK: Supple without jugular vein distention. The carotid upstroke is normal without bruits. BACK: Exam normal. LUNGS: Clear. HEART: Regular rate and rhythm. ABDOMEN: Large ventral hernias EXTREMITIES: No edema. NEUROLOGIC: Exam normal. SKIN: Unremarkable. Data 02/12/23 05:20 02/12/23 05:20 A&P Assessment and plan (1) Acute hypoxemic respiratory failure: (2) Pulmonary edema: (3) Acute anemia: (4) Retroperitoneal bleed: (5) Hemorrhagic shock: (6) Hyperkalemia: (7) Transaminitis: (8) Non-ST elevated myocardial infarction (non-STEMI): (9) Diabetes: Qualifiers: Diabetes mellitus type: type 2 Diabetes mellitus fdc insulin use: without director long term care use Diabetes mellitus complication status: with kidney complications Diabetes mellitus complication detail: with chronic kidney disease Chronic kidney disease stage: on chronic dialysis Qualified Code(s): E 11.22 - Type 2 diabetes mellitus with diabetic chronic kidney disease; N18.6 - End stage renal disease; Z99.2 - Dependence on renal dialysis (10) Peripheral arterial occlusive disease: (11) Aortic valve stenosis: (12) ESRD (end stage renal disease): (13) Hx of CABG: (14) Carotid artery stenosis, asymptomatic: (15) Aortic regurgitation: (16) Benign essential hypertension with target blood pressure below 140/90: (17) CAD (coronary artery disease): Qualifiers: Coronary Disease-Associated Artery/Lesion type: bypass graft [place] vs. transplanted heart: [place] heart Associated angina: without angina Qualified Code(s): I25.810 - Atherosclerosis of coronary artery bypass graft(s) without angina pectoris (18) Dyslipidemia: (19) Obesity (BMI 30-39.9): Plan Her daughter is still worried about the hematoma. I tried to explain to her that the hematoma is going to be there for weeks or maybe even months and even if we scan it it is not going to look that much different. I also talked to her about the fact that the hemoglobin is stable and that she is not likely bleeding anymore. She has regained bowel sounds and bowel function. Her daughter is still worried about volume overload. Kristan looks very comfortable today and is not coughing, breathing hard or having any other difficulties. I would expect her to be able to go home in the next day or so. Attestations 2 Medical Necessity Statement*: Hospitalization required for addressing multiple medical problems 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 dialysis, without long-term current use of insulin E11.22; N18.6; Z99.2 Diabetes mellitus type: type 2 Diabetes mellitus director long term care insulin use: without fdc use Diabetes mellitus complication status: with kidney complications Diabetes mellitus complication detail: with chronic kidney disease Chronic kidney disease stage: on chronic dialysis Peripheral arterial occlusive disease I77.9 Aortic valve stenosis I35.0 ESRD (end stage renal disease) N18.6 Hx of CABG Z95.1 Carotid artery stenosis, asymptomatic I65.29 Aortic regurgitation I35.1 Benign essential hypertension with target blood pressure below 140/90 I10 Coronary artery disease involving coronary bypass graft of [place] heart without angina pectoris I25.810 Coronary Disease-Associated Artery/Lesion type: bypass graft [place] vs. transplanted heart: [place] heart Associated angina: without angina Dyslipidemia E78.5 Obesity (BMI 30-39.9) E66.9
[2023-02-12 11:04] LABS: Iron 29 ug/dL (37-145)
[2023-02-12 11:20] LABS: Percent Saturation 20.4 % (20-50); Total Iron Binding Capacity 142 mcg/dl; Unsaturated Iron Binding 113 ug/dL (112-347)
[2023-02-12 12:27] LABS: Glucose Point of Care 173 mg/dL (70-110)
[2023-02-12] MEDS: sevelamer 800 mg Tablet 2400 MG PO ×3 (12:50→17:31)
[2023-02-12] MEDS: pantoprazole 40 mg SDV IVP ×2 (12:50→17:31)
[2023-02-12] MEDS: aspirin 81 mg EC Tablet PO (12:50)
[2023-02-12] MEDS: atorvastatin 40 mg Tablet 80 MG PO (12:50)
[2023-02-12] MEDS: clopidogrel 75 mg Tablet PO (12:50)
[2023-02-12] MEDS: BuSPIRONE 10 mg Tablet PO ×2 (12:51→17:31)
[2023-02-12] MEDS: lactulose oral liq 20 gm/30 mL UDC PO (12:58)
[2023-02-12] MEDS: polyethylene glycol 3350 Pkt 17 gm PO (12:58)
--- NOTE | 2023-02-12 13:50 | PC.SOCIAL ---
IMM Update pg 2 of IMM updated and reviewed w/ patient's father. Copy left @ bedside and copy dated, initialed and placed in chart.
[2023-02-12] MEDS: sennosides-docusate Tablet 1 TAB PO (14:32)
--- NOTE | 2023-02-12 16:16 | PC.OT ---
per discussion with DOSHI; goals are met. Patient d/c from skilled OT services.
[2023-02-12 17:07] LABS: Glucose Point of Care 218 mg/dL (70-110)
[2023-02-12] MEDS: insulin lispro 100 unit/1 mL SUBCUT (18:11)
--- NOTE | 2023-02-12 20:19 | P.PN_ITS ---
Subjective 2 Subjective: getting HD Medications: Reviewed: Yes Vitals/I&O/Wt Last Vital Signs Temp 97.9 F 02/12/23 15:49 Pulse 87 02/12/23 15:49 Resp 20 H 02/12/23 15:49 BP 118/38 02/12/23 10:51 Pulse Ox 94 02/12/23 15:49 O2 Del Method Room Air 02/12/23 15:49 O2 Flow Rate 2 02/11/23 18:42 02/12/23 02/12/23 02/12/23 06:59 14:59 22:59 Intake Total 120 / 120 480 / 600 Balance 120 / 120 480 / 600 Weight last 48 hrs Weight 81.193 kg Weight 80.995 kg Physical Exam 2 Narrative: awake , alert no distress s1s2 rrr per report lungs clear per report no edema Data 02/12/23 05:20 02/12/23 05:20 A&P Assessment and plan (1) ESRD (end stage renal disease): Plan 1. End-stage renal disease: On TTS schedule as outpatient, patient now status postcoronary angiogram and has volume overload. off pressors. HD today 2. Severe hyperkalemia: improved , low potassium diet 3. Coronary artery disease status post left heart cath with stent placement in the LAD. 4. Anemia: Ordered JEANNETTE, hb 6.8 ,s/p 1 Unit PRBC , currntly @ 8.4 5. History of hypertension 6. History of diabetes 7.retroperitoneal bleed Attestations 2 Medical Necessity Statement*: per monserrat Coding Level of Care Code Acute Code for Chg Fwd Diagnoses ESRD (end stage renal disease) N18.6
[2023-02-12] MEDS: lactulose oral liq 20 gm/30 mL UDC 10 GM PO (20:23)
[2023-02-12] MEDS: trazodone 100 mg Tablet PO (21:15)
--- NOTE | 2023-02-12 21:26 | PC.NURSE ---
Patient's blood sugar is 118 according to Dexcom reading.
--- NOTE | 2023-02-12 22:25 | P.PN_ITS ---
Subjective 2 Subjective: The patient was seen in the room eating, with at bedside. She had just returned from dialysis. She stated that she felt fine. She denied any fever, chills, CP, palpitations, SOB, dizziness, lightheadedness, GI symptoms. She states that she is anuric. When the patient was asked whether she was ready to be discharged home, given that Hgb was been stable at 8.4, she stated that she was happy to be discharged, but she must leave with O2, because her O2 sats dropped at night. Per discussion with the nurse, the patient was placed on O2 at night, but there was no clear documentation, that she was hypoxic to the point that she required O2. Vitals/I&O/Wt Last Vital Signs Temp 98.6 F 02/12/23 21:49 Pulse 98 02/12/23 21:49 Resp 19 H 02/12/23 21:49 BP 115/55 02/12/23 21:49 Pulse Ox 100 02/12/23 21:49 O2 Del Method Room Air 02/12/23 21:49 O2 Flow Rate 2 02/11/23 18:42 02/12/23 02/12/23 02/12/23 06:59 14:59 22:59 Intake Total 120 / 120 980 / 1100 Output Total 2265 / 2265 Balance 120 / 120 -1285 / -1165 Weight last 48 hrs Weight 78.471 kg Weight 81.193 kg Weight 80.995 kg Physical Exam 2 Const: GENERAL APPEARANCE: cooperative and comfortable O RIENTATION/CONSCIOUSNESS: Yes awake, Yes oriented to person, Yes oriented to place and Yes oriented to time HENMT: COMMON NORMALS: normocephalic, atraumatic and external ears normal H EAD & SCALP: normocephalic and atraumatic EXTERNAL EAR: Yes external ears normal MOUTH: Normal oral and palatal mucosa present THROAT: posterior oropharynx normal Eye: COMMON NORMALS: Equal, round and reactive pupils present and conjunctivae normal CONJUNCTIVA: Yes conjunctivae normal PUPIL: Yes Equal, round and reactive pupils present EOM: No EOM abnormal Neck/C-Spine: COMMON NORMALS: Thyroid normal GENERAL: Yes normal visual inspection and Yes trachea midline THYROID: Thyroid normal CAROTIDS: Yes bruit positive bilateral Lymph: LYMPHATIC: No lymphadenopathy Resp: OTHER: Crackles in the R. LL. Cardio: OTHER: 2-3/6 systolic murmurs in all heart valv es. GI: OTHER: BS+, non-tender, nondistended, no guarding, no rigidity, no rebound tenderness, no organomegaly appreciated on palpation Extremity: GENERAL: No clubbing, No cyanosis and No edema Neuro: SENSORIUM/ORIENTATION: Yes oriented to person, Yes oriented to place and Yes oriented to time CRANIAL NERVES: Yes CN normal except as noted S PEECH: speech normal SENSORY EXAM: No sensory level loss detected MOTOR EXAM: 5/5 motor strength present throughout Psych: COMMON NORMALS: Normal thought process present and speech normal A PPEARANCE: Yes grossly normal ATTITUDE: Yes calm and Yes engaged A CTIVITY/MOTOR BEHAVIOR: Yes appropriate eye contact SPEECH: Yes normal speech MOOD & AFFECT: Yes euthymic mood THOUGHT PROCESS: Normal thought process present THOUGHT CONTENT: Yes Normal thought content present A TTENTION/CONCENTRATION: Yes attention grossly intact MEMORY/COGNITION: Yes memory grossly intact Skin: COMMON NORMALS: no rashes or lesions noted GENERAL SKIN EXAM: no rashes or lesions noted Data 02/12/23 05:20 02/12/23 05:20 A&P Assessment and plan (1) Non-ST elevated myocardial infarction (non-STEMI): (2) Acute hypoxemic respiratory failure: Plan Ms. Reddy is a 52yo woman w/ HTN, HLD, IDDM 2, peripheral artery disease, including L?subclavian artery stenosis, ESRD on HD, moderate aortic stenosis, hx of a CABG, and a very large b/l inguinal hernia, who was admitted on 02/05/2023 for an NSTEMI and a new LBBB. She is s/p a stent to the LAD, and her postop course was complicated by a large retroperitoneal hematoma requiring 4units of blood, 2 units of platelets, 2 FFP. Her Hgb now remains stable, but she refuses to go home without a prescription of O2 at night. # Possible nocturnal hypoxia: overnight pulse oximetry study w/ RT . Evaluate in the AM of 02/13. #NSTEMI s/p stent to the LAD #Peripheral artery disease including #L?subclavian artery stenosis, - On Aspirin & Plavix. #Retroperitoneal hematoma - Hgb stable #moderate aortic stenosis #HTN #HLD #hx of a CABG #ESRD on HD #b/l inguinal hernia: Outpatient f/u DVT ppx: SCD Attestations 2 Medical Necessity Statement*: Pulse oximetry study Coding Level of Care Code 04778 Diagnoses Non-ST elevated myocardial infarction (non-STEMI) I21.4 Acute hypoxemic respiratory failure J96.01
[2023-02-13] VITALS (10 sets, daily range): BP systolic 102–136; BP diastolic 42–67; PULSE 72–103; RESP 14–21; TEMP 36.7–36.9; O2SAT 95–99; BMI 37.4
[2023-02-13] MEDS: HYDROcodone-acetaminophen 5-325 mg Tablet 1 TAB PO ×4 (06:28→19:57)
[2023-02-13] MEDS: insulin glargine 100 units/1 mL 10 UNIT SUBCUT (06:29)
[2023-02-13 06:54] LABS: Glucose Point of Care 167 mg/dL (70-110)
--- NOTE | 2023-02-13 08:20 | PC.NURSE ---
Patients blood sugar is 175 per dexcom. She qualifies for 4 units per sliding scale and patient is agreeable to this
[2023-02-13] MEDS: atorvastatin 40 mg Tablet 80 MG PO (08:33)
[2023-02-13] MEDS: clopidogrel 75 mg Tablet PO (08:33)
[2023-02-13] MEDS: sucralfate 1 gm Tablet PO ×3 (08:33→22:17)
[2023-02-13] MEDS: sevelamer 800 mg Tablet 2400 MG PO ×2 (08:33→12:11)
[2023-02-13] MEDS: aspirin 81 mg EC Tablet PO (08:33)
[2023-02-13] MEDS: sennosides-docusate Tablet 1 TAB PO (08:33)
[2023-02-13] MEDS: polyethylene glycol 3350 Pkt 17 gm PO (08:33)
[2023-02-13] MEDS: pantoprazole 40 mg SDV IVP (08:34)
[2023-02-13] MEDS: insulin lispro 100 unit/1 mL SUBCUT ×2 (08:34→12:10)
[2023-02-13] MEDS: lactulose oral liq 20 gm/30 mL UDC PO ×2 (08:34→19:58)
[2023-02-13] MEDS: BuSPIRONE 10 mg Tablet PO ×2 (08:34→19:58)
--- NOTE | 2023-02-13 08:35 | PM.PN ---
Subjective Subjective: Kristan underwent dialysis yesterday. She still has some residual abdominal discomfort. Her bowels are moving but she says not well enough. Blood pressures have been stable. Heart rates have come down in the 80s now. Oxygen saturations during the day are within normal limits on room air. At night her O2 sats drop. No hemoglobin this morning. She is up and around and ambulating. Vitals/I&O/Wt Last Vital Signs Temp 98.0 F 02/13/23 06:40 Pulse 80 02/13/23 08:34 Resp 16 02/13/23 08:34 BP 102/54 02/13/23 06:40 Pulse Ox 95 02/13/23 08:34 O2 Del Method Room Air 02/13/23 08:34 O2 Flow Rate 2 02/11/23 18:42 02/12/23 02/13/23 02/13/23 22:59 06:59 14:59 Intake Total 1430 / 1550 Output Total 2265 / 2265 Balance -835 / -715 Weight last 48 hrs Weight 173 lb Weight 173 lb Weight 179 lb Physical Exam Narrative: GENERAL: In general she feels well and looks well. HEENT: Exam within normal limits. NECK: Supple without jugular vein distention. The carotid upstroke is normal without bruits. BACK: Exam normal. LUNGS: Clear. HEART: Regular rate and rhythm. ABDOMEN: Benign without organomegaly or tenderness. 2 large ventral hernias. Bowel sounds are positive. EXTREMITIES: No edema. NEUROLOGIC: Exam normal. SKIN: Unremarkable. Data 02/12/23 05:20 02/12/23 05:20 A&P Assessment and plan (1) Acute hypoxemic respiratory failure: (2) Pulmonary edema: (3) Acute anemia: (4) Retroperitoneal bleed: (5) Hemorrhagic shock: (6) Hyperkalemia: (7) Transaminitis: (8) Non-ST elevated myocardial infarction (non-STEMI): (9) Peripheral arterial occlusive disease: (10) ESRD (end stage renal disease): (11) Hx of CABG: (12) New onset left bundle branch block (LBBB): (13) Claudication: (14) Carotid artery stenosis, asymptomatic: (15) Aortic regurgitation: (16) Benign essential hypertension with target blood pressure below 140/90: (17) CAD (coronary artery disease): Qualifiers: Coronary Disease-Associated Artery/Lesion type: bypass graft [place] vs. transplanted heart: [place] heart Associated angina: without angina Qualified Code(s): I25.810 - Atherosclerosis of coronary artery bypass graft(s) without angina pectoris (18) Dyslipidemia: (19) Obesity (BMI 30-39.9): Plan She seems to be doing well. No evidence of congestive heart failure. No chest pain. Should be able to go home soon. Spoke to the patient's daughter again in detail. Attestations Medical Necessity Statement*: Nearing discharge. and Moderate Time for a total of 35 minutes, includes reviewing past or interval history, examining/interviewing patient, counseling patient/family/other support, updating patient/family/other support, discussing plan of care with staff, communicating with other healthcare providers and documenting encounter Diagnoses Acute hypoxemic respiratory failure J96.01 Pulmonary edema J81.1 Acute anemia D64.9 Retroperitoneal bleed R58 Hemorrhagic shock R57.8 Hyperkalemia E87.5 Transaminitis R74.01 Non-ST elevated myocardial infarction (non-STEMI) I21.4 Peripheral arterial occlusive disease I77.9 ESRD (end stage renal disease) N18.6 Hx of CABG Z95.1 New onset left bundle branch block (LBBB) I44.7 Claudication I73.9 Carotid artery stenosis, asymptomatic I65.29 Aortic regurgitation I35.1 Benign essential hypertension with target blood pressure below 140/90 I10 Coronary artery disease involving coronary bypass graft of [place] heart without angina pectoris I25.810 Coronary Disease-Associated Artery/Lesion type: bypass graft [place] vs. transplanted heart: [place] heart Associated angina: without angina Dyslipidemia E78.5 Obesity (BMI 30-39.9) E66.9
--- NOTE | 2023-02-13 11:18 | P.DS_ITS ---
Discharge Providers Date of Admission: 02/06/23 01:16 Date of Discharge: February 13, 2023 Attending Provider at Admission: Daniel Hughes MD Attending Provider at Discharge: Elysia Monroe MD Primary Care Provider: Lisa Mayberry DO Diagnoses at Discharge Discharge Diagnosis (1) Acute hypoxemic respiratory failure: Status: Acute (2) Pulmonary edema: Status: Acute (3) Acute anemia: Status: Acute (4) Retroperitoneal bleed: Status: Acute (5) Hemorrhagic shock: Status: Acute (6) Hyperkalemia: Status: Acute (7) Transaminitis: Status: Acute (8) Non-ST elevated myocardial infarction (non-STEMI): Status: Acute (9) Peripheral arterial occlusive disease: Status: Acute (10) ESRD (end stage renal disease): Status: Acute (11) Hx of CABG: Status: Acute (12) New onset left bundle branch block (LBBB): Status: Acute (13) Claudication: Status: Acute (14) Carotid artery stenosis, asymptomatic: Status: Acute (15) Aortic regurgitation: Status: Acute (16) Benign essential hypertension with target blood pressure below 140/90: Status: Acute (17) CAD (coronary artery disease): Status: Chronic Qualifiers: Coronary Disease-Associated Artery/Lesion type: bypass graft [place] vs. transplanted heart: [place] heart Associated angina: without angina Qualified Code(s): I25.810 - Atherosclerosis of coronary artery bypass graft(s) without angina pectoris Permanent problem details: s/p 2 stents (18) Dyslipidemia: Status: Chronic (19) Obesity (BMI 30-39.9): Status: Chronic Reason for Visit Reason for Visit: SOB Discharge Data Studies Completed and Pending Completed Studies During Hospitalization Category Date Time Status CT abdomen pelvis w con* 46470 Stat Cat Scan 02/06/23 10:[address] abdomen pelvis w con* [id number] Stat Cat Scan 02/11/23 08:50 Completed [facility] request for service Stat Exams 02/06/23 00:12 Completed CXRP [XR chest 1V portable [id number]] Routine Exams 02/06/23 11:25 Completed XR chest 1V portable [id number] Routine Exams 02/07/23 07:00 Completed XR chest 1V portable [id number] Stat Exams 02/05/23 22:30 Completed CV. echo limited [id number] Routine Ultrasound 02/06/23 Completed Pending at discharge Category Date Time Status ABO/Rh Type Stat Lab 02/06/23 10:15 Results CBC Auto Diff [Complete Blood Count w/Auto] Stat Lab 02/13/23 11:09 Received Complete Crossmatch Routine Lab 02/06/23 10:15 Results Complete Crossmatch Routine Lab 02/06/23 10:15 Results Complete Crossmatch Stat Lab 02/06/23 10:15 Results Frozen Plasma FZ <24 1st Cont Routine Lab 02/06/23 10:15 Results Irrad Leukoreduced PLT Pher Routine Lab 02/06/23 10:15 Results Irrad Leukoreduced PLT Pher Stat Lab 02/06/23 10:15 Results Irradiated Leuko Red RBC Routine Lab 02/06/23 10:15 Results Irradiated Leuko Red RBC Stat Lab 02/06/23 10:15 Results Irradiated Red Blood Cells Routine Lab 02/06/23 10:15 Results PRBC [Leukocyte Reduced RBC] Routine Lab 02/07/23 05:06 Results Platelets Leuko-Reduced Stat Lab 02/06/23 10:15 Results Platelets Leukoreduced Irradia Routine Lab 02/06/23 10:15 Results Renal Function Panel Stat Lab 02/13/23 11:09 Received Retype for Patiets ABO/Rh Routine Lab 02/06/23 10:15 Results Type and Screen Stat Lab 02/06/23 10:15 Results Radiology Impressions Chest X-Ray 02/07/23 07:00 IMPRESSION: Developing CHF. Abdomen/Pelvis CT 02/11/23 08:50 IMPRESSION: 1. Redemonstrated large intra-abdominal hematoma, centered in the right retroperitoneal region, with significant extension into the right lower quadrant and into the suprapubic pannus via the large ventral hernia. Overall, this large hematoma is not significantly changed in size or configuration compared to 02/06/2023. Internally, however, this internal collection now demonstrates multiple ill-defined areas of relative hypoattenuation. This is most consistent with evolution of clot/blood products. No thickened rind or peripheral postcontrast enhancement to suggest current abscess formation. Recommend continued follow-up. 2. Tiny right pleural effusion. Mild pomnp-mwgqdeh-nslv-left subjacent atelectasis. 3. Redemonstrated large broad-based ventral abdominal hernia. Majority of bowel is located within the hernia. 4. Gallbladder is small in size, with tiny dependent stone and likely sludge at the gallbladder neck. Minimal gallbladder wall thickening is likely secondary to low-level of distention and adjacent hemorrhage. Laboratory Results WBC 9.58 10^3/uL (3.29-11.43) 02/12/23 05:20 RBC 2.64 10^6/uL (3.85-5.65) L 02/12/23 05:20 Hgb 8.40 g/dL (11.27-16.99) L 02/12/23 05:20 Hct 25.8 % (36-47) L 02/12/23 05:20 MCV 97.7 fl (85-98) 02/12/23 05:20 MCH 31.8 pg (27-33) 02/12/23 05:20 MCHC 32.6 g/dL (30-55) 02/12/23 05:20 RDW 17.4 % (12.1-15.1) H 02/12/23 05:20 Plt Count 208 10^3/cmm (157-399) 02/12/23 05:20 MPV 9.7 fL (7.4-10.4) 02/12/23 05:20 Neut % (Auto) 71.2 % 02/12/23 05:20 Lymph % (Auto) 15.2 % 02/12/23 05:20 [place] % (Auto) 9.0 % 02/12/23 05:20 Eos % (Auto) 3.3 % 02/12/23 05:20 Baso % (Auto) 0.7 % 02/12/23 05:20 Neut # (Auto) 6.81 10^3/uL (1.8-7.7) 02/12/23 05:20 Lymph # (Auto) 1.5 10^3/uL (0.8-4.8) 02/12/23 05:20 [place] # (Auto) 0.9 10^3/uL (0.2-0.9) 02/12/23 05:20 Eos # (Auto) 0.3 10^3/uL (0.0-0.8) 02/12/23 05:20 Baso # (Auto) 0.1 10^3/uL (0.0-0.1) 02/12/23 05:20 Nucleated RBC % (auto) 1.5 % 02/12/23 05:20 Nucleated RBCs # 0.1 /100WBC 02/12/23 05:20 PT 15.10 SECONDS (12.1-14.9) H 02/09/23 05:08 INR 1.15 (0.8-1.2) 02/09/23 05:08 APTT 24.2 SECONDS (23.9-36.7) 02/06/23 03:15 Sodium 130 mmol/L (136-145) L 02/12/23 05:20 Potassium 5.0 mmol/L (3.5-5.1) 02/12/23 05:20 Chloride 89 mmol/L (98-107) L 02/12/23 05:20 Carbon Dioxide 23 mmol/L (22-29) 02/12/23 05:20 Anion Gap 23.0 (5-19) H 02/12/23 05:20 BUN 51 mg/dL (6-20) H 02/12/23 05:20 Creatinine 9.7 mg/dL (0.5-0.9) H* 02/12/23 05:20 GFR Calculation 4.2 mL/min (90-130) L 02/12/23 05:20 Glucose 151 mg/dL (65-115) H 02/12/23 05:20 POC Glucose 218 mg/dL (70-110) H 02/12/23 16:50 Calculated Osmolality 287 mOsm/kg (285-295) 02/12/23 05:20 Lactate 0.7 mmol/L (0.5-2.2) 02/09/23 05:08 Calcium 10.3 mg/dL (8.5-10.5) 02/12/23 05:20 Phosphorus 4.1 mg/dL (2.5-4.5) 02/09/23 05:08 Magnesium 2.3 mg/dL (1.7-2.3) 02/09/23 05:08 Iron 29 ug/dL (37-145) L 02/12/23 05:20 TIBC 142 mcg/dl 02/12/23 05:20 % Saturation 20.4 % (20-50) 02/12/23 05:20 Unsat Iron Binding 113 ug/dL (112-347) 02/12/23 05:20 Ferritin 3183 ng/mL (15-150) H 02/06/23 03:15 Total Bilirubin 0.5 mg/dL (0.15-1.2) 02/12/23 05:20 AST 24 U/L (0-32) 02/12/23 05:20 ALT 20 U/L (0-33) 02/12/23 05:20 Alkaline Phosphatase 91 U/L (35-105) 02/12/23 05:20 Creatine Kinase 93 U/L (26-192) 02/09/23 05:08 CK-MB (CK-2) 46.6 ng/mL (0-5.34) H 02/07/23 03:47 CK-MB (CK-2) Rel Index 15.2 % (0.0-10.4) H 02/07/23 03:47 Troponin T Baseline 139 ng/L (0-10) H* 02/05/23 22:55 Troponin T Hi Sens 6Hr 425.6 ng/L (0-10) H 02/06/23 03:15 Troponin T Hi Sens 6Hr Delta 286.6 ng/L (0-12) H* 02/06/23 03:15 C-Reactive Protein 159.4 mg/L (0.0-4.9) H 02/09/23 05:08 NT-Pro-B Natriuret Pep > 70499 pg/mL (0-125) H 02/09/23 05:08 Total Protein 7.4 g/dL (6.6-8.7) 02/12/23 05:20 Albumin 4.7 g/dL (3.5-5.2) 02/12/23 05:20 Globulin 2.7 g/dL (1.3-4.6) 02/12/23 05:20 Vitamin B12 599 pg/mL (232-1245) 02/06/23 03:15 Random Cortisol 17.75 ug/dL (2.47-19.5) 02/06/23 10:15 Hep Bs Antigen Non-reactive (Nonreactive) 02/06/23 21:44 Hep Bs Antibody > 1000.0 (11.5-1000) H 02/06/23 21:44 Hep B Core Total Ab Non-reactive (Nonreactive) 02/06/23 03:15 SARS-CoV-2 Ag (Rapid) negative (Negative) 02/06/23 02:00 Blood Type A Positive 02/10/23 09:19 Rho(D) Type Rh positive 02/10/23 09:19 Antibody Screen Negative 02/10/23 09:19 Crossmatch See Detail 02/10/23 09:19 Vitals Last Vital Signs Temp 98.0 F 02/13/23 06:40 Pulse 80 02/13/23 08:34 Resp 16 02/13/23 08:34 BP 102/54 02/13/23 06:40 Pulse Ox 95 02/13/23 08:34 O2 Del Method Room Air 02/13/23 08:34 O2 Flow Rate 2 02/11/23 18:42 Discharge Plan Discharge Patient Disposition: Home Condition: Stable Prescriptions: New atorvastatin 40 mg Tablet 80 mg PO DAILY Qty: 30 0RF clopidogrel 75 mg Tablet 75 mg PO DAILY Qty: 30 0RF Continued atorvastatin 80 mg tablet 80 mg PO DAILY aspirin [Aspirin Childrens] 81 mg tablet,chewable 81 mg PO DAILY cilostazol 100 mg tablet 100 mg PO BID Qty: 120 0RF losartan [Cozaar] 100 mg tablet 100 mg PO DAILY clonidine HCl 0.1 mg tablet 0.1 mg PO BID PRN (Reason: Blood Pressure) amlodipine 10 mg tablet 10 mg PO DAILY Hold Instructions: Resume on 12/30/22. ondansetron HCl 4 mg tablet 4 mg PO Q4H PRN (Reason: Nausea And Vomiting) Nitrostat 0.4 mg Tablet, Sublingual 0.4 mg SUBLINGUAL Q5M PRN (Reason: Chest Pain) Rx Instructions: do not exceed 3 doses per episode Triphrocaps 1 mg capsule 1 cap PO DAILY sevelamer carbonate 800 mg tablet See Rx Instructions .ROUTE .COMPLEX Rx Instructions: TAKE 4 TABLETS (3,200 MG) AT EACH MEAL THREE TIMES DAILY AND 2 TABS (1,600 MG)WITH A SNACK TWICE DAILY Fosrenol 1,000 mg powder in packet See Rx Instructions .ROUTE .COMPLEX Rx Instructions: MIX 2 PACKETS WITH SMALL AMOUNT OF APPLESAUCE OR SIMILAR FOOD. EAT IMMEDIATELY 3 TIMES/DAY WITH MEALS carvedilol 12.5 mg tablet 12.5 mg PO BID Novolog FlexPen U-100 Insulin 100 unit/mL (3 mL) insulin pen See Rx Instructions .ROUTE .COMPLEX Rx Instructions: SLIDING SCALE TID WITH MEALS Levemir FlexPen 100 unit/mL (3 mL) insulin pen 20 unit SUBCUT BID lidocaine-prilocaine 2.5-2.5 % cream See Rx Instructions .ROUTE .COMPLEX Rx Instructions: APPLY SMALL AMOUNT TO ACCESS ONE HOUR BEFORE DIALYSIS AND COVER WITH OCCLUSIVE DRESSING propranolol 10 mg tablet 10 mg PO BID trazodone 100 mg tablet 100 mg PO BEDTIME pantoprazole 40 mg tablet,delayed release (DR/EC) 40 mg PO DAILY buspirone 10 mg tablet 10 mg PO BID isosorbide mononitrate 30 mg tablet extended release 24 hr 30 mg PO DAILY Qty: 90 3RF ranolazine 500 mg tablet extended release 12 hr 500 mg PO BID Qty: 60 4RF No Action (DME) pen needle, diabetic [BD Ultra-Fine Mini Pen Needle] 31 gauge x 3/16 needle See Rx Instructions .Route Qty: 1200 0RF Rx Instructions: As directed (DME) Dexcom G6 Manager Product Management Misc See Rx Instructions .ROUTE .MEDSUPPLY Qty: 1 2RF Rx Instructions: Change once every year (DME) Dexcom G6 Sensor Device See Rx Instructions .ROUTE .MEDSUPPLY Qty: 9 2RF Rx Instructions: change every 10 days (DME) Dexcom G6 Transmitter Device See Rx Instructions .ROUTE .MEDSUPPLY Qty: 2 2RF Rx Instructions: change every 90 days (DME) True Metrix Glucose Test Strip Strip See Rx Instructions .Route Qty: 200 0RF Rx Instructions: check up two times daily Discharge Orders: Discharge Order (Routine); Ordered 02/13/23 Ordered By: lEysia Monroe Other Ambulatory Orders: DME: Oxygen (Order) Location: None Selected Ordered By: Elysia Monroe Referrals: Lisa Mayberry DO [Primary Care Provider] - Elza Azar FNP [Nurse Practitioner] - Discharge Diet: Diabetic Discharge Activity: Resume usual activity Patient Instructions: Coronary Angioplasty (DC), Dialysis Diet (DC), Hemodialysis (DC), Opioid Safety, Post Angiogram Home Care Instructions, Post Heart Attack Stoplight Activity Restrictions/Additional Instructions: Resume Renal diet. Discharge Attestations Status at Discharge: Cognitive status at discharge: cognitively intact , Behavioral status at discharge: cooperative , Coding Level of Care Code Acute Code for [facility] Diagnoses Acute hypoxemic respiratory failure J96.01 Pulmonary edema J81.1 Acute anemia D64.9 Retroperitoneal bleed R58 Hemorrhagic shock R57.8 Hyperkalemia E87.5 Transaminitis R74.01 Non-ST elevated myocardial infarction (non-STEMI) I21.4 Peripheral arterial occlusive disease I77.9 ESRD (end stage renal disease) N18.6 Hx of CABG Z95.1 New onset left bundle branch block (LBBB) I44.7 Claudication I73.9 Carotid artery stenosis, asymptomatic I65.29 Aortic regurgitation I35.1 Benign essential hypertension with target blood pressure below 140/90 I10 Coronary artery disease involving coronary bypass graft of [place] without angina pectoris I25.810 Coronary Disease-Associated Artery/Lesion type: bypass graft [place] vs. transplanted heart: [place] heart Associated angina: without angina Dyslipidemia E78.5 Obesity (BMI 30-39.9) E66.9
[2023-02-13 11:26] LABS: Basophils % 0.5 %; Eosinophils # 0.3 10^3/uL (0.0-0.8); Eosinophils % 3.5 %; Hematocrit 29.7 % (36-47); Lymphocytes # 1.2 10^3/uL (0.8-4.8); Lymphocytes % 14.9 %; Mean Corpuscular HGB Conc 31.3 g/dL (30-55); Mean Corpuscular Hemoglobin 31.4 pg (27-33); Mean Corpuscular Volume 100.3 fl (85-98); Mean Platelet Volume 9.5 fL (7.4-10.4); Monocytes % 11.8 %; Neutrophils # 5.67 10^3/uL (1.8-7.7); Neutrophils % 68.5 %; Nucleated Red Blood Cells # 0.1 /100WBC; Nucleated Red Blood Cells % 1.1 %; Platelet Count 249 10^3/cmm (157-399); Red Blood Count 2.96 10^6/uL (3.85-5.65); Red Cell Distribution Width 18.7 % (12.1-15.1); White Blood Count 8.28 10^3/uL (3.29-11.43)
[2023-02-13 11:40] LABS: Anion Gap 23.5 (5-19); Blood Urea Nitrogen 44 mg/dL (6-20); Calcium 10.5 mg/dL (8.5-10.5); Carbon Dioxide 24 mmol/L (22-29); Chloride 88 mmol/L (98-107); Glomerular Filtration Rate 5.8 mL/min (90-130); Glucose 218 mg/dL (65-115); Phosphorus 2.1 mg/dL (2.5-4.5); Potassium 4.5 mmol/L (3.5-5.1); Sodium 131 mmol/L (136-145)
--- NOTE | 2023-02-13 12:14 | P.PN_ITS ---
Subjective 2 Subjective: plan for HD today Medications: Reviewed: Yes Vitals/I&O/Wt Last Vital Signs Temp 98.0 F 02/13/23 06:40 Pulse 80 02/13/23 08:34 Resp 16 02/13/23 08:34 BP 102/54 02/13/23 06:40 Pulse Ox 95 02/13/23 08:34 O2 Del Method Room Air 02/13/23 08:34 O2 Flow Rate 2 02/11/23 18:42 02/12/23 02/13/23 02/13/23 22:59 06:59 14:59 Intake Total 1430 / 1550 240 / 240 Output Total 2265 / 2265 Balance -835 / -715 240 / 240 Weight last 48 hrs Weight 78.471 kg Weight 78.471 kg Weight 81.193 kg Physical Exam 2 Narrative: awake , alert no distress s1s2 rrr per report lungs clear per report no edema Data 02/13/23 11:09 02/13/23 11:09 A&P Assessment and plan (1) ESRD (end stage renal disease): Plan 1. End-stage renal disease: On TTS schedule as outpatient, patient now status postcoronary angiogram and has volume overload. off pressors. HD today to get back toTTS schedule 2. Severe hyperkalemia: improved , low potassium diet 3. Coronary artery disease status post left heart cath with stent placement in the LAD. 4. Anemia: Ordered JEANNETTE, hb 6.8 ,s/p 1 Unit PRBC , currntly @ 9.3 5. History of hypertension 6. History of diabetes 7.retroperitoneal bleed Attestations 2 Medical Necessity Statement*: per medicine Coding Level of Care Code Acute Code for [facility] Diagnoses ESRD (end stage renal disease) N18.6
[2023-02-13] MEDS: ipratropium-albuterol 3 mL Neb INHALATION (14:47)
--- NOTE | 2023-02-13 17:15 | PC.NURSE ---
Patient off unit for dialysis
--- NOTE | 2023-02-13 20:12 | P.PN_ITS ---
Subjective 2 Subjective: Patient's discharge was done today, but she finished her dialysis around 8 PM, thus could not go home. She has no complaints today. She denies dizziness, lightheadedness, headaches, palpitations, CP, abdominal pain, nausea, vomiting. She asks me for a week worth of pain medication, for her retroperitoneal hematoma, because she feels pressure in the area. Her daughter was visiting at the time that the patient was seen, and states that the outgoing hospitalist had assured them that they would send her home with 1 weeks worth of pain medication. Vitals/I&O/Wt Last Vital Signs Temp 98.4 F 02/13/23 18:15 Pulse 82 02/13/23 18:15 Resp 18 02/13/23 18:15 BP 136/67 02/13/23 18:15 Pulse Ox 99 02/13/23 14:55 O2 Del Method Room Air 02/13/23 14:55 O2 Flow Rate 2 02/11/23 18:42 02/13/23 02/13/23 02/13/23 06:59 14:59 22:59 Intake Total 480 / 480 Balance 480 / 480 Weight last 48 hrs Weight 78.471 kg Weight 78.471 kg Weight 81.193 kg Physical Exam 2 Const: GENERAL APPEARANCE: cooperative and comfortable O RIENTATION/CONSCIOUSNESS: Yes awake, Yes oriented to person, Yes oriented to place and Yes oriented to time HENMT: COMMON NORMALS: normocephalic, atraumatic and external ears normal H EAD & SCALP: normocephalic and atraumatic EXTERNAL EAR: Yes external ears normal MOUTH: Normal oral and palatal mucosa present THROAT: posterior oropharynx normal Eye: COMMON NORMALS: Equal, round and reactive pupils present and conjunctivae normal CONJUNCTIVA: Yes conjunctivae normal PUPIL: Yes Equal, round and reactive pupils present EOM: No EOM abnormal Neck/C-Spine: COMMON NORMALS: Thyroid normal GENERAL: Yes normal visual inspection and Yes trachea midline THYROID: Thyroid normal CAROTIDS: Yes bruit positive bilateral Lymph: LYMPHATIC: No lymphadenopathy Resp: OTHER: Crackles in the bilateral lower lung lobes Cardio: OTHER: 2-3/6 systolic murmurs in all heart valv es. GI: OTHER: BS+, non-tender, nondistended, no guarding, no rigidity, no rebound tenderness, no organomegaly appreciated on palpation 2 large hernias noted in the abdominopel laurie area. Extremity: GENERAL: No clubbing, No cyanosis and No edema Neuro: SENSORIUM/ORIENTATION: Yes oriented to person, Yes oriented to place and Yes oriented to time CRANIAL NERVES: Yes CN normal except as noted S PEECH: speech normal SENSORY EXAM: No sensory level loss detected MOTOR EXAM: 5/5 motor strength present throughout Psych: COMMON NORMALS: Normal thought process present and speech normal A PPEARANCE: Yes grossly normal ATTITUDE: Yes calm and Yes engaged A CTIVITY/MOTOR BEHAVIOR: Yes appropriate eye contact SPEECH: Yes normal speech MOOD & AFFECT: Yes euthymic mood THOUGHT PROCESS: Normal thought process present THOUGHT CONTENT: Yes Normal thought content present A TTENTION/CONCENTRATION: Yes attention grossly intact MEMORY/COGNITION: Yes memory grossly intact Skin: COMMON NORMALS: no rashes or lesions noted GENERAL SKIN EXAM: no rashes or lesions noted Data 02/13/23 11:09 02/13/23 11:09 A&P Assessment and plan (1) Acute hypoxemic respiratory failure: (2) Pulmonary edema: Qualifiers: Chronicity: acute Qualified Code(s): J81.0 - Acute pulmonary edema (3) Acute anemia: (4) Retroperitoneal bleed: (5) Hemorrhagic shock: (6) Hyperkalemia: (7) Transaminitis: (8) Non-ST elevated myocardial infarction (non-STEMI): (9) Peripheral arterial occlusive disease: (10) ESRD (end stage renal disease): (11) Hx of CABG: (12) New onset left bundle branch block (LBBB): (13) Claudication: (14) Carotid artery stenosis, asymptomatic: Qualifiers: Laterality: bilateral Qualified Code(s): I65.23 - Occlusion and stenosis of bilateral carotid arteries (15) Aortic regurgitation: Qualifiers: Cardiac valve disease etiology: etiology unspecified Qualified Code(s): I35.1 - Nonrheumatic aortic (valve) insufficiency (16) Benign essential hypertension with target blood pressure below 140/90: (17) CAD (coronary artery disease): Qualifiers: Coronary Disease-Associated Artery/Lesion type: bypass graft [place] vs. transplanted heart: [place] heart Associated angina: without angina Qualified Code(s): I25.810 - Atherosclerosis of coronary artery bypass graft(s) without angina pectoris (18) Dyslipidemia: (19) Obesity (BMI 30-39.9): Plan Ms. Reddy is a 52yo woman w/ HTN, HLD, IDDM 2, peripheral artery disease, including L?subclavian artery stenosis, ESRD on HD, moderate aortic stenosis, hx of a CABG, and a very large b/l inguinal hernia, who was admitted on 02/05/2023 for an NSTEMI and a new LBBB. She is s/p a stent to the LAD, and her postop course was complicated by a large retroperitoneal hematoma requiring 4units of blood, 2 units of platelets, 2 FFP. Her Hgb now remains stable, but she refuses to go home without a prescription of O2 at night. # Possible nocturnal hypoxia: overnight pulse oximetry study w/ RT . Evaluate in the AM of 02/13. #NSTEMI s/p stent to the LAD #Peripheral artery disease including #L?subclavian artery stenosis, - On Aspirin & Plavix. #Retroperitoneal hematoma - Hgb stable - Discharge #moderate aortic stenosis #HTN #HLD #hx of a CABG #ESRD on HD: Nephrology following for HD #b/l inguinal hernia: Outpatient f/u DVT ppx: SCD Attestations 2 Medical Necessity Statement*: Unsafe discharge. Coding Level of Care Code 24843 Diagnoses Acute hypoxemic respiratory failure J96.01 Acute pulmonary edema J81.0 Chronicity: acute Acute anemia D64.9 Retroperitoneal bleed R58 Hemorrhagic shock R57.8 Hyperkalemia E87.5 Transaminitis R74.01 Non-ST elevated myocardial infarction (non-STEMI) I21.4 Peripheral arterial occlusive disease I77.9 ESRD (end stage renal disease) N18.6 Hx of CABG Z95.1 New onset left bundle branch block (LBBB) I44.7 Claudication I73.9 Asymptomatic bilateral carotid artery stenosis I65.23 Laterality: bilateral Aortic valve insufficiency, etiology of cardiac valve disease unspecified I35.1 Cardiac valve disease etiology: etiology unspecified Benign essential hypertension with target blood pressure below 140/90 I10 Coronary artery disease involving coronary bypass graft of [place] heart without angina pectoris I25.810 Coronary Disease-Associated Artery/Lesion type: bypass graft [place] vs. transplanted heart: [place] heart Associated angina: without angina Dyslipidemia E78.5 Obesity (BMI 30-39.9) E66.9
[2023-02-13] MEDS: trazodone 100 mg Tablet PO (22:17)
[2023-02-14] MEDS: HYDROcodone-acetaminophen 5-325 mg Tablet 1 TAB PO ×3 (04:12→12:16)
[2023-02-14 05:18] VITALS: O2SAT 95
[2023-02-14 06:00] VITALS: BMI 37.4
[2023-02-14] MEDS: sucralfate 1 gm Tablet PO ×2 (06:39→12:17)
[2023-02-14] MEDS: insulin glargine 100 units/1 mL 10 UNIT SUBCUT (06:39)
--- NOTE | 2023-02-14 07:06 | P.PN_ITS ---
Subjective 2 Subjective: s/p HD yesterday Medications: Reviewed: Yes Vitals/I&O/Wt Last Vital Signs Temp 98.4 F 02/13/23 18:15 Pulse 83 02/13/23 23:00 Resp 17 02/13/23 23:00 BP 133/42 02/13/23 20:51 Pulse Ox 95 02/14/23 05:18 O2 Del Method Room Air 02/13/23 14:55 O2 Flow Rate 2 02/11/23 18:42 02/13/23 02/14/23 02/14/23 22:59 06:59 14:59 Intake Total 400 / 880 Balance 400 / 880 Weight last 48 hrs Weight 78.471 kg Weight 78.471 kg Weight 78.471 kg Physical Exam 2 Narrative: awake , alert no distress s1s2 rrr per report lungs clear per report no edema Data 02/13/23 11:09 02/13/23 11:09 A&P Assessment and plan (1) ESRD (end stage renal disease): Plan 1. End-stage renal disease: On TTS schedule as outpatient, patient now status postcoronary angiogram and has volume overload. off pressors. s/p HD yesterday 2. Severe hyperkalemia: improved , low potassium diet 3. Coronary artery disease status post left heart cath with stent placement in the LAD. 4. Anemia: Ordered JEANNETTE, hb 6.8 ,s/p 1 Unit PRBC , currntly @ 9.3 5. History of hypertension 6. History of diabetes 7.retroperitoneal bleed Attestations 2 Medical Necessity Statement*: per [email or web address] Coding Level of Care Code Acute Code for Chg Fwd Diagnoses ESRD (end stage renal disease) N18.6
--- NOTE | 2023-02-14 07:17 | PM.PN ---
Subjective Subjective: Kristan did not go home last evening. Apparently dialysis was late and she has been kept overnight. She is unchanged this morning. Her hemoglobin yesterday was up to 9.3. Vitals/I&O/Wt Last Vital Signs Temp 98.4 F 02/13/23 18:15 Pulse 83 02/13/23 23:00 Resp 17 02/13/23 23:00 BP 133/42 02/13/23 20:51 Pulse Ox 95 02/14/23 05:18 O2 Del Method Room Air 02/13/23 14:55 O2 Flow Rate 2 02/11/23 18:42 02/13/23 02/14/23 02/14/23 22:59 06:59 14:59 Intake Total 400 / 880 Balance 400 / 880 Weight last 48 hrs Weight 173 lb Weight 173 lb Weight 173 lb Physical Exam Narrative: GENERAL: In general she appears comfortable this morning and is asleep HEENT: Exam within normal limits. NECK: Supple without jugular vein distention. The carotid upstroke is normal without bruits. BACK: Exam normal. LUNGS: Clear. HEART: Regular rate and rhythm. ABDOMEN: Soft. Bowel sounds present. 2 large ventral hernias. EXTREMITIES: No edema. NEUROLOGIC: Exam normal. SKIN: Unremarkable. Data 02/13/23 11:09 02/13/23 11:09 A&P Assessment and plan (1) CAD (coronary artery disease): Qualifiers: Coronary Disease-Associated Artery/Lesion type: bypass graft [place] vs. transplanted heart: [place] heart Associated angina: without angina Qualified Code(s): I25.810 - Atherosclerosis of coronary artery bypass graft(s) without angina pectoris (2) Dyslipidemia: (3) Atherosclerosis of coronary artery of [place] heart without angina pectoris: (4) Benign essential hypertension with target blood pressure below 140/90: (5) Aortic regurgitation: (6) Carotid artery stenosis, asymptomatic: (7) Claudication: (8) Peripheral arterial occlusive disease: (9) New onset left bundle branch block (LBBB): (10) Non-STEMI (non-ST elevated myocardial infarction): (11) Hx of CABG: (12) Hemorrhagic shock: (13) Obesity (BMI 30-39.9): (14) Transaminitis: (15) ESRD (end stage renal disease): (16) Acute anemia: (17) Pulmonary edema: (18) Acute hypoxemic respiratory failure: (19) Retroperitoneal bleed: Plan Hopefully she can go home today. Resume regular dialysis schedule. Medicines as is. Attestations Medical Necessity Statement*: Discharged today. , High MDM includes number and complexity of problems actively addressed during encounter, amount and/or complexity of data reviewed/ordered and described risk of complication, morbidity or mortality of management as documented and Moderate Time for a total of 35 minutes, includes reviewing past or interval history, examining/interviewing patient, counseling patient/family/other support, communicating with other healthcare providers and documenting encounter Diagnoses Coronary artery disease involving coronary bypass graft of [place] heart without angina pectoris I25.810 Coronary Disease-Associated Artery/Lesion type: bypass graft [place] vs. transplanted heart: [place] heart Associated angina: without angina Dyslipidemia E78.5 Atherosclerosis of coronary artery of [place] without angina pectoris I25.10 Benign essential hypertension with target blood pressure below 140/90 I10 Aortic regurgitation I35.1 Carotid artery stenosis, asymptomatic I65.29 Claudication I73.9 Peripheral arterial occlusive disease I77.9 New onset left bundle branch block (LBBB) I44.7 Non-STEMI (non-ST elevated myocardial infarction) I21.4 Hx of CABG Z95.1 Hemorrhagic shock R57.8 Obesity (BMI 30-39.9) E66.9 Transaminitis R74.01 ESRD (end stage renal disease) N18.6 Acute anemia D64.9 Pulmonary edema J81.1 Acute hypoxemic respiratory failure J96.01 Retroperitoneal bleed R58
[2023-02-14 08:03] VITALS: BP 117/43; PULSE 85; O2SAT 96
[2023-02-14 08:24] VITALS: PULSE 85; RESP 16; O2SAT 96
[2023-02-14] MEDS: lactulose oral liq 20 gm/30 mL UDC PO (08:25)
[2023-02-14] MEDS: insulin lispro 100 unit/1 mL SUBCUT ×2 (08:25→12:23)
[2023-02-14] MEDS: sennosides-docusate Tablet 1 TAB PO (08:25)
[2023-02-14] MEDS: clopidogrel 75 mg Tablet PO (08:25)
[2023-02-14] MEDS: aspirin 81 mg EC Tablet PO (08:25)
[2023-02-14] MEDS: polyethylene glycol 3350 Pkt 17 gm PO (08:25)
[2023-02-14] MEDS: sevelamer 800 mg Tablet 2400 MG PO ×2 (08:25→12:16)
[2023-02-14] MEDS: atorvastatin 40 mg Tablet 80 MG PO (08:26)
--- NOTE | 2023-02-14 11:32 | PC.SOCIAL ---
IMM Update pg 2 of IMM updated and reviewed w/ patient. Copy provided and copy dated, initialed and placed in chart.
[2023-02-14 11:57] VITALS: BP 121/41; PULSE 80; TEMP 36.7; O2SAT 98
--- NOTE | 2023-02-14 13:02 | P.DS_ITS ---
Discharge Providers Date of Admission: 02/06/23 01:16 Date of Discharge: February 14, 2023 Attending Provider at Admission: Daniel Hughes MD Attending Provider at Discharge: Elysia Monroe MD Primary Care Provider: Lsia Mayberry DO Diagnoses at Discharge Discharge Diagnosis (1) Acute hypoxemic respiratory failure: Status: Resolved (2) Pulmonary edema: Status: Resolved Qualifiers: Chronicity: acute Qualified Code(s): J81.0 - Acute pulmonary edema (3) Acute anemia: Status: Resolved (4) Retroperitoneal bleed: Status: Resolved (5) Hemorrhagic shock: Status: Resolved (6) Hyperkalemia: Status: Resolved (7) Transaminitis: Status: Resolved (8) Non-ST elevated myocardial infarction (non-STEMI): Status: Resolved (9) Peripheral arterial occlusive disease: Status: Acute (10) ESRD (end stage renal disease): Status: Acute (11) Hx of CABG: Status: Acute (12) New onset left bundle branch block (LBBB): Status: Resolved (13) Claudication: Status: Acute (14) Carotid artery stenosis, asymptomatic: Status: Acute Qualifiers: Laterality: bilateral Qualified Code(s): I65.23 - Occlusion and stenosis of bilateral carotid arteries (15) Aortic regurgitation: Status: Acute Qualifiers: Cardiac valve disease etiology: etiology unspecified Qualified Code(s): I35.1 - Nonrheumatic aortic (valve) insufficiency (16) Benign essential hypertension with target blood pressure below 140/90: Status: Acute (17) CAD (coronary artery disease): Status: Chronic Qualifiers: Associated angina: without angina Coronary Disease-Associated Artery/Lesion type: bypass graft [place] vs. transplanted heart: [place] heart Qualified Code(s): I25.810 - Atherosclerosis of coronary artery bypass graft(s) without angina pectoris Permanent problem details: s/p 2 stents (18) Dyslipidemia: Status: Chronic (19) Obesity (BMI 30-39.9): Status: Chronic Reason for Visit Reason for Visit: SOB Hospital Course Hospital Course Ms. Reddy is a 52yo woman w/ HTN, HLD, IDDM 2, peripheral artery disease, including L?subclavian artery stenosis, ESRD on HD, moderate aortic stenosis, hx of a CABG, and a very large b/l inguinal hernia, who was admitted on 02/05/2023 for an NSTEMI and a new LBBB. She is s/p a stent to the LAD, and her postop course was complicated by a large retroperitoneal hematoma requiring 4units of blood, 2 units of platelets, 2 FFP. Her Hgb now remained stable. An overnight oximetry study was done, because she refused to go home without a prescription of O2 at night, and the oximetry study showed that she qualified for O2 at night. On the day of discharge, she was discharged home with O2, and per her request she was discharged with 7 days worth of Nazlin[place] 5 mg - 325 mg q8h prn. Other Medical Issues: # Nocturnal hypoxia #NSTEMI s/p stent to the LAD #Peripheral artery disease including #L?subclavian artery stenosis, - On Aspirin & Plavix. #Retroperitoneal hematoma #Moderate aortic stenosis #HTN #HLD #hx of a CABG #ESRD on HD: Nephrology following for HD #b/l inguinal hernia: Outpatient f/u Physical Exam Const: GENERAL APPEARANCE: cooperative and comfortable ORIENTATION/CONSCIOUSNESS: Yes awake, Yes oriented to person, Yes oriented to place and Yes oriented to time HENMT: COMMON NORMALS: normocephalic, atraumatic and external ears normal HEAD & SCALP: normocephalic and atraumatic EXTERNAL EAR: Yes external ears normal MOUTH: Normal oral and palatal mucosa present THROAT: posterior oropharynx normal Eye: COMMON NORMALS: Equal, round and reactive pupils present and conjunctivae normal CONJUNCTIVA: Yes conjunctivae normal PUPIL: Yes Equal, round and reactive pupils present EOM: No EOM abnormal Neck/C-Spine: COMMON NORMALS: Thyroid normal GENERAL: Yes normal visual inspection and Yes trachea midline THYROID: Thyroid normal CAROTIDS: Yes bruit positive bilateral Lymph: LYMPHATIC: No lymphadenopathy Resp: OTHER: Mild crackles in the right lower lung lobe Cardio: OTHER: 2-3/6 systolic murmurs in all heart valv es. GI: OTHER: BS+, non-tender, nondistended, no guarding, no rigidity, no rebound tenderness, no organomegaly appreciated on palpation 2 large hernias noted in the abdominopel laurie area. Extremity: GENERAL: No clubbing, No cyanosis and No edema Neuro: SENSORIUM/ORIENTATION: Yes oriented to person, Yes oriented to place and Yes oriented to time CRANIAL NERVES: Yes CN normal except as noted SPEECH: speech normal SENSORY EXAM: No sensory level loss detected MOTOR EXAM: 5/5 motor strength present throughout Psych: COMMON NORMALS: Normal thought process present and speech normal APPEARANCE: Yes grossly normal ATTITUDE: Yes calm and Yes engaged ACTIVITY/MOTOR BEHAVIOR: Yes appropriate eye contact SPEECH: Yes normal speec h MOOD & AFFECT: Yes euthymic mood THOUGHT PROCESS: Normal thought process present THOUGHT CONTENT: Yes Normal thought content present ATTENTION/CONCENTRATION: Yes attention grossly intact MEMORY/COGNITION: Yes memory grossly intact Skin: COMMON NORMALS: no rashes or lesions noted GENERAL SKIN EXAM: no rashes or lesions noted Discharge Data Studies Completed and Pending Completed Studies During Hospitalization Category Date Time Status CT abdomen pelvis w con* [id number] Stat Cat Scan 02/06/23 10:[address] abdomen pelvis w con* [id number] Stat Cat Scan 02/11/23 08:50 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 echo limited [id number] Routine Ultrasound 02/06/23 Completed Radiology Impressions Chest X-Ray 02/07/23 07:00 IMPRESSION: Developing CHF. Abdomen/Pelvis CT 02/11/23 08:50 IMPRESSION: 1. Redemonstrated large intra-abdominal hematoma, centered in the right retroperitoneal region, with significant extension into the right lower quadrant and into the suprapubic pannus via the large ventral hernia. Overall, this large hematoma is not significantly changed in size or configuration compared to 02/06/2023. Internally, however, this internal collection now demonstrates multiple ill-defined areas of relative hypoattenuation. This is most consistent with evolution of clot/blood products. No thickened rind or peripheral postcontrast enhancement to suggest current abscess formation. Recommend continued follow-up. 2. Tiny right pleural effusion. Mild vysab-cyeihvk-omsl-left subjacent atelectasis. 3. Redemonstrated large broad-based ventral abdominal hernia. Majority of bowel is located within the hernia. 4. Gallbladder is small in size, with tiny dependent stone and likely sludge at the gallbladder neck. Minimal gallbladder wall thickening is likely secondary to low-level of distention and adjacent hemorrhage. Laboratory Results WBC 8.28 10^3/uL (3.29-11.43) 02/13/23 11:09 RBC 2.96 10^6/uL (3.85-5.65) L 02/13/23 11:09 Hgb 9.30 g/dL (11.27-16.99) L 02/13/23 11:09 Hct 29.7 % (36-47) L 02/13/23 11:09 MCV 100.3 fl (85-98) H 02/13/23 11:09 MCH 31.4 pg (27-33) 02/13/23 11:09 MCHC 31.3 g/dL (30-55) 02/13/23 11:09 RDW 18.7 % (12.1-15.1) H 02/13/23 11:09 Plt Count 249 10^3/cmm (157-399) 02/13/23 11:09 MPV 9.5 fL (7.4-10.4) 02/13/23 11:09 Neut % (Auto) 68.5 % 02/13/23 11:09 Lymph % (Auto) 14.9 % 02/13/23 11:09 [place] % (Auto) 11.8 % 02/13/23 11:09 Eos % (Auto) 3.5 % 02/13/23 11:09 Baso % (Auto) 0.5 % 02/13/23 11:09 Neut # (Auto) 5.67 10^3/uL (1.8-7.7) 02/13/23 11:09 Lymph # (Auto) 1.2 10^3/uL (0.8-4.8) 02/13/23 11:09 [place] # (Auto) 1.0 10^3/uL (0.2-0.9) H 02/13/23 11:09 Eos # (Auto) 0.3 10^3/uL (0.0-0.8) 02/13/23 11:09 Baso # (Auto) 0.0 10^3/uL (0.0-0.1) 02/13/23 11:09 Nucleated RBC % (auto) 1.1 % 02/13/23 11:09 Nucleated RBCs # 0.1 /100WBC 02/13/23 11:09 PT 15.10 SECONDS (12.1-14.9) H 02/09/23 05:08 INR 1.15 (0.8-1.2) 02/09/23 05:08 APTT 24.2 SECONDS (23.9-36.7) 02/06/23 03:15 Sodium 131 mmol/L (136-145) L 02/13/23 11:09 Potassium 4.5 mmol/L (3.5-5.1) 02/13/23 11:09 Chloride 88 mmol/L (98-107) L 02/13/23 11:09 Carbon Dioxide 24 mmol/L (22-29) 02/13/23 11:09 Anion Gap 23.5 (5-19) H 02/13/23 11:09 BUN 44 mg/dL (6-20) H 02/13/23 11:09 Creatinine 7.3 mg/dL (0.5-0.9) H* 02/13/23 11:09 GFR Calculation 5.8 mL/min (90-130) L 02/13/23 11:09 Glucose 218 mg/dL (65-115) H 02/13/23 11:09 POC Glucose 218 mg/dL (70-110) H 02/12/23 16:50 Calculated Osmolality 287 mOsm/kg (285-295) 02/12/23 05:20 Lactate 0.7 mmol/L (0.5-2.2) 02/09/23 05:08 Calcium 10.5 mg/dL (8.5-10.5) 02/13/23 11:09 Phosphorus 2.1 mg/dL (2.5-4.5) L 02/13/23 11:09 Magnesium 2.3 mg/dL (1.7-2.3) 02/09/23 05:08 Iron 29 ug/dL (37-145) L 02/12/23 05:20 TIBC 142 mcg/dl 02/12/23 05:20 % Saturation 20.4 % (20-50) 02/12/23 05:20 Unsat Iron Binding 113 ug/dL (112-347) 02/12/23 05:20 Ferritin 3183 ng/mL (15-150) H 02/06/23 03:15 Total Bilirubin 0.5 mg/dL (0.15-1.2) 02/12/23 05:20 AST 24 U/L (0-32) 02/12/23 05:20 ALT 20 U/L (0-33) 02/12/23 05:20 Alkaline Phosphatase 91 U/L (35-105) 02/12/23 05:20 Creatine Kinase 93 U/L (26-192) 02/09/23 05:08 CK-MB (CK-2) 46.6 ng/mL (0-5.34) H 02/07/23 03:47 CK-MB (CK-2) Rel Index 15.2 % (0.0-10.4) H 02/07/23 03:47 Troponin T Baseline 139 ng/L (0-10) H* 02/05/23 22:55 Troponin T Hi Sens 6Hr 425.6 ng/L (0-10) H 02/06/23 03:15 Troponin T Hi Sens 6Hr Delta 286.6 ng/L (0-12) H* 02/06/23 03:15 C-Reactive Protein 159.4 mg/L (0.0-4.9) H 02/09/23 05:08 NT-Pro-B Natriuret Pep > 00532 pg/mL (0-125) H 02/09/23 05:08 Total Protein 7.4 g/dL (6.6-8.7) 02/12/23 05:20 Albumin 5.0 g/dL (3.5-5.2) 02/13/23 11:09 Globulin 2.7 g/dL (1.3-4.6) 02/12/23 05:20 Vitamin B12 599 pg/mL (232-1245) 02/06/23 03:15 Random Cortisol 17.75 ug/dL (2.47-19.5) 02/06/23 10:15 Hep Bs Antigen Non-reactive (Nonreactive) 02/06/23 21:44 Hep Bs Antibody > 1000.0 (11.5-1000) H 02/06/23 21:44 Hep B Core Total Ab Non-reactive (Nonreactive) 02/06/23 03:15 SARS-CoV-2 Ag (Rapid) negative (Negative) 02/06/23 02:00 Blood Type A Positive 02/10/23 09:19 Rho(D) Type Rh positive 02/10/23 09:19 Antibody Screen Negative 02/10/23 09:19 Crossmatch See Detail 02/10/23 09:19 Vitals Last Vital Signs Temp 98.0 F 02/14/23 11:57 Pulse 80 02/14/23 11:57 Resp 16 02/14/23 08:24 BP 121/41 02/14/23 11:57 Pulse Ox 98 02/14/23 11:57 O2 Del Method Room Air 02/14/23 11:57 O2 Flow Rate 2 02/11/23 18:42 Discharge Plan Discharge Patient Disposition: Home Condition: Stable Prescriptions: New atorvastatin 40 mg Tablet 80 mg PO DAILY Qty: 30 0RF clopidogrel 75 mg Tablet 75 mg PO DAILY Qty: 30 0RF hydrocodone-acetaminophen 5-325 mg tablet 1 tab PO Q8H PRN (Reason: pain) Qty: 21 0RF Continued atorvastatin 80 mg tablet 80 mg PO DAILY aspirin [Aspirin Childrens] 81 mg tablet,chewable 81 mg PO DAILY cilostazol 100 mg tablet 100 mg PO BID Qty: 120 0RF losartan [Cozaar] 100 mg tablet 100 mg PO DAILY clonidine HCl 0.1 mg tablet 0.1 mg PO BID PRN (Reason: Blood Pressure) amlodipine 10 mg tablet 10 mg PO DAILY Hold Instructions: Resume on 12/30/22. ondansetron HCl 4 mg tablet 4 mg PO Q4H PRN (Reason: Nausea And Vomiting) Nitrostat 0.4 mg Tablet, Sublingual 0.4 mg SUBLINGUAL Q5M PRN (Reason: Chest Pain) Rx Instructions: do not exceed 3 doses per episode Triphrocaps 1 mg capsule 1 cap PO DAILY sevelamer carbonate 800 mg tablet See Rx Instructions .ROUTE .COMPLEX Rx Instructions: TAKE 4 TABLETS (3,200 MG) AT EACH MEAL THREE TIMES DAILY AND 2 TABS (1,600 M G)WITH A SNACK TWICE DAILY Fosrenol 1,000 mg powder in packet See Rx Instructions .ROUTE .COMPLEX Rx Instructions: MIX 2 PACKETS WITH SMALL AMOUNT OF APPLESAUCE OR SIMILAR FOOD. EAT IMMEDIATELY 3 TIMES/DAY WITH MEALS carvedilol 12.5 mg tablet 12.5 mg PO BID Novolog FlexPen U-100 Insulin 100 unit/mL (3 mL) insulin pen See Rx Instructions .ROUTE .COMPLEX Rx Instructions: SLIDING SCALE TID WITH MEALS lidocaine-prilocaine 2.5-2.5 % cream See Rx Instructions .ROUTE .COMPLEX Rx Instructions: APPLY SMALL AMOUNT TO ACCESS ONE HOUR BEFORE DIALYSIS AND COVER WITH OCCLUSIVE DRESSING propranolol 10 mg tablet 10 mg PO BID trazodone 100 mg tablet 100 mg PO BEDTIME pantoprazole 40 mg tablet,delayed release (DR/EC) 40 mg PO DAILY buspirone 10 mg tablet 10 mg PO BID isosorbide mononitrate 30 mg tablet extended release 24 hr 30 mg PO DAILY Qty: 90 3RF ranolazine 500 mg tablet extended release 12 hr 500 mg PO BID Qty: 60 4RF No Action (DME) pen needle, diabetic [BD Ultra-Fine Mini Pen Needle] 31 gauge x 3/16 needle See Rx Instructions .Route Qty: 1200 0RF Rx Instructions: As directed (DME) Dexcom G6 Straight Knife Cutter Machine Misc See Rx Instructions .ROUTE .MEDSUPPLY Qty: 1 2RF Rx Instructions: Change once every year (DME) Dexcom G6 Sensor Device See Rx Instructions .ROUTE .MEDSUPPLY Qty: 9 2RF Rx Instructions: change every 10 days (DME) Dexcom G6 Transmitter Device See Rx Instructions .ROUTE .MEDSUPPLY Qty: 2 2RF Rx Instructions: change every 90 days (DME) True Metrix Glucose Test Strip Strip See Rx Instructions .Route Qty: 200 0RF Rx Instructions: check up two times daily Levemir FlexPen 100 unit/mL (3 mL) insulin pen 20 unit SUBCUT BID Qty: 40 0RF Discharge Orders: Discharge Order (Routine); Ordered 02/14/23 Ordered By: Elysia Monroe Other Ambulatory Orders: DME: Oxygen (Order) Location: None Selected Ordered By: Elysia Monroe Referrals: Lisa Mayberry DO [Primary Care Provider] - 02/19/23 1:30 pm Elza Azar FNP [Nurse Practitioner] - 02/21/23 9:00 am Discharge Diet: Diabetic Discharge Activity: Resume usual activity Patient Instructions: Atorvastatin (By mouth) (Lipitor, Atorvaliq), Clopidogrel (By mouth) (Plavix), Coronary Angioplasty (DC), Dialysis Diet (DC), Hemodialysis (DC), Opioid Safety, Post Angiogram Home Care Instructions, Post Heart Attack Stoplight Activity Restrictions/Additional Instructions: Resume Renal diet. Discharge Attestations Time Spent in Discharge Care*: greater than 30 min Status at Discharge: Cognitive status at discharge: cognitively intact , Behavioral status at discharge: cooperative , Quality Metrics Clinical Quality Measures [ Acute Myocardial Infaction { Clinical Trial Participant: No; Contraindication to aspirin: None; Aspirin prescribed; Contraindication to statin: None; Statin prescribed;}] Coding Level of Care Code 63499 Diagnoses Acute hypoxemic respiratory failure J96.01 Acute pulmonary edema J81.0 Chronicity: acute Acute anemia D64.9 Retroperitoneal bleed R58 Hemorrhagic shock R57.8 Hyperkalemia E87.5 Transaminitis R74.01 Non-ST elevated myocardial infarction (non-STEMI) I21.4 Peripheral arterial occlusive disease I77.9 ESRD (end stage renal disease) N18.6 Hx of CABG Z95.1 New onset left bundle branch block (LBBB) I44.7 Claudication I73.9 Asymptomatic bilateral carotid artery stenosis I65.23 Laterality: bilateral Aortic valve insufficiency, etiology of cardiac valve disease unspecified I35.1 Cardiac valve disease etiology: etiology unspecified Benign essential hypertension with target blood pressure below 140/90 I10 Coronary artery disease involving coronary bypass graft of [place] heart without angina pectoris I25.810 Associated angina: without angina Coronary Disease-Associated Artery/Lesion type: bypass graft [place] vs. transplanted heart: [place] heart Dyslipidemia E78.5 Obesity (BMI 30-39.9) E66.9
[2023-02-14 14:39] VITALS: BP 121/41; PULSE 80; TEMP 36.7; O2SAT 98
--- NOTE | 2023-02-14 14:40 | PC.NURSE ---
Discharge Note Patient discharged to home via POV accompanied by daughter. Discharge instructions reviewed with patient and/or account services representative. Mobile pharmacy medications and/or prescriptions provided. Belongings/home medications returned.
== END 2023-02-14 15:57 | disposition home or self-care (01) | DRG 321 ==
LOC: ER 22:36 → CCL 02-06 00:13 → ICU 02-06 01:16 → CSU 02-09 15:33 → ICU 02-14 15:35 → CSU 02-14 15:40
PROVIDERS: Family Medicine; Hospitalist; Internal Medicine Cardiovascular Disease; Admitting Provider Internal Medicine; Emergency Provider Internal Medicine; PCP Family Medicine; Visit Provider Internal Medicine
PROC: 027034Z Dilation of Coronary Artery, One Artery with Drug-eluting Intraluminal Device, Percutaneous Approach (ICD-10-PCS; principal; 2023-02-06 00:30)
PROC: 027034Z Dilation of Coronary Artery, One Artery with Drug-eluting Intraluminal Device, Percutaneous Approach (ICD-10-PCS; 2023-02-06 00:30)
DX: I21.4 Non-ST elevation (NSTEMI) myocardial infarction (principal); I50.31 Acute diastolic (congestive) heart failure; N18.6 End stage renal disease; J96.01 Acute respiratory failure with hypoxia; R57.8 Other shock; K68.3 Retroperitoneal hematoma; I13.2 Hypertensive heart and chronic kidney disease with heart failure and with stage 5 chronic kidney disease, or end stage renal disease; K43.2 Incisional hernia without obstruction or gangrene; I25.10 Atherosclerotic heart disease of native coronary artery without angina pectoris; E11.22 Type 2 diabetes mellitus with diabetic chronic kidney disease; E87.70 Fluid overload, unspecified; K59.00 Constipation, unspecified; E87.5 Hyperkalemia; I95.9 Hypotension, unspecified; D63.1 Anemia in chronic kidney disease; Z95.5 Presence of coronary angioplasty implant and graft; Z95.1 Presence of aortocoronary bypass graft; Z79.82 Long term (current) use of aspirin; Z79.4 Long term (current) use of insulin; Z99.2 Dependence on renal dialysis
CPT/HCPCS: 36415; 36416; 36430; 36573; 36592; 71045; 74177; 80048; 80053; 80069; 82274; 82533; 82550; 82553; 82607; 82728; 82962; 83540; 83550; 83605; 83735; 83880; 84100; 84484; 85014; 85018; 85025; 85610; 85730; 86140; 86704; 86706; 86850; 86900; 86920; 86927; 87340; 87426; 90935; 92610; 93005; 93306; 93308; 93455; 94640; 94760; 94762; 96365; 96366; 96367; 96372; 96375; 96376; 97110; 97161; 97165; 97530; 97535; 99152; 99153; 99285; C1751; C1769; C1874; C1887; C1894; C9113; C9600; J0610; J0612; J1170; J1644; J1815; J1940; J2250; J2405; J3010; J3490; J7030; J7040; P9016; P9017; P9037; P9040; P9046; P9047; Q3014; Q4081; Q9967

== ENCOUNTER → 2023-02-21 09:09 | Outpatient (BNVA) | payer MEDICARE, MEDICAID, SELFPAY | PROVIDERS: PCP Family Medicine; Visit Provider Nurse Practitioner Family | DX: I25.10 Atherosclerotic heart disease of native coronary artery without angina pectoris (principal); I12.0 Hypertensive chronic kidney disease with stage 5 chronic kidney disease or end stage renal disease; E11.22 Type 2 diabetes mellitus with diabetic chronic kidney disease; N18.6 End stage renal disease; Z79.4 Long term (current) use of insulin | CPT/HCPCS: 99213 ==

== ENCOUNTER 2023-03-26 09:50 | Inpatient (IN) | payer MEDICARE, MEDICAID, SELFPAY ==
[2023-03-26] VITALS (61 sets, daily range): BP systolic 133–191; BP diastolic 61–118; PULSE 88–138; RESP 13–47; TEMP 36.7–36.9; O2SAT 89–99; BMI 24.6; BMI 36.8
--- NOTE | 2023-03-26 09:57 | XR_ITS ---
WS: [id number] XR chest 1V portable [id number] REASON FOR EXAM: dyspnea/cough FINDINGS: Sternal sutures, Moderate cardiomegaly. Enlarged upper lobe pulmonary veins. Interstitial linear opacities in the lower lung bon[place] and patchy airspace consolidation in the right lower lung. Fluid in the minor fissure and small pleural effusions most notably on the right. IMPRESSION: Findings most compatible with congestive heart failure. Chest similar in appearance to 02/07/2023.
--- NOTE | 2023-03-26 09:58 | ECG_ITS ---
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 Measurements Intervals [place] Rate: 132 P: 57 NH: 202 QRS: -53 QRSD: 166 T: 111 QT: 355 QTc: 526 Interpretive Statements SINUS TACHYCARDIA LEFT AXIS DEVIATION [QRS AXIS < -30] LEFT BUNDLE BRANCH BLOCK [120+ ms QRS DURATION, 80+ ms Q/S IN V1/V2, 85+ ms R IN I/aVL/V5/V6] Compared to ECG 02/09/2023 16:56:20 Left-axis deviation now present Left bundle-branch block now present Intraventricular conduction delay no longer present ST (T wave) deviation no longer present Electronically Signed On 03-26-2023 10:11:22 EXTRUSION SUPERVISOR by Braeden Palomino M.D. [id number]
[2023-03-26] MEDS: ipratropium-albuterol 3 mL Neb INHALATION (10:10)
--- NOTE | 2023-03-26 10:15 | W.ED.SOB ---
HPI - SOB/Dyspnea General: Chief Complaint: Shortness of Breath/Dyspnea Stated Complaint: high hr, low oxygen Time Seen by Provider: 03/26/23 10:07 Source: patient Mode of arrival: ambulatory History of Present Illness: HPI Narrative: 52-year-old female presents emergency room with complaints of chest discomfort with inspiration rapid heart rate and shortness of breath. She has a history of COPD heart failure end-stage renal disease on hemodialysis Sunday. She did not get her dialysis today she has not taken her blood pressure medications today she denies any fever sweats chills. She has been very short of breath and coughing no increased swelling in her lower extremities she did not have dialysis today. MD elicited complaint: shortness of breath and cough Pertinent past history: COPD Timing: constant Severity: moderate Exacerbating factors: exertion, coughing and inspiration Relieving factors: oxygen and rest Known history of: COPD and congestive heart failure Associated symptoms: Reports chest congestion and chest pain (With inspiration); Deny abdominal pain, cough, diaphoresis, dizziness, extremity pain, fever(s), hemoptysis, lightheadedness, myalgias, nausea, orthopnea, palpitations, paresthesias, polydipsia, polyuria, rash, sense of impending doom, syncope or vomiting Related Data: Home oxygen amount: 1 liter (1.5) Review of Systems Const: Reports: fatigue and malaise; Denies: fever(s), chills or diaphoresis Card: Reports: chest pain (With inspiration); Denies: palpitations, lightheadedness, syncope or orthopnea Resp: Reports: dyspnea, non-productive cough, wheezing and chest congestion; Denies: hemoptysis GI: Denies: abdominal pain, nausea or vomiting : Denies: dysuria, urinary frequency or urinary urgency Musc: Denies: neck pain, back pain or extremity pain Skin/Breast: Denies: rash Neuro: Denies: dizziness Endo: Denies: polyuria or polydipsia PFS ED PFSH: Medical History (Updated 03/26/23 @ 13:53 by Juan Ramon Urrutia DO) Claudication Recurrent incisional hernia Carotid artery stenosis, asymptomatic Aortic regurgitation Benign essential hypertension with target blood pressure below 140/90 Atherosclerosis of coronary artery of [place] heart without angina pectoris Hypertensive emergency Dyslipidemia Obesity (BMI 30-39.9) Transaminitis Hyperkalemia Aortic valve stenosis Peripheral arterial occlusive disease ESRD (end stage renal disease) Diabetes Diarrhea HTN (hypertension) CAD (coronary artery disease) Ventral hernia, recurrent Surgical History (Updated 02/22/23 @ 00:00 by KARTIK Mazariegos) Hx of CABG Hx of myringotomy Tubal ligation status History of hysterectomy AV fistula H/O hernia repair 12 surgeries Family History Other CAD (coronary artery disease) Chronic kidney disease (CKD) Diabetes Hypertension Social History Smoking and tobacco/nicotine status: former use of tobacco/nicotine Alcohol intake: never Substance/Drug Use: never Household members: family Housing: House Physical Exam Const: GENERAL APPEARANCE: cooperative and comfortable ORIENTATION/CONSCIOUSNESS: Yes awake, Yes oriented to person, Yes oriented to place and Yes oriented to time HENMT: COMMON NORMALS: normocephalic, atraumatic and hearing grossly normal bilaterally HEAD & SCALP: normocephalic and atraumatic Resp: EFFORT & INSPECTION: Yes tachypneic AUSCULTATION: crackles and wheezes Cardio: COMMON NORMALS: regular rate, regular rhythm and No murmurs present (Cardio) RATE: regular rate RHYTHM: regular rhythm GI: COMMON NORMALS: Soft to palpation and No hepatosplenomegaly present AUSCULTATION: Yes normoactive bowel sounds PALPATION: Yes Soft to palpation, No Tenderness to palpation present (GI), No Guarding due to palpation present (GI) and Yes No hepatosplenomegaly present Extremity: COMMON NORMALS: normal to inspection, capillary refill normal, no clubbing, cyanosis or edema, no calf tenderness and no pedal edema Neuro: SENSORIUM/ORIENTATION: Yes oriented to person, Yes oriented to place and Yes oriented to time Skin: COMMON NORMALS: no rashes or lesions noted GENERAL SKIN EXAM: no rashes or lesions noted Course Vital Signs: Vital signs: Vital Signs Pulse Rate 105 H 03/26/23 13:30 Respiratory Rate 20 H 03/26/23 12:55 Blood Pressure 155/65 03/26/23 13:30 Pulse Oximetry 96 03/26/23 13:30 Oxygen Delivery Me thod Nasal Cannula 03/26/23 12:55 Oxygen Flow Rate 2 03/26/23 12:55 MDM - SOB/Dyspnea Medical Decision Making Acute kidney failure, hyperkalemia with rhabdomyolysis and moderate congestive heart failure. Discussed with hospitalist. Treatments for hyperkalemia initiated. Consult nephrology. Admit to ICU. I believe she also some mild component of COPD exacerbation Medical Records I reviewed the patient's medical records. Lab Data I reviewed the patient's lab results. 03/26/23 10:50 03/26/23 10:50 Labs/Radiology: Laboratory Results WBC 13.04 10^3/uL (3.29-11.43) H 03/26/23 10:50 RBC 3.72 10^6/uL (3.85-5.65) L 03/26/23 10:50 Hgb 11.50 g/dL (11.27-16.99) 03/26/23 10:50 Hct 37.4 % (36-47) 03/26/23 10:50 MCV 100.5 fl (85-98) H 03/26/23 10:50 MCH 30.9 pg (27-33) 03/26/23 10:50 MCHC 30.7 g/dL (30-55) 03/26/23 10:50 RDW 16.0 % (12.1-15.1) H 03/26/23 10:50 Plt Count 174 10^3/cmm (157-399) 03/26/23 10:50 MPV 9.3 fL (7.4-10.4) 03/26/23 10:50 Neut % (Auto) 86.5 % 03/26/23 10:50 Lymph % (Auto) 8.5 % 03/26/23 10:50 Garland % (Auto) 3.8 % 03/26/23 10:50 Eos % (Auto) 0.6 % 03/26/23 10:50 Baso % (Auto) 0.4 % 03/26/23 10:50 Neut # (Auto) 11.27 10^3/uL (1.8-7.7) H 03/26/23 10:50 Lymph # (Auto) 1.1 10^3/uL (0.8-4.8) 03/26/23 10:50 Garland # (Auto) 0.5 10^3/uL (0.2-0.9) 03/26/23 10:50 Eos # (Auto) 0.1 10^3/uL (0.0-0.8) 03/26/23 10:50 Baso # (Auto) 0.1 10^3/uL (0.0-0.1) 03/26/23 10:50 Nucleated RBC % (auto) 0 % 03/26/23 10:50 Nucleated RBCs # 0.0 /100WBC 03/26/23 10:50 Specimen Type Arterial 03/26/23 10:33 Sample Site Brachial, right 03/26/23 10:33 ABG pH 7.34 (7.35-7.45) L 03/26/23 10:33 ABG pCO2 41.5 mmHg (35-45) 03/26/23 10:33 ABG pO2 81.1 mmHg (80.0-100.0) 03/26/23 10:33 ABG PO2/FiO2 Ratio 0 03/26/23 10:33 ABG HCO3 22.1 mmol/L (22-26) 03/26/23 10:33 ABG O2 Saturation 93.2 03/26/23 10:33 ABG Base Excess -3.5 mmol/L (-2.0-2.0) L 03/26/23 10:33 Henrry Test N/a 03/26/23 10:33 A-a O2 Gradient 12.7 mmHg (5-10) H 03/26/23 10:33 Hematocrit 35.2 % (37-47) L 03/26/23 10:33 Hgb O2 Saturation 92.5 % (95-100) L 03/26/23 10:33 Carboxyhemoglobin 0.2 %THgb (0.4-20.1) L 03/26/23 10:33 Methemoglobin 0.6 % (0.4-1.5) 03/26/23 10:33 Total Hemoglobin 11.5 g/dL (12-16) L 03/26/23 10:33 Sodium 134.0 mmol/L (131-143) 03/26/23 10:33 Potassium 7.3 mmol/L (3.5-5.0) H 03/26/23 10:33 Glucose 306.0 mg/dL (70-115) H 03/26/23 10:33 Ionized Calcium 1.1 mmol/L (1.1-1.4) 03/26/23 10:33 O2 Delivery Device Nc 03/26/23 10:33 O2 Liters/Min 3.0 % 03/26/23 10:33 FiO2 32.0 % 03/26/23 10:33 Legal Executive ID glc 03/26/23 10:33 Sodium 133 mmol/L (136-145) L 03/26/23 10:50 Potassium 7.3 mmol/L (3.5-5.1) H* 03/26/23 10:50 Chloride 88 mmol/L (98-107) L 03/26/23 10:50 Carbon Dioxide 20 mmol/L (22-29) L 03/26/23 10:50 Anion Gap 32.3 (5-19) H 03/26/23 10:50 BUN 77 mg/dL (6-20) H 03/26/23 10:50 Creatinine 10.0 mg/dL (0.5-0.9) H* 03/26/23 10:50 GFR Calculation 4.1 mL/min (90-130) L 03/26/23 10:50 Glucose 293 mg/dL (65-115) H 03/26/23 10:50 Calculated Osmolality 310 mOsm/kg (285-295) H 03/26/23 10:50 Calcium 9.3 mg/dL (8.5-10.5) 03/26/23 10:50 Magnesium 2.4 mg/dL (1.7-2.3) H 03/26/23 10:50 Total Bilirubin 0.5 mg/dL (0.15-1.2) 03/26/23 10:50 AST 42 U/L (0-32) H 03/26/23 10:50 ALT 41 U/L (0-33) H 03/26/23 10:50 Alkaline Phosphatase 112 U/L (35-105) H 03/26/23 10:50 Troponin T Baseline 111 ng/L (0-10) H* 03/26/23 10:50 Total Protein 7.9 g/dL (6.6-8.7) 03/26/23 10:50 Albumin 4.2 g/dL (3.5-5.2) 03/26/23 10:50 Globulin 3.7 g/dL (1.3-4.6) 03/26/23 10:50 Coronavirus 229E (PCR) Not detected (NOT DETECT) 03/26/23 10:57 Influenza Type A Ag negative (Negative) 03/26/23 10:57 Influenza Type B Ag negative (Negative) 03/26/23 10:57 SARS-CoV-2 (PCR) Not detected (NOT DETECT) 03/26/23 10:57 All radiology interpretation(s) finalized by discharge Discharge Plan Discharge Patient Disposition: Admitted As Inpatient Admit Provider: Eugene Restrepo Clinical Impression: End stage renal disease on dialysis, Congestive heart failure, Hyperkalemia, COPD with exacerbation Condition: Stable Coding Level of Care Code ED Network Desktop Support Specialist for Kuldip Velarde
[2023-03-26] MEDS: metoprolol tartrate 1 mg/1 mL SDV 5 mL 2.5 MG IVP (10:18)
[2023-03-26] MEDS: dexamethasone 10 mg/mL INJ IM (10:18)
[2023-03-26] MEDS: carvedilol 3.125 mg Tablet PO (10:19)
[2023-03-26 10:43] LABS: ABG PCO2 41.5 mmHg (35-45); ABG PH Result 7.34 (7.35-7.45); Alveolar-Arterial Oxygen Gradi 12.7 mmHg (5-10); Arterial Blood Gas Hematocrit 35.2 % (37-47); Base Excess ABG -3.5 mmol/L (-2.0-2.0); Blood Gas Operator Identificat glc; Blood Gas Sample Site Brachial, right; Blood Gas Sample Type Arterial; Carboxyhemoglobin 0.2 %THgb (0.4-20.1); HCO3 ABG 22.1 mmol/L (22-26); HGB O2 Sat 92.5 % (95-100); Ionized Calcium Level - ABG 1.1 mmol/L (1.1-1.4); Methemoglobin 0.6 % (0.4-1.5); Oxygen Device NC; Oxygen Saturation ABG 93.2; PO2 ABG 81.1 mmHg (80.0-100.0); PO2 FiO2 Ratio Arterial Blood 0; Potassium Level - ABG 7.3 mmol/L (3.5-5.0); Total Hemoglobin 11.5 g/dL (12-16)
[2023-03-26 11:12] LABS: Basophils # 0.1 10^3/uL (0.0-0.1); Basophils % 0.4 %; Eosinophils # 0.1 10^3/uL (0.0-0.8); Eosinophils % 0.6 %; Hematocrit 37.4 % (36-47); Lymphocytes # 1.1 10^3/uL (0.8-4.8); Lymphocytes % 8.5 %; Mean Corpuscular HGB Conc 30.7 g/dL (30-55); Mean Corpuscular Hemoglobin 30.9 pg (27-33); Mean Corpuscular Volume 100.5 fl (85-98); Mean Platelet Volume 9.3 fL (7.4-10.4); Monocytes # 0.5 10^3/uL (0.2-0.9); Monocytes % 3.8 %; Neutrophils # 11.27 10^3/uL (1.8-7.7); Neutrophils % 86.5 %; Nucleated Red Blood Cells % 0 %; Platelet Count 174 10^3/cmm (157-399); Red Blood Count 3.72 10^6/uL (3.85-5.65); White Blood Count 13.04 10^3/uL (3.29-11.43)
[2023-03-26 11:21] LABS: Influenza A by IFA negative (Negative); Influenza B by IFA negative (Negative)
[2023-03-26 11:25] LABS: Alanine Aminotransferase 41 U/L (0-33); Albumin Level 4.2 g/dL (3.5-5.2); Alkaline Phosphatase 112 U/L (35-105); Anion Gap 32.3 (5-19); Aspartate Amino Transferase 42 U/L (0-32); Blood Urea Nitrogen 77 mg/dL (6-20); Calcium 9.3 mg/dL (8.5-10.5); Carbon Dioxide 20 mmol/L (22-29); Chloride 88 mmol/L (98-107); Globulin 3.7 g/dL (1.3-4.6); Glomerular Filtration Rate 4.1 mL/min (90-130); Glucose 293 mg/dL (65-115); Magnesium 2.4 mg/dL (1.7-2.3); Osmolality Calculated 310 mOsm/kg (285-295); Sodium 133 mmol/L (136-145); Total Bilirubin 0.5 mg/dL (0.15-1.2); Total Protein 7.9 g/dL (6.6-8.7)
[2023-03-26 11:28] LABS: Potassium 7.3 mmol/L (3.5-5.1); Troponin(5th) Baseline 111 ng/L (0-10)
[2023-03-26] MEDS: calcium gluconate 0.1 gm/mL 10% SDV 10mL 1 GM IVP (11:56)
--- NOTE | 2023-03-26 11:58 | ECG_ITS ---
[facility] Test Date: 2023-03-26 Pat Name: Kristan Reddy Department: Room: Gender: Female Swing Saw Operator: : 1970 Requested By: Juan Ramon Cueva Order Number: [id number] Stepan MD: Yuko Daniel M.D. Measurements Intervals [place] Rate: 107 P: 81 ND: 152 QRS: -35 QRSD: 140 T: 118 QT: 378 QTc: 505 Interpretive Statements SINUS TACHYCARDIA POSSIBLE LEFT ATRIAL ENLARGEMENT [-0.1mV P-WAVE IN V1/V2] LEFT AXIS DEVIATION [QRS AXIS < -30] INTRAVENTRICULAR CONDUCTION DELAY [130+ ms QRS DURATION] POSSIBLE ANTERIOR MYOCARDIAL INFARCTION , OF INDETERMINATE AGE [30 ms Q WAVE IN V3/V4, OR R < 0.2 mV IN V4] Compared to ECG 03/26/2023 10:06:56 Intraventricular conduction delay now present Myocardial infarct finding now present Left bundle-branch block no longer present Electronically Signed On 03-26-2023 18:50:08 SOURCING ASSISTANT by Yuko Daniel M.D. [email or web address] Technologyuniversity [facility].[employer]/store/[id number]
[2023-03-26] MEDS: sodium bicarbonate 8.4% 1 mEq/mL 50mL Syr 100 MEQ IVP (12:00)
[2023-03-26] MEDS: sodium polystyrene sulfonate 15 gm/60 mL Btl PO (12:08)
[2023-03-26] MEDS: insulin regular-human 100 units/1 mL 10 UNIT IVP (12:10)
[2023-03-26 12:42] LABS: Glucose Point of Care 215 mg/dL (70-110)
[2023-03-26 12:45] LABS: Adenovirus Not Detected (NOT DETECT); Chlamydia Pneumoniae Not Detected (NOT DETECT); Coronavirus 229E,HKU1,NL63,OC4 Not Detected (NOT DETECT); Human Metapneumovirus Not Detected (NOT DETECT); Human Rhinovirus/Enterovirus Not Detected (NOT DETECT); Influenza A Not Detected (NOT DETECT); Influenza A H1 Not Detected (NOT DETECT); Influenza A H1-2009 Not Detected (NOT DETECT); Influenza A H3 Not Detected (NOT DETECT); Influenza B Not Detected (NOT DETECT); Mycoplasma Pneumoniae Not Detected (NOT DETECT); Parainfluenza Virus Type 1 Not Detected (NOT DETECT); Parainfluenza Virus Type 2 Not Detected (NOT DETECT); Parainfluenza Virus Type 3 Not Detected (NOT DETECT); Parainfluenza Virus Type 4 Not Detected (NOT DETECT); Respiratory Syncytial Virus A Not Detected (NOT DETECT); Respiratory Syncytial Virus B Not Detected (NOT DETECT); SARS-COV-2 Not Detected (NOT DETECT)
[2023-03-26] MEDS: albuterol 2.5 mg/3 mL Neb 5 MG INHALATION (12:54)
[2023-03-26 13:19] LABS: Troponin 5 2HR 127.5 ng/L (0-10); Troponin 5 2HR Delta 16.5 ABS# (0-10)
--- NOTE | 2023-03-26 14:52 | ECG_ITS ---
[facility] Test Date: 2023-03-26 Pat Name: Kristan Reddy Department: Room: ICU10 Gender: Female Tester Rocket Engine: : 1970 Requested By: Eugene Restrepo Order Number: [id number] Stepan MD: Yuko Daniel M.D. Measurements Intervals [place] Rate: 127 P: 68 UT: 125 QRS: -14 QRSD: 137 T: 110 QT: 338 QTc: 492 Interpretive Statements SINUS TACHYCARDIA INTRAVENTRICULAR CONDUCTION DELAY [130+ ms QRS DURATION] POSSIBLE ANTERIOR MYOCARDIAL INFARCTION , OF INDETERMINATE AGE [30 ms Q WAVE IN V3/V4, OR R < 0.2 mV IN V4] Compared to ECG 03/26/2023 11:59:37 Left-axis deviation no longer present Myocardial infarct finding still present Electronically Signed On 03-27-2023 20:01:13 WASTEWATER ANALYST by Yuko Daniel M.D. [email or web address]8 [facility].[employer]/store/[id number]
[2023-03-26] MEDS: heparin drip 25,000 UNIT/500 ML PREMIX 21.61 UNIT IV (15:43)
--- NOTE | 2023-03-26 15:58 | ECG_ITS ---
[facility] Test Date: 2023-03-26 Pat Name: Kristan Reddy Department: Room: ICU10 Gender: Female Value Advisor: : 1970 Requested By: Juan Ramon Cueva Order Number: [id number] Stepan MD: Yuko Daniel M.D. Measurements Intervals [place] Rate: 104 P: 67 IN: 135 QRS: 41 QRSD: 97 T: 135 QT: 338 QTc: 446 Interpretive Statements SINUS TACHYCARDIA POSSIBLE LEFT ATRIAL ENLARGEMENT [-0.1mV P-WAVE IN V1/V2] NONSPECIFIC ST & T-WAVE ABNORMALITY Compared to ECG 03/26/2023 14:52:20 T-wave abnormality now present Intraventricular conduction delay no longer present Myocardial infarct finding no longer present Electronically Signed On 03-27-2023 20:04:42 FILING WRITER by Yuko Daniel M.D. [email or web address] Geophysicalsutter [facility].[employer]/store/[id number]
[2023-03-26] MEDS: nitroglycerin 1 gm/inch oint Pkt 0.5 INCH TOPICAL (16:03)
--- NOTE | 2023-03-26 16:09 | P.HP_ITS ---
Providers/Chief Complaint 2 Admitting Physician: Eugene Restrepo MD Primary Care Provider: Lisa Mayberry DO Chief Complaint: high hr, low oxygen History of Present Illness Kristan Reddy is a 52 year old female with past medical history of CABG, recent non-ST elevation [place] with recent PCI to LAD in February 2023, end-stage renal disease on hemodialysis, hypertension, peripheral vascular disease, diastolic heart failure with EF of 50 to 55%, moderate aortic valve stenosis, type 2 diabetes mellitus presents to the ER today because of difficulty in breathing which has been getting worse since last night along with episodes of nausea. Patient also complaining of diarrhea was started last night. Patient is supposed to go for dialysis today but could not go because she presented to the ER. Shortness of breath get worse on laying down not aggravated by talking or walking. On presentation to the ER patient was extremely short of breath requiring oxime mask up to 15 L which were later transitioned down to 3 L. She was found to have hyperkalemia with potassium of 7.3 for which she received D50/10 unit of insulin, albuterol treatment, Kayexalate, calcium gluconate. Patient was admitted to the ICU for need of dialysis and congestive heart failure and hyperkalemia On examination patient was sitting up at edge of the bed, complaining of chest pressure, difficulty in breathing with heart rate running in 120s, blood pressure of 160/90 on 2 L of oxygen supplementation saturating more than 95%, slightly drowsy but awake and alert and able to participate in history Review of Systems 2 General: Reports: 10 or more systems reviewed and unremarkable except in HPI and below Const: Denies: fever(s), chills, body aches, change in appetite, change in weight, malaise, night sweats, diaphoresis, change in sleep pattern, daytime sleepiness or snoring Eyes: Denies: change in vision, blurry vision, photophobia, eye discomfort or eye discharge ENMT: Denies: throat pain, enlarged tonsils, hoarseness, mouth pain, oral sores, dry mouth, tinnitus, nasal congestion or post nasal drip Card: Denies: chest pain, palpitations, irregular heart rhythm, edema, swelling of feet/ankles, lightheadedness, syncope, pre-syncope, dyspnea on exertion, orthopnea, leg pain with exertion or acrocyanosis Resp: Denies: dyspnea, productive cough, non-productive cough, wheezing, stridor, pain on inspiration, change in phlegm color, hemoptysis or chest congestion GI: Denies: abdominal pain, nausea, vomiting, hematemesis, coffee ground emesis, dysphagia, heartburn, diarrhea, constipation, bloating, GI cramping, change in bowel habits, pain on defecation, hematochezia or melena : Denies: flank pain, dysuria, urinary frequency, urinary urgency, urinary hesitancy, nocturia or hematuria Musc: Denies: neck pain, back pain, extremity pain, joint pain, joint swelling, joint redness, joint stiffness or limited range of motion Neuro: Denies: headache(s), numbness in extremities, weakness in extremities, sensory changes, lack of coordination, difficulty walking, frequent falls, dizziness, vertigo, confusion, Slurred speech present, difficulty communicating thoughts or seizure-like activity Psych: Denies: anxiety, depression, mood swings, panic attacks, hopelessness or irritability Endo: Denies: polyuria, polydipsia, tired all the time, cold intolerance, excessive sweating, flushing or heat intolerance Jacek/Lymph: Denies: easy bruising or easy bleeding All/Imm: Denies: tongue swelling, facial swelling or acute wheezing Medications/Allergies Home Medications Medication Instructions Recorded Confirmed Last Taken Type amlodipine 10 mg tablet 10 mg PO DAILY 07/12/20 03/26/23 02/23/23 History clonidine HCl 0.1 mg tablet 0.1 mg PO BID PRN Blood Pressure 07/12/20 02/06/23 12/26/22 History losartan 100 mg tablet (Cozaar) 100 mg PO DAILY 07/12/20 02/06/23 12/26/22 History aspirin 81 mg chewable tablet 81 mg PO DAILY 06/19/22 02/06/23 12/26/22 History (Aspirin Childrens) atorvastatin 80 mg tablet 80 mg PO DAILY 06/19/22 02/06/23 12/26/22 History blood-glucose meter,continuous #1 ea 07/19/22 02/06/23 Unknown Rx (Dexcom G6 Learning Technologist) blood-glucose sensor (Dexcom G6 #9 ea 07/19/22 02/06/23 Unknown Rx Sensor device) blood-glucose transmitter (Dexcom #2 ea 07/19/22 02/06/23 Unknown Rx G6 Transmitter device) cilostazol 100 mg tablet 100 mg PO BID #120 tabs 08/22/22 02/06/23 12/26/22 Rx pantoprazole 40 mg tablet,delayed 40 mg PO DAILY 09/20/22 02/06/23 12/26/22 History release trazodone 100 mg tablet 100 mg PO BEDTIME 09/20/22 02/06/23 12/26/22 History blood sugar diagnostic (True #200 ea 11/09/22 02/06/23 Unknown Rx Metrix Glucose Test Strip) pen needle, diabetic 31 gauge x #1,200 ea 11/21/22 02/06/23 Unknown Rx 3/16 (BD Ultra-Fine Mini Pen Needle) buspirone 10 mg tablet 10 mg PO BID 12/27/22 02/06/23 12/26/22 History ranolazine 500 mg tablet,extended 500 mg PO BID #60 tabs 12/28/22 02/06/23 Unknown Rx release,12 hr carvedilol 12.5 mg tablet 12.5 mg PO BID 02/06/23 02/06/23 Unknown History insulin aspart U-100 100 unit/mL See Rx Instructions .Route .COMPLEX 02/06/23 02/06/23 Unknown History (3 mL) subcutaneous pen (Novolog FlexPen U-100 Insulin aspart) lanthanum 1,000 mg oral powder See Rx Instructions .Route .COMPLEX 02/06/23 02/06/23 Unknown History packet (Fosrenol) lidocaine-prilocaine 2.5 %-2.5 % See Rx Instructions .Route .COMPLEX 02/06/23 02/06/23 Unknown History topical cream nitroglycerin 0.4 mg sublingual 0.4 mg sublingual Q5M PRN Chest 02/06/23 02/06/23 Unknown History tablet (Nitrostat) Pain ondansetron HCl 4 mg tablet 4 mg PO Q4H PRN Nausea And Vomiting 02/06/23 02/06/23 Unknown History propranolol 10 mg tablet 10 mg PO BID 02/06/23 02/06/23 Unknown History sevelamer carbonate 800 mg tablet See Rx Instructions .Route .COMPLEX 02/06/23 02/06/23 Unknown History vitamin B complex and vitamin C 1 cap PO DAILY 02/06/23 02/06/23 Unknown History no.20-folic acid 1 mg capsule (Triphrocaps) atorvastatin 40 mg tablet 80 mg (2 x 40 mg) PO DAILY #30 tabs 02/13/23 Unknown Rx hydrocodone 5 mg-acetaminophen 325 1 tab PO Q8H PRN pain #21 tabs 02/14/23 Unknown Rx mg tablet insulin detemir U-100 100 unit/mL 20 unit (0.2 mL) SUBCUT BID #40 mL 02/14/23 Unknown Rx (3 mL) subcutaneous pen (Levemir FlexPen) clopidogrel 75 mg tablet 75 mg PO DAILY #90 tabs 02/21/23 02/21/23 Unknown Rx lactulose 10 gram/15 mL (15 mL) 10 g PO DAILY 02/21/23 02/21/23 Unknown History oral solution Allergies Allergy/AdvReac Type Severity Reaction Status Date / Time cephalexin Allergy ADR-Vomitin Verified 03/26/23 10:11 g morphine Allergy ADR-Itching Verified 03/26/23 10:11 Penicillins Allergy ALGY-Anaphy Verified 03/26/23 10:11 laxis isosorbide mononitrate AdvReac Severe ADR-Shakine Uncoded 03/26/23 10:11 ss PFSH Acute 2 PFSH: Medical History (Updated 03/26/23 @ 16:16 by Eugene Restrepo MD) Benign essential hypertension with target blood pressure below 140/90 Hypertensive emergency Claudication Recurrent incisional hernia Carotid artery stenosis, asymptomatic Aortic regurgitation Atherosclerosis of coronary artery of [place] without angina pectoris Dyslipidemia Obesity (BMI 30-39.9) Transaminitis Hyperkalemia Aortic valve stenosis Peripheral arterial occlusive disease ESRD (end stage renal disease) Diabetes Diarrhea HTN (hypertension) CAD (coronary artery disease) Ventral hernia, recurrent Surgical History (Updated 02/22/23 @ 00:00 by KARTIK Mazariegos) Hx of CABG Hx of myringotomy Tubal ligation status History of hysterectomy AV fistula H/O hernia repair 12 surgeries Family History Other CAD (coronary artery disease) Chronic kidney disease (CKD) Diabetes Hypertension Social History Smoking and tobacco/nicotine status: former use of tobacco/nicotine Alcohol intake: never Substance/Drug Use: never Household members: family Housing: House Vitals/I&O/Wt Last Vital Signs Pulse 124 H 03/26/23 16:03 Resp 20 H 03/26/23 12:55 BP 161/102 03/26/23 16:03 Pulse Ox 96 03/26/23 13:30 O2 Del Method Nasal Cannula 03/26/23 13:30 O2 Flow Rate 2 03/26/23 12:55 Weight last 48 hrs Weight 77.167 kg Weight 75.75 kg Physical Exam 2 Narrative: General: No acute distress, AO x3, drowsy, chronically sick appearing HEENT: PERRLA, pupils bilaterally equal and reactive Chest: Normal vesicular breath sounds, with occasional rhonchi and fine crackles present up to bilateral mid chest, equal good air entry bilaterally CVS: S1-S2 regular, tachycardia, ejection systolic murmur at aortic area radiating to carotids 2/6 , no gallops, no rubs Abdomen: Soft, nontender, no organomegaly, bowel sounds present Neuro: No focal deficits, no facial deformity, AO x3, power 5/5 in all limbs Data 03/26/23 10:50 03/26/23 10:50 A&P Assessment and plan (1) Hypoxic respiratory failure: Most likely in setting of congestive heart failure due to fluid overload in setting of diastolic heart failure. Patient does have history of COPD. Check D-dimer, sputum culture. COVID-19 PCR, flu negative. Depending on the result of D-dimer we will plan for CTA of the chest versus CT without contrast. Ipratropium, Xopenex every 6 hours, Pulmicort twice daily. No need for steroids for now. Oxygen supplementation keeping saturation over 90%. (2) Congestive heart failure: Last echocardiogram within the last 6 months shows a normal EF, grade 2 diastolic dysfunction, moderate aortic valve stenosis with mild pulmonary hypertension. Patient has a history of end-stage renal disease. Will need emergent dialysis. Fluid restriction up to 1500 cc. (3) End stage renal disease on dialysis: Nephrology consulted. Plan for dialysis. Usual schedule TTS. (4) Hyperkalemia: As above. Already received treatment as per hyperkalemia protocol. Will repeat BMP postdialysis around 8 PM. (5) High anion gap metabolic acidosis: Most likely in setting of end-stage renal disease requiring dialysis along with hyperkalemia. Patient does take losartan at home. DKA less likely the patient does have history of uncontrolled type 2 diabetes mellitus. Repeating BMP as above. If continues to have anion gap metabolic acidosis postdialysis we will plan to do serum ketones. ABG negative for acidosis for now. Bicarb normal on BMP. (6) Elevated troponin: Cannot rule out demand ischemia in setting of hypertensive urgency and congestive heart failure. Patient does have history of CABG and recent PCI to LAD with other lesions present. Follow-up troponin cycle. Limited echocardiogram to rule out regional wall motion normality and document EF. Heparin drip for now. Depending on the results we will plan for possible Lexiscan versus cardiac angiogram. Patient does have mild chest heaviness for now. Blood pressure also elevated. Started on Nitropatch for now. Continue with home dose of statin, baby aspirin, beta-juvenal. Started nitro as above. Protonix (7) Hypertensive emergency: Goal blood pressure less than 140/90 mmHg. Will restart home dose of amlodipine 10 mg daily, carvedilol 12.5 mg twice daily. Patient does take losartan. Will decrease dose to 25 mg daily. Most likely will add hydralazine. Uptitrate as for goal blood pressures. (8) Benign essential hypertension with target blood pressure below 140/90: Plan Type 2 diabetes mellitus: Appreciate recent A1c. Insulin sliding scale at low-dose protocol. Full code Renal dialysis diabetic diet Protonix for PUD prophylaxis Heparin drip will suffice for DVT prophylaxis. Restart home medications once med rec completed Attestations 2 Medical Necessity Statement*: Admission for more than 2 midnights for management of hypoxic respiratory failure in setting of congestive heart failure in a patient with end-stage renal disease on hemodialysis, hypertensive emergency with elevated troponins with concerns for non-ST elevation [place] Coding Level of Care Code Acute Code for Chg Fwd Diagnoses Hypoxic respiratory failure J96.91 Congestive heart failure I50.9 End stage renal disease on dialysis N18.6; Z99.2 Hyperkalemia E87.5 High anion gap metabolic acidosis E87.29 Elevated troponin R79.89 Hypertensive emergency I16.1 Benign essential hypertension with target blood pressure below 140/90 I10
--- NOTE | 2023-03-26 16:16 | P.CONIM_ITS ---
Providers/Reason For Consult 2 Consulting Physician/Specialty*: kommana/nephroly Reason for Consult*: esrd Attending Physician: Eugene Restrepo MD Primary Care Provider: Lisa Mayberry DO History of Present Illness History of Present Illness Kristan Reddy is a 52 year old female Patient is a 52-year-old female with past medical history of end-stage renal disease on hemodialysis per Sunday schedule, CHF, coronary artery disease prior CABG, hypertension, dyslipidemia presented to the emergency department due to shortness of breath. Also complained of having diarrhea. Patient was placed on OxiMax 15 L in the ED, lab data was significant for potassium of 7.3. Patient received calcium, Kayexalate albuterol treatment D50 and insulin in the ER and admitted to ICU. 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) blood-glucose sensor (Dexcom G6 #9 ea 07/19/22 03/27/23 Unknown Rx Sensor device) blood-glucose transmitter (Dexcom #2 ea 07/19/22 03/27/23 Unknown Rx G6 Transmitter device) cilostazol 100 mg tablet 100 mg PO BID #120 tabs 08/22/22 03/26/23 03/25/23 Rx pantoprazole 40 mg tablet,delayed 40 mg PO DAILY 09/20/22 03/26/23 03/25/23 History release trazodone 100 mg tablet 100 mg PO BEDTIME 09/20/22 03/26/23 03/25/23 History blood sugar diagnostic (True #200 ea 11/09/22 03/27/23 Unknown Rx Metrix Glucose Test Strip) pen needle, diabetic 31 gauge x #1,200 ea 11/21/22 03/27/23 Unknown Rx 3/16 (BD Ultra-Fine Mini Pen Needle) buspirone 10 mg tablet 10 mg PO BID 12/27/22 03/26/23 03/25/23 History ranolazine 500 mg tablet,extended 500 mg PO BID #60 tabs 12/28/22 03/26/23 02/02/23 Rx release,12 hr carvedilol 12.5 mg tablet 12.5 mg PO BID 02/06/23 03/26/23 03/25/23 History insulin aspart U-100 100 unit/mL See Rx Instructions .Route .COMPLEX 02/06/23 03/26/23 03/25/23 History (3 mL) subcutaneous pen (Novolog FlexPen U-100 Insulin aspart) lanthanum 1,000 mg oral powder See Rx Instructions .Route .COMPLEX 02/06/23 03/26/23 03/04/23 History packet (Fosrenol) lidocaine-prilocaine 2.5 %-2.5 % See Rx Instructions .Route 02/06/23 03/26/23 03/23/23 History topical cream .COMPLEX PRN 3x week for dialysis nitroglycerin 0.4 mg sublingual 0.4 mg sublingual Q5M PRN Chest 02/06/23 03/26/23 02/05/23 History tablet (Nitrostat) Pain ondansetron HCl 4 mg tablet 4 mg PO Q4H PRN Nausea And Vomiting 02/06/23 03/26/23 03/02/23 History propranolol 10 mg tablet 10 mg PO BID 02/06/23 03/26/23 03/25/23 History sevelamer carbonate 800 mg tablet See Rx Instructions .Route .COMPLEX 02/06/23 03/26/23 03/25/23 History vitamin B complex and vitamin C 1 cap PO DAILY 02/06/23 03/26/23 03/25/23 History no.20-folic acid 1 mg capsule (Triphrocaps) clopidogrel 75 mg tablet 75 mg PO DAILY #90 tabs 02/21/23 03/26/23 03/25/23 Rx lactulose 10 gram/15 mL (15 mL) 10 g PO DAILY 02/21/23 03/26/23 02/23/23 History oral solution insulin detemir U-100 100 unit/mL 18 unit SUBCUT BID 03/26/23 03/26/23 03/25/23 History (3 mL) subcutaneous pen (Levemir FlexPen) Allergies Allergy/AdvReac Type Severity Reaction Status Date / Time cephalexin Allergy ADR-Vomitin Verified 03/26/23 10:11 g morphine Allergy ADR-Itching Verified 03/26/23 10:11 Penicillins Allergy ALGY-Anaphy Verified 03/26/23 10:11 laxis isosorbide mononitrate AdvReac Severe ADR-Shakine Uncoded 03/26/23 10:11 ss Current Medications Generic Name Dose Route Start Last Admin Trade Name Freq PRN Reason Stop Dose Admin Heparin Sodium/Sodium Chloride 25,000 unit in 500 mls @ 0 mls/hr 03/26/23 15:30 03/26/23 15:43 Heparin Drip IV 14 unit/kg/hr .Q0M J LUIS 21.61 mls/hr Administration Protocol Per Protocol PFSH Acute 2 PFSH: Medical History (Updated 03/26/23 @ 16:16 by Eugene Restrepo MD) Benign essential hypertension with target blood pressure below 140/90 Hypertensive emergency Claudication Recurrent incisional hernia Carotid artery stenosis, asymptomatic Aortic regurgitation Atherosclerosis of coronary artery of [place] heart without angina pectoris Dyslipidemia Obesity (BMI 30-39.9) Transaminitis Hyperkalemia Aortic valve stenosis Peripheral arterial occlusive disease ESRD (end stage renal disease) Diabetes Diarrhea HTN (hypertension) CAD (coronary artery disease) Ventral hernia, recurrent Surgical History (Updated 02/22/23 @ 00:00 by KARTIK Mazariegos) Hx of CABG Hx of myringotomy Tubal ligation status History of hysterectomy AV fistula H/O hernia repair 12 surgeries Family History Other CAD (coronary artery disease) Chronic kidney disease (CKD) Diabetes Hypertension Social History Smoking and tobacco/nicotine status: former use of tobacco/nicotine Alcohol intake: never Substance/Drug Use: never Household members: family Housing: House Vitals/I&O/Wt Last Vital Signs Pulse 124 H 03/26/23 16:03 Resp 20 H 03/26/23 12:55 BP 161/102 03/26/23 16:03 Pulse Ox 96 03/26/23 13:30 O2 Del Method Nasal Cannula 03/26/23 13:30 O2 Flow Rate 2 03/26/23 12:55 Weight last 48 hrs Weight 77.167 kg Weight 75.75 kg Physical Exam 2 Narrative: awake, alert 'no distress Data 03/27/23 04:25 03/27/23 04:25 A&P Assessment and plan (1) End stage renal disease on dialysis: Plan 1. end-stage renal disease: MWF schedule as outpatient, now presented with severe hyperkalemia -Plan for emergent HD today, run on 1K bath due to severe hyperkalemia 2 ultrafiltration as tolerated 2. Hyperkalemia: HD as above, placed on low potassium diet 3. Shortness of breath due to volume overload, ultrafiltration as tolerated 4. Metabolic acidosis secondary to renal insufficiency, should improve with HD 5. Elevated troponin. Prior history of coronary artery disease with CABG and stents Patient evaluated using audiovisual cart. Time spent 40 minutes Consult Attestations 2 Medical Necessity Statement: per mediranine team Coding Level of Care Code Acute Code for Chg Fwd Diagnoses End stage renal disease on dialysis N18.6; Z99.2
[2023-03-26] MEDS: pantoprazole 40 mg SDV IVP (16:31)
[2023-03-26] MEDS: acetaminophen 325 mg Tablet 650 MG PO (16:31)
[2023-03-26 17:28] LABS: D Dimer 0.94 ug/mLFEU (0-0.59)
[2023-03-26 17:38] LABS: Troponin 5 6HR 166.6 ng/L (0-10); Troponin 5 6HR Delta 55.6 ng/L (0-12)
--- NOTE | 2023-03-26 18:20 | USCV_ITS ---
Kristan Reddy Age: 52 Gender: F : 1970 Exam Date: 03/26/2023 22:40 Ordering Phys: Eugene Restrepo MD Technologist: SCAR [place] [facility] [place]: LIMITED STUDY FOR LVEF and RT WMAs ONLY. TWO RECENT ECHOS -- 12/27/22 and 02/06/23 BP: 173 / 95 HR: 105 Rhythm: Sinus Technical Quality: Adequate MEASUREMENTS (Male / Female) Normal Values 2D ECHO LV Diastolic Diameter PLAX 5.2 cm 4.2 - 5.9 / 3.9 - 5.3 cm LV Systolic Diameter PLAX 4.0 cm IVS Diastolic Thickness 1.8 cm 0.6 - 1.0 / 0.6 - 0.9 cm IVS Systolic Thickness 1.8 cm LVPW Diastolic Thickness 1.6 cm 0.6 - 1.0 / 0.6 - 0.9 cm LVPW Systolic Thickness 1.9 cm LV Ejection Fraction 2D Teich 44.6 % LV Ejection Fraction MOD 2C 51.0 % LV Ejection Fraction 2C AL 52.9 % M-MODE LV Diastolic Diameter MM 6.0 cm 4.2 - 5.9 / 3.9 - 5.3 cm LV Systolic Diameter MM 4.5 cm LV Ejection Fraction MM Teich 48.9 % IVS Diastolic Thickness MM 1.5 cm 0.6 - 1.0 / 0.6 - 0.9 cm IVS Systolic Thickness MM 1.5 cm LVPW Diastolic Thickness MM 1.3 cm 0.6 - 1.0 / 0.6 - 0.9 cm LVPW Systolic Thickness MM 2.2 cm FINDINGS Left Ventricle Diffuse hypokinesia left ventricular ejection fraction of 45% Right Ventricle The right ventricle is normal in size and function. Right Atrium Normal right atrial size. Left Atrium Mildly increased left atrial size. Mitral Valve Thickened mitral valve. Aortic Valve Thickened aortic valve. Tricuspid Valve No gross abnormalities noted Pulmonic Valve Pulmonic valve not well visualized. Pericardium Normal pericardium without effusion. Aorta Normal ascending aorta dimension. IVC Inferior vena cava not visualized. CONCLUSIONS Diffuse hypokinesia left ventricular ejection fraction of 45%. Mildly increased left atrial size. Thickened aortic and mitral valves. There is no pericardial effusion. Compared to the study from 02/06/2023 there is slight improvement in the LV ejection fraction Dr Yuko Daniel MD FAC (Electronically Signed) Final Date: 27 March 2023 09:36 S
--- NOTE | 2023-03-26 18:20 | CT_ITS ---
WS: [id number] CTA CHEST ABDOMEN AND PELVIS TECHNIQUE: Contrast enhanced CTA of the chest, followed by abdomen, and pelvis with coronal and sagit yaquelin reformatted images and additional MIP Images. CLINICAL INFORMATION: sob COMPARISON: CT abdomen pelvis 02/11/2023 DLP: 60.[address] scans at [facility] use at least one of these dose optimization techniques: automated e xposure control; mA and/or kV adjustment per patient size (includes targeted exams where dose is matc hed to clinical indication); or iterative reconstruction. FINDINGS: Small bilateral pleural effusions. Proximal main pulmonary arteries are normal. Normal segmental and subsegmental pulmonary arteries. No evidence of pulmonary embolus. Sternotomy. Coronary calcification . Normal caliber thoracic aorta. Aortic calcification. Normal caliber descending thoracic aorta. Card iomegaly. Enlarged LEFT ventricle. Nodular RIGHT thyroid. No mediastinal or hilar lymphadenopathy. No axillary lymphadenopathy. Small bilateral pleural effusions RIGHT greater than LEFT with compressive atelectasis in the lung ba ses. Mild thoracic kyphosis. Hypertrophic changes thoracic spine. Prior hysterectomy. Diffuse fatty infiltration of the liver. Gallbladder is contracted. Cholelithiasi s. Normal portal vein and splenic vein. Normal spleen. Tiny esophageal hernia. Dense vascular calcifi cation. Splenic artery calcification. Densely calcified mesenteric vessels. Narrowing of the abdomina l aorta due to dense aortic calcification unchanged compared to previous. Dense calcification renal a rtery ostia. Fatty atrophy of the pancreas. Large ventral abdominal wall hernia containing the majority of the bow el including a portion of the stomach. No evidence of high-grade small or large bowel obstruction. He rnia similar in appearance compared to previous. Adrenal glands are normal. Bilateral renal cortical atrophy. No free fluid in the pelvis. IMPRESSION: 1. No evidence of pulmonary embolus. 2. Small bilateral pleural effusions with compressive atelectasis in the lung bases. 3. Cardiomegaly. 4. Large ventral abdominal wall hernia containing majority of the bowel contents. This is unchanged from previous. 5. No evidence of high-grade small or large bowel obstruction. 6. Dense vascular calcification with moderate narrowing of the abdominal aorta is unchanged. 7. Dense vascular calcification in the abdomen and pelvis. 8. Cholelithiasis.
[2023-03-26] MEDS: epoetin alfa 1000 Unit/0.05 mL (ESRD) 20000 UNIT IVP (18:59)
[2023-03-26] MEDS: heparin, porcine 1,000 unit/mL INJ 10 mL 10000 UNIT INTRACATH (18:59)
[2023-03-26] MEDS: carvedilol 12.5 mg Tablet PO (19:00)
[2023-03-26 20:27] LABS: Glucose Point of Care 178 mg/dL (70-110)
[2023-03-26] MEDS: insulin lispro 100 unit/1 mL SUBCUT (20:30)
[2023-03-26] MEDS: trazodone 100 mg Tablet PO (20:30)
[2023-03-26 22:39] LABS: Partial Thromboplastin Time 85.8 SECONDS (23.9-36.7)
[2023-03-27] VITALS (48 sets, daily range): BP systolic 96–175; BP diastolic 46–129; PULSE 77–98; RESP 13–26; TEMP 36.6–37.2; O2SAT 90–100; BMI 36.8
[2023-03-27] MEDS: ipratropium 0.5 mg/2.5 mL Neb INHALATION ×4 (02:58→20:12)
[2023-03-27] MEDS: levalbuterol 0.63 mg/3 mL Neb INHALATION ×4 (02:58→20:12)
[2023-03-27] MEDS: acetaminophen 325 mg Tablet 650 MG PO (04:39)
[2023-03-27 05:00] LABS: Basophils % 0.1 %; Hematocrit 33.1 % (36-47); Lymphocytes # 0.9 10^3/uL (0.8-4.8); Lymphocytes % 10.6 %; Mean Corpuscular HGB Conc 31.7 g/dL (30-55); Mean Corpuscular Hemoglobin 30.9 pg (27-33); Mean Corpuscular Volume 97.4 fl (85-98); Mean Platelet Volume 9.5 fL (7.4-10.4); Monocytes # 0.5 10^3/uL (0.2-0.9); Monocytes % 6.4 %; Neutrophils # 6.69 10^3/uL (1.8-7.7); Neutrophils % 82.5 %; Nucleated Red Blood Cells % 0 %; Platelet Count 176 10^3/cmm (157-399); Red Cell Distribution Width 16.5 % (12.1-15.1); White Blood Count 8.11 10^3/uL (3.29-11.43)
[2023-03-27 05:24] LABS: Alanine Aminotransferase 32 U/L (0-33); Albumin Level 3.9 g/dL (3.5-5.2); Alkaline Phosphatase 96 U/L (35-105); Anion Gap 22.7 (5-19); Aspartate Amino Transferase 29 U/L (0-32); Blood Urea Nitrogen 51 mg/dL (6-20); Calcium 9.8 mg/dL (8.5-10.5); Carbon Dioxide 28 mmol/L (22-29); Chloride 93 mmol/L (98-107); Globulin 3.3 g/dL (1.3-4.6); Glomerular Filtration Rate 5.4 mL/min (90-130); Glucose 282 mg/dL (65-115); Magnesium 2.3 mg/dL (1.7-2.3); Osmolality Calculated 312 mOsm/kg (285-295); Partial Thromboplastin Time 82.8 SECONDS (23.9-36.7); Phosphorus 7.2 mg/dL (2.5-4.5); Potassium 4.7 mmol/L (3.5-5.1); Sodium 139 mmol/L (136-145); Total Bilirubin 0.4 mg/dL (0.15-1.2); Total Protein 7.2 g/dL (6.6-8.7)
--- NOTE | 2023-03-27 05:56 | PC.NURSE ---
CT: Transported pt to CT. In CT R. AC IV became dislodged and CT had to be stopped. Pt transported back to unit. R. AC IV removed as it no longer flushed. Attempted to start IV in R. UA but was unsuccessful. IV access obtained in R. Hand. Heparin drip resumed in R. Hand. Dr. Holguin notified of inability to complete CT. No new orders at this time.
--- NOTE | 2023-03-27 07:51 | PC.PHAR ---
PT IS [facility]-FAXED 03/27/23 7:50am
[2023-03-27 08:02] LABS: Troponin T (5th) Once 268 ng/L (0-10)
[2023-03-27 08:19] LABS: Glucose Point of Care 306 mg/dL (70-110)
[2023-03-27] MEDS: budesonide 0.5 mg/2 mL Neb INHALATION ×2 (08:52→20:12)
[2023-03-27] MEDS: insulin lispro 100 unit/1 mL SUBCUT ×3 (08:59→18:04)
[2023-03-27] MEDS: insulin glargine 100 units/1 mL 18 UNIT SUBCUT ×2 (09:00→18:04)
[2023-03-27] MEDS: BuSPIRONE 10 mg Tablet PO ×2 (09:03→18:04)
[2023-03-27] MEDS: ranolazine (12HR) 500 mg Tablet PO ×2 (09:03→18:04)
[2023-03-27] MEDS: atorvastatin 40 mg Tablet 80 MG PO (09:03)
[2023-03-27] MEDS: carvedilol 12.5 mg Tablet PO ×2 (09:04→18:05)
[2023-03-27] MEDS: losartan 50 mg Tablet 100 MG PO (09:04)
[2023-03-27] MEDS: aspirin 81 mg Chew Tablet PO (09:06)
[2023-03-27] MEDS: cilostazol 100 mg Tablet PO (09:06)
[2023-03-27] MEDS: clopidogrel 75 mg Tablet PO (09:06)
--- NOTE | 2023-03-27 11:26 | XR_ITS ---
WS: [id number] XR chest 1V portable [id number] REASON FOR EXAM: PICC PLACEMENT FINDINGS: Right arm PICC line has been placed. The tip is in the distal SVC at the atrial level. Central vascular congestion and reticular interstitial lung opacities appear somewhat improved compar ed to the prior day. No other interval change or new finding. IMPRESSION: Right arm PICC line placement in proper position for use as above. PICC line position was discussed w ith the radiology special procedure tech over the phone at 12:39 p.m.
[2023-03-27 13:08] LABS: Glucose Point of Care 205 mg/dL (70-110)
--- NOTE | 2023-03-27 13:10 | P.PN_ITS ---
Subjective 2 Subjective: Denies any complaints Medications: Reviewed: Yes Vitals/I&O/Wt Last Vital Signs Temp 97.8 F 03/27/23 08:00 Pulse 79 03/27/23 10:00 Resp 21 H 03/27/23 10:00 BP 106/46 03/27/23 09:04 Pulse Ox 98 03/27/23 10:00 O2 Del Method Nasal Cannula 03/27/23 08:50 O2 Flow Rate 2 03/27/23 08:50 03/26/23 03/27/23 03/27/23 22:59 06:59 14:59 Intake Total 1153.791 / 1153.791 134.267 / 3286.221 5946 / 1240 Output Total 0 / 0 Balance 1153.791 / 1153.791 134.267 / 1525.263 2427 / 1240 Weight last 48 hrs Weight 77.196 kg Weight 77.337 kg Weight 77.167 kg Weight 75.75 kg Physical Exam 2 Narrative: awake alert, on 1 L nasal cannula, no acute distress No pedal edema Data 03/27/23 04:25 03/27/23 04:25 A&P Assessment and plan (1) End stage renal disease on dialysis: Plan 1. end-stage renal disease: MWF schedule as outpatient, now presented with severe hyperkalemia -Status post HD yesterday, next HD tomorrow ultrafiltration as tolerated 2. Hyperkalemia: HD as above, placed on low potassium diet 3. Shortness of breath due to volume overload, ultrafiltration as tolerated 4. Metabolic acidosis secondary to renal insufficiency, should improve with HD 5. Elevated troponin. Prior history of coronary artery disease with CABG and stents Patient evaluated using audiovisual cart. Time spent 40 minutes Attestations 2 Medical Necessity Statement*: Per medicine team Coding Level of Care Code Acute Code for Chg Fwd Diagnoses End stage renal disease on dialysis N18.6; Z99.2
[2023-03-27 13:28] LABS: Partial Thromboplastin Time 30.5 SECONDS (23.9-36.7)
[2023-03-27] MEDS: iohexol 350 mg/mL 500 mL Btl (per mL) IV (14:35)
--- NOTE | 2023-03-27 15:45 | P.PN_ITS ---
Subjective 2 Subjective: No acute vents overnight. Seen with at bedside. Patient states she is feeling a lot better. Shortness of breath has improved and back to her baseline. She complains of chest pain on and off but stated this is her chronic complaint and has been the same even at home. Acute chest pain like yesterday have resolved. Blood pressure stable. Underwent hemodialysis yesterday. Medications: Reviewed: Yes Vitals/I&O/Wt Last Vital Signs Temp 98.5 F 03/27/23 12:00 Pulse 81 03/27/23 14:00 Resp 14 03/27/23 14:00 BP 174/85 03/27/23 14:00 Pulse Ox 98 03/27/23 14:00 O2 Del Method Nasal Cannula 03/27/23 13:31 O2 Flow Rate 1 03/27/23 13:31 03/27/23 03/27/23 03/27/23 06:59 14:59 22:59 Intake Total 134.267 / 2661.615 0340.2 / 1472.2 Output Total 0 / 0 Balance 134.267 / 4813.336 1056.2 / 1472.2 Weight last 48 hrs Weight 77.196 kg Weight 77.337 kg Weight 77.167 kg Weight 75.75 kg Physical Exam 2 Narrative: General: No acute distress, AO x3, drowsy, chronically sick appearing HEENT: PERRLA, pupils bilaterally equal and reactive Chest: Normal vesicular breath sounds, with occasional rhonchi and fine crackles present up to bilateral mid chest, equal good air entry bilaterally CVS: S1-S2 regular, tachycardia, ejection systolic murmur at aortic area radiating to carotids 2/6 , no gallops, no rubs Abdomen: Soft, nontender, no organomegaly, bowel sounds present Neuro: No focal deficits, no facial deformity, AO x3, power 5/5 in all limbs Data 03/27/23 04:25 03/27/23 04:25 A&P Assessment and plan (1) Hypoxic respiratory failure: Most likely in setting of congestive heart failure due to fluid overload in setting of diastolic heart failure. Patient does have history of COPD. Check D-dimer, sputum culture. COVID-19 PCR, flu negative. Depending on the result of D-dimer we will plan for CTA of the chest versus CT without contrast. Ipratropium, Xopenex every 6 hours, Pulmicort twice daily. No need for steroids for now. Oxygen supplementation keeping saturation over 90%. (2) Congestive heart failure: Last echocardiogram within the last 6 months shows a normal EF, grade 2 diastolic dysfunction, moderate aortic valve stenosis with mild pulmonary hypertension. Patient has a history of end-stage renal disease. Will need emergent dialysis. Fluid restriction up to 1500 cc. (3) End stage renal disease on dialysis: Nephrology consulted. Plan for dialysis. Usual schedule TTS. (4) Hyperkalemia: As above. Already received treatment as per hyperkalemia protocol. Will repeat BMP postdialysis around 8 PM. (5) High anion gap metabolic acidosis: Most likely in setting of end-stage renal disease requiring dialysis along with hyperkalemia. Patient does take losartan at home. DKA less likely the patient does have history of uncontrolled type 2 diabetes mellitus. Repeating BMP as above. If continues to have anion gap metabolic acidosis postdialysis we will plan to do serum ketones. ABG negative for acidosis for now. Bicarb normal on BMP. (6) Elevated troponin: Cannot rule out demand ischemia in setting of hypertensive urgency and congestive heart failure. Patient does have history of CABG and recent PCI to LAD with other lesions present. Follow-up troponin cycle. Limited echocardiogram to rule out regional wall motion normality and document EF. Heparin drip for now. Depending on the results we will plan for possible Lexiscan versus cardiac angiogram. Patient does have mild chest heaviness for now. Blood pressure also elevated. Started on Nitropatch for now. Continue with home dose of statin, baby aspirin, beta-juvenal. Started nitro as above. Protonix (7) Hypertensive emergency: Goal blood pressure less than 140/90 mmHg. Will restart home dose of amlodipine 10 mg daily, carvedilol 12.5 mg twice daily. Patient does take losartan. Will decrease dose to 25 mg daily. Most likely will add hydralazine. Uptitrate as for goal blood pressures. (8) Benign essential hypertension with target blood pressure below 140/90: Plan Type 2 diabetes mellitus: Appreciate recent A1c. Insulin sliding scale at low-dose protocol. Full code Renal dialysis diabetic diet Protonix for PUD prophylaxis Heparin drip will suffice for DVT prophylaxis. Plan for the day: Appreciate CTA abdomen pelvis results. Dialysis as per schedule. CHF has resolved. Goal blood pressure less than 140/90 mmHg. Remove Nitropatch. If needed will start patient on Imdur 60 mg daily. For now continue with Coreg 12.5 mg twice daily, losartan 100 mg daily. If needed will add hydralazine. Repeat troponin. If elevated will plan for further workup of unstable angina. Most likely will plan for Lexiscan stress test in AM. N.p.o. after midnight. Patient is agreeable. Continue with heparin drip for now. Continue with aspirin, Plavix, statin. Transfer to CSU. Attestations 2 Medical Necessity Statement*: Requires further hospitalization for management of congestive heart failure in a patient with end-stage renal disease on hemodialysis, uncontrolled hypertension and unstable angina while patient undergoes further CAD workup Diagnoses Hypoxic respiratory failure J96.91 Congestive heart failure I50.9 End stage renal disease on dialysis N18.6; Z99.2 Hyperkalemia E87.5 High anion gap metabolic acidosis E87.29 Elevated troponin R79.89 Hypertensive emergency I16.1 Benign essential hypertension with target blood pressure below 140/90 I10
[2023-03-27] MEDS: pantoprazole 40 mg SDV IVP (16:25)
--- NOTE | 2023-03-27 17:28 | P.PN_ITS ---
Subjective 2 Subjective: s/p HD yesterday Medications: Reviewed: Yes Vitals/I&O/Wt Last Vital Signs Temp 98.5 F 03/27/23 12:00 Pulse 84 03/27/23 16:00 Resp 14 03/27/23 16:00 BP 127/54 03/27/23 16:00 Pulse Ox 97 03/27/23 16:00 O2 Del Method Nasal Cannula 03/27/23 13:31 O2 Flow Rate 1 03/27/23 13:31 03/27/23 03/27/23 03/27/23 06:59 14:59 22:59 Intake Total 134.267 / 2843.594 0873.2 / 1472.2 120 / 1592.2 Output Total 0 / 0 Balance 134.267 / 9941.609 1178.2 / 1472.2 120 / 1592.2 Weight last 48 hrs Weight 77.196 kg Weight 77.337 kg Weight 77.167 kg Weight 75.75 kg Physical Exam 2 Narrative: awake alert, on 1 L nasal cannula, no acute distress No pedal edema Data 03/27/23 04:25 03/27/23 04:25 A&P Assessment and plan (1) End stage renal disease on dialysis: Plan 1. end-stage renal disease: MWF schedule as outpatient, now presented with severe hyperkalemia -Status post HD yesterday, next HD tomorrow ultrafiltration as tolerated 2. Hyperkalemia: HD as above, placed on low potassium diet 3. Shortness of breath due to volume overload, ultrafiltration as tolerated 4. Metabolic acidosis secondary to renal insufficiency, should improve with HD 5. Elevated troponin. Prior history of coronary artery disease with CABG and stents Patient evaluated using audiovisual cart. Time spent 20 minutes Coding Level of Care Code Acute Code for Chg Fwd Diagnoses End stage renal disease on dialysis N18.6; Z99.2
[2023-03-27 18:00] LABS: Glucose Point of Care 159 mg/dL (70-110)
--- NOTE | 2023-03-27 19:31 | PC.NURSE ---
Transfer to CSU: Transfer to CSU @1915 on continuos cardiac monitoring.
[2023-03-27] MEDS: heparin drip 25,000 UNIT/500 ML PREMIX 21.64 UNIT IV (21:33)
[2023-03-27] MEDS: trazodone 100 mg Tablet PO (21:33)
[2023-03-27 21:50] LABS: Partial Thromboplastin Time > 250.0 SECONDS (23.9-36.7)
[2023-03-27 22:47] LABS: Glucose Point of Care 192 mg/dL (70-110)
[2023-03-28] VITALS (20 sets, daily range): BP systolic 118–187; BP diastolic 44–93; PULSE 70–90; RESP 14–21; TEMP 36.6; O2SAT 94–98; BMI 38.4; BMI 38.2
--- NOTE | 2023-03-28 01:45 | ECG_ITS ---
[facility] Test Date: 2023-03-28 Pat Name: Kristan Reddy Department: Room: 104 Gender: Female Technical Support Engineer: : 1970 Requested By: Enzo Holguin Order Number: [id number] Stepan MD: Yuko Daniel M.D. Measurements Intervals [place] Rate: 88 P: 68 [place]: 124 QRS: 24 QRSD: 111 T: 143 QT: 388 QTc: 471 Interpretive Statements SINUS RHYTHM POSSIBLE LEFT ATRIAL ENLARGEMENT [-0.1mV P-WAVE IN V1/V2] MODERATE INTRAVENTRICULAR CONDUCTION DELAY [110+ ms QRS DURATION] ST DEVIATION AND MODERATE T-WAVE ABNORMALITY, CONSIDER ANTEROLATERAL ISCHEMIA [-0.1+ mV T-WAVE IN V3-V6] Compared to ECG 03/26/2023 17:59:30 Intraventricular conduction delay now present Possible ischemia now present Sinus tachycardia no longer present T-wave abnormality still present Electronically Signed On 03-28-2023 21:37:16 EQUIPMENT INSTALLER by Yuko Daniel M.D. [id number]
[2023-03-28] MEDS: ipratropium 0.5 mg/2.5 mL Neb INHALATION ×3 (02:04→20:04)
[2023-03-28] MEDS: levalbuterol 0.63 mg/3 mL Neb INHALATION ×3 (02:04→20:04)
[2023-03-28] MEDS: nitroglycerin 0.4 mg sublingual Tablet SUBLINGUAL (02:20)
[2023-03-28 02:24] LABS: Basophils % 0.5 %; Eosinophils # 0.1 10^3/uL (0.0-0.8); Hematocrit 31.5 % (36-47); Lymphocytes # 2.1 10^3/uL (0.8-4.8); Lymphocytes % 27.9 %; Mean Corpuscular HGB Conc 31.4 g/dL (30-55); Mean Corpuscular Hemoglobin 30.9 pg (27-33); Mean Corpuscular Volume 98.4 fl (85-98); Monocytes # 0.6 10^3/uL (0.2-0.9); Neutrophils # 4.53 10^3/uL (1.8-7.7); Neutrophils % 61.6 %; Nucleated Red Blood Cells % 0 %; Platelet Count 144 10^3/cmm (157-399); Red Cell Distribution Width 16.6 % (12.1-15.1); White Blood Count 7.35 10^3/uL (3.29-11.43)
[2023-03-28] MEDS: HYDROcodone-acetaminophen 5-325 mg Tablet 1 TAB PO (02:32)
[2023-03-28 02:41] LABS: Partial Thromboplastin Time 27.5 SECONDS (23.9-36.7)
[2023-03-28 02:45] LABS: Alanine Aminotransferase 25 U/L (0-33); Albumin Level 3.8 g/dL (3.5-5.2); Alkaline Phosphatase 83 U/L (35-105); Anion Gap 24.4 (5-19); Aspartate Amino Transferase 17 U/L (0-32); Blood Urea Nitrogen 75 mg/dL (6-20); Calcium 9.5 mg/dL (8.5-10.5); Carbon Dioxide 26 mmol/L (22-29); Chloride 90 mmol/L (98-107); Globulin 2.8 g/dL (1.3-4.6); Glomerular Filtration Rate 4.6 mL/min (90-130); Glucose 225 mg/dL (65-115); Osmolality Calculated 309 mOsm/kg (285-295); Potassium 5.4 mmol/L (3.5-5.1); Sodium 135 mmol/L (136-145); Total Bilirubin 0.4 mg/dL (0.15-1.2); Total Protein 6.6 g/dL (6.6-8.7)
[2023-03-28] MEDS: nitroglycerin drip 50 MG/250 ML PREMIX IV (03:07)
[2023-03-28 03:22] LABS: Troponin(5th) Baseline 308 ng/L (0-10)
[2023-03-28] MEDS: HYDROmorphone 1 mg/mL INJ 1 mL 0.5 MG IVP ×3 (04:37→20:22)
[2023-03-28 04:51] LABS: Troponin 5 2HR 346.4 ng/L (0-10); Troponin 5 2HR Delta 38.4 ABS# (0-10)
--- NOTE | 2023-03-28 06:17 | PC.NURSE ---
Patient complained of chest pain 8 on 1-10 scale. Ordered an EKG and notified Dr holguin. Dr ordered nitro 0.4 sublingal tab PRN, got EKG and transferred to chart. Patient CP was not improving, Dr Holguin voalted: reordered trop series and started nitro drip, please volte me when trop comes back, she might need a cath and might need to cancel stress test. Baseline trop came back at 308, Dr notified, stress test canceled and nitro gtt started per orders. As of 06:27 Nitro gtt turned up to 50mcg/min. also ordered dalaudid and it was administered per orders. Possible Cath.
[2023-03-28 06:55] LABS: Glucose Point of Care 186 mg/dL (70-110)
[2023-03-28 07:49] LABS: Partial Thromboplastin Time 54.1 SECONDS (23.9-36.7)
--- NOTE | 2023-03-28 07:57 | P.CONIM_ITS ---
Providers/Reason For Consult 2 Consulting Physician/Specialty*: Cardiovascular medicine Reason for Consult*: Elevated troponin and chest pain Requesting Physician: Hospitalist Attending Physician: Eugene Restrepo MD Primary Care Provider: Lisa Mayberry DO History of Present Illness History of Present Illness Kristan Reddy is a 52 year old female who typically sees Dr. Daniel in the clinic. She moved here about a year ago from [place]. She is a very complex medical and vascular patient. Since she has moved here she has been in the hospital more than she has been out of the hospital. She was in this hospital from February 05 through February 14. She came into the emergency room with chest pain 1 night with tachycardia and a new left bundle branch block. Because of the continued pain and the new left bundle branch block I ended up taking her to the cardiac catheterization laboratory that night. A stent was placed to the [place] LAD. This is a complex situation in that prior to her visit here last month she had seen Dr. Daniel in the clinic and he sent her to Dr. Calvert for consideration of lower extremity angiography. She was deemed too risky and was sent to [facility] in [place] to a vascular surgeon. We do not have any of those records. I did not have any of those records last month when I saw her in the emergency room. Apparently no access was available from the left groin. Difficult access was obtained from the right groin. Multiple vascular angiograms were done of the neck, head and apparently lower extremities. She has severe bilateral lower extremity vascular disease, occluded iliac on the left and subclavian stenosis. I was not aware that she has a subclavian stent until I did her angiogram on the night of 05 February. The stent was patent but a portion of it hangs down into the aorta and caught the catheters trying to go around the aortic arch. She is also had bypass surgery. This was done in [place]. We did not and do not have access to her coronary bypass surgery report. She told me that she has 2 bypasses. On that evening I was only able to find 1 bypass graft which was a saphenous vein graft to the right coronary artery. It was open. I primarily stented her proximal LAD that evening. She did have a circumflex lesion which I did not intervene upon due to its location. I was able to access her right common femoral artery but with great difficulty. Unfortunately, because of the severe lower extremity vascular disease, I had to stick the right common femoral artery fairly high. She suffered a rather large retroperitoneal bleed during that hospitalization which required transfusion. She was tachycardic, hypotensive and anemic for several days. This extended her hospital stay to nearly 2 weeks. She finally went home on February 14. She has a tremendous number of other medical problems including the above- mentioned left subclavian artery stent, hypertension, end-stage renal disease on hemodialysis, peripheral arterial disease with occluded vessels in both legs, carotid vascular disease, aortic insufficiency, dyslipidemia, obesity, transaminitis, diabetes, large ventral hernias which are difficult to deal with when trying to perform angiography, AV fistula, bipolar affect of disorder, chronic respiratory failure, chronic congestive heart failure. She was admitted again 2 nights ago with shortness of breath and evidence of diastolic heart failure. Her potassium was elevated 7.3. Her hemoglobin has been stable around 9. Her blood sugars have been high. Her creatinine was 10 when she arrived. She was dialyzed here in the hospital on Sunday 2 days ago and is scheduled for dialysis today. On Sunday her troponins were elevated 111, 127 and 166. She had several episodes of chest pain last night and her troponins are 308 and 346 today. The third 1 is pending. Her EKG reveals sinus rhythm with a left atrial abnormality, interventricular conduction delay and diffuse ST and T wave changes. The left bundle branch block seen transiently when she came in on 02/05 has resolved. She is still having intermittent episodes of chest pain. She is on IV nitroglycerin and heparin. Review of Systems 2 Narrative: Review of systems is diffusely positive throughout Medications/Allergies Home Medications Medication Instructions Recorded Confirmed Last Taken Type clonidine HCl 0.1 mg tablet 0.1 mg PO PRN PRN Blood Pressure 07/12/20 03/26/23 12/26/22 History losartan 100 mg tablet (Cozaar) 100 mg PO DAILY 07/12/20 03/26/23 03/25/23 History aspirin 81 mg chewable tablet 81 mg PO DAILY 06/19/22 03/26/23 03/25/23 History (Aspirin Childrens) atorvastatin 80 mg tablet 80 mg PO DAILY 06/19/22 03/26/23 03/25/23 History blood-glucose meter,continuous #1 ea 07/19/22 03/27/23 Unknown Rx (Dexcom G6 Stone Engraver) blood-glucose sensor (Dexcom G6 #9 ea 07/19/22 03/27/23 Unknown Rx Sensor device) blood-glucose transmitter (Dexcom #2 ea 07/19/22 03/27/23 Unknown Rx G6 Transmitter device) cilostazol 100 mg tablet 100 mg PO BID #120 tabs 08/22/22 03/26/23 03/25/23 Rx pantoprazole 40 mg tablet,delayed 40 mg PO DAILY 09/20/22 03/26/23 03/25/23 History release trazodone 100 mg tablet 100 mg PO BEDTIME 09/20/22 03/26/23 03/25/23 History blood sugar diagnostic (True #200 ea 11/09/22 03/27/23 Unknown Rx Metrix Glucose Test Strip) pen needle, diabetic 31 gauge x #1,200 ea 11/21/22 03/27/23 Unknown Rx 3/16 (BD Ultra-Fine Mini Pen Needle) buspirone 10 mg tablet 10 mg PO BID 12/27/22 03/26/23 03/25/23 History ranolazine 500 mg tablet,extended 500 mg PO BID #60 tabs 12/28/22 03/26/23 02/02/23 Rx release,12 hr carvedilol 12.5 mg tablet 12.5 mg PO BID 02/06/23 03/26/23 03/25/23 History insulin aspart U-100 100 unit/mL See Rx Instructions .Route .COMPLEX 02/06/23 03/26/23 03/25/23 History (3 mL) subcutaneous pen (Novolog FlexPen U-100 Insulin aspart) lanthanum 1,000 mg oral powder See Rx Instructions .Route .COMPLEX 02/06/23 03/26/23 03/04/23 History packet (Fosrenol) lidocaine-prilocaine 2.5 %-2.5 % See Rx Instructions .Route 02/06/23 03/26/23 03/23/23 History topical cream .COMPLEX PRN 3x week for dialysis nitroglycerin 0.4 mg sublingual 0.4 mg sublingual Q5M PRN Chest 02/06/23 03/26/23 02/05/23 History tablet (Nitrostat) Pain ondansetron HCl 4 mg tablet 4 mg PO Q4H PRN Nausea And Vomiting 1203/26/23 03/02/23 History propranolol 10 mg tablet 10 mg PO BID 02/06/23 03/26/23 03/25/23 History sevelamer carbonate 800 mg tablet See Rx Instructions .Route .COMPLEX 02/06/23 03/26/23 03/25/23 History vitamin B complex and vitamin C 1 cap PO DAILY 02/06/23 03/26/23 03/25/23 History no.20-folic acid 1 mg capsule (Triphrocaps) clopidogrel 75 mg tablet 75 mg PO DAILY #90 tabs 02/21/23 03/26/23 03/25/23 Rx lactulose 10 gram/15 mL (15 mL) 10 g PO DAILY 02/21/23 03/26/23 02/23/23 History oral solution insulin detemir U-100 100 unit/mL 18 unit SUBCUT BID 03/26/23 03/26/23 03/25/23 History (3 mL) subcutaneous pen (Levemir FlexPen) Allergies Allergy/AdvReac Type Severity Reaction Status Date / Time cephalexin Allergy ADR-Vomitin Verified 03/26/23 10:11 g morphine Allergy ADR-Itching Verified 03/26/23 10:11 Penicillins Allergy ALGY-Anaphy Verified 03/26/23 10:11 laxis isosorbide mononitrate AdvReac Severe ADR-Shakine Uncoded 03/26/23 10:11 ss Current Medications Generic Name Dose Route Start Last Admin Trade Name Freq PRN Reason Stop Dose Admin Acetaminophen 650 mg 03/26/23 16:07 03/27/23 04:39 Acetaminophen 325 Mg Tablet PO 650 mg Q6H PRN Administration Mild/Mod Pain Or Temp >/= 101 Hydrocodone Bitart/Acetaminophen 1 tab 03/26/23 18:14 03/28/23 02:32 Hydrocodone-Acetaminophen 5-325 Mg Tablet PO 1 tab Q8H PRN Administration pain Aspirin 81 mg 03/27/23 09:00 03/27/23 09:06 Aspirin 81 Mg Chew Tablet PO 81 mg DAILY J LUIS Administration Atorvastatin Calcium 80 mg 03/27/23 09:00 03/27/23 09:03 Atorvastatin 40 Mg Tablet PO 80 mg DAILY J LUIS Administration Budesonide 0.5 mg 03/26/23 20:00 03/27/23 20:12 Budesonide 0.5 Mg/2 Ml Neb INHALATION 0.5 mg BID.RESPIRATORY J LUIS Administration Buspirone HCl 10 mg 03/27/23 09:00 03/27/23 18:04 Buspirone 10 Mg Tablet PO 10 mg BID J LUIS Administration Carvedilol 12.5 mg 03/26/23 18:15 03/27/23 18:05 Carvedilol 12.5 Mg Tablet PO 12.5 mg BID J LUIS Administration Cilostazol 100 mg 03/27/23 09:00 03/27/23 09:06 Cilostazol 100 Mg Tablet PO 100 mg BID J LUIS Administration Clopidogrel Bisulfate 75 mg 03/27/23 09:00 03/27/23 09:06 Clopidogrel 75 Mg Tablet PO 75 mg DAILY J LUIS Administration Hydromorphone HCl 0.5 mg 03/28/23 04:16 03/28/23 04:37 Hydromorphone 1 Mg/Ml Inj 1 Ml IVP 0.5 mg Q4H PRN Administration PAIN Heparin Sodium/Sodium Chloride 25,000 unit in 500 mls @ 0 mls/hr 03/26/23 15:30 03/28/23 02:53 Heparin Drip IV 14.02 unit/kg/hr .Q0M J LUIS 21.64 mls/hr Titration Protocol Per Protocol Nitroglycerin/Dextrose 50 mg in 250 mls @ 0 mls/hr 03/28/23 02:45 03/28/23 05:37 Nitroglycerin Drip IV 50 mcg/min .Q0M J LUIS 15 mls/hr Titration Protocol Per Protocol Insulin Glargine 18 unit 03/27/23 09:00 03/27/23 18:04 Insulin Glargine 100 Units/1 Ml SUBCUT 18 unit BID J LUIS Administration Insulin Human Lispro 0 unit 03/26/23 21:00 03/27/23 21:42 Insulin Lispro 100 Unit/1 Ml SUBCUT Not Given WM&BEDTIME [facility] Protocol Ipratropium [place] 0.5 mg 03/26/23 20:00 03/28/23 02:04 Ipratropium 0.5 Mg/2.5 Ml Neb INHALATION 0.5 mg Q6H.RESP J LUIS Administration Isosorbide Mononitrate 60 mg 03/27/23 15:50 03/27/23 17:27 Isosorbide Mononitrate Er 60 Mg Tablet PO Not Given DAILY J LUIS Levalbuterol HCl 0.63 mg 03/26/23 20:00 03/28/23 02:04 Levalbuterol 0.63 Mg/3 Ml Neb INHALATION 0.63 mg Q6H.RESP J LUIS Administration Losartan Potassium 100 mg 03/27/23 09:00 03/27/23 09:04 Losartan 50 Mg Tablet PO 100 mg DAILY J LUIS Administration Pantoprazole Sodium 40 mg 03/26/23 16:15 03/27/23 16:25 Pantoprazole 40 Mg Sdv IVP 40 mg Q24H J LUIS Administration Ranolazine 500 mg 03/27/23 09:00 03/27/23 18:04 Ranolazine (12hr) 500 Mg Tablet PO 500 mg BID J LUIS Administration Trazodone HCl 100 mg 03/26/23 21:00 03/27/23 21:33 Trazodone 100 Mg Tablet PO 100 mg BEDTIME J LUIS Administration PFSH Acute 2 PFSH: Medical History (Updated 03/28/23 @ 08:13 by Braeden Palomino MD) Retroperitoneal bleed Transaminitis Hyperkalemia Peripheral arterial occlusive disease Claudication Carotid artery stenosis, asymptomatic Aortic regurgitation Dyslipidemia ESRD (end stage renal disease) Diabetes CAD (coronary artery disease) Benign essential hypertension with target blood pressure below 140/90 Hypertensive emergency Recurrent incisional hernia Atherosclerosis of coronary artery of [place] heart without angina pectoris Obesity (BMI 30-39.9) Aortic valve stenosis Diarrhea HTN (hypertension) Ventral hernia, recurrent Surgical History (Updated 03/28/23 @ 08:13 by Braeden Palomino MD) Hx of CABG Hx of myringotomy Tubal ligation status History of hysterectomy AV fistula H/O hernia repair 12 surgeries Family History Other CAD (coronary artery disease) Chronic kidney disease (CKD) Diabetes Hypertension Social History Smoking and tobacco/nicotine status: former use of tobacco/nicotine Alcohol intake: never Substance/Drug Use: never Household members: family Housing: House Vitals/I&O/Wt Last Vital Signs Temp 97.8 F 03/28/23 00:22 Pulse 87 03/28/23 06:04 Resp 15 03/28/23 06:04 BP 136/78 03/28/23 06:04 Pulse Ox 97 03/28/23 06:04 O2 Del Method Nasal Cannula 03/28/23 02:05 O2 Flow Rate 2 03/28/23 02:05 03/27/23 03/28/23 03/28/23 22:59 06:59 14:59 Intake Total 529.119 / 2000.319 .2025.599 Balance 529.119 / 2000.319 .2025.599 Weight last 48 hrs Weight 177 lb 7 oz Weight 170 lb 3 oz Weight 170 lb 8 oz Weight 170 lb 2 oz Weight 167 lb Physical Exam 2 Narrative: GENERAL: In general she looks much older than her stated age. HEENT: Exam within normal limits. NECK: Supple without jugular vein distention. The carotid upstroke is normal without bruits. BACK: Exam normal. LUNGS: Clear. HEART: Regular rate and rhythm. ABDOMEN: Benign without organomegaly or tenderness. Large ventral hernias EXTREMITIES: No edema. NEUROLOGIC: Exam normal. SKIN: Unremarkable. Data 03/28/23 02:16 03/28/23 02:16 A&P Assessment and plan (1) Hypertensive emergency: (2) Benign essential hypertension with target blood pressure below 140/90: (3) Congestive heart failure: (4) Elevated troponin: (5) End stage renal disease on dialysis: (6) Hyperkalemia: (7) High anion gap metabolic acidosis: (8) COPD with exacerbation: (9) Hypoxic respiratory failure: (10) AV fistula: (11) CAD (coronary artery disease): Qualifiers: Coronary Disease-Associated Artery/Lesion type: bypass graft [place] vs. transplanted heart: [place] heart Associated angina: without angina Qualified Code(s): I25.810 - Atherosclerosis of coronary artery bypass graft(s) without angina pectoris (12) HTN (hypertension): (13) Dyslipidemia: (14) Aortic regurgitation: Qualifiers: Cardiac valve disease etiology: etiology unspecified Qualified Code(s): I35.1 - Nonrheumatic aortic (valve) insufficiency (15) Carotid artery stenosis, asymptomatic: Qualifiers: Laterality: bilateral Qualified Code(s): I65.23 - Occlusion and stenosis of bilateral carotid arteries (16) Claudication: (17) Peripheral arterial occlusive disease: (18) Hx of CABG: (19) Diabetes: Qualifiers: Diabetes mellitus type: type 2 Diabetes mellitus long term acute care registered nurse insulin use: without long term acute care registered nurse use Diabetes mellitus complication status: with kidney complications Diabetes mellitus complication detail: with chronic kidney disease Chronic kidney disease stage: on chronic dialysis Qualified Code(s): E 11.22 - Type 2 diabetes mellitus with diabetic chronic kidney disease; N18.6 - End stage renal disease; Z99.2 - Dependence on renal dialysis (20) Transaminitis: (21) Ventral hernia, recurrent: (22) Retroperitoneal bleed: Plan This is an extremely complex patient and set of problems. I spoke to her and her daughter at length. My desire is to try to treat this lady medically but it more than likely will not be successful. Given her constellation of underlying medical problems, limited vascular access and recent history of a large retroperitoneal bleed after right groin access, I am not comfortable trying to perform another coronary angiogram and graft angiogram on this lady in this hospital. If medical therapy fails, I would recommend she get transferred back to [facility] in [place] where she may need vascular surgery for access and she will be in a place where if she has another retroperitoneal bleed a vascular surgeon would be available. We simply cannot handle another retroperitoneal bleed in a complex patient like this. The only point of access she has is the right groin. Arm access is not going to be helpful given her grafts. I do not know where the second graft is. I assumed that it was either to a circumflex or ramus. There was no evidence of an internal mammary artery graft on the previous angiogram given the lack of patricia in the area. Additionally, it would be essentially impossible to get up to the internal mammary from the groin because of the subclavian stent that hangs down into the aorta. Therefore, if she needs angiography she should be transferred. Consult Attestations 2 Medical Necessity Statement: Hospitalization for multiple medical problems and High Time for a total of 110 minutes, includes reviewing past or interval history, examining/interviewing patient, counseling patient/family/other support, updating patient/family/other support, discussing plan of care with staff, communicating with other healthcare providers, documenting encounter and coordinating care Diagnoses Hypertensive emergency I16.1 Benign essential hypertension with target blood pressure below 140/90 I10 Congestive heart failure I50.9 Elevated troponin R79.89 End stage renal disease on dialysis N18.6; Z99.2 Hyperkalemia E87.5 High anion gap metabolic acidosis E87.29 COPD with exacerbation J44.1 Hypoxic respiratory failure J96.91 AV fistula I77.0 Coronary artery disease involving coronary bypass graft of [place] heart without angina pectoris I25.810 Coronary Disease-Associated Artery/Lesion type: bypass graft [place] vs. transplanted heart: [place] heart Associated angina: without angina HTN (hypertension) I10 Dyslipidemia E78.5 Aortic valve insufficiency, etiology of cardiac valve disease unspecified I35.1 Cardiac valve disease etiology: etiology unspecified Asymptomatic bilateral carotid artery stenosis I65.23 Laterality: bilateral Claudication I73.9 Peripheral arterial occlusive disease I77.9 Hx of CABG Z95.1 Type 2 diabetes mellitus with chronic kidney disease on chronic dialysis, without long-term current use of insulin E11.22; N18.6; Z99.2 Diabetes mellitus type: type 2 Diabetes mellitus half-way insulin use: without half-way use Diabetes mellitus complication status: with kidney complications Diabetes mellitus complication detail: with chronic kidney disease Chronic kidney disease stage: on chronic dialysis Transaminitis R74.01 Ventral hernia, recurrent K43.2 Retroperitoneal bleed R58
[2023-03-28 08:16] LABS: Troponin 5 6HR 342.6 ng/L (0-10); Troponin 5 6HR Delta 34.6 ng/L (0-12)
[2023-03-28] MEDS: budesonide 0.5 mg/2 mL Neb INHALATION ×2 (08:40→20:04)
[2023-03-28] MEDS: clopidogrel 75 mg Tablet PO (09:23)
[2023-03-28] MEDS: ranolazine (12HR) 500 mg Tablet PO ×2 (09:23→17:59)
[2023-03-28] MEDS: carvedilol 12.5 mg Tablet PO ×2 (09:24→17:59)
[2023-03-28] MEDS: aspirin 81 mg Chew Tablet PO (09:24)
[2023-03-28] MEDS: atorvastatin 40 mg Tablet 80 MG PO (09:24)
[2023-03-28] MEDS: losartan 50 mg Tablet 100 MG PO (09:24)
[2023-03-28] MEDS: BuSPIRONE 10 mg Tablet PO ×2 (09:24→17:59)
[2023-03-28] MEDS: insulin lispro 100 unit/1 mL SUBCUT ×2 (09:25→22:05)
--- NOTE | 2023-03-28 10:21 | PC.NURSE ---
Per Dr. Restrepo, the nitro drip is to be stopped and nitro paste applied. We will wean her off the nitro drip and apply the nitro paste. Patient currently complaining of chest pain at 2.
[2023-03-28] MEDS: insulin glargine 100 units/1 mL 18 UNIT SUBCUT (10:35)
--- NOTE | 2023-03-28 11:07 | PC.SOCIAL ---
Pg 2 IMM Explained to pt Pg 2 IMM. No questions voiced. Provided pt a copy. Initialed, dated, & timed a copy & placed in chart.
[2023-03-28] MEDS: heparin 5,000 unit/mL INJ 1 mL IV (12:23)
--- NOTE | 2023-03-28 13:35 | P.PN_ITS ---
Subjective 2 Subjective: Overnight patient had repeat chest pain for which troponin cycle was done and she was started on nitro drip. Today morning seen in cardiac stepdown unit. Patient states chest pain is persisting but slightly better. Denies any nausea, vomiting, headache. Seen with daughter at bedside. Patient otherwise has remained hemodynamically stable and afebrile. States her breathing is stable. Medications: Reviewed: Yes Vitals/I&O/Wt Last Vital Signs Temp 97.8 F 03/28/23 00:22 Pulse 81 03/28/23 11:19 Resp 21 H 03/28/23 12:19 BP 152/61 03/28/23 11:19 Pulse Ox 94 03/28/23 12:19 O2 Del Method Nasal Cannula 03/28/23 08:25 O2 Flow Rate 2 03/28/23 08:25 03/27/23 03/28/23 03/28/23 22:59 06:59 14:59 Intake Total 529.119 / 2000.319 . / 2025.599 124.791 / 124.791 Balance 529.119 / 319 . / 599 124.791 / 124.791 Weight last 48 hrs Weight 80.484 kg Weight 77.196 kg Weight 77.337 kg Physical Exam 2 Narrative: General: No acute distress, AO x3, drowsy, chronically sick appearing HEENT: PERRLA, pupils bilaterally equal and reactive Chest: Normal vesicular breath sounds, with occasional rhonchi and fine crackles present up to bilateral mid chest, equal good air entry bilaterally CVS: S1-S2 regular, tachycardia, ejection systolic murmur at aortic area radiating to carotids 2/6 , no gallops, no rubs Abdomen: Soft, nontender, no organomegaly, bowel sounds present Neuro: No focal deficits, no facial deformity, AO x3, power 5/5 in all limbs Data 03/28/23 02:16 03/28/23 02:16 A&P Assessment and plan (1) Non-ST elevated myocardial infarction (non-STEMI): Troponin cycled again repeated overnight. Delta positive. Appreciate cardiology recommendations. Continue with heparin drip for now. Will plan to continue heparin drip for 24 more hours which will be 72 hours since initiation of medication. Continue with aspirin, Plavix and statin. Switch nitro drip to Nitro-Bid paste. Patient refusing Imdur he has a history of tardive dyskinesia when tried twice in the past. Continue with beta-blockade with carvedilol and Ranexa. Patient continues to have chest pain will need cardiac angiogram though she is not a good candidate for cardiac angiogram at [facility] as per cardiology team as she is at a higher risk of complications with history of retroperitoneal bleed in the past during cardiac catheterization as there is no vascular surgery backup. Discussed in detail with patient and patient daughter at bedside. They verbalized understanding and want to try transfer to [facility] where her outpatient vascular surgeon is. Tried calling [facility] transfer center. As of now they will do not have a bed but will call back if there is a possibility of bed within next 24 hours. (2) Hypoxic respiratory failure: Most likely in setting of congestive heart failure due to fluid overload in setting of diastolic heart failure. Patient does have history of COPD. D-dimer negative, sputum culture pending. COVID-19 PCR and flu negative. Appreciate CT chest results. Ipratropium, Xopenex every 6 hours, Pulmicort twice daily. No need for steroids for now. Oxygen supplementation keeping saturation over 90%. (3) Congestive heart failure: Last echocardiogram within the last 6 months shows a normal EF, grade 2 diastolic dysfunction, moderate aortic valve stenosis with mild pulmonary hypertension. Limited echocardiogram on this admission shows an EF of 45% with mildly increased LA size. Patient has a history of end-stage renal disease. Will need emergent dialysis. Fluid restriction up to 1500 cc. (4) End stage renal disease on dialysis: Nephrology consulted. Usual schedule of dialysis TTS. (5) Hyperkalemia: Resolved. (6) High anion gap metabolic acidosis: Resolved. Present on admission because of renal dysfunction and still setting of end-stage renal disease on dialysis. [ (7) Hypertensive emergency: Goal blood pressure less than 140/90 mmHg. Continue with home dose of Coreg, losartan. Holding off on amlodipine as adding Nitropaste. If needed will add hydralazine or uptitrate nitro. (8) Benign essential hypertension with target blood pressure below 140/90: Plan Type 2 diabetes mellitus: Appreciate recent A1c. Insulin sliding scale at low-dose protocol. Full code Renal dialysis diabetic diet Protonix for PUD prophylaxis Heparin drip will suffice for DVT prophylaxis. Attestations 2 Medical Necessity Statement*: Requires further hospitalization for management of non-ST elevation [place] in a patient with history of CABG post recent PCI for ST elevation [place], end-stage renal disease on hemodialysis Diagnoses Non-ST elevated myocardial infarction (non-STEMI) I21.4 Hypoxic respiratory failure J96.91 Congestive heart failure I50.9 End stage renal disease on dialysis N18.6; Z99.2 Hyperkalemia E87.5 High anion gap metabolic acidosis E87.29 Hypertensive emergency I16.1 Benign essential hypertension with target blood pressure below 140/90 I10
--- NOTE | 2023-03-28 13:39 | P.PN_ITS ---
Subjective 2 Subjective: No new complaints Medications: Reviewed: Yes Vitals/I&O/Wt Last Vital Signs Temp 97.8 F 03/28/23 00:22 Pulse 81 03/28/23 11:19 Resp 21 H 03/28/23 12:19 BP 152/61 03/28/23 11:19 Pulse Ox 94 03/28/23 12:19 O2 Del Method Nasal Cannula 03/28/23 08:25 O2 Flow Rate 2 03/28/23 08:25 03/27/23 03/28/23 03/28/23 22:59 06:59 14:59 Intake Total 529.119 / . / 2025.59 124.791 / 124.791 Balance 529.119 / 319 2025. 124.791 / 124.791 Weight last 48 hrs Weight 80.484 kg Weight 77.196 kg Weight 77.337 kg Physical Exam 2 Narrative: awake alert, on 1 L nasal cannula, no acute distress No pedal edema Data 03/28/23 02:16 03/28/23 02:16 A&P Assessment and plan (1) End stage renal disease on dialysis: Plan 1. end-stage renal disease: MWF schedule as outpatient, now presented with severe hyperkalemia -Status post HD yesterday, next HD today ultrafiltration as tolerated 2. Hyperkalemia: Himproved placed on low potassium diet 3. Shortness of breath due to volume overload, ultrafiltration as tolerated 4. Metabolic acidosis secondary to renal insufficiency, should improve with HD 5. Elevated troponin. Prior history of coronary artery disease with CABG and stents Patient evaluated using audiovisual cart. Time spent 40 minutes Attestations 2 Medical Necessity Statement*: per mediicen team Coding Level of Care Code Acute Code for Chg Fwd Diagnoses End stage renal disease on dialysis N18.6; Z99.2
[2023-03-28] MEDS: epoetin alfa 1000 Unit/0.05 mL (ESRD) 20000 UNIT IVP (14:07)
[2023-03-28 17:21] LABS: Glucose Point of Care 125 mg/dL (70-110)
[2023-03-28] MEDS: heparin, porcine 1,000 unit/mL INJ 10 mL 10000 UNIT INTRACATH (17:50)
[2023-03-28] MEDS: heparin, porcine 1,000 unit/mL INJ 10 mL 1000 UNIT IV (17:51)
--- NOTE | 2023-03-28 18:30 | PC.NURSE ---
Per Dr. Restrepo, patient's heparin drip was stopped 48 hours after starting. Stopped at 1539 on 03/28
[2023-03-28] MEDS: trazodone 100 mg Tablet PO (20:22)
[2023-03-29] VITALS (20 sets, daily range): BP systolic 116–151; BP diastolic 45–82; PULSE 70–86; RESP 12–18; TEMP 36.7–36.8; O2SAT 92–100
[2023-03-29] MEDS: levalbuterol 0.63 mg/3 mL Neb INHALATION ×4 (02:20→20:19)
[2023-03-29] MEDS: ipratropium 0.5 mg/2.5 mL Neb INHALATION ×4 (02:20→20:19)
[2023-03-29] MEDS: HYDROmorphone 1 mg/mL INJ 1 mL 0.5 MG IVP (03:06)
[2023-03-29 04:59] LABS: Basophils % 0.6 %; Eosinophils # 0.3 10^3/uL (0.0-0.8); Eosinophils % 4.4 %; Hematocrit 31.6 % (36-47); Lymphocytes # 1.4 10^3/uL (0.8-4.8); Lymphocytes % 20.7 %; Mean Corpuscular HGB Conc 30.4 g/dL (30-55); Mean Corpuscular Hemoglobin 30.9 pg (27-33); Mean Corpuscular Volume 101.6 fl (85-98); Mean Platelet Volume 10.2 fL (7.4-10.4); Monocytes # 0.6 10^3/uL (0.2-0.9); Monocytes % 8.9 %; Neutrophils # 4.39 10^3/uL (1.8-7.7); Neutrophils % 64.8 %; Nucleated Red Blood Cells # 0.1 /100WBC; Nucleated Red Blood Cells % 0.7 %; Platelet Count 141 10^3/cmm (157-399); Red Blood Count 3.11 10^6/uL (3.85-5.65); Red Cell Distribution Width 16.4 % (12.1-15.1); White Blood Count 6.77 10^3/uL (3.29-11.43)
[2023-03-29 05:21] LABS: Alanine Aminotransferase 19 U/L (0-33); Albumin Level 3.7 g/dL (3.5-5.2); Alkaline Phosphatase 77 U/L (35-105); Aspartate Amino Transferase 17 U/L (0-32); Blood Urea Nitrogen 40 mg/dL (6-20); Calcium 9.7 mg/dL (8.5-10.5); Carbon Dioxide 27 mmol/L (22-29); Chloride 93 mmol/L (98-107); Globulin 2.9 g/dL (1.3-4.6); Glomerular Filtration Rate 6.7 mL/min (90-130); Glucose 155 mg/dL (65-115); Osmolality Calculated 293 mOsm/kg (285-295); Sodium 135 mmol/L (136-145); Total Bilirubin 0.4 mg/dL (0.15-1.2); Total Protein 6.6 g/dL (6.6-8.7)
[2023-03-29 05:24] LABS: Anion Gap 20.3 (5-19); Potassium 5.3 mmol/L (3.5-5.1)
--- NOTE | 2023-03-29 07:26 | PC.NURSE ---
Patients dexcom read 222 at 0630.
--- NOTE | 2023-03-29 07:29 | PC.NURSE ---
Patient BG was 309 per patient dexcom. Per patient sliding scale she was to receive 14 units. Patient refused the 14 units and only wanted 3 units of humalog insulin.
[2023-03-29] MEDS: budesonide 0.5 mg/2 mL Neb INHALATION ×2 (07:54→20:19)
--- NOTE | 2023-03-29 08:07 | P.PN_ITS ---
Subjective 2 Subjective: Yesterday, the nitroglycerin drip was discontinued and she was changed over to a nitroglycerin patch. Her long-acting nitrate by mouth was held because she does not tolerate it very well. Heparin was discontinued. She was continued on Plavix, aspirin and cilostazol. She is also on ranolazine. Her other standard drugs include carvedilol, atorvastatin and losartan. She is a difficult historian at best but when I visited with her this morning she states she still having episodes of chest pain. It is difficult to tell whether she is really having angina or whether this is some other kind of pain. She has such complex underlying medical problems sometimes it is difficult to tell. She did however have an elevated troponin and they she came in and then 2 days later with further chest pain had even higher troponins so clearly there is some cardiac component to this. Vitals/I&O/Wt Last Vital Signs Temp 98.2 F 03/29/23 07:47 Pulse 79 03/29/23 08:03 Resp 16 03/29/23 08:03 BP 128/61 03/29/23 07:47 Pulse Ox 96 03/29/23 08:03 O2 Del Method Nasal Cannula 03/29/23 08:03 O2 Flow Rate 2 03/29/23 08:03 FiO2 2 03/29/23 07:47 03/28/23 03/29/23 03/29/23 22:59 06:59 14:59 Intake Total 1075.30 / 1200.091 Output Total 0 / 0 Balance 1075.30 / 1200.091 Weight last 48 hrs Weight 177 lb 1 oz Weight 177 lb 1 oz Weight 177 lb 7 oz Weight 170 lb 3 oz Physical Exam 2 Narrative: GENERAL: In general she looks older than her stated age and does not appear to feel well HEENT: Exam within normal limits. NECK: Supple without jugular vein distention. The carotid upstroke is normal without bruits. BACK: Exam normal. LUNGS: Clear. HEART: Regular rate and rhythm. ABDOMEN: Benign without organomegaly or tenderness. EXTREMITIES: No edema. NEUROLOGIC: Exam normal. SKIN: Unremarkable. Data 03/29/23 04:16 03/29/23 04:16 A&P Assessment and plan (1) AV fistula: (2) CAD (coronary artery disease): Qualifiers: Coronary Disease-Associated Artery/Lesion type: bypass graft [place] vs. transplanted heart: [place] heart Associated angina: without angina Qualified Code(s): I25.810 - Atherosclerosis of coronary artery bypass graft(s) without angina pectoris (3) HTN (hypertension): (4) Dyslipidemia: (5) Benign essential hypertension with target blood pressure below 140/90: (6) Aortic regurgitation: Qualifiers: Cardiac valve disease etiology: etiology unspecified Qualified Code(s): I35.1 - Nonrheumatic aortic (valve) insufficiency (7) Carotid artery stenosis, asymptomatic: Qualifiers: Laterality: bilateral Qualified Code(s): I65.23 - Occlusion and stenosis of bilateral carotid arteries (8) Claudication: (9) Peripheral arterial occlusive disease: (10) Hx of CABG: (11) Non-ST elevated myocardial infarction (non-STEMI): (12) Congestive heart failure: (13) Elevated troponin: (14) Diabetes: Qualifiers: Diabetes mellitus type: type 2 Diabetes mellitus termination clerk insulin use: without termination clerk use Diabetes mellitus complication status: with kidney complications Diabetes mellitus complication detail: with chronic kidney disease Chronic kidney disease stage: on chronic dialysis Qualified Code(s): E 11.22 - Type 2 diabetes mellitus with diabetic chronic kidney disease; N18.6 - End stage renal disease; Z99.2 - Dependence on renal dialysis (15) Transaminitis: (16) End stage renal disease on dialysis: (17) Hyperkalemia: Plan I had a long discussion with the patient and her daughter. Patient has basically deferred to her daughter to decide what to do. Her daughter is concerned that she continues to have chest pain despite what is maximal medical therapy. Additionally she has had 2 episodes of troponin elevation since arriving here. Her daughter would like further investigation with angiography. She is too high risk here having had a large retroperitoneal bleed when she was here couple months ago. I am not comfortable trying another angiogram without the ability of having backup to handle the multiple potential complications. Therefore, I would recommend she be transferred to [place] back to the hospital where she saw the vascular surgeon last fall. I believe this was [facility] but we should check to be sure. We never did get any of the records. I do not think her chest pain is going to stop with maximal medical therapy and so some kind of investigation will need to take place. Attestations 2 Medical Necessity Statement*: Transfer to higher level of care and High Time for a total of 50 minutes, includes reviewing past or interval history, examining/interviewing patient, counseling patient/family/other support, updating patient/family/other support, communicating with other healthcare providers and documenting encounter Diagnoses AV fistula I77.0 Coronary artery disease involving coronary bypass graft of [place] heart without angina pectoris I25.810 Coronary Disease-Associated Artery/Lesion type: bypass graft [place] vs. transplanted heart: [place] heart Associated angina: without angina HTN (hypertension) I10 Dyslipidemia E78.5 Benign essential hypertension with target blood pressure below 140/90 I10 Aortic valve insufficiency, etiology of cardiac valve disease unspecified I35.1 Cardiac valve disease etiology: etiology unspecified Asymptomatic bilateral carotid artery stenosis I65.23 Laterality: bilateral Claudication I73.9 Peripheral arterial occlusive disease I77.9 Hx of CABG Z95.1 Non-ST elevated myocardial infarction (non-STEMI) I21.4 Congestive heart failure I50.9 Elevated troponin R79.89 Type 2 diabetes mellitus with chronic kidney disease on chronic dialysis, without long-term current use of insulin E11.22; N18.6; Z99.2 Diabetes mellitus type: type 2 Diabetes mellitus snf insulin use: without termination clerk use Diabetes mellitus complication status: with kidney complications Diabetes mellitus complication detail: with chronic kidney disease Chronic kidney disease stage: on chronic dialysis Transaminitis R74.01 End stage renal disease on dialysis N18.6; Z99.2 Hyperkalemia E87.5
[2023-03-29] MEDS: carvedilol 12.5 mg Tablet PO ×2 (09:33→17:51)
[2023-03-29] MEDS: losartan 50 mg Tablet 100 MG PO (09:33)
[2023-03-29] MEDS: BuSPIRONE 10 mg Tablet PO ×2 (09:33→17:51)
[2023-03-29] MEDS: ranolazine (12HR) 500 mg Tablet PO ×2 (09:33→17:51)
[2023-03-29] MEDS: clopidogrel 75 mg Tablet PO (09:33)
[2023-03-29] MEDS: atorvastatin 40 mg Tablet 80 MG PO (09:34)
[2023-03-29] MEDS: insulin lispro 100 unit/1 mL SUBCUT ×2 (09:34→13:32)
[2023-03-29] MEDS: insulin glargine 100 units/1 mL 18 UNIT SUBCUT ×2 (09:34→17:52)
[2023-03-29] MEDS: aspirin 81 mg Chew Tablet PO (09:34)
--- NOTE | 2023-03-29 11:37 | PM.PN ---
Subjective Subjective: No acute events overnight. Patient has remained hemodynamically stable and afebrile. Patient did have soft blood pressures post dialysis yesterday. Today morning she states chest pain is better but still having episodes of on and off chest pains. Denies any nausea or vomiting. Medications: Reviewed: Yes Vitals/I&O/Wt Last Vital Signs Temp 98.2 F 03/29/23 07:47 Pulse 84 03/29/23 10:26 Resp 16 03/29/23 08:03 BP 149/64 03/29/23 10:26 Pulse Ox 96 03/29/23 08:03 O2 Del Method Nasal Cannula 03/29/23 08:03 O2 Flow Rate 2 03/29/23 08:03 FiO2 2 03/29/23 07:47 03/28/23 03/29/23 03/29/23 22:59 06:59 14:59 Intake Total 1075.30 / 1200.091 240 / 240 Output Total 0 / 0 Balance 1075.30 / 1200.091 240 / 240 Weight last 48 hrs Weight 80.314 kg Weight 80.314 kg Weight 80.484 kg Physical Exam Narrative: General: No acute distress, AO x3, drowsy, chronically sick appearing HEENT: PERRLA, pupils bilaterally equal and reactive Chest: Normal vesicular breath sounds, with occasional rhonchi and fine crackles present up to bilateral mid chest, equal good air entry bilaterally CVS: S1-S2 regular, tachycardia, ejection systolic murmur at aortic area radiating to carotids 2/6 , no gallops, no rubs Abdomen: Soft, nontender, no organomegaly, bowel sounds present Neuro: No focal deficits, no facial deformity, AO x3, power 5/5 in all limbs Data 03/29/23 04:16 03/29/23 04:16 A&P Assessment and plan (1) Non-ST elevated myocardial infarction (non-STEMI): Troponin cycled again repeated overnight. Delta positive. Appreciate cardiology recommendations. Continue with heparin drip for now. Will plan to continue heparin drip for 24 more hours which will be 72 hours since initiation of medication. Continue with aspirin, Plavix and statin. Switch nitro drip to Nitro-Bid paste. Patient refusing Imdur he has a history of tardive dyskinesia when tried twice in the past. Continue with beta-blockade with carvedilol and Ranexa. Patient continues to have chest pain will need cardiac angiogram though she is not a good candidate for cardiac angiogram at [facility] as per cardiology team as she is at a higher risk of complications with history of retroperitoneal bleed in the past during cardiac catheterization as there is no vascular surgery backup. Discussed in detail with patient and patient daughter at bedside. They verbalized understanding and want to try transfer to [facility] where her outpatient vascular surgeon is. Tried calling [facility] transfer center. As of now they will do not have a bed but will call back if there is a possibility of bed within next 24 hours. (2) Hypoxic respiratory failure: Most likely in setting of congestive heart failure due to fluid overload in setting of diastolic heart failure. Patient does have history of COPD. D-dimer negative, sputum culture pending. COVID-19 PCR and flu negative. Appreciate CT chest results. Ipratropium, Xopenex every 6 hours, Pulmicort twice daily. No need for steroids for now. Oxygen supplementation keeping saturation over 90%. (3) Congestive heart failure: Last echocardiogram within the last 6 months shows a normal EF, grade 2 diastolic dysfunction, moderate aortic valve stenosis with mild pulmonary hypertension. Limited echocardiogram on this admission shows an EF of 45% with mildly increased LA size. Patient has a history of end-stage renal disease. Will need emergent dialysis. Fluid restriction up to 1500 cc. (4) End stage renal disease on dialysis: Nephrology consulted. Usual schedule of dialysis TTS. (5) Hyperkalemia: Resolved. (6) High anion gap metabolic acidosis: Resolved. Present on admission because of renal dysfunction and still setting of end-stage renal disease on dialysis. [ (7) Hypertensive emergency: Goal blood pressure less than 140/90 mmHg. Continue with home dose of Coreg, losartan. Holding off on amlodipine as adding Nitropaste. If needed will add hydralazine or uptitrate nitro. (8) Benign essential hypertension with target blood pressure below 140/90: Plan Type 2 diabetes mellitus: Appreciate recent A1c. Insulin sliding scale at low-dose protocol. Full code Renal dialysis diabetic diet Protonix for PUD prophylaxis Heparin drip will suffice for DVT prophylaxis. Plan for the day: Continue with Nitropaste. Heparin drip stopped yesterday. Start heparin subcu at prophylactic dose. Continue with aspirin, Plavix, cilostazol, statins, beta-juvenal along with Nitropaste. Repeat trop today For soft blood pressure post dialysis for now we will change the order of losartan to 50 mg on the day of dialysis otherwise continue with home dose of Coreg and losartan. As per cardiology team because of on and off chest pain patient requires cardiac angiogram which unfortunately cannot be done at our facility as cardiology team is not comfortable for an angiogram because of difficult access and history of retroperitoneal bleed in the past during the procedure without vascular backup. Discussed the same with patient again. Unfortunately [facility] where patient gets her usual care does not have a bed. Family does not want to reach out to [facility] but are agreeable to [facility] at [place]. Discussed in detail with [facility] transfer center. They are looking for a bed and will call back if they are able to accept the patient. Attestations Medical Necessity Statement*: Requires further hospitalization for management of non-ST elevation DE as patient requires cardiac angiogram with vascular backup which cannot be done at our facility at while awaiting possible transfer to a tertiary center Diagnoses Non-ST elevated myocardial infarction (non-STEMI) I21.4 Hypoxic respiratory failure J96.91 Congestive heart failure I50.9 End stage renal disease on dialysis N18.6; Z99.2 Hyperkalemia E87.5 High anion gap metabolic acidosis E87.29 Hypertensive emergency I16.1 Benign essential hypertension with target blood pressure below 140/90 I10
[2023-03-29 12:43] LABS: Troponin T (5th) Once 507 ng/L (0-10)
[2023-03-29] MEDS: heparin 5,000 unit/mL INJ 1 mL 5000 UNIT SUBCUT ×2 (13:33→23:37)
[2023-03-29] MEDS: sodium polystyrene sulfonate 15 gm/60 mL Btl 30 GM PO (13:34)
[2023-03-29] MEDS: sodium bicarbonate 1 mEq/mL SDV 50mL 50 MEQ IVP (13:34)
--- NOTE | 2023-03-29 13:42 | P.PN_ITS ---
Subjective 2 Subjective: s/p hD yesterday Medications: Reviewed: Yes Vitals/I&O/Wt Last Vital Signs Temp 98.2 F 03/29/23 12:00 Pulse 86 03/29/23 12:00 Resp 16 03/29/23 12:00 BP 151/78 03/29/23 12:00 Pulse Ox 100 03/29/23 12:00 O2 Del Method Nasal Cannula 03/29/23 12:00 O2 Flow Rate 2 03/29/23 08:03 FiO2 2 03/29/23 12:00 03/28/23 03/29/23 03/29/23 22:59 06:59 14:59 Intake Total 1075.30 / 1200.091 240 / 240 Output Total 0 / 0 Balance 1075.30 / 1200.091 240 / 240 Weight last 48 hrs Weight 80.314 kg Weight 80.314 kg Weight 80.484 kg Physical Exam 2 Narrative: awake alert, on 1 L nasal cannula, no acute distress No pedal edema Data 03/29/23 04:16 03/29/23 04:16 A&P Assessment and plan (1) End stage renal disease on dialysis: Plan 1. end-stage renal disease: MWF schedule as outpatient, now presented with severe hyperkalemia -S/P hd yesterday , next HD tomorrow ultrafiltration as tolerated 2. Hyperkalemia: K 5.3 , ordered kayexylate, low K diet ,repeat K later today, HD in AM 3. Shortness of breath due to volume overload, ultrafiltration as tolerated 4. Metabolic acidosis secondary to renal insufficiency, improve width HD 5. Elevated troponin. Prior history of coronary artery disease with CABG and stents Patient evaluated using audiovisual cart. Time spent 20 minutes Attestations 2 Medical Necessity Statement*: per monserrat Coding Level of Care Code Acute Code for Chg Fwd Diagnoses End stage renal disease on dialysis N18.6; Z99.2
[2023-03-29] MEDS: HYDROcodone-acetaminophen 5-325 mg Tablet 1 TAB PO ×2 (14:01→22:11)
[2023-03-29] MEDS: cilostazol 100 mg Tablet PO (17:51)
[2023-03-29] MEDS: pantoprazole 40 mg SDV IVP (17:51)
[2023-03-29] MEDS: trazodone 100 mg Tablet PO (20:42)
[2023-03-29] MEDS: acetaminophen 325 mg Tablet 650 MG PO (20:59)
--- NOTE | 2023-03-29 21:25 | PC.NURSE ---
patient BG was 168 per personal dexcom. Patient refused sliding scale insulin as of 21:26
--- NOTE | 2023-03-29 23:59 | PC.NURSE ---
Patient stated that if no beds opened up in [facility] or [facility] that she would be ok with going to [facility] in [facility], [place].
[2023-03-30] VITALS (15 sets, daily range): BP systolic 122–200; BP diastolic 52–68; PULSE 74–91; RESP 12–18; TEMP 36.2–37; O2SAT 96–100
[2023-03-30 05:22] LABS: Basophils % 0.5 %; Eosinophils # 0.5 10^3/uL (0.0-0.8); Eosinophils % 7.6 %; Lymphocytes # 1.7 10^3/uL (0.8-4.8); Lymphocytes % 27.2 %; Mean Corpuscular HGB Conc 31.3 g/dL (30-55); Mean Corpuscular Hemoglobin 30.9 pg (27-33); Mean Corpuscular Volume 98.7 fl (85-98); Mean Platelet Volume 10.5 fL (7.4-10.4); Monocytes # 0.5 10^3/uL (0.2-0.9); Monocytes % 8.1 %; Neutrophils # 3.46 10^3/uL (1.8-7.7); Neutrophils % 56.3 %; Nucleated Red Blood Cells % 0.5 %; Platelet Count 148 10^3/cmm (157-399); Red Blood Count 3.04 10^6/uL (3.85-5.65); Red Cell Distribution Width 16.1 % (12.1-15.1); White Blood Count 6.15 10^3/uL (3.29-11.43)
[2023-03-30 05:52] LABS: Alanine Aminotransferase 15 U/L (0-33); Albumin Level 3.4 g/dL (3.5-5.2); Alkaline Phosphatase 71 U/L (35-105); Blood Urea Nitrogen 51 mg/dL (6-20); Calcium 9.2 mg/dL (8.5-10.5); Carbon Dioxide 27 mmol/L (22-29); Chloride 92 mmol/L (98-107); Globulin 2.8 g/dL (1.3-4.6); Glomerular Filtration Rate 5.2 mL/min (90-130); Glucose 123 mg/dL (65-115); Osmolality Calculated 297 mOsm/kg (285-295); Sodium 136 mmol/L (136-145); Total Bilirubin 0.4 mg/dL (0.15-1.2); Total Protein 6.2 g/dL (6.6-8.7)
[2023-03-30 05:54] LABS: Anion Gap 21.9 (5-19); Potassium 4.9 mmol/L (3.5-5.1)
[2023-03-30 05:55] LABS: Aspartate Amino Transferase 16 U/L (0-32)
[2023-03-30] MEDS: HYDROcodone-acetaminophen 5-325 mg Tablet 1 TAB PO ×2 (06:14→18:27)
--- NOTE | 2023-03-30 07:13 | P.PN_ITS ---
Subjective 2 Subjective: There was no bed available at [facility] yesterday so she could not be transferred. She is still having intermittent episodes of chest pain but apparently less so than previously. Her daughter stays in the room constantly. Her daughter told me this morning that she will not take her home like this. Vitals/I&O/Wt Last Vital Signs Temp 98.6 F 03/30/23 04:00 Pulse 80 03/30/23 06:00 Resp 12 03/30/23 04:16 BP 151/58 03/30/23 04:16 Pulse Ox 98 03/30/23 04:16 O2 Del Method Nasal Cannula 03/30/23 04:00 O2 Flow Rate 2 03/30/23 02:39 FiO2 2 03/29/23 16:00 03/29/23 03/30/23 03/30/23 22:59 06:59 14:59 Intake Total 620 / 1100 1000 / 2100 Balance 620 / 1100 1000 / 2100 Weight last 48 hrs Weight 179 lb 11.2 oz Weight 177 lb Weight 177 lb 1 oz Weight 177 lb 1 oz Physical Exam 2 Narrative: GENERAL: In general she is comfortable at rest right now HEENT: Exam within normal limits. NECK: Supple without jugular vein distention. The carotid upstroke is normal without bruits. BACK: Exam normal. LUNGS: Clear. HEART: Regular rate and rhythm. ABDOMEN: Benign without organomegaly or tenderness. Large ventral hernias EXTREMITIES: No edema. NEUROLOGIC: Exam normal. SKIN: Unremarkable. Data 03/30/23 04:50 03/30/23 04:50 A&P Assessment and plan (1) AV fistula: (2) CAD (coronary artery disease): Qualifiers: Coronary Disease-Associated Artery/Lesion type: bypass graft [place] vs. transplanted heart: [place] heart Associated angina: without angina Qualified Code(s): I25.810 - Atherosclerosis of coronary artery bypass graft(s) without angina pectoris (3) HTN (hypertension): (4) Dyslipidemia: (5) Benign essential hypertension with target blood pressure below 140/90: (6) Aortic regurgitation: Qualifiers: Cardiac valve disease etiology: etiology unspecified Qualified Code(s): I35.1 - Nonrheumatic aortic (valve) insufficiency (7) Carotid artery stenosis, asymptomatic: Qualifiers: Laterality: bilateral Qualified Code(s): I65.23 - Occlusion and stenosis of bilateral carotid arteries (8) Claudication: (9) Peripheral arterial occlusive disease: (10) Hx of CABG: (11) Non-ST elevated myocardial infarction (non-STEMI): (12) Congestive heart failure: (13) Elevated troponin: (14) Diabetes: Qualifiers: Diabetes mellitus type: type 2 Diabetes mellitus alf insulin use: without alf use Diabetes mellitus complication status: with kidney complications Diabetes mellitus complication detail: with chronic kidney disease Chronic kidney disease stage: on chronic dialysis Qualified Code(s): E 11.22 - Type 2 diabetes mellitus with diabetic chronic kidney disease; N18.6 - End stage renal disease; Z99.2 - Dependence on renal dialysis (15) Transaminitis: (16) End stage renal disease on dialysis: (17) Hyperkalemia: Plan This is an untenable situation for us here. She is simply too high risk to attempt another angiogram. The only access site is the right groin. The last angiogram caused a large retroperitoneal bleed. Her daughter told me this morning that her second choice would be [place] and her third choice would be [place]. We will await transfer. Attestations 2 Medical Necessity Statement*: Transfer to a higher level of care and Moderate Time for a total of 30 minutes, includes reviewing past or interval history, examining/interviewing patient, counseling patient/family/other support, updating patient/family/other support and documenting encounter Diagnoses AV fistula I77.0 Coronary artery disease involving coronary bypass graft of [place] heart without angina pectoris I25.810 Coronary Disease-Associated Artery/Lesion type: bypass graft [place] vs. transplanted heart: [place] heart Associated angina: without angina HTN (hypertension) I10 Dyslipidemia E78.5 Benign essential hypertension with target blood pressure below 140/90 I10 Aortic valve insufficiency, etiology of cardiac valve disease unspecified I35.1 Cardiac valve disease etiology: etiology unspecified Asymptomatic bilateral carotid artery stenosis I65.23 Laterality: bilateral Claudication I73.9 Peripheral arterial occlusive disease I77.9 Hx of CABG Z95.1 Non-ST elevated myocardial infarction (non-STEMI) I21.4 Congestive heart failure I50.9 Elevated troponin R79.89 Type 2 diabetes mellitus with chronic kidney disease on chronic dialysis, without long-term current use of insulin E11.22; N18.6; Z99.2 Diabetes mellitus type: type 2 Diabetes mellitus alf insulin use: without exterminator helper termite use Diabetes mellitus complication status: with kidney complications Diabetes mellitus complication detail: with chronic kidney disease Chronic kidney disease stage: on chronic dialysis Transaminitis R74.01 End stage renal disease on dialysis N18.6; Z99.2 Hyperkalemia E87.5
--- NOTE | 2023-03-30 08:00 | PC.NURSE ---
In Dialysis unit for HD session.
--- NOTE | 2023-03-30 11:48 | PC.SOCIAL ---
IMM Updated Updated pt on IMM. No questions voiced. Provided pt a copy. Initialed, dated, & timed copy in chart.
[2023-03-30] MEDS: cilostazol 100 mg Tablet PO ×2 (12:01→17:10)
[2023-03-30] MEDS: BuSPIRONE 10 mg Tablet PO ×2 (12:01→17:10)
[2023-03-30] MEDS: clopidogrel 75 mg Tablet PO (12:01)
[2023-03-30] MEDS: aspirin 81 mg Chew Tablet PO (12:02)
[2023-03-30] MEDS: ranolazine (12HR) 500 mg Tablet PO ×2 (12:02→17:10)
[2023-03-30] MEDS: carvedilol 12.5 mg Tablet PO ×2 (12:02→17:10)
[2023-03-30] MEDS: atorvastatin 40 mg Tablet 80 MG PO (12:02)
[2023-03-30] MEDS: losartan 50 mg Tablet 100 MG PO (12:02)
[2023-03-30 12:03] LABS: Glucose Point of Care 106 mg/dL (70-110)
[2023-03-30] MEDS: insulin glargine 100 units/1 mL 18 UNIT SUBCUT ×2 (12:07→18:23)
--- NOTE | 2023-03-30 12:47 | PC.HD ---
Per patient's request, loading and maintenance doses of heparin were not administered, as patient states she tends to bleed a lot when receiving heparin during dialysis. This RN had to hold firm pressure on venous access for over 10 minutes due to bleeding.
[2023-03-30] MEDS: heparin 5,000 unit/mL INJ 1 mL 5000 UNIT SUBCUT ×2 (13:39→23:57)
[2023-03-30] MEDS: levalbuterol 0.63 mg/3 mL Neb INHALATION ×2 (14:23→19:48)
[2023-03-30] MEDS: ipratropium 0.5 mg/2.5 mL Neb INHALATION ×2 (14:23→19:48)
--- NOTE | 2023-03-30 15:37 | P.PN_ITS ---
Subjective 2 Subjective: hd today Medications: Reviewed: Yes Vitals/I&O/Wt Last Vital Signs Temp 97.2 F L 03/30/23 12:46 Pulse 85 03/30/23 14:35 Resp 18 03/30/23 14:00 BP 168/61 03/30/23 12:46 Pulse Ox 99 03/30/23 14:00 O2 Del Method Nasal Cannula 03/30/23 14:00 O2 Flow Rate 2 03/30/23 14:00 FiO2 2 03/29/23 16:00 03/30/23 03/30/23 03/30/23 06:59 14:59 22:59 Intake Total 1000 / 2100 300 / 300 Output Total 3300 / 3300 Balance 1000 / 2100 -3000 / -3000 Weight last 48 hrs Weight 78.2 kg Weight 81.511 kg Weight 80.286 kg Weight 80.314 kg Weight 80.314 kg Physical Exam 2 Narrative: awake alert, on 1 L nasal cannula, no acute distress No pedal edema Data 03/30/23 04:50 03/30/23 04:50 A&P Assessment and plan (1) End stage renal disease on dialysis: Plan 1. end-stage renal disease: MWF schedule as outpatient, now presented with severe hyperkalemia -S/P hd yesterday , next HD today ultrafiltration as tolerated 2. Hyperkalemia: improved 3. Shortness of breath due to volume overload, ultrafiltration as tolerated 4. Metabolic acidosis secondary to renal insufficiency, improve width HD 5. Elevated troponin. Prior history of coronary artery disease with CABG and stents Patient evaluated using audiovisual cart. Time spent 20 minutes Attestations 2 Medical Necessity Statement*: per monserrat Coding Level of Care Code Acute Code for Chg Fwd Diagnoses End stage renal disease on dialysis N18.6; Z99.2
[2023-03-30 16:58] LABS: Glucose Point of Care 209 mg/dL (70-110)
[2023-03-30] MEDS: pantoprazole 40 mg SDV IVP (17:09)
--- NOTE | 2023-03-30 17:21 | P.PN_ITS ---
Subjective 2 Subjective: Today morning seen in the dialysis. No acute events overnight other than on and off occasional chest pressure and heaviness. Patient denies any nausea, vomiting, headache. Breathing is at baseline. Medications: Reviewed: Yes Vitals/I&O/Wt Last Vital Signs Temp 98.0 F 03/30/23 16:00 Pulse 80 03/30/23 16:00 Resp 14 03/30/23 16:00 BP 123/57 03/30/23 16:00 Pulse Ox 100 03/30/23 16:00 O2 Del Method Nasal Cannula 03/30/23 16:00 O2 Flow Rate 2 03/30/23 14:00 FiO2 2 03/29/23 16:00 03/30/23 03/30/23 03/30/23 06:59 14:59 22:59 Intake Total 1000 / 2100 300 / 300 Output Total 3300 / 3300 Balance 1000 / 2100 -3000 / -3000 Weight last 48 hrs Weight 78.2 kg Weight 78.471 kg Weight 81.511 kg Weight 80.286 kg Weight 80.314 kg Weight 80.314 kg Physical Exam 2 Narrative: General: No acute distress, AO x3, chronically sick appearing HEENT: PERRLA, pupils bilaterally equal and reactive Chest: Normal vesicular breath sounds, with occasional rhonchi and fine crackles present up to bilateral mid chest, equal good air entry bilaterally CVS: S1-S2 regular, tachycardia, ejection systolic murmur at aortic area radiating to carotids 2/6 , no gallops, no rubs Abdomen: Soft, nontender, no organomegaly, bowel sounds present Neuro: No focal deficits, no facial deformity, AO x3, power 5/5 in all limbs Data 03/30/23 04:50 03/30/23 04:50 A&P Assessment and plan (1) Non-ST elevated myocardial infarction (non-STEMI): Troponin cycled again repeated overnight. Delta positive. Appreciate cardiology recommendations. Continue with heparin drip for now. Will plan to continue heparin drip for 24 more hours which will be 72 hours since initiation of medication. Continue with aspirin, Plavix and statin. Switch nitro drip to Nitro-Bid paste. Patient refusing Imdur he has a history of tardive dyskinesia when tried twice in the past. Continue with beta-blockade with carvedilol and Ranexa. Patient continues to have chest pain will need cardiac angiogram though she is not a good candidate for cardiac angiogram at [facility] as per cardiology team as she is at a higher risk of complications with history of retroperitoneal bleed in the past during cardiac catheterization as there is no vascular surgery backup. Discussed in detail with patient and patient daughter at bedside. They verbalized understanding and want to try transfer to [facility] where her outpatient vascular surgeon is. Tried calling [facility] transfer center. As of now they will do not have a bed but will call back if there is a possibility of bed within next 24 hours. (2) Hypoxic respiratory failure: Most likely in setting of congestive heart failure due to fluid overload in setting of diastolic heart failure. Patient does have history of COPD. D-dimer negative, sputum culture pending. COVID-19 PCR and flu negative. Appreciate CT chest results. Ipratropium, Xopenex every 6 hours, Pulmicort twice daily. No need for steroids for now. Oxygen supplementation keeping saturation over 90%. (3) Congestive heart failure: Last echocardiogram within the last 6 months shows a normal EF, grade 2 diastolic dysfunction, moderate aortic valve stenosis with mild pulmonary hypertension. Limited echocardiogram on this admission shows an EF of 45% with mildly increased LA size. Patient has a history of end-stage renal disease. Will need emergent dialysis. Fluid restriction up to 1500 cc. (4) End stage renal disease on dialysis: Nephrology consulted. Usual schedule of dialysis TTS. (5) Hyperkalemia: Resolved. (6) High anion gap metabolic acidosis: Resolved. Present on admission because of renal dysfunction and still setting of end-stage renal disease on dialysis. [ (7) Hypertensive emergency: Goal blood pressure less than 140/90 mmHg. Continue with home dose of Coreg, losartan. Holding off on amlodipine as adding Nitropaste. If needed will add hydralazine or uptitrate nitro. (8) Benign essential hypertension with target blood pressure below 140/90: Plan Type 2 diabetes mellitus: Appreciate recent A1c. Insulin sliding scale at low-dose protocol. Full code Renal dialysis diabetic diet Protonix for PUD prophylaxis Heparin drip will suffice for DVT prophylaxis. Plan for the day: Continue with Nitropaste. Heparin drip stopped after 72 hrs of treatment. Continues to have on and off chest pains. Continue with aspirin, Plavix, cilostazol, statins, beta-juvenal along with Nitropaste. Repeat trop at 507. Still has on and off chest pain both at rest and on exertion. BP better controlled. Most likely will have to hold off on losartan on the day of dialysis but continue with Coreg. Appreciate Cardiology recs. Patient would benefit with cardiac cath and needs transfer for same. Multiple phone calls made to different tertiary centers in the area for potential transfer. NO beds at [facility]. She was accepted both at [facility] by Dr. Zepeda(Scientist Propagator) and by Dr. Ang at [facility] though she is on a wait list. Attestations 2 Medical Necessity Statement*: Requires further hospitalization for management of non-ST elevation WI requiring cardiac angiogram with vascular for which she is awaiting transfer to a tertiary center Diagnoses Non-ST elevated myocardial infarction (non-STEMI) I21.4 Hypoxic respiratory failure J96.91 Congestive heart failure I50.9 End stage renal disease on dialysis N18.6; Z99.2 Hyperkalemia E87.5 High anion gap metabolic acidosis E87.29 Hypertensive emergency I16.1 Benign essential hypertension with target blood pressure below 140/90 I10
[2023-03-30] MEDS: insulin lispro 100 unit/1 mL SUBCUT ×2 (18:23→21:45)
[2023-03-30] MEDS: budesonide 0.5 mg/2 mL Neb INHALATION (19:48)
--- NOTE | 2023-03-30 21:43 | PC.NURSE ---
patient requesting only half dose of insulin per sliding scale. doc ok'd, half dose administered
[2023-03-30] MEDS: trazodone 100 mg Tablet PO (21:45)
[2023-03-31] VITALS (9 sets, daily range): BP systolic 96–160; BP diastolic 48–80; PULSE 76–88; RESP 13–20; TEMP 36.4–36.9; O2SAT 97–100; BMI 38.1
[2023-03-31] MEDS: ipratropium 0.5 mg/2.5 mL Neb INHALATION (07:40)
[2023-03-31] MEDS: budesonide 0.5 mg/2 mL Neb INHALATION (07:40)
[2023-03-31] MEDS: levalbuterol 0.63 mg/3 mL Neb INHALATION (07:40)
[2023-03-31] MEDS: carvedilol 12.5 mg Tablet PO (08:34)
[2023-03-31] MEDS: insulin glargine 100 units/1 mL 18 UNIT SUBCUT (08:34)
[2023-03-31] MEDS: aspirin 81 mg Chew Tablet PO (08:34)
[2023-03-31] MEDS: cilostazol 100 mg Tablet PO (08:34)
[2023-03-31] MEDS: clopidogrel 75 mg Tablet PO (08:35)
[2023-03-31] MEDS: atorvastatin 40 mg Tablet 80 MG PO (08:35)
[2023-03-31] MEDS: BuSPIRONE 10 mg Tablet PO (08:35)
[2023-03-31] MEDS: ranolazine (12HR) 500 mg Tablet PO (08:35)
[2023-03-31] MEDS: HYDROcodone-acetaminophen 5-325 mg Tablet 1 TAB PO (08:43)
--- NOTE | 2023-03-31 08:47 | PM.PN ---
Vitals/I&O/Wt Last Vital Signs Temp 97.9 F 03/31/23 07:14 Pulse 87 03/31/23 07:50 Resp 20 H 03/31/23 07:40 BP 96/61 03/31/23 07:12 Pulse Ox 100 03/31/23 07:40 O2 Del Method Nasal Cannula 03/31/23 07:40 O2 Flow Rate 2 03/31/23 07:40 FiO2 2 03/29/23 16:00 03/30/23 03/31/23 03/31/23 22:59 06:59 14:59 Intake Total 420 / 720 100 / 820 Balance 420 / -2580 100 / -2480 Weight last 48 hrs Weight 79.878 kg Weight 78.2 kg Weight 78.018 kg Weight 78.471 kg Weight 81.511 kg Weight 80.286 kg Data 03/30/23 04:50 03/30/23 04:50 Coding Level of Care Code Acute Code for [facility] Fwfelicity
[2023-03-31] MEDS: heparin 5,000 unit/mL INJ 1 mL 5000 UNIT SUBCUT (10:51)
--- NOTE | 2023-03-31 11:39 | P.PN_ITS ---
Subjective 2 Subjective: Cardiology coverage Patient with atherosclerotic heart diseas, recent PCI, multiple comorbidities, he is presenting with unstable anginal symptoms. Patient apparently is at high risk for any interventional procedures. Difficult vascular access. She is awaiting transfer to the care facility where complex procedures can be performed. Patient continues to have some chest tightness/heaviness. Symptoms are more or less stable. She also is having lot of back pains. She is remaining afebrile. The blood pressure has been fluctuating. No cough or shortness of breath. Medications: Medication Review Details: Current Medications Acetaminophen (Acetaminophen 325 Mg Tablet) 650 mg PO Q6H PRN PRN Reason: Mild/Mod Pain Or Temp >/= 101 Last Admin: 03/29/23 20:59 Dose: 650 mg Hydrocodone Bitart/Acetaminophen (Hydrocodone-Acetaminophen 5-325 Mg Tablet) 1 tab PO Q8H PRN PRN Reason: pain Last Admin: 03/31/23 08:43 Dose: 1 tab Aspirin (Aspirin 81 Mg Chew Tablet) 81 mg PO DAILY J LUIS Last Admin: 03/31/23 08:34 Dose: 81 mg Atorvastatin Calcium (Atorvastatin 40 Mg Tablet) 80 mg PO DAILY [facility] Last Admin: 03/31/23 08:35 Dose: 80 mg Bisacodyl (Bisacodyl 5 Mg Tablet) 10 mg PO DAILY PRN; Protocol PRN Reason: Constipation (see protocol) Budesonide (Budesonide 0.5 Mg/2 Ml Neb) 0.5 mg INHALATION BID.RESPIRATORY [facility] Last Admin: 03/31/23 07:40 Dose: 0.5 mg Buspirone HCl (Buspirone 10 Mg Tablet) 10 mg PO BID J LUIS Last Admin: 03/31/23 08:35 Dose: 10 mg Carvedilol (Carvedilol 12.5 Mg Tablet) 12.5 mg PO BID J LUIS Last Admin: 03/31/23 08:34 Dose: 12.5 mg Cilostazol (Cilostazol 100 Mg Tablet) 100 mg PO BID [facility] Last Admin: 03/31/23 08:34 Dose: 100 mg Clonidine HCl (Clonidine 0.1 Mg Tablet) 0.1 mg PO PRN PRN PRN Reason: Blood Pressure Clopidogrel Bisulfate (Clopidogrel 75 Mg Tablet) 75 mg PO DAILY [facility] Last Admin: 03/31/23 08:35 Dose: 75 mg Dextrose (Dextrose 50% Syringe 50 Ml) 25 ml IVP ONCE PRN; Protocol PRN Reason: hypoglycemia protocol Dextrose (Dextrose 50% Syringe 50 Ml) 50 ml IVP PRN PRN; Protocol PRN Reason: hypoglycemia protocol Heparin Sodium (Porcine) (Heparin 5,000 Unit/Ml Inj 1 Ml) 5,000 unit SUBCUT Q12H J LUIS Last Admin: 03/31/23 10:51 Dose: 5,000 unit Dextrose (D5w) 500 mls @ 0 mls/hr IV ONCE PRN; Protocol PRN Reason: Adult Acute Hypoglycemia Prot Sodium Chloride (Sodium Chloride 0.9%) 1,000 mls @ 0 mls/hr IV .Q0M PRN PRN Reason: hypotension or symptomatic Albumin Human (Albumin) 12.5 gm in 50 mls @ 60 mls/hr IV PRN PRN PRN Reason: Hypotension and/or symptomatic Insulin Glargine (Insulin Glargine 100 Units/1 Ml) 18 unit SUBCUT BID [facility] Last Admin: 03/31/23 08:34 Dose: 18 unit Insulin Human Lispro (Insulin Lispro 100 Unit/1 Ml) 0 unit SUBCUT WM&BEDTIME J LUIS; Protocol Last Admin: 03/31/23 08:33 Dose: Not Given Ipratropium [place] (Ipratropium 0.5 Mg/2.5 Ml Neb) 0.5 mg INHALATION BID.RESPIRATORY J LUIS Last Admin: 03/31/23 07:40 Dose: 0.5 mg Lactulose (Lactulose Oral Liq 20 Gm/30 Ml Udc) 10 gm PO DAILY PRN; Protocol PRN Reason: Constipation (see protocol) Levalbuterol HCl (Levalbuterol 0.63 Mg/3 Ml Neb) 0.63 mg INHALATION Q6H.RESP J LUIS Last Admin: 03/31/23 07:40 Dose: 0.63 mg Losartan Potassium (Losartan 50 Mg Tablet) 100 mg PO DAILY J LUIS Last Admin: 03/30/23 12:02 Dose: 100 mg Magnesium Hydroxide (Magnesium Hydroxide 30 Ml Udc) 30 ml PO DAILY PRN; Protocol PRN Reason: Constipation (see protocol) Nitroglycerin (Nitroglycerin 0.4 Mg Sublingual Tablet) 0.4 mg SUBLINGUAL Q5M PRN PRN Reason: CHEST PAIN Nitroglycerin (Nitroglycerin 0.1 Mg Patch) 1 patch TRANSDERMA Q24H J LUIS Last Admin: 03/31/23 10:49 Dose: 1 patch Ondansetron HCl (Ondansetron 2 Mg/Ml Sdv 2 Ml) 4 mg IVP Q8H PRN PRN Reason: vomiting, or N/V if npo Pantoprazole Sodium (Pantoprazole 40 Mg Sdv) 40 mg IVP Q24H [facility] Last Admin: 03/30/23 17:09 Dose: 40 mg Ranolazine (Ranolazine (12hr) 500 Mg Tablet) 500 mg PO BID [facility] Last Admin: 03/31/23 08:35 Dose: 500 mg Trazodone HCl (Trazodone 100 Mg Tablet) 100 mg PO BEDTIME [facility] Last Admin: 03/30/23 21:45 Dose: 100 mg Vitals/I&O/Wt Last Vital Signs Temp 97.9 F 03/31/23 07:14 Pulse 79 03/31/23 10:49 Resp 20 H 03/31/23 07:40 BP 160/56 03/31/23 10:49 Pulse Ox 100 03/31/23 07:40 O2 Del Method Nasal Cannula 03/31/23 07:40 O2 Flow Rate 2 03/31/23 07:40 FiO2 2 03/29/23 16:00 03/30/23 03/31/23 03/31/23 22:59 06:59 14:59 Intake Total 420 / 720 100 / 820 240 / 240 Balance 420 / -2580 100 / -2480 240 / 240 Weight last 48 hrs Weight 176 lb 1.6 oz Weight 176 lb 1.6 oz Weight 172 lb 6.424 oz Weight 172 lb Weight 173 lb Weight 179 lb 11.2 oz Physical Exam 2 Narrative: GENERAL: The patient is alert and oriented times three. Not in any acute distress. HEENT: No significant pallor, icterus or lymphadenopathy.Oral cavity: There are no mucous membrane lesions. NECK: Trachea appears to be central. No masses noted. No JVD or thyromegaly appreciated. RESPIRATORY: Chest is symmetrical. No intercostals muscle retraction or any accessory muscle activation. There is no chest wall tenderness. Breath sounds are heard bilaterally. No rales or rhonchi heard. No evidence of any consolidation. BREASTS: Deferred. HEART: The heart sounds are normal. No S3 or S4. Short systolic murmur in the left upper border. No diastolic murmurs.. No pericardial rub ABDOMEN: No vessel pulsations or distention. No tenderness. No organomegaly appreciated. Bowel sounds are normally heard. : Deferred. RECTAL: Deferred. LYMPHATIC: No lymphadenopathy noted in the neck. EXTREMITIES: No edema or cyanosis. No clubbing. MUSCULOSKELETAL: No acute joint deformities or swelling SKIN: There are no significant rashes or ecchymosis NEUROPSYCHIATRIC: The patient is alert and oriented x3. No focal motor deficits Data 03/30/23 04:50 03/30/23 04:50 Other Labs: Laboratory Last Values WBC 6.15 10^3/uL (3.29-11.43) 03/30/23 04:50 RBC 3.04 10^6/uL (3.85-5.65) L 03/30/23 04:50 Hgb 9.40 g/dL (11.27-16.99) L 03/30/23 04:50 Hct 30.0 % (36-47) L 03/30/23 04:50 MCV 98.7 fl (85-98) H 03/30/23 04:50 MCH 30.9 pg (27-33) 03/30/23 04:50 MCHC 31.3 g/dL (30-55) 03/30/23 04:50 RDW 16.1 % (12.1-15.1) H 03/30/23 04:50 Plt Count 148 10^3/cmm (157-399) L 03/30/23 04:50 MPV 10.5 fL (7.4-10.4) H 03/30/23 04:50 Neut % (Auto) 56.3 % 03/30/23 04:50 Lymph % (Auto) 27.2 % 03/30/23 04:50 [place] % (Auto) 8.1 % 03/30/23 04:50 Eos % (Auto) 7.6 % 03/30/23 04:50 Baso % (Auto) 0.5 % 03/30/23 04:50 Neut # (Auto) 3.46 10^3/uL (1.8-7.7) 03/30/23 04:50 Lymph # (Auto) 1.7 10^3/uL (0.8-4.8) 03/30/23 04:50 [place] # (Auto) 0.5 10^3/uL (0.2-0.9) 03/30/23 04:50 Eos # (Auto) 0.5 10^3/uL (0.0-0.8) 03/30/23 04:50 Baso # (Auto) 0.0 10^3/uL (0.0-0.1) 03/30/23 04:50 Nucleated RBC % (auto) 0.5 % 03/30/23 04:50 Nucleated RBCs # 0.0 /100WBC 03/30/23 04:50 APTT 54.1 SECONDS (23.9-36.7) H D 03/28/23 07:22 D-Dimer 0.94 ug/mLFEU (0-0.59) H 03/26/23 16:54 Specimen Type Arterial 03/26/23 10:33 Sample Site Brachial, right 03/26/23 10:33 ABG pH 7.34 (7.35-7.45) L 03/26/23 10:33 ABG pCO2 41.5 mmHg (35-45) 03/26/23 10:33 ABG pO2 81.1 mmHg (80.0-100.0) 03/26/23 10:33 ABG PO2/FiO2 Ratio 0 03/26/23 10:33 ABG HCO3 22.1 mmol/L (22-26) 03/26/23 10:33 ABG O2 Saturation 93.2 03/26/23 10:33 ABG Base Excess -3.5 mmol/L (-2.0-2.0) L 03/26/23 10:33 Henrry Test N/a 03/26/23 10:33 A-a O2 Gradient 12.7 mmHg (5-10) H 03/26/23 10:33 Hematocrit 35.2 % (37-47) L 03/26/23 10:33 Hgb O2 Saturation 92.5 % (95-100) L 03/26/23 10:33 Carboxyhemoglobin 0.2 %THgb (0.4-20.1) L 03/26/23 10:33 Methemoglobin 0.6 % (0.4-1.5) 03/26/23 10:33 Total Hemoglobin 11.5 g/dL (12-16) L 03/26/23 10:33 Sodium 134.0 mmol/L (131-143) 03/26/23 10:33 Potassium 7.3 mmol/L (3.5-5.0) H 03/26/23 10:33 Glucose 306.0 mg/dL (70-115) H 03/26/23 10:33 Ionized Calcium 1.1 mmol/L (1.1-1.4) 03/26/23 10:33 O2 Delivery Device Nc 03/26/23 10:33 O2 Liters/Min 3.0 % 03/26/23 10:33 FiO2 32.0 % 03/26/23 10:33 Canvas Worker Apprentice ID glc 03/26/23 10:33 Sodium 136 mmol/L (136-145) 03/30/23 04:50 Potassium 4.9 mmol/L (3.5-5.1) 03/30/23 04:50 Chloride 92 mmol/L (98-107) L 03/30/23 04:50 Carbon Dioxide 27 mmol/L (22-29) 03/30/23 04:50 Anion Gap 21.9 (5-19) H 03/30/23 04:50 BUN 51 mg/dL (6-20) H 03/30/23 04:50 Creatinine 8.1 mg/dL (0.5-0.9) H* 03/30/23 04:50 GFR Calculation 5.2 mL/min (90-130) L 03/30/23 04:50 Glucose 123 mg/dL (65-115) H 03/30/23 04:50 POC Glucose 209 mg/dL (70-110) H 03/30/23 16:44 Calculated Osmolality 297 mOsm/kg (285-295) H 03/30/23 04:50 Calcium 9.2 mg/dL (8.5-10.5) 03/30/23 04:50 Phosphorus 7.2 mg/dL (2.5-4.5) H 03/27/23 04:25 Magnesium 2.3 mg/dL (1.7-2.3) 03/27/23 04:25 Total Bilirubin 0.4 mg/dL (0.15-1.2) 03/30/23 04:50 AST 16 U/L (0-32) 03/30/23 04:50 ALT 15 U/L (0-33) 03/30/23 04:50 Alkaline Phosphatase 71 U/L (35-105) 03/30/23 04:50 Troponin T 5th Gen ng/L 507 ng/L (0-10) H* 03/29/23 04:16 Troponin T Baseline 308 ng/L (0-10) H* 03/28/23 02:16 Troponin T 120 Minute 346.4 ng/L (0-10) H 03/28/23 04:18 Delta Troponin T 38.4 ABS# (0-10) H* 03/28/23 04:18 Troponin T Hi Sens 6Hr 342.6 ng/L (0-10) H 03/28/23 07:22 Troponin T Hi Sens 6Hr Delta 34.6 ng/L (0-12) H* 03/28/23 07:22 Total Protein 6.2 g/dL (6.6-8.7) L 03/30/23 04:50 Albumin 3.4 g/dL (3.5-5.2) L 03/30/23 04:50 Globulin 2.8 g/dL (1.3-4.6) 03/30/23 04:50 Coronavirus 229E (PCR) Not detected (NOT DETECT) 03/26/23 10:57 Influenza Type A Ag negative (Negative) 03/26/23 10:57 Influenza Type B Ag negative (Negative) 03/26/23 10:57 SARS-CoV-2 (PCR) Not detected (NOT DETECT) 03/26/23 10:57 A&P Assessment and plan (1) Atherosclerotic heart disease of [place] coronary artery with unstable angina pectoris: The patient is multiple antianginal medications. She seems to have persistent chest pain. No significant worsening since the hospital admission. Qualifiers: [place] vs. transplanted heart: [place] heart Qualified Code(s): I25.110 - Atherosclerotic heart disease of [place] coronary artery with unstable angina pectoris (2) Benign essential hypertension with target blood pressure below 140/90: Currently the blood pressure stage II. Will continue to optimize her antihypertensive medications. (3) Carotid artery stenosis, asymptomatic: Patient has 76% stenosis in the left ICA and 30% stenosis in the right ICA, based on the CT of the neck. He also has 50% in-stent stenosis in the left subclavian artery. Currently he is stable and asymptomatic. Qualifiers: Laterality: bilateral Qualified Code(s): I65.23 - Occlusion and stenosis of bilateral carotid arteries (4) Peripheral arterial occlusive disease: Status post multiple interventions at the [facility]. Details are not available. (5) Dyslipidemia: May continue on the current medications. (6) Diabetes: The blood sugar remains uncontrolled. Aggressive management would be appropriate Qualifiers: Diabetes mellitus type: type 2 Diabetes mellitus correction insulin use: without correction use Diabetes mellitus complication status: with kidney complications Diabetes mellitus complication detail: with chronic kidney disease Chronic kidney disease stage: on chronic dialysis Qualified Code(s): E 11.22 - Type 2 diabetes mellitus with diabetic chronic kidney disease; N18.6 - End stage renal disease; Z99.2 - Dependence on renal dialysis (7) End stage renal disease on dialysis: Patient is on hemodialysis. Management as per the nephrology service Plan Since the symptoms are fairly stable, may continue on the current medications. Awaiting transfer . Attestations 2 Medical Necessity Statement*: Disposition as per the primary Coding Level of Care Code Acute Code for [facility] Diagnoses Atherosclerosis of [place] coronary artery of [place] heart with unstable angina pectoris I25.110 [place] vs. transplanted heart: [place] heart Benign essential hypertension with target blood pressure below 140/90 I10 Asymptomatic bilateral carotid artery stenosis I65.23 Laterality: bilateral Peripheral arterial occlusive disease I77.9 Dyslipidemia E78.5 Type 2 diabetes mellitus with chronic kidney disease on chronic dialysis, without long-term current use of insulin E11.22; N18.6; Z99.2 Diabetes mellitus type: type 2 Diabetes mellitus electric range assembler insulin use: without electric range assembler use Diabetes mellitus complication status: with kidney complications Diabetes mellitus complication detail: with chronic kidney disease Chronic kidney disease stage: on chronic dialysis End stage renal disease on dialysis N18.6; Z99.2
--- NOTE | 2023-03-31 12:15 | P.TS_ITS ---
Transfer Summary Providers Date of Admission: 03/26/23 11:50 Date of Discharge/Transfer: 03/31/23 Attending Provider at Admission: Eugene Restrepo MD Attending Provider at Transfer: Eugene Restrepo MD Consults: Telemetry nephrology Cardiology: Dr. Palomino Primary Care Provider: Lisa Mayberry DO Transfer Plans: Anticipated date of transfer: 03/31/23 . Receiving Facility: [facility] . Receiving Provider: Dr. Zepeda . 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 Qualified Code(s): I25.110 - Atherosclerotic heart disease of [place] coronary artery with unstable angina pectoris (2) Benign essential hypertension with target blood pressure below 140/90: Status: Acute (3) Carotid artery stenosis, asymptomatic: Status: Acute Qualifiers: Laterality: bilateral Qualified Code(s): I65.23 - Occlusion and stenosis of bilateral carotid arteries (4) Peripheral arterial occlusive disease: Status: Acute (5) Dyslipidemia: Status: Acute (6) Diabetes: Status: Acute Qualifiers: Chronic kidney disease stage: on chronic dialysis Diabetes mellitus complication detail: with chronic kidney disease Diabetes mellitus complication status: with kidney complications Diabetes mellitus shelter insulin use: without shelter use Diabetes mellitus type: type 2 Qualified Code(s): E11.22 - Type 2 diabetes mellitus with diabetic chronic kidney disease; N18.6 - End stage renal disease; Z99.2 - Dependence on renal dialysis (7) End stage renal disease on dialysis: Status: Acute Reason for Visit Reason for Visit high hr, low oxygen Brief History: Kristan Reddy is a 52 year old female with past medical history of CABG, recent non-ST elevation AK with recent PCI to LAD in February 2023, end-stage renal disease on hemodialysis, hypertension, peripheral vascular disease, diastolic heart failure with EF of 50 to 55%, moderate aortic valve stenosis, type 2 diabetes mellitus presents to the ER today because of difficulty in breathing which has been getting worse since last night along with episodes of nausea. Patient also complaining of diarrhea was started last night. Patient is supposed to go for dialysis today but could not go because she presented to the ER. Shortness of breath get worse on laying down not aggravated by talking or walking. On presentation to the ER patient was extremely short of breath requiring oxime mask up to 15 L which were later transitioned down to 3 L. She was found to have hyperkalemia with potassium of 7.3 for which she received D50/10 unit of insulin, albuterol treatment, Kayexalate, calcium gluconate. Patient was admitted to the ICU for need of dialysis and congestive heart failure and hyperkalemia Hospital Course Hospital Course Patient was admitted to the hospital further evaluation and management of congestive heart failure, hyperkalemia and on admission she was also found to have non-ST elevation AK. Telemetry nephrology was consulted and she underwent emergent dialysis after which symptoms of congestive heart failure and hyperkalemia resolved. Patient was found to have elevated troponins with positive delta. She was started on conservative treatment with heparin drip along with dual antiplatelet therapy. She underwent echocardiogram which showed EF of 45% with dilated LA. Patient was awaiting cardiac stress test but she had further chest pain with worsening of troponins for which cardiology was consulted who recommended patient to have cardiac angiogram with vascular backup given her history of retroperitoneal bleed because of difficult access on previous cardiac angiogram back in February 2023. During hospitalization she continued to have on and off chest pain. Multiple hospitals were tried for potential transfer for patient's care. Finally patient was accepted by Dr. Zepeda at [facility]. He has been discharged in hemodynamically stable condition for further management. She is advised to hold off on her losartan on the day of dialysis given her borderline blood pressures postdialysis. Last dialysis on 03/30. Physical Exam Narrative: General: No acute distress, AO x3, chronically sick appearing HEENT: PERRLA, pupils bilaterally equal and reactive Chest: Normal vesicular breath sounds, with occasional rhonchi and fine crackles present up to bilateral mid chest, equal good air entry bilaterally CVS: S1-S2 regular, tachycardia, ejection systolic murmur at aortic area radiating to carotids 2/6 , no gallops, no rubs Abdomen: Soft, nontender, no organomegaly, bowel sounds present Neuro: No focal deficits, no facial deformity, AO x3, power 5/5 in all limbs TS Data Studies Completed and Pending Pending at discharge Category Date Time Status Sestamibi Stress Test Request Routine Exams 03/27/23 15:48 Stop Req Sputum Culture and Gram Stain Stat Lab 03/26/23 16:17 Uncollected Urinalysis Stat Lab 03/26/23 09:57 Uncollected Completed Studies During Hospitalization Category Date Time Status CTA PE [CT angio chest w abd pel w con] Routine Cat Scan 03/26/23 18:20 Completed CXRP [XR chest 1V portable [id number]] Routine Exams 03/27/23 11:26 Completed XR chest 1V portable [id number] Stat Exams 03/26/23 09:57 Completed CV. echo limited [id number] Routine Ultrasound 03/26/23 18:20 Completed Laboratory Last Values WBC 6.15 10^3/uL (3.29-11.43) 03/30/23 04:50 RBC 3.04 10^6/uL (3.85-5.65) L 03/30/23 04:50 Hgb 9.40 g/dL (11.27-16.99) L 03/30/23 04:50 Hct 30.0 % (36-47) L 03/30/23 04:50 MCV 98.7 fl (85-98) H 03/30/23 04:50 MCH 30.9 pg (27-33) 03/30/23 04:50 MCHC 31.3 g/dL (30-55) 03/30/23 04:50 RDW 16.1 % (12.1-15.1) H 03/30/23 04:50 Plt Count 148 10^3/cmm (157-399) L 03/30/23 04:50 MPV 10.5 fL (7.4-10.4) H 03/30/23 04:50 Neut % (Auto) 56.3 % 03/30/23 04:50 Lymph % (Auto) 27.2 % 03/30/23 04:50 Terrell % (Auto) 8.1 % 03/30/23 04:50 Eos % (Auto) 7.6 % 03/30/23 04:50 Baso % (Auto) 0.5 % 03/30/23 04:50 Neut # (Auto) 3.46 10^3/uL (1.8-7.7) 03/30/23 04:50 Lymph # (Auto) 1.7 10^3/uL (0.8-4.8) 03/30/23 04:50 Terrell # (Auto) 0.5 10^3/uL (0.2-0.9) 03/30/23 04:50 Eos # (Auto) 0.5 10^3/uL (0.0-0.8) 03/30/23 04:50 Baso # (Auto) 0.0 10^3/uL (0.0-0.1) 03/30/23 04:50 Nucleated RBC % (auto) 0.5 % 03/30/23 04:50 Nucleated RBCs # 0.0 /100WBC 03/30/23 04:50 APTT 54.1 SECONDS (23.9-36.7) H D 03/28/23 07:22 D-Dimer 0.94 ug/mLFEU (0-0.59) H 03/26/23 16:54 Specimen Type Arterial 03/26/23 10:33 Sample Site Brachial, right 03/26/23 10:33 ABG pH 7.34 (7.35-7.45) L 03/26/23 10:33 ABG pCO2 41.5 mmHg (35-45) 03/26/23 10:33 ABG pO2 81.1 mmHg (80.0-100.0) 03/26/23 10:33 ABG PO2/FiO2 Ratio 0 03/26/23 10:33 ABG HCO3 22.1 mmol/L (22-26) 03/26/23 10:33 ABG O2 Saturation 93.2 03/26/23 10:33 ABG Base Excess -3.5 mmol/L (-2.0-2.0) L 03/26/23 10:33 Henrry Test N/a 03/26/23 10:33 A-a O2 Gradient 12.7 mmHg (5-10) H 03/26/23 10:33 Hematocrit 35.2 % (37-47) L 03/26/23 10:33 Hgb O2 Saturation 92.5 % (95-100) L 03/26/23 10:33 Carboxyhemoglobin 0.2 %THgb (0.4-20.1) L 03/26/23 10:33 Methemoglobin 0.6 % (0.4-1.5) 03/26/23 10:33 Total Hemoglobin 11.5 g/dL (12-16) L 03/26/23 10:33 Sodium 134.0 mmol/L (131-143) 03/26/23 10:33 Potassium 7.3 mmol/L (3.5-5.0) H 03/26/23 10:33 Glucose 306.0 mg/dL (70-115) H 03/26/23 10:33 Ionized Calcium 1.1 mmol/L (1.1-1.4) 03/26/23 10:33 O2 Delivery Device Nc 03/26/23 10:33 O2 Liters/Min 3.0 % 03/26/23 10:33 FiO2 32.0 % 03/26/23 10:33 Radiator Specialist ID [id number] 03/26/23 10:33 Sodium 136 mmol/L (136-145) 03/30/23 04:50 Potassium 4.9 mmol/L (3.5-5.1) 03/30/23 04:50 Chloride 92 mmol/L (98-107) L 03/30/23 04:50 Carbon Dioxide 27 mmol/L (22-29) 03/30/23 04:50 Anion Gap 21.9 (5-19) H 03/30/23 04:50 BUN 51 mg/dL (6-20) H 03/30/23 04:50 Creatinine 8.1 mg/dL (0.5-0.9) H* 03/30/23 04:50 GFR Calculation 5.2 mL/min (90-130) L 03/30/23 04:50 Glucose 123 mg/dL (65-115) H 03/30/23 04:50 POC Glucose 209 mg/dL (70-110) H 03/30/23 16:44 Calculated Osmolality 297 mOsm/kg (285-295) H 03/30/23 04:50 Calcium 9.2 mg/dL (8.5-10.5) 03/30/23 04:50 Phosphorus 7.2 mg/dL (2.5-4.5) H 03/27/23 04:25 Magnesium 2.3 mg/dL (1.7-2.3) 03/27/23 04:25 Total Bilirubin 0.4 mg/dL (0.15-1.2) 03/30/23 04:50 AST 16 U/L (0-32) 03/30/23 04:50 ALT 15 U/L (0-33) 03/30/23 04:50 Alkaline Phosphatase 71 U/L (35-105) 03/30/23 04:50 Troponin T 5th Gen ng/L 507 ng/L (0-10) H* 03/29/23 04:16 Troponin T Baseline 308 ng/L (0-10) H* 03/28/23 02:16 Troponin T 120 Minute 346.4 ng/L (0-10) H 03/28/23 04:18 Delta Troponin T 38.4 ABS# (0-10) H* 03/28/23 04:18 Troponin T Hi Sens 6Hr 342.6 ng/L (0-10) H 03/28/23 07:22 Troponin T Hi Sens 6Hr Delta 34.6 ng/L (0-12) H* 03/28/23 07:22 Total Protein 6.2 g/dL (6.6-8.7) L 03/30/23 04:50 Albumin 3.4 g/dL (3.5-5.2) L 03/30/23 04:50 Globulin 2.8 g/dL (1.3-4.6) 03/30/23 04:50 Coronavirus 229E (PCR) Not detected (NOT DETECT) 03/26/23 10:57 Influenza Type A Ag negative (Negative) 03/26/23 10:57 Influenza Type B Ag negative (Negative) 03/26/23 10:57 SARS-CoV-2 (PCR) Not detected (NOT DETECT) 03/26/23 10:57 Imaging Echo: Radiologist's impression: CONCLUSIONS Diffuse hypokinesia left ventricular ejection fraction of 45%. Mildly increased left atrial size. Thickened aortic and mitral valves. There is no pericardial effusion. Compared to the study from 02/06/2023 there is slight improvement in the LV ejection fraction Dr Yuko Daniel MD [facility] (Electronically Signed) Final Date: 27 March 2023 Recent Clincial Data Last Vital Signs Temp 97.5 F L 03/31/23 11:39 Pulse 88 03/31/23 11:39 Resp 16 03/31/23 11:39 BP 96/80 03/31/23 11:39 Pulse Ox 98 03/31/23 11:39 O2 Del Method Nasal Cannula 03/31/23 11:39 O2 Flow Rate 2 03/31/23 07:40 FiO2 2 03/29/23 16:00 Vital Signs Temp Pulse Resp BP Pulse Ox O2 Del Method O2 Flow Rate 03/31/23 11:39 97.5 F L 88 16 96/80 98 Nasal Cannula 03/31/23 10:49 79 160/56 03/31/23 07:50 87 03/31/23 07:40 83 20 H 100 Nasal Cannula 2 03/31/23 07:14 97.9 F 03/31/23 07:12 84 18 96/61 97 Nasal Cannula 03/31/23 05:56 76 03/31/23 04:00 98.4 F 79 13 114/48 98 Nasal Cannula Intake & Output/Weight 03/29/23 03/30/23 03/31/23 04/01/23 06:59 06:59 06:59 06:59 Intake Total 1200.091 / 9285.980 3731 / 2099 820 / 820 240 / 240 Output Total 0 / 0 3300 / 3300 Balance 1200.091 / 7420.882 8661 / 2099 -2480 / -2480 240 / 240 Weight 80.314 kg 78.471 kg 79.878 kg 79.878 kg Vitals Last Vital Signs Temp 97.5 F L 03/31/23 11:39 Pulse 88 03/31/23 11:39 Resp 16 03/31/23 11:39 BP 96/80 03/31/23 11:39 Pulse Ox 98 03/31/23 11:39 O2 Del Method Nasal Cannula 03/31/23 11:39 O2 Flow Rate 2 03/31/23 07:40 FiO2 2 03/29/23 16:00 TS Medications Medications Acetaminophen (Acetaminophen 325 Mg Tablet) 650 mg PO Q6H PRN PRN Reason: Mild/Mod Pain Or Temp >/= 101 Last Admin: 03/29/23 20:59 Dose: 650 mg Hydrocodone Bitart/Acetaminophen (Hydrocodone-Acetaminophen 5-325 Mg Tablet) 1 tab PO Q8H PRN PRN Reason: pain Last Admin: 03/31/23 08:43 Dose: 1 tab Aspirin (Aspirin 81 Mg Chew Tablet) 81 mg PO DAILY J LUIS Last Admin: 03/31/23 08:34 Dose: 81 mg Atorvastatin Calcium (Atorvastatin 40 Mg Tablet) 80 mg PO DAILY J LUIS Last Admin: 03/31/23 08:35 Dose: 80 mg Bisacodyl (Bisacodyl 5 Mg Tablet) 10 mg PO DAILY PRN; Protocol PRN Reason: Constipation (see protocol) Budesonide (Budesonide 0.5 Mg/2 Ml Neb) 0.5 mg INHALATION BID.RESPIRATORY J LUIS Last Admin: 03/31/23 07:40 Dose: 0.5 mg Buspirone HCl (Buspirone 10 Mg Tablet) 10 mg PO BID [facility] Last Admin: 03/31/23 08:35 Dose: 10 mg Carvedilol (Carvedilol 12.5 Mg Tablet) 12.5 mg PO BID [facility] Last Admin: 03/31/23 08:34 Dose: 12.5 mg Cilostazol (Cilostazol 100 Mg Tablet) 100 mg PO BID [facility] Last Admin: 03/31/23 08:34 Dose: 100 mg Clonidine HCl (Clonidine 0.1 Mg Tablet) 0.1 mg PO PRN PRN PRN Reason: Blood Pressure Clopidogrel Bisulfate (Clopidogrel 75 Mg Tablet) 75 mg PO DAILY [facility] Last Admin: 03/31/23 08:35 Dose: 75 mg Dextrose (Dextrose 50% Syringe 50 Ml) 25 ml IVP ONCE PRN; Protocol PRN Reason: hypoglycemia protocol Dextrose (Dextrose 50% Syringe 50 Ml) 50 ml IVP PRN PRN; Protocol PRN Reason: hypoglycemia protocol Heparin Sodium (Porcine) (Heparin 5,000 Unit/Ml Inj 1 Ml) 5,000 unit SUBCUT Q12H [facility] Last Admin: 03/31/23 10:51 Dose: 5,000 unit Dextrose (D5w) 500 mls @ 0 mls/hr IV ONCE PRN; Protocol PRN Reason: Adult Acute Hypoglycemia Prot Sodium Chloride (Sodium Chloride 0.9%) 1,000 mls @ 0 mls/hr IV .Q0M PRN PRN Reason: hypotension or symptomatic Albumin Human (Albumin) 12.5 gm in 50 mls @ 60 mls/hr IV PRN PRN PRN Reason: Hypotension and/or symptomatic Insulin Glargine (Insulin Glargine 100 Units/1 Ml) 18 unit SUBCUT BID [facility] Last Admin: 03/31/23 08:34 Dose: 18 unit Insulin Human Lispro (Insulin Lispro 100 Unit/1 Ml) 0 unit SUBCUT WM&BEDTIME [facility]; Protocol Last Admin: 03/31/23 08:33 Dose: Not Given Ipratropium [place] (Ipratropium 0.5 Mg/2.5 Ml Neb) 0.5 mg INHALATION BID.RESPIRATORY J LUIS Last Admin: 03/31/23 07:40 Dose: 0.5 mg Lactulose (Lactulose Oral Liq 20 Gm/30 Ml Udc) 10 gm PO DAILY PRN; Protocol PRN Reason: Constipation (see protocol) Levalbuterol HCl (Levalbuterol 0.63 Mg/3 Ml Neb) 0.63 mg INHALATION Q6H.RESP [facility] Last Admin: 03/31/23 07:40 Dose: 0.63 mg Losartan Potassium (Losartan 50 Mg Tablet) 100 mg PO DAILY [facility] Last Admin: 03/30/23 12:02 Dose: 100 mg Magnesium Hydroxide (Magnesium Hydroxide 30 Ml Udc) 30 ml PO DAILY PRN; Protocol PRN Reason: Constipation (see protocol) Nitroglycerin (Nitroglycerin 0.4 Mg Sublingual Tablet) 0.4 mg SUBLINGUAL Q5M PRN PRN Reason: CHEST PAIN Nitroglycerin (Nitroglycerin 0.1 Mg Patch) 1 patch TRANSDERMA Q24H [facility] Last Admin: 03/31/23 10:49 Dose: 1 patch Ondansetron HCl (Ondansetron 2 Mg/Ml Sdv 2 Ml) 4 mg IVP Q8H PRN PRN Reason: vomiting, or N/V if npo Pantoprazole Sodium (Pantoprazole 40 Mg Sdv) 40 mg IVP Q24H [facility] Last Admin: 03/30/23 17:09 Dose: 40 mg Ranolazine (Ranolazine (12hr) 500 Mg Tablet) 500 mg PO BID [facility] Last Admin: 03/31/23 08:35 Dose: 500 mg Trazodone HCl (Trazodone 100 Mg Tablet) 100 mg PO BEDTIME [facility] Last Admin: 03/30/23 21:45 Dose: 100 mg Discontinued Medications Albuterol Sulfate (Albuterol 2.5 Mg/3 Ml Neb) 5 mg INHALATION ONCE ONE Stop: 03/26/23 11:30 Last Admin: 03/26/23 12:54 Dose: 5 mg Albuterol/Ipratropium (Ipratropium-Albuterol 3 Ml Neb) 3 ml INHALATION ONCE ONE Stop: 03/26/23 09:58 Last Admin: 03/26/23 10:10 Dose: 3 ml Amlodipine Besylate (Amlodipine 10 Mg Tablet) 10 mg PO DAILY [facility] Last Admin: 03/27/23 09:06 Dose: Not Given Calcium Gluconate (Calcium Gluconate 0.1 Gm/Ml 10% Sdv 10ml) 1 gm IVP ONCE ONE Stop: 03/26/23 11:30 Last Admin: 03/26/23 11:56 Dose: 1 gm Carvedilol (Carvedilol 3.125 Mg Tablet) 3.125 mg PO ONCE ONE Stop: 03/26/23 10:15 Last Admin: 03/26/23 10:19 Dose: 3.125 mg Dexamethasone (Dexamethasone 10 Mg/Ml Inj) 10 mg IM ONCE ONE Stop: 03/26/23 09:58 Last Admin: 03/26/23 10:18 Dose: 10 mg Epoetin Klaus (Epoetin Klaus 1000 Unit/0.05 Ml (Esrd)) 20,000 unit IVP NOW ONE Stop: 03/26/23 16:31 Last Admin: 03/26/23 18:59 Dose: 20,000 unit Epoetin Klaus (Epoetin Klaus 1000 Unit/0.05 Ml (Esrd)) 20,000 unit IVP NOW ONE Stop: 03/28/23 10:01 Last Admin: 03/28/23 14:07 Dose: 20,000 unit Epoetin Klaus (Epoetin Klaus 1000 Unit/0.05 Ml (Esrd)) 20,000 unit IVP NOW ONE Stop: 03/28/23 14:01 Last Admin: 03/28/23 17:48 Dose: Not Given Heparin Sodium (Porcine) (Heparin 5,000 Unit/Ml Inj 1 Ml) 0 unit IV PRN PRN; Protocol PRN Reason: Heparin weight-base protocol Last Admin: 03/28/23 12:23 Dose: 5,200 unit Heparin Sodium (Porcine) (Heparin, Porcine 1,000 Unit/Ml Inj 10 Ml) 10,000 unit INTRACATH ONCE ONE Stop: 03/26/23 16:10 Last Admin: 03/26/23 18:59 Dose: 10,000 unit Heparin Sodium (Porcine) (Heparin, Porcine 1,000 Unit/Ml Inj 10 Ml) 1,000 unit IV ONCE ONE Stop: 03/26/23 16:10 Last Admin: 03/26/23 18:59 Dose: Not Given Heparin Sodium (Porcine) (Heparin, Porcine 1,000 Unit/Ml Inj 10 Ml) 10,000 unit INTRACATH ONCE ONE Stop: 03/28/23 10:01 Last Admin: 03/28/23 17:31 Dose: Not Given Heparin Sodium (Porcine) (Heparin, Porcine 1,000 Unit/Ml Inj 10 Ml) 1,000 unit IV ONCE ONE Stop: 03/28/23 10:01 Last Admin: 03/28/23 17:57 Dose: Not Given Heparin Sodium (Porcine) (Heparin, Porcine 1,000 Unit/Ml Inj 10 Ml) 10,000 unit INTRACATH ONCE ONE Stop: 03/28/23 17:46 Last Admin: 03/28/23 17:50 Dose: 10,000 unit Heparin Sodium (Porcine) (Heparin, Porcine 1,000 Unit/Ml Inj 10 Ml) 1,000 unit IV ONCE ONE Stop: 03/28/23 17:46 Last Admin: 03/28/23 17:51 Dose: 1,000 unit Heparin Sodium (Porcine) (Heparin, Porcine 1,000 Unit/Ml Inj 10 Ml) 10,000 unit INTRACATH ONCE ONE Stop: 03/30/23 09:38 Last Admin: 03/30/23 11:58 Dose: Not Given Heparin Sodium (Porcine) (Heparin, Porcine 1,000 Unit/Ml Inj 10 Ml) 1,000 unit IV ONCE ONE Stop: 03/30/23 09:38 Last Admin: 03/30/23 11:58 Dose: Not Given Hydromorphone HCl (Hydromorphone 1 Mg/Ml Inj 1 Ml) 0.5 mg IVP Q4H PRN PRN Reason: PAIN Last Admin: 03/29/23 03:06 Dose: 0.5 mg Heparin Sodium/Sodium Chloride (Heparin Drip) 25,000 unit in 500 mls @ 0 mls/hr IV .Q0M [facility]; Protocol Last Titration: 03/28/23 15:39 Dose: Infused Sodium Chloride (Sodium Chloride 0.9%) 1,000 mls @ 0 mls/hr IV .Q0M PRN PRN Reason: hypotension or symptomatic Albumin Human (Albumin) 12.5 gm in 50 mls @ 60 mls/hr IV PRN PRN PRN Reason: Hypotension and/or symptomatic Sodium Chloride (Sodium Chloride 0.9%) 1,000 mls @ 0 mls/hr IV .Q0M PRN PRN Reason: hypotension or symptomatic Albumin Human (Albumin) 12.5 gm in 50 mls @ 60 mls/hr IV PRN PRN PRN Reason: Hypotension and/or symptomatic Nitroglycerin/Dextrose (Nitroglycerin Drip) 50 mg in 250 mls @ 0 mls/hr IV .Q0M [facility]; Protocol Last Titration: 03/28/23 18:30 Dose: Infused Insulin Human Lispro (Insulin Lispro 100 Unit/1 Ml) 0 unit SUBCUT WM&BEDTIME [facility]; Protocol Last Admin: 03/30/23 12:04 Dose: Not Given Insulin Human Regular (Insulin Regular-Human 100 Units/1 Ml) 10 unit IVP ONCE ONE Stop: 03/26/23 11:30 Last Admin: 03/26/23 12:10 Dose: 10 unit Iohexol (Iohexol 350 Mg/Ml 500 Ml Btl (Per Ml)) 0 ml IV ONCE ONE Stop: 03/27/23 14:36 Last Admin: 03/27/23 14:35 Dose: 100 ml Ipratropium [place] (Ipratropium 0.5 Mg/2.5 Ml Neb) 0.5 mg INHALATION Q6H.RESP [facility] Last Admin: 03/30/23 19:48 Dose: 0.5 mg Isosorbide Mononitrate (Isosorbide Mononitrate Er 60 Mg Tablet) 60 mg PO DAILY [facility] Last Admin: 03/27/23 17:27 Dose: Not Given Levalbuterol HCl (Levalbuterol 0.63 Mg/3 Ml Neb) 0.63 mg INHALATION Q6H.RESP [facility] Last Admin: 03/30/23 19:48 Dose: 0.63 mg Metoprolol Tartrate (Metoprolol Tartrate 1 Mg/1 Ml Sdv 5 Ml) 2.5 mg IVP ONCE ONE Stop: 03/26/23 10:15 Last Admin: 03/26/23 10:18 Dose: 2.5 mg Nitroglycerin (Nitroglycerin 1 Gm/Inch Oint Pkt) 0.5 inch TOPICAL ONCE ONE Stop: 03/26/23 15:46 Last Admin: 03/26/23 16:03 Dose: 0.5 inch Nitroglycerin (Nitroglycerin 0.1 Mg Patch) 1 patch TRANSDERMA Q24H [facility] Last Admin: 03/26/23 19:00 Dose: 1 patch Nitroglycerin (Nitroglycerin 0.4 Mg Sublingual Tablet) 0.4 mg SUBLINGUAL ONCE ONE Stop: 03/28/23 02:00 Last Admin: 03/28/23 02:20 Dose: 0.4 mg Sodium Bicarbonate (Sodium Bicarbonate 8.4% 1 Meq/Ml 50ml Syr) 100 meq IVP ONCE ONE Stop: 03/26/23 11:30 Last Admin: 03/26/23 12:00 Dose: 100 meq Sodium Bicarbonate (Sodium Bicarbonate 8.4% 1 Meq/Ml 50ml Syr) 50 meq IVP ONCE ONE Stop: 03/29/23 12:51 Last Admin: 03/29/23 13:57 Dose: Not Given Sodium Bicarbonate (Sodium Bicarbonate 1 Meq/Ml Sdv 50ml) 50 meq IVP ONCE ONE Stop: 03/29/23 13:01 Last Admin: 03/29/23 13:34 Dose: 50 meq Sodium Polystyrene Sulfonate (Sodium Polystyrene Sulfonate 15 Gm/60 Ml Btl) 15 gm PO ONCE ONE Stop: 03/26/23 11:30 Last Admin: 03/26/23 12:08 Dose: 15 gm Sodium Polystyrene Sulfonate (Sodium Polystyrene Sulfonate 15 Gm/60 Ml Btl) 30 gm PO ONCE ONE Stop: 03/29/23 12:50 Last Admin: 03/29/23 13:34 Dose: 30 gm Allergies cephalexin Allergy (Verified 03/26/23 10:11) ADR-Vomiting morphine Allergy (Verified 03/26/23 10:11) ADR-Itching Penicillins Allergy (Verified 03/26/23 10:11) ALGY-Anaphylaxis isosorbide mononitrate Adverse Reaction (Severe, Uncoded 03/26/23 10:11) ADR-Shakiness slurred speech, tremor, confusion Home Medications clonidine HCl 0.1 mg tablet 0.1 mg PO PRN PRN Blood Pressure 07/12/20 [History Confirmed 03/26/23] losartan 100 mg tablet (Cozaar) 100 mg PO DAILY 07/12/20 [History Confirmed 03/06 04/28] aspirin 81 mg chewable tablet (Aspirin Childrens) 81 mg PO DAILY 06/19/22 [History Confirmed 03/26/23] atorvastatin 80 mg tablet 80 mg PO DAILY 06/19/22 [History Confirmed 03/26/23] blood-glucose meter,continuous (Dexcom G6 Humidifier Maintenance Worker) #1 ea 07/19/22 [Rx Confirmed 03/27/23] blood-glucose sensor (Dexcom G6 Sensor device) #9 ea 07/19/22 [Rx Confirmed 03/27/23] blood-glucose transmitter (Dexcom G6 Transmitter device) #2 ea 07/19/22 [Rx Confirmed 03/27/23] cilostazol 100 mg tablet 100 mg PO BID #120 tabs 08/22/22 [Rx Confirmed 03/26/23] pantoprazole 40 mg tablet,delayed release 40 mg PO DAILY 09/20/22 [History Confirmed 03/26/23] trazodone 100 mg tablet 100 mg PO BEDTIME 09/20/22 [History Confirmed 03/26/23] blood sugar diagnostic (True Metrix Glucose Test Strip) #200 ea 11/09/22 [Rx Confirmed 03/27/23] pen needle, diabetic 31 gauge x 3/16 (BD Ultra-Fine Mini Pen Needle) #1,200 ea 11/21/22 [Rx Confirmed 03/27/23] buspirone 10 mg tablet 10 mg PO BID 12/27/22 [History Confirmed 03/26/23] ranolazine 500 mg tablet,extended release,12 hr 500 mg PO BID #60 tabs 12/28/22 [Rx Confirmed 03/26/23] carvedilol 12.5 mg tablet 12.5 mg PO BID 02/06/23 [History Confirmed 03/26/23] insulin aspart U-100 100 unit/mL (3 mL) subcutaneous pen (Novolog FlexPen U-100 Insulin aspart) See Rx Instructions .Route .COMPLEX 02/06/23 [History Confirmed 03/26/23] lanthanum 1,000 mg oral powder packet (Fosrenol) See Rx Instructions .Route .COMPLEX 02/06/23 [History Confirmed 03/26/23] lidocaine-prilocaine 2.5 %-2.5 % topical cream See Rx Instructions .Route .COMPLEX PRN 3x week for dialysis 02/06/23 [History Confirmed 03/26/23] nitroglycerin 0.4 mg sublingual tablet (Nitrostat) 0.4 mg sublingual Q5M PRN Chest Pain 02/06/23 [History Confirmed 03/26/23] ondansetron HCl 4 mg tablet 4 mg PO Q4H PRN Nausea And Vomiting 02/06/23 [History Confirmed 03/26/23] propranolol 10 mg tablet 10 mg PO BID 02/06/23 [History Confirmed 03/26/23] sevelamer carbonate 800 mg tablet See Rx Instructions .Route .COMPLEX 02/06/23 [History Confirmed 03/26/23] vitamin B complex and vitamin C no.20-folic acid 1 mg capsule (Triphrocaps) 1 cap PO DAILY 02/06/23 [History Confirmed 03/26/23] clopidogrel 75 mg tablet 75 mg PO DAILY #90 tabs 02/21/23 [Rx Confirmed 03/26/23] lactulose 10 gram/15 mL (15 mL) oral solution 10 g PO DAILY 02/21/23 [History Confirmed 03/26/23] insulin detemir U-100 100 unit/mL (3 mL) subcutaneous pen (Levemir FlexPen) 18 unit SUBCUT BID 03/26/23 [History Confirmed 03/26/23] Discharge Plan Discharge Patient Disposition: Home Condition: Stable Prescriptions: No Action atorvastatin 80 mg tablet 80 mg PO DAILY aspirin [Aspirin Childrens] 81 mg tablet,chewable 81 mg PO DAILY (DME) pen needle, diabetic [BD Ultra-Fine Mini Pen Needle] 31 gauge x 3/16 needle See Rx Instructions .Route Qty: 1200 0RF Rx Instructions: As directed cilostazol 100 mg tablet 100 mg PO BID Qty: 120 0RF clopidogrel 75 mg tablet 75 mg PO DAILY Qty: 90 3RF lactulose 10 gram/15 mL (15 mL) solution 10 g PO DAILY (DME) Dexcom G6 Humidifier Maintenance Worker Misc See Rx Instructions .ROUTE .MEDSUPPLY Qty: 1 2RF Rx Instructions: Change once every year (DME) Dexcom G6 Sensor Device See Rx Instructions .ROUTE .MEDSUPPLY Qty: 9 2RF Rx Instructions: change every 10 days (DME) Dexcom G6 Transmitter Device See Rx Instructions .ROUTE .MEDSUPPLY Qty: 2 2RF Rx Instructions: change every 90 days (DME) True Metrix Glucose Test Strip Strip See Rx Instructions .Route Qty: 200 0RF Rx Instructions: check up two times daily losartan [Cozaar] 100 mg tablet 100 mg PO DAILY clonidine HCl 0.1 mg tablet 0.1 mg PO PRN PRN (Reason: Blood Pressure) ondansetron HCl 4 mg tablet 4 mg PO Q4H PRN (Reason: Nausea And Vomiting) nitroglycerin [Nitrostat] 0.4 mg Tablet, Sublingual 0.4 mg SUBLINGUAL Q5M PRN (Reason: Chest Pain) Rx Instructions: do not exceed 3 doses per episode Triphrocaps 1 mg capsule 1 cap PO DAILY sevelamer carbonate 800 mg tablet See Rx Instructions .ROUTE .COMPLEX Rx Instructions: TAKE 4 TABLETS (3,200 MG) AT EACH MEAL THREE TIMES DAILY AND 2 TABS (1,600 MG)WITH A SNACK TWICE DAILY Fosrenol 1,000 mg powder in packet See Rx Instructions .ROUTE .COMPLEX Rx Instructions: MIX 2 PACKETS WITH SMALL AMOUNT OF APPLESAUCE OR SIMILAR FOOD. EAT IMMEDIATELY 3 TIMES/DAY WITH MEALS carvedilol 12.5 mg tablet 12.5 mg PO BID insulin aspart U-100 [Novolog FlexPen U-100 Insulin] 100 unit/mL (3 mL) insulin pen See Rx Instructions .ROUTE .COMPLEX Rx Instructions: SLIDING SCALE TID WITH MEALS lidocaine-prilocaine 2.5-2.5 % cream See Rx Instructions .ROUTE .COMPLEX PRN (Reason: 3x week for dialysis ) Rx Instructions: APPLY SMALL AMOUNT TO ACCESS ONE HOUR BEFORE DIALYSIS AND COVER WITH OCCLUSIVE DRESSING propranolol 10 mg tablet 10 mg PO BID Levemir FlexPen 100 unit/mL (3 mL) insulin pen 18 unit SUBCUT BID trazodone 100 mg tablet 100 mg PO BEDTIME pantoprazole 40 mg tablet,delayed release (DR/EC) 40 mg PO DAILY buspirone 10 mg tablet 10 mg PO BID ranolazine 500 mg tablet extended release 12 hr 500 mg PO BID Qty: 60 4RF Discharge Orders: Transfer Out of Facility (Order); Ordered 03/31/23 Ordered By: Eugene Restrepo Referrals: Lisa Mayberry DO [Primary Care Provider] - Patient Instructions: Opioid Safety Transfer Attestations Time Spent in Transfer Care: greater than 30 min Specific Discharge Activities: educating patient, educating and/or supporting family/caregiver, discussing with pcp/other providers, discussing with case therapist/social workers/dc planners, documenting/other paperwork and evaluating patient/reviewing data Status at Transfer: Cognitive status at transfer: cognitively intact ; Behavioral status at transfer: cooperative ; Functional status at transfer: uses cane/walker ; Overall status at transfer: patient is not back to baseline Quality Metrics Clinical Quality Measures [ No reported AMI, CVA or VTE this stay] Coding Level of Care Code 90872 Total time (in minutes) for Discharge: 60 Diagnoses Atherosclerosis of [place] coronary artery of [place] heart with unstable angina pectoris I25.110 [place] vs. transplanted heart: [place] heart Benign essential hypertension with target blood pressure below 140/90 I10 Asymptomatic bilateral carotid artery stenosis I65.23 Laterality: bilateral Peripheral arterial occlusive disease I77.9 Dyslipidemia E78.5 Type 2 diabetes mellitus with chronic kidney disease on chronic dialysis, without long-term current use of insulin E11.22; N18.6; Z99.2 Chronic kidney disease stage: on chronic dialysis Diabetes mellitus complication detail: with chronic kidney disease Diabetes mellitus complication status: with kidney complications Diabetes mellitus shelter insulin use: without inside sales assistant use Diabetes mellitus type: type 2 End stage renal disease on dialysis N18.6; Z99.2
--- NOTE | 2023-03-31 12:34 | PC.NURSE ---
[facility]iera accepted patient and called with a bed at 1103. Patient will be going to [facility]. Called and gave report to CARLOTTA Blackwell at 1233. [facility] called= awaiting their response for time frame when they will pick patient up.
== END 2023-03-31 13:03 | disposition short-term general hospital (02) | DRG 280 ==
LOC: ER 10:16 → ICU 12:07 → CSU 03-27 19:18
PROVIDERS: Family Medicine; Admitting Provider Student in an Organized Health Care Education/Training Program; Emergency Provider Family Medicine; PCP Family Medicine; Visit Provider Student in an Organized Health Care Education/Training Program
DX: I21.4 Non-ST elevation (NSTEMI) myocardial infarction (principal); I50.33 Acute on chronic diastolic (congestive) heart failure; N18.6 End stage renal disease; M62.82 Rhabdomyolysis; N17.9 Acute kidney failure, unspecified; I13.2 Hypertensive heart and chronic kidney disease with heart failure and with stage 5 chronic kidney disease, or end stage renal disease; J96.11 Chronic respiratory failure with hypoxia; I16.1 Hypertensive emergency; E87.20 Acidosis, unspecified; E87.5 Hyperkalemia; J44.9 Chronic obstructive pulmonary disease, unspecified; E11.22 Type 2 diabetes mellitus with diabetic chronic kidney disease; I35.1 Nonrheumatic aortic (valve) insufficiency; I25.110 Atherosclerotic heart disease of native coronary artery with unstable angina pectoris; E78.5 Hyperlipidemia, unspecified; E66.9 Obesity, unspecified; E11.51 Type 2 diabetes mellitus with diabetic peripheral angiopathy without gangrene; F31.9 Bipolar disorder, unspecified; K43.2 Incisional hernia without obstruction or gangrene; I65.23 Occlusion and stenosis of bilateral carotid arteries; R19.7 Diarrhea, unspecified; I27.20 Pulmonary hypertension, unspecified; Z11.52 Encounter for screening for COVID-19; Z99.2 Dependence on renal dialysis; Z99.81 Dependence on supplemental oxygen; Z95.1 Presence of aortocoronary bypass graft; Z95.5 Presence of coronary angioplasty implant and graft; Z68.38 Body mass index [BMI] 38.0-38.9, adult; Z95.820 Peripheral vascular angioplasty status with implants and grafts; Z87.891 Personal history of nicotine dependence; I25.2 Old myocardial infarction; Z79.82 Long term (current) use of aspirin; Z79.4 Long term (current) use of insulin; Z79.02 Long term (current) use of antithrombotics/antiplatelets
CPT/HCPCS: 36415; 36416; 36573; 36592; 36600; 71045; 71275; 74177; 80051; 80053; 82330; 82805; 82962; 83735; 84100; 84484; 85025; 85378; 85730; 87635; 87804; 90935; 93005; 93308; 94640; 94664; 96372; 96374; 96375; 96376; 99285; C1751; C9113; J0612; J1100; J1170; J1644; J1815; J3490; J7613; J7614; J7626; J7644; Q3014; Q4081; Q9967

== ENCOUNTER 2023-04-06 12:17 | Outpatient (CLI) | payer MEDICARE, MEDICAID, SELFPAY ==
[2023-04-06 13:08] LABS: Alanine Aminotransferase 15 U/L (0-33); Albumin Level 4.3 g/dL (3.5-5.2); Alkaline Phosphatase 82 U/L (35-105); Anion Gap 18.1 (5-19); Aspartate Amino Transferase 17 U/L (0-32); Blood Urea Nitrogen 15 mg/dL (6-20); Calcium 9.8 mg/dL (8.5-10.5); Carbon Dioxide 30 mmol/L (22-29); Chloride 91 mmol/L (98-107); Chol HDL Ratio 2.05 mg/dL (0.0-4.40); Cholesterol 131 mg/dL (0-200); Globulin 3.2 g/dL (1.3-4.6); Glucose 140 mg/dL (65-115); HDL Cholesterol 64 mg/dL (60-100); LDL Cholesterol Calculated 39 mg/dL (50-129); LDL HDL Ratio 0.61 RATIO (0.00-3.22); Osmolality Calculated 283 mOsm/kg (285-295); Potassium 4.1 mmol/L (3.5-5.1); Sodium 135 mmol/L (136-145); Total Bilirubin 0.4 mg/dL (0.15-1.2); Total Protein 7.5 g/dL (6.6-8.7); Triglycerides 142 mg/dL (0-150)
[2023-04-06 13:12] LABS: Estmated Average Glucose 123; Hemoglobin A1C 5.9 % (4.0-6.0)
== END 2023-04-06 12:18 | disposition home or self-care (01) ==
LOC: LAB 12:18
PROVIDERS: PCP Family Medicine; Visit Provider Internal Medicine
DX: E11.9 Type 2 diabetes mellitus without complications (principal); E78.5 Hyperlipidemia, unspecified; E66.9 Obesity, unspecified
CPT/HCPCS: 36415; 80053; 80061; 83036

== ENCOUNTER → 2023-04-11 08:56 | Outpatient (BNVA) | payer MEDICARE, MEDICAID, SELFPAY | PROVIDERS: PCP Family Medicine; Visit Provider Internal Medicine | DX: E11.22 Type 2 diabetes mellitus with diabetic chronic kidney disease (principal); N18.6 End stage renal disease; Z99.2 Dependence on renal dialysis; E78.5 Hyperlipidemia, unspecified; Z79.4 Long term (current) use of insulin | CPT/HCPCS: 99214 ==